=== PATIENT | female | born 1955 | race Caucasian/White ===

== ENCOUNTER 2016-08-10 14:35 | Outpatient (RCR) | payer BC, OTHER ==
[2016-07-10 14:35] LABS: BASOPHILS % (AUTO) 1 % (0-10); EOSINOPHILS # (AUTO) 0.1 10^3/uL (0.0-0.3); EOSINOPHILS % (AUTO) 2 % (0-10); LYMPHOCYTES # (AUTO) 1.4 X 10^3 (1.0-4.0); LYMPHOCYTES % (AUTO) 22 % (12-44); MEAN CORPUSCULAR HEMOGLOBIN 31 PG (25-34); MEAN CORPUSCULAR HGB CONC 33 G/DL (32-36); MEAN CORPUSCULAR VOLUME 96 FL (80-99); MEAN PLATELET VOLUME 11.1 FL (7.4-10.4); MONOCYTES # (AUTO) 0.5 X 10^3 (0.0-1.0); MONOCYTES % (AUTO) 7 % (0-12); NEUTROPHILS # (AUTO) 4.5 X 10^3 (1.8-7.8); NEUTROPHILS % (AUTO) 69 % (42-75); PLATELET COUNT 79 10^3/uL (130-400); RED BLOOD COUNT 6.03 10^6/uL (4.35-5.85); RED CELL DISTRIBUTION WIDTH 14.2 % (10.0-14.5); WHITE BLOOD COUNT 6.5 10^3/uL (4.3-11.0)
[2016-07-10 14:45] LABS: PEP REPORT SEE PATH REPORT
[2016-07-10 15:15] LABS: ERYTHROCYTE SEDIMENTATION RATE 1 MM/HR (0-30)
[2016-07-10 15:16] LABS: ALANINE AMINOTRANSFERASE 20 U/L (0-55); ALBUMIN 4.6 G/DL (3.2-4.5); ANION GAP 12 MMOL/L (5-14); ASPARTATE AMINO TRANSFERASE 19 U/L (5-34); BILIRUBIN,TOTAL 1.2 MG/DL (0.1-1.0); BLOOD UREA NITROGEN 13 MG/DL (7-18); BUN/CREATININE RATIO 19; CALCIUM 9.8 MG/DL (8.5-10.1); CARBON DIOXIDE 29 MMOL/L (21-32); CHLORIDE 101 MMOL/L (98-107); GFR ESTIMATED > 60; GLUCOSE 116 MG/DL (70-105); POTASSIUM 4.2 MMOL/L (3.6-5.0); SODIUM 142 MMOL/L (135-145); TOTAL PROTEIN 7.2 G/DL (6.4-8.2)
[2016-07-11 02:45] LABS: LIGHT CHAIN KAPPA SERUM QUANT 16.18 mg/L (3.30-19.40); LIGHT CHAIN LAMBDA SERUM QUANT 12.66 mg/L (5.71-26.30)
[2016-07-12 15:05] LABS: CLIN PATHOLOGY REPORT FOOTNOTE
[2016-07-12 15:06] LABS: SERUM PROTEIN ELEC DETAIL L-16-0014197
[2016-07-17 11:51] LABS: JAK2 MUTATION Not Detected
[2016-07-19 14:32] LABS: BASOPHILS % (AUTO) 1 % (0-10); EOSINOPHILS # (AUTO) 0.2 10^3/uL (0.0-0.3); EOSINOPHILS % (AUTO) 3 % (0-10); LYMPHOCYTES # (AUTO) 1.7 X 10^3 (1.0-4.0); LYMPHOCYTES % (AUTO) 26 % (12-44); MEAN CORPUSCULAR HEMOGLOBIN 31 PG (25-34); MEAN CORPUSCULAR HGB CONC 32 G/DL (32-36); MEAN CORPUSCULAR VOLUME 96 FL (80-99); MEAN PLATELET VOLUME 12.3 FL (7.4-10.4); MONOCYTES # (AUTO) 0.4 X 10^3 (0.0-1.0); MONOCYTES % (AUTO) 7 % (0-12); NEUTROPHILS % (AUTO) 64 % (42-75); PLATELET COUNT 91 10^3/uL (130-400); RED BLOOD COUNT 5.86 10^6/uL (4.35-5.85); RED CELL DISTRIBUTION WIDTH 14.2 % (10.0-14.5); WHITE BLOOD COUNT 6.3 10^3/uL (4.3-11.0)
[2016-07-19 15:04] LABS: ALANINE AMINOTRANSFERASE 15 U/L (0-55); ALBUMIN 4.2 G/DL (3.2-4.5); ANION GAP 8 MMOL/L (5-14); ASPARTATE AMINO TRANSFERASE 17 U/L (5-34); BILIRUBIN,TOTAL 0.9 MG/DL (0.1-1.0); BLOOD UREA NITROGEN 16 MG/DL (7-18); BUN/CREATININE RATIO 24; CALCIUM 9.8 MG/DL (8.5-10.1); CARBON DIOXIDE 31 MMOL/L (21-32); CHLORIDE 104 MMOL/L (98-107); CREATININE SERUM 0.68 MG/DL (0.60-1.30); GFR ESTIMATED > 60; GLUCOSE 114 MG/DL (70-105); POTASSIUM 4.4 MMOL/L (3.6-5.0); SODIUM 143 MMOL/L (135-145); TOTAL PROTEIN 6.6 G/DL (6.4-8.2)
[~2016-08-10 14:35] MED LIST: ACYC400T PO; ATEN-156 PO; ATOR10TA PO; DIAZ2TAB2 PO; FAMO20TA3 PO
[2016-08-10 14:57] LABS: BASOPHILS % (AUTO) 1 % (0-10); EOSINOPHILS # (AUTO) 0.2 10^3/uL (0.0-0.3); EOSINOPHILS % (AUTO) 3 % (0-10); LYMPHOCYTES # (AUTO) 1.6 X 10^3 (1.0-4.0); LYMPHOCYTES % (AUTO) 24 % (12-44); MEAN CORPUSCULAR HEMOGLOBIN 31 PG (25-34); MEAN CORPUSCULAR HGB CONC 33 G/DL (32-36); MEAN CORPUSCULAR VOLUME 95 FL (80-99); MONOCYTES # (AUTO) 0.5 X 10^3 (0.0-1.0); MONOCYTES % (AUTO) 8 % (0-12); NEUTROPHILS # (AUTO) 4.1 X 10^3 (1.8-7.8); NEUTROPHILS % (AUTO) 64 % (42-75); PLATELET COUNT 94 10^3/uL (130-400); RED BLOOD COUNT 5.92 10^6/uL (4.35-5.85); WHITE BLOOD COUNT 6.4 10^3/uL (4.3-11.0)
[2016-08-10 15:32] LABS: ALANINE AMINOTRANSFERASE 16 U/L (0-55); ALBUMIN 4.5 G/DL (3.2-4.5); ANION GAP 11 MMOL/L (5-14); ASPARTATE AMINO TRANSFERASE 18 U/L (5-34); BLOOD UREA NITROGEN 14 MG/DL (7-18); BUN/CREATININE RATIO 21; CALCIUM 9.9 MG/DL (8.5-10.1); CARBON DIOXIDE 29 MMOL/L (21-32); CHLORIDE 102 MMOL/L (98-107); CREATININE SERUM 0.67 MG/DL (0.60-1.30); GFR ESTIMATED > 60; GLUCOSE 89 MG/DL (70-105); POTASSIUM 4.9 MMOL/L (3.6-5.0); SODIUM 142 MMOL/L (135-145); TOTAL PROTEIN 7.4 G/DL (6.4-8.2)
== END 2016-10-08 | disposition home or self-care (01) ==
LOC: ONC 14:35
PROVIDERS: ATTEND Internal Medicine Hematology & Oncology
DX: D69.6 Thrombocytopenia, unspecified (principal); D75.1 Secondary polycythemia; R09.02 Hypoxemia; R51 Headache; I10 Essential (primary) hypertension; F17.210 Nicotine dependence, cigarettes, uncomplicated
CPT/HCPCS: 36415; 80053; 81270; 82668; 83883; 84155; 84165; 85025; 85652; 99213; 99214

== ENCOUNTER → 2016-09-05 | Outpatient (CLI) | payer BC ==
--- OUTSIDE RECORDS SUMMARY | 2016-09-05 10:43 | XMS REPORT | Continuity of Care Document ---
Author Author [facility] Organization [facility] Address Unknown Phone Unavailable Care Team Providers Care Chemical Radiation Technician Name Role Phone CHIRAG VALENCIA MD PCP Insurance Providers Payer Name Policy Number Subscriber Name Relationship [facility] [id number] Valdemar Higgins D 01 Advance Directives Directive Response Recorded Date/Time Advance Directives No 07/31/16 7:09am Health Care Power of Professional Housing Consultant No 07/31/16 7:09am Organ Donor No 07/31/16 7:09am Resuscitation Status Full Code 07/31/16 7:09am Problems No problem information available. Medications Current Home Medications Medication Dose Units Route Directions Days/Qty Instructions Start Date Atenolol 50 Mg 50 Mg Oral Daily 07/31/16 Acyclovir 400 Mg 400 Mg Oral Daily 07/31/16 Famotidine 20 Mg Oral Twice A Day 07/31/16 Diazepam 2 Mg 2 Mg Oral Daily 07/31/16 Atorvastatin Calcium 10 Mg 10 Mg Oral Daily 90 Days 07/31/16 Social History Social History Problem Response Recorded Date/Time Recent Foreign Travel No 07/31/2016 7:09am Recent Infectious Disease Exposure No 07/31/2016 7:09am Smoking Status Current Everyday Smoker 07/31/2016 7:32am Type Used Cigarettes 07/31/2016 5:23pm Query Response Start Date Stop Date Smoking Status Current Everyday Smoker Hospital Discharge Instructions Patient Instructions Physician Instructions Follow Up/Plan Follow up with Dr Maldonado in one week CARDIAC CATH DISCHARGE INSTRUCTIONS *Hold Metformin for 48 hours post heart cath. ACTIVITY * Go Home directly and rest. * Limit activity of the leg (or wrist if it was used) for 7 days including aerobics, swimming, jogging, bicycling, etc. * Restrict stair-climbing for 7 days if possible, if not, climb up with your non-cath leg, then bring together on the same step. * Avoid lifting, pushing, pulling or excessive movement of the affected extremity for 7 days. * Customary sexual activity may be resumed after 2 days-use caution not to use a position that strains or causes pain to the affected extremity. * No driving for 24 hours. * NO SMOKING. * Avoid straining for bowel movements for 7 days. * Gentle walking on level ground is allowed. * Returning to work will depend on the type of procedure and the results. Your doctor will discuss this with you. CALL YOUR DOCTOR FOR ANY OF THE FOLLOWING: *If bleeding from the puncture site occurs- Apply gentle pressure to site with clean cloth and call your doctor or EMS. * If a knot or lump forms under the skin, increases in size, or causes pain. * If bruising appears to be worsening or moving further down your leg instead of disappearing. * Temperature above 101 F. CARE OF YOUR GROIN INCISION; * Bruising or purple discoloration of the skin near the puncture site is common. * You may shower only, no bathtub bathing for 5 days. Be careful to avoid slipping as your leg may feel stiff. * If a closure device was used on your femoral artery, please see the attached guide regarding care of the device and your leg. * REMOVE the dressing from your groin the next day after your procedure in the shower. CARE OF YOUR WRIST INCISION; * Bruising or purple discoloration of the skin near the puncture site is common. * You may shower. * DO NOT submerge wrist. * Remove dressing in 24 hours. Plan of Care Discharge Date 07/31/16 1:15pm Instructions/Education Provided Low Cholesterol, Saturated Fat, and Trans Fat Diet Prescriptions See Medication Section Functional Status Query Response Date Recorded Patient Orientation Person Place Time Situation July 31, 2016 5:23pm Allergies, Adverse Reactions, Alerts No known allergies. Immunizations No immunization records. Vital Signs Acute Vital Signs Vital Response Date/Time Temperature (Fahrenheit) 97.9 degrees F (97.6 - 99.5) 07/31/2016 1:15pm Temperature (Calculated Celsius) 36.82692 degrees C (36.4 - 37.5) 07/31/2016 1:00pm Temperature Source Temporal 07/31/2016 1:15pm Pulse Rate (adult) 68 bpm (60 - 90) 07/31/2016 1:15pm Respiratory Rate 18 bpm (12 - 24) 07/31/2016 1:15pm O2 Sat by Pulse Oximetry 90 % (88 - 100) 07/31/2016 1:15pm Blood Pressure 129/88 mm Hg 07/31/2016 1:15pm Blood Pressure Mean 102 mm Hg 07/31/2016 1:00pm Pain Numeric Pain Scale 0-No Pain 07/31/2016 1:15pm Height (Feet) 5 feet 07/31/2016 7:08am Height (Inches) 5.00 inches 07/31/2016 7:08am Height (Calculated Centimeters) 165.150831 cm 07/31/2016 7:08am Weight (Pounds) 190 pounds 07/31/2016 7:08am Weight (Ounces) 0.0 oz 07/31/2016 7:08am Weight (Calculated Grams) 08074.55 gm 07/31/2016 7:08am Weight (Calculated Kilograms) 86.906763 kilograms 07/31/2016 7:08am Calculated BMI 31.6 07/31/2016 7:08am Capillary Refill Capillary Refill Less Than 3 Seconds 07/31/2016 1:00pm Results Laboratory Results Test Name Result Units Flags Reference Collection Date/Time Result Date/ Time Comments White Blood Count 6.3 10^3/uL 4.3-11.0 07/19/2016 2:25pm 07/19/2016 2: 34pm Red Blood Count 5.86 10^6/uL H 4.35-5.85 07/19/2016 2:25pm 07/19/2016 2: 34pm Hemoglobin 18.3 G/DL H 11.5-16.0 07/19/2016 2:25pm 07/19/2016 2:34pm Hematocrit 56 % H 35-52 07/19/2016 2:25pm 07/19/2016 2:34pm Mean Corpuscular Volume 96 FL 80-99 07/19/2016 2:2507/19/2016 2: 34pm Mean Corpuscular Hemoglobin 31 PG 25-34 07/19/2016 2:2507/19/2016 2: 34pm Mean Corpuscular Hemoglobin Concent 32 G/DL 32-36 07/19/2016 2:25 2:34pm Red Cell Distribution Width 14.2 % 10.0-14.5 07/19/2016 2:252015 2:34pm Platelet Count 91 10^3/uL L 130-400 07/19/2016 2:2507/19/2016 2:34pm Mean Platelet Volume 12.3 FL H 7.4-10.4 07/19/2016 2:2507/19/2016 2: 34pm Neutrophils (%) (Auto) 64 % 42-75 07/19/2016 2:25pm 07/19/2016 2:34pm Lymphocytes (%) (Auto) 26 % 12-44 07/19/2016 2:2507/19/2016 2:34pm Monocytes (%) (Auto) 7 % 0-12 07/19/2016 2:2507/19/2016 2:34pm Eosinophils (%) (Auto) 3 % 0-10 07/19/2016 2:25pm 07/19/2016 2:34pm Basophils (%) (Auto) 1 % 0-10 07/19/2016 2:25pm 07/19/2016 2:34pm Neutrophils # (Auto) 4.0 X 10^3 1.8-7.8 07/19/2016 2:07/19/2016 2: 34pm Lymphocytes # (Auto) 1.7 X 10^3 1.0-4.0 07/19/2016 2:25pm 07/19/2016 2: 34pm Monocytes # (Auto) 0.4 X 10^3 0.0-1.0 07/19/2016 2:25pm 07/19/2016 2: 34pm Eosinophils # (Auto) 0.2 10^3/uL 0.0-0.3 07/19/2016 2:25pm 07/19/2016 2 :34pm Basophils # (Auto) 0.0 10^3/uL 0.0-0.1 07/19/2016 2:2507/19/2016 2: 34pm Erythrocyte Sedimentation Rate 1 MM/HR 0-30 07/10/2016 2:30pm 2015 3:15pm Sodium Level 143 MMOL/L 135-145 07/19/2016 2:07/19/2016 3:07pm Potassium Level 4.4 MMOL/L 3.6-5.0 07/19/2016 2:07/19/2016 3:07pm Chloride Level 104 MMOL/L 98-107 07/19/2016 2:07/19/2016 3:07pm Carbon Dioxide Level 31 MMOL/L 21-32 07/19/2016 2:07/19/2016 3: 07pm Anion Gap 8 MMOL/L 5-14 07/19/2016 2:07/19/2016 3:07pm Blood Urea Nitrogen 16 MG/DL 7-18 07/19/2016 2:07/19/2016 3:07pm Creatinine 0.68 MG/DL 0.60-1.30 07/19/2016 2:07/19/2016 3:07pm BUN/Creatinine Ratio 24 07/19/2016 2:07/19/2016 3:07pm Estimat Glomerular Filtration Rate > 60 07/19/2016 2:2015 3:07pm GFR INTERPRETIVE DATA UNITS FOR ESTIMATED GFR (eGFR): mL/min/1.73 M2 REFERENCE RANGE FOR ESTIMATED GFR (eGFR) eGFR NORMAL eGFR >60 MODERATELY DECREASED eGFR 30-59 SEVERLY DECREASED eGFR 15-29 KIDNEY FAILURE <15 (OR DIALYSIS) Glucose Level 114 MG/DL H 70-105 07/19/2016 2:07/19/2016 3:07pm Calcium Level 9.8 MG/DL 8.5-10.1 07/19/2016 2:07/19/2016 3:07pm Total Bilirubin 0.9 MG/DL 0.1-1.0 07/19/2016 2:07/19/2016 3:07pm Alkaline Phosphatase 53 U/L 40-136 07/19/2016 2:07/19/2016 3:07pm Aspartate Amino Transf (AST/SGOT) 17 U/L 5-34 07/19/2016 2:2015 3:07pm Alanine Aminotransferase (ALT/SGPT) 15 U/L 0-55 07/19/2016 2:25pm 07/19 3:07pm Total Protein 6.6 G/DL 6.4-8.2 07/19/2016 2:25pm 07/19/2016 3:07pm Albumin 4.2 G/DL 3.2-4.5 07/19/2016 2:25pm 07/19/2016 3:07pm Erythropoietin 8.8 mIU/mL 2.5-18.4 07/10/2016 2:30pm 07/13/2016 7:17am Test performed at [facility], CLIA# [id number] [address] [place] [address] Total Protein (PEP) 7.2 g/dL 6.5-8.2 07/10/2016 2:30pm 07/11/2016 7: 28am Test performed at [facility], CLIA# [id number] [address] [place] [address] Protein Electrophoresis Pathologist SEE PATH REPORT 07/10/2016 2: 30pm 07/12/2016 3:06pm Protein Electrophoresis Note [id number] 07/10/2016 2:30pm 2015 3:06pm Free Disney Light Chains, Quant 16.18 mg/L 3.30-19.40 07/10/2016 2:30pm 07/11/2016 7:37am Free Lambda Light Chains, Quant 12.66 mg/L 5.71-26.30 07/10/2016 2:30pm 07/11/2016 7:37am Free Disney/Lambda Light Chain Ratio 1.28 ratio 0.26-1.65 07/10/2016 2: 30pm 07/11/2016 7:37am Test performed at [facility], CLIA# [id number] [address] [place] [address] Pathology Specimen Result FOOTNOTE 07/10/2016 2:30pm 07/12/2016 3: 05pm Urbano Higgins Clinical Pathology Report Accession Number Collected Date/Time Verified Date/Time [id number] 07/10/16 3:16:00 PM 07/12/16 12:09:48 PM Interpretation Serum protein electrophoresis and free light chain analysis - Normal findings, with no evidence of a monoclonal gammopathy. ICD-10: E88.09 Nichole Calix M.D. Ph.D Pathologist (Electronic Signature) CRS 07/12/2016 Performing Location: [facility] [place], [place] Electrophoresis FRACTION G/DL NORMAL RANGE TOTAL PROTEIN 7.2 6.5 - 8.2 ALBUMIN 4.4 3.5 - 4.8 ALPHA-1 0.3 0.2 - 0.5 ALPHA-2 0.8 0.5 - 1.2 BETA 0.7 0.6 - 1.2 GAMMA 1.0 0.5 - 1.5 Serum Free Light Chain Analysis FRACTION MG/L NORMAL RANGE Free Disney 16.18 3.30 - 19.40 Free Lambda 12.66 5.71 - 26.30 Free Ratio 1.28 0.26 - 1.65 Specimen Serum Pending Laboratory Results Test Name Collection Date/Time Procedures Procedure Status Date Provider(s) Color Doppler echocardiography Active 07/17/16 Lana MALDONADO MD Tracing only of electrocardiogram Completed 07/31/16 Lana MALDONADO MD Encounters Encounter Location Arrival/Admit Date Discharge/Depart Date Attending Provider Departed [facility] 07/31/16 6:58am 1:15pm Lana MALDONADO MD Registered Clinic [facility] 07/24/16 9:11am ELLA MORAN MD Registered Clinic [facility] 07/20/16 6:44am Lana MALDONADO MD Registered Recurring [facility] 07/19/16 2:11pm ELLA MORAN MD Registered Clinic [facility] 07/17/16 11:03am Lana MALDONADO MD Registered Clinic [facility] 07/17/16 6:55am ELLA MORAN MD
[2016-09-05 11:12] LABS: ABG BASE EXCESS 2.4 MMOL/L (-2.5-2.5); ABG HCO3 29 MMOL/L (23-27); ABG OXYGEN SATURATION 95 % (94-100); ABG PCO2 48 MMHG (35-45); ABG PH 7.39 (7.37-7.43); ABG PO2 63 MMHG (79-93); ABG TCO2 30.3 MMOL/L (21.0-31.0)
[2016-09-05 11:14] LABS: ALLENS TEST YES-POS; PATIENT TEMP 96.5
== END ==
LOC: RT 10:38
PROVIDERS: ATTEND Nurse Practitioner Family
DX: R06.02 Shortness of breath (principal); Z72.0 Tobacco use
CPT/HCPCS: 82805

== ENCOUNTER → 2016-09-13 | Outpatient (CLI) | payer BC ==
[~2016-09-13] MED LIST changes: +RT-ALBUTEROL SULF 2.5 MG/3 ML PRE-MIX VIAL INH ONE
--- OUTSIDE RECORDS SUMMARY | 2016-09-13 16:58 | XMS REPORT | Continuity of Care Document ---
Author Author [facility] Organization [facility] Address Unknown Phone Unavailable Care Team Providers Care Dental Financial Coordinator Name Role Phone CHIRAG VALENCIA MD PCP Insurance Providers Payer Name Policy Number Subscriber Name Relationship [facility] [id number] Valdemar Higgins D 01 Advance Directives Directive Response Recorded Date/Time Advance Directives No 07/31/16 7:09am Health Care Power of Ham Pumper No 07/31/16 7:09am Organ Donor No 07/31/16 [...] - 99.5) 07/31/2016 1:15pm Temperature (Calculated Celsius) 36.79594 degrees C (36.4 - 37.5) 07/31/2016 1:00pm [...] 5.00 inches 07/31/2016 7:08am Height (Calculated Centimeters) 165.094471 cm 07/31/2016 7:08am Weight (Pounds) 190 pounds 07/31/2016 7:08am Weight (Ounces) 0.0 oz 07/31/2016 7:08am Weight (Calculated Grams) 14023.55 gm 07/31/2016 7:08am Weight (Calculated Kilograms) 86.781775 kilograms 07/31/2016 7:08am Calculated BMI 31.6 07/31/2016 [...] 07/10/2016 2:30pm 07/13/2016 7:17am Test performed at [facility], CLIA# [id number] [address] [place] [address] Total Protein (PEP) 7.2 g/dL 6.5-8.2 07/10/2016 2:30pm 07/11/2016 7: 28am Test performed at [facility], CLIA# [id number] [address] [place] [address] Protein Electrophoresis Pathologist SEE PATH REPORT 07/10/2016 2: 30pm 07/12/2016 3:06pm Protein Electrophoresis Note [id number] 07/10/2016 2:30pm 2015 3:06pm Free [place] Light Chains, Quant 16.18 mg/L 3.30-19.40 07/10/2016 2:30pm 07/11/2016 7:37am Free Lambda Light Chains, Quant 12.66 mg/L 5.71-26.30 07/10/2016 2:30pm 07/11/2016 7:37am Free [place]/Lambda Light Chain Ratio 1.28 ratio 0.26-1.65 07/10/2016 2: 30pm 07/11/2016 7:37am Test performed at [facility], CLIA# [id number] [address] [place] [address] Pathology Specimen Result FOOTNOTE 07/10/2016 2:30pm 07/12/2016 3: 05pm Urbano Higgins Clinical Pathology Report Accession Number Collected Date/Time Verified Date/Time [id number] 07/10/16 3:16:00 PM 07/12/16 12:09:48 PM Interpretation Serum protein electrophoresis and free light chain analysis - Normal findings, with no evidence of a monoclonal gammopathy. ICD-10: E88.09 Nichole Calix M.D. Ph.D Pathologist (Electronic Signature) CRS 07/12/2016 Performing Location: [facility] [place], [place] Electrophoresis FRACTION G/DL NORMAL RANGE TOTAL PROTEIN 7.2 6.5 - 8.2 ALBUMIN 4.4 3.5 - 4.8 ALPHA-1 0.3 0.2 - 0.5 ALPHA-2 0.8 0.5 - 1.2 BETA 0.7 0.6 - 1.2 GAMMA 1.0 0.5 - 1.5 Serum Free Light Chain Analysis FRACTION MG/L NORMAL RANGE Free [place] 16.18 3.30 - 19.40 Free Lambda 12.66 5.71 - 26.30 Free Ratio 1.28 0.26 - 1.65 Specimen Serum Pending Laboratory Results Test Name Collection Date/Time Procedures Procedure Status Date Provider(s) Color Doppler echocardiography Active 07/17/16 Lana MALDONADO MD Tracing only of electrocardiogram Completed 07/31/16 Lana MALDONADO MD Encounters Encounter Location Arrival/Admit Date Discharge/Depart Date Attending Provider Departed [facility] Day [facility] 07/31/16 6:58am 1:15pm Lana MALDONADO MD Registered Clinic [facility] 07/24/16 9:11am ELLA MORAN MD Registered Clinic [facility] 07/20/16 6:44am Lana MALDONADO MD Registered Recurring [facility] 07/19/16 2:11pm ELLA MORAN MD Registered Clinic [facility] 07/17/16 11:03am Lana MALDONADO MD Registered Clinic [facility] 07/17/16 6:55am ELLA MORAN MD
== END ==
LOC: RT 16:54
PROVIDERS: ATTEND Internal Medicine Critical Care Medicine
DX: D75.1 Secondary polycythemia (principal); R06.02 Shortness of breath; Z72.0 Tobacco use
CPT/HCPCS: 94060; 94640; 94726; 94729

== ENCOUNTER 2019-01-30 05:40 | Outpatient (CLI) | payer BC ==
[~2019-01-30] VITALS: Ht 165.1 cm; Wt 86.2 kg
[~2019-01-30 05:40] MED LIST changes: -RT-ALBUTEROL SULF 2.5 MG/3 ML PRE-MIX VIAL INH ONE
[2019-01-30] MEDS ORDERED: TOPI25TA10 PO (13:29)
[2019-01-30] MEDS ORDERED: OXYC-529 PO (13:29)
[2019-01-30] MEDS ORDERED: DOCU100T7 PO (13:29)
[2019-01-30] MEDS ORDERED: METO-370 PO (13:29)
[2019-01-30] MEDS ORDERED: NICO-588 TD (13:29)
== END 2019-01-30 13:40 | disposition home or self-care (01) ==
LOC: PREOP 05:40
PROVIDERS: ATTEND Surgery
DX: Z01.818 Encounter for other preprocedural examination (principal)

== ENCOUNTER 2019-02-05 07:51 | Day surgery (SDC) | payer BC ==
[~2019-02-05] VITALS: Ht 165.1 cm; Wt 81.2 kg
[2019-02-05] VITALS (7 sets, daily range): BP systolic 100–118; BP diastolic 69–82
[~2019-02-05 07:51] MED LIST changes: +DOCU100T7 PO; +METO-370 PO; +NICO-588 TD; +OXYC-529 PO; +TOPI25TA10 PO
[2019-02-05] MEDS ORDERED: ceFAZolin 2 GM/50 ML NS 50 ML IV ONE (08:15)
[2019-02-05] MEDS ORDERED: CATHETER FLUSH 10 ML SYR IV PRN (08:30)
[2019-02-05] MEDS: LACTATED RINGERS 1,000 ML IV PRN ×2 (08:44→10:58)
--- NOTE | 2019-02-05 08:46 | Progress Note-Pre Operative ---
Pre-Operative Progress Note H&P Reviewed The H&P was reviewed, patient examined and no changes noted. Time Seen by Provider: 08:36 Date H&P Reviewed: Feb 05, 2019 Time H&P Reviewed: 08:37 Pre-Operative Diagnosis: Venous insufficiency, Lung CA RAY DRAPER DO Feb 05, 2019 08:46
[2019-02-05] MEDS ORDERED: MIDAZOLAM 2 MG/2 ML (VERSED) VIAL ONE ×2 (09:37→10:15)
[2019-02-05] MEDS ORDERED: HEParin (CENTRAL IV FLUSH) 500 UNIT/5 ML SYR ONE (09:39)
[2019-02-05] MEDS ORDERED: BUP/EPI 0.5% 1:200,000 (SENSORCAINE) 30 ML VIAL ONE (09:39)
[2019-02-05] MEDS ORDERED: 0.9% SODIUM CHLORIDE PF INJ 20 ML VIAL ONE (09:39)
[2019-02-05] MEDS ORDERED: LIDOCAINE 1% INJ 20 ML 20 ML VIAL ONE (09:39)
[2019-02-05] MEDS ORDERED: KETAMINE/NaCl 50 MG/5 ML SYRINGE ONE (09:45)
[2019-02-05] MEDS ORDERED: proPOfol 200 MG/20 ML (DIPRIVAN) VIAL IV ONE (09:51)
--- NOTE | 2019-02-05 10:51 | Progress Note-Post Operative ---
Post-Operative Progess Note Surgeon (s)/Service Cashier (s) Surgeon RAY DRAPER DO Service Cashier: none Pre-Operative Diagnosis Venous insufficiency, Lung CA Post-Operative Diagnosis same Procedure & Operative Findings Date of Procedure 02/05/19 Procedure Performed/Findings jordy-cath Anesthesia Type IV sedation by TELEPHONIC CASE MANAGER Estimated Blood Loss Estimated blood loss (mL): scant Specimens/Packing Specimens Removed none RAY DRAPER DO Feb 05, 2019 10:51
--- NOTE | 2019-02-05 10:53 | Discharge Inst-Surgical ---
Discharge Inst-Surgical Depart Medication/Instructions New, Converted or Re-Newed RX: Other (pt has pain meds at home) Patient Instructions Follow up Appt: Make appointment for 1 week. [phone] Instructions: May shower in 24 hours, no tub bath or soaking. Use incentive spirometer at home as directed. No Smoking Skin/Wound Care: May remove bandages in am. You need to leave the Dermabond on incision it will fall off on it's own. Symptoms to Report: Appetite Changes, Extremity Discoloration, Numbness/Tingling, Swelling Increased, Bleeding Excessive, Eyesight Changes, Pain Increased, Urine Color Change, Constipation(Persistent), Fever over 101 degree F, Pain/Pressure in chest, Urinating Difficulty, Cough Up/Vomit Blood, Heart Beat Irreg/Pounding, Pain/Pressure in jaw, Cramps in feet or legs, Lightheadedness, Pain/Pressure in shoulder, Diarrhea(Persistent), Memory Changes Suddenly, Questions/Concerns, Weight gain consecutive days, Dizziness/Fainting, Nausea/Vomiting, Shortness of Breath, Weight gain over 2 pounds If questions or concerns contact your physician Or seek help at emergency department. Activity Activity as Tolerated: Yes Activity Instructions: Avoid Stress to Incision Driving Instructions: No Driving/Refer to Diet Discharge Diet: No Restrictions Diet After 24 Hours: Clear Liquid if Nauseous If Any Problems/Questions/Issu: Contact Your Physician, Go to Emergency Room Skin/Wound Care Infection Signs and Symptoms: Increased Redness, Foul Odor of Wound, Increased Drainage, Skin Itchy or Has a Rash, Increased Swelling, Temperature Above 101 F Bathing Instructions: Shower Stitches/Ej/Dermabond Dis: Dermabond Ice Pack: Ice On and Off Site (as needed for pain) RAY DRAPER DO Feb 05, 2019 10:53
[2019-02-05] MEDS ORDERED: ONDANSETRON 4 MG/2 ML (SDV) Z0FRAN IVP PRN (11:15)
[2019-02-05] MEDS ORDERED: morphine INJ 10 MG/ML 1ML (SYR OR VIAL) IVP ONE (11:15)
--- NOTE | 2019-02-05 11:33 | Anesthesia-General Post-Op ---
MAC Patient Condition Mental Status/LOC: Same as Preop Cardiovascular: Satisfactory Nausea/Vomiting: Absent Respiratory: Satisfactory Pain: Controlled Complications: Absent Post Op Complications Complications None Follow Up Care/Instructions Patient Instructions None needed. Anesthesiology Discharge Order Discharge Order Patient is doing well, no complaints, stable vital signs, no apparent adverse anesthesia problems. No complications reported per nursing. ASHLEY THOMAS CRNA Feb 05, 2019 11:33
--- NOTE | 2019-02-05 12:36 | Diagnostic Imaging Report ---
Indication: Port-A-Cath placement. Comparison: None Total fluoroscopy time: 4.1 seconds Findings: Single intraoperative image intensifier view of the left chest was obtained during Port-A-Cath placement. Image provided shows a left subclavian approach. Central tip of the catheter is not included on the exam. Image provided is suboptimal to assess for pneumothorax given the fluoroscopic modality. Please note, interpreting radiologist was not present during the procedure. Impression: 1. Fluoroscopic guidance provided during Port-A-Cath placement. Dictated by: Dictated on workstation # [id number]
--- NOTE | 2019-02-05 15:45 | OPERATIVE REPORT ---
DATE OF SERVICE: PREOPERATIVE DIAGNOSES: 1. Venous insufficiency. 2. Lung cancer. POSTOPERATIVE DIAGNOSES: 1. Venous insufficiency. 2. Lung cancer. PROCEDURE: Insertion of Port-A-Cath left anterior chest wall, left subclavian vein. SURGEON: Kirk WESTBROOK ASSISTANT: None. ANESTHESIA: IV sedation by the anesthesiologist. SPECIMENS: None. BLOOD LOSS: Scant. FLUIDS: Per anesthesia. POSTOPERATIVE CONDITION: Stable. INDICATION FOR PROCEDURE: The patient is a 63-year-old female who unfortunately has recently diagnosed with lung cancer, needs Port-A-Cath for long-term IV chemotherapy. FINDINGS: The patient had a Port-A-Cath placed in left anterior chest wall, left subclavian vein. PROCEDURE NOTE: After informed consent was obtained, the patient was brought to the operating room, placed on the table in supine position. She was sterilely prepped and draped in normal fashion. Local lidocaine was used to infiltrate the skin towards the clavicle as well as then towards the left anterior chest wall where we would create a pocket for the Port-A-Cath. The patient was placed slightly Trendelenburg and then 18-gauge fine needle was advanced under negative inspiration, cannulated the vein on the second attempt. Good flash of blood, removed the syringe, placed a guidewire Using Seldinger technique, it went in easily and checked with fluoroscopy, it was in good position, removed the needle, made a stab incision along the guidewire and then made an incision in the left anterior chest wall with #11 blade, carried down to skin and subcutaneous tissue, deepened down to subcutaneous tissue with Bovie electrocautery down to the fascia of the pectoralis muscle and then placed a 3-0 Prolene suture. Hemostasis obtained using Bovie electrocautery. Over the guidewire, placed a dilator using Seldinger technique and then tunneled the catheter from the stab incision into the pocket, checked for position and the dilator was in good position, removed the inner portion of the dilator as well as a guidewire and then placed the catheter down the dilator using Seldinger technique and removed the catheter, checked position, was in good position. At this point, then connected the catheter to the port and then placed a locking mechanism, accessed it with a Chavez needle, good flash of blood and then flushed with saline, sutured this in place with 3-0 Prolene, put this in the pocket created in the left anterior chest wall and then closed the subcutaneous tissue with 3-0 Vicryl, 2 interrupted sutures, then closed the skin with 4-0 undyed Monocryl, 3 interrupted subcuticular stitches, then accessed the port with butterfly Chavez needle and then aspirated good flush of blood, flushed with saline and then aspirated and flushed with 2 mL of heparin. Area was then cleaned and dried. Dermabond used to close the incision. Tegaderm placed. The patient tolerated the procedure. Sponge, instrument and needle count correct at the end of the case. Job ID: [id number] DocumentID: [id number] Dictated Date: 02/05/2019 10:51:10 Retail Store Clerk Date: 02/05/2019 15:45:04 Dictated By: KIRK DRAPER DO
== END 2019-02-05 12:44 | disposition home or self-care (01) ==
LOC: SDC 07:51
PROVIDERS: ATTEND Surgery
DX: I87.2 Venous insufficiency (chronic) (peripheral) (principal); C34.90 Malignant neoplasm of unspecified part of unspecified bronchus or lung; I10 Essential (primary) hypertension; E78.5 Hyperlipidemia, unspecified; M19.91 Primary osteoarthritis, unspecified site; I25.10 Atherosclerotic heart disease of native coronary artery without angina pectoris; D69.6 Thrombocytopenia, unspecified; D75.1 Secondary polycythemia; G43.909 Migraine, unspecified, not intractable, without status migrainosus; F32.9 Major depressive disorder, single episode, unspecified; J44.9 Chronic obstructive pulmonary disease, unspecified; Z87.891 Personal history of nicotine dependence; Z92.3 Personal history of irradiation; Z79.899 Other long term (current) drug therapy
CPT/HCPCS: 87081

== ENCOUNTER 2019-03-27 10:27 | Inpatient (IN) | payer BC ==
[2019-03-27] VITALS (9 sets, daily range): BP systolic 103–128; BP diastolic 69–94
[~2019-03-27] VITALS: Ht 165.1 cm; Wt 82.3 kg
--- OUTSIDE RECORDS SUMMARY | 2019-03-27 10:32 | XMS REPORT | Encounter Summary ---
Author Author [facility] Organization [facility] Address Unknown Phone Unavailable Care Team Providers Care Industrial Truck Operator Name Role Phone Vicky Ritter MD PCP Encounter Details Care Team Description Date [place] [address] [place] [address] 07/13/2016 Documentation [facility] [address] [place], [place] [id number] Social History Date Tobacco Use Types Packs/Day Years Used Current Every Day Smoker Smokeless Tobacco: Never Used Comments: has script to chantix Drinks/Week oz/Week Comments Alcohol Use Drinks a lot Yes Sex Assigned at Date Recorded Not on file Industry Job Start Date Occupation Not on file Not on file Not on file Travel End Travel History Travel Start No recent travel history available. documented as of this encounter Plan of Treatment Not on filedocumented as of this encounter Visit Diagnoses Not on filedocumented in this encounter
--- OUTSIDE RECORDS SUMMARY | 2019-03-27 10:32 | XMS REPORT | Encounter Summary ---
Author Author [facility] Organization [facility] Address Unknown Phone Unavailable Care Team Providers Care Vendor Manager Name Role Phone Vicky Ritter MD PCP Reason for Referral * MRI/CAT/PET Scan (Routine) Referred By Contact Referred To Contact Status Reason Specialty Diagnoses / [place] [address] [place] [address] [place] [address] Closed Diagnoses Adrenal cortical adenoma of left adrenal gland P rocedures CT Abdomen w wo contrast Encounter Details Care Team Description Date [place] [address] [place], [place] [id number] Adrenal cortical adenoma of left adrenal gland (Primary Dx) 07/13/2016 Orders Only [facility] [address] [place], [place] [id number] Social History Date Tobacco Use Types Packs/Day [...] as of this encounter Plan of Treatment Order Schedule Name Type Priority Associated Diagnoses 1 Occurrences starting 07/13/2016 until 07/13/2017 CT Abdomen w wo contrast Imaging Routine Adrenal cortical adenoma of left adrenal gland documented as of this encounter Visit Diagnoses Diagnosis Adrenal cortical adenoma of left adrenal gland - Primary documented in this encounter
--- OUTSIDE RECORDS SUMMARY | 2019-03-27 10:32 | XMS REPORT | Encounter Summary ---
Author Author [facility] Organization [facility] Address Unknown Phone Unavailable Care Team Providers Care Material Handler 1St Shift Name Role Phone Vicky Ritter MD PCP Encounter Details Care Team Description Date Type Department Mary Hickman RN 07/26/2016 Telephone [facility] [address] [place] [address] Social History Date Tobacco Use Types Packs/Day [...] history available. documented as of this encounter Miscellaneous Notes * Telephone Encounter - Mary Hickman RN - 07/26/2016 1:35 PM TEST DRIVER Pt reports outside facilities sent CT report (and is scanned in today) we do NO T have the labs yet. Pt will call the lab and give them our fax number DRIVER documented in this encounter Plan of Treatment Not on filedocumented as of this encounter Visit Diagnoses Not on filedocumented in this encounter
--- OUTSIDE RECORDS SUMMARY | 2019-03-27 10:32 | XMS REPORT | Encounter Summary ---
Author Author [facility] Organization [facility] Address Unknown Phone Unavailable Care Team Providers Care Hourly Manager Name Role Phone Vicky Ritter MD PCP Encounter Details Care Team Description Date [place] [address] [place], [place] [id number] 07/31/2016 Telephone [facility] [address] [place], [place] [phone] Social History Date Tobacco Use Types Packs/Day [...] encounter Miscellaneous Notes * Telephone Encounter - Rossy Santana RN - 07/31/2016 4:11 PM AIRCRAFT POWERTRAIN REPAIRER . RAFT POWERTRAIN REPAIRER documented in this encounter Plan of Treatment Not on filedocumented as of this encounter Visit Diagnoses Not on filedocumented in this encounter
--- OUTSIDE RECORDS SUMMARY | 2019-03-27 10:32 | XMS REPORT | Encounter Summary ---
Author Author [facility] Organization [facility] Address Unknown Phone Unavailable Care Team Providers Care Superintendent Of Generation Name Role Phone Vicky Ritter MD PCP Encounter Details Care Team Description Date [place] [address] [place], [place] [phone] 07/25/2016 Orders Only [facility] [address] [place], [place] [id number] Social History Date Tobacco Use Types Packs/Day [...] history available. documented as of this encounter Progress Notes * Digna Saucedo MD - 08/01/2016 9:42 AM DAY WORKER Please let her know that the CT scan of the abdomen does show a left sided adren al adenoma. Hormonal testing is negative. The adenoma has not changed since 23 07 as compared to previous scan. She should have repeat CT scan of the abdomen in a couple of years for follow-up. WORKER documented in this encounter Plan of Treatment Not on filedocumented as of this encounter Procedures Comments Procedure Name Priority Date/Time Associated Diagnosis CT OUTSIDE RECORD Routine 07/25/2016 documented in this encounter Results * CT Outside Record (07/25/2016) Specimen Narrative Performed At documented in this encounter Visit Diagnoses Not on filedocumented in this encounter
--- OUTSIDE RECORDS SUMMARY | 2019-03-27 10:32 | XMS REPORT | Encounter Summary ---
Author Author [facility] Organization [facility] Address Unknown Phone Unavailable Care Team Providers Care Manager Development Name Role Phone Vicky Ritter MD PCP Reason for Visit * Reason Comments Establish Care Adrenal Problem Was told her adrenal gland has cyst on it non cancerous * Consultation (Routine) Referred By Contact Referred To Contact Status Reason Specialty Diagnoses / Procedures Vicky Ritter MD [address] [place] [address] [address] [place] [address] [place] [address] Closed Specialty Services Endocrinology Diagnoses Required Adrenal adenoma, left Encounter Details Care Team Description Date [place] [address] [place], [place] [phone] Adrenal adenoma, left; Adrenal cortical adenoma of left adrenal gland; Thrombocytopenia (HCC); Tobacco use; Chronic nonintractable headache, unspecified headache type; Polycythemia 07/13/2016 Initial consult [facility] [address] [place], [place] [id number] Social History Date Tobacco Use Types Packs/Day Years Used Current Every Day Smoker Smokeless Tobacco: Never Used Tobacco Cessation: Ready to Quit: Yes Comments: has script to chantix Drinks/Week oz/Week Comments Alcohol Use Drinks a lot Yes Sex Assigned at Date Recorded Not on file Industry Job Start Date Occupation Not on file Not on file Not on file Travel End Travel History Travel Start No recent travel history available. documented as of this encounter Last Filed Vital Signs Reading Time Taken Comments Vital Sign 126/80 07/13/2016 10:54 AM DIPPER OPERATOR Blood Pressure 80 07/13/2016 10:54 AM DIPPER OPERATOR Pulse - - Temperature - - Respiratory Rate - - Oxygen Saturation - - Inhaled Oxygen Concentration 84.8 kg (187 lb) 07/13/2016 10:54 AM DIPPER OPERATOR Weight 163 cm (5' 4.17") 07/13/2016 10:54 AM DIPPER OPERATOR Height 31.93 07/13/2016 10:54 AM DIPPER OPERATOR Body Mass Index documented in this encounter Progress Notes * Digna Saucedo MD - 08/01/2016 9:40 AM DIPPER OPERATOR All labs OK. ER OPERATOR * Digna Saucedo MD - 07/13/2016 10:40 AM DIPPER OPERATOR Chief Complaint Patient presents with Establish Care Adrenal Problem Was told her adrenal gland has cyst on it non cancerous HPI: Mary Ulloa is a 60 y.o. female who comes to clinic today for initial vi sit regarding an adrenal nodule noted on CT scan. She is accompanied by her son . She reports that 4 or 5 years ago she had a CT scan of the abdomen done for a bdominal pain and she was noted to have an adrenal adenoma. She was told that i t looked benign and nothing needed to be done. In that timeframe she lost insur ance and was not able to follow with a physician. Recently she regained insuran ce and establish care with Dr. Ritter. Due to complaints of abdominal pain na usea and vomiting she had a CT scan of the abdomen done which revealed a 2.8 cm left adrenal adenoma. It had an attenuation of 67 hounsefield. Units and on 3 minute delay the attenuation decreased to 29 hounse field units. It was recomme nded that she see endocrinology. She reports also having seen a front window cashier fo r thrombocytopenia and elevated hemoglobin and hematocrit. She reports she has a CT scan of the head which she will be doing next week to evaluate the headache s that she has been experiencing. She is a chronic smoker of 2 packs per day ho wever has a prescription for Chantix that she is planning to start in order to q uit. She reports chronic headaches of more than 5 years duration and wakes up with a headache every morning. She notes that she has to use readers for decrease in v ision. She denies any difficulty swallowing hoarseness or voice change. She re ports no chest pain or breathing problems per se. She has off and on nausea and vomiting as well as constipation or loose stool. She reports no significant ch anges in her weight. She is postmenopausal. No excessive hair growth. She rep orts mild depression as well as anxiety but not on any medication. She notes al ternating heat and cold intolerance. She has not noticed any stretch marcelino on h er abdomen and has had no fractures. She denies being diabetic. She has hypert ension and was recently started on metoprolol. She reports no symptoms of panic attack. She notes occasional muscle and joint pains but nothing out of the ord inary. She notes no problems with sleep. She denies intake of licorice. She r eports marijuana use 2-3 times per week no other drug use. She denies any other intake of herbal or ssmt-stk-huevkry supplements. She reports no use of steroi ds on a chronic basis either by oral route or intra-articular injections or merida sdermal route. Recent labs showed a normal sodium but potassium was slightly el evated however a note was made that the specimen was hemolyzed. However her pre vious potassium levels have been normal. She has had normal kidney function. O f note her hemoglobin on recent testing was 19.6 and previously also has been el evated with a hematocrit of 59. White count was normal and platelet count was 9 2,000 with previous values ranging from 87,000 up to 138,000 since 2010. Her ou tside medical records which I have reviewed and elucidated in my note are chasidy das into her chart as well. PMH Past Medical History Diagnosis Date Acid reflux PSH Past Surgical History Procedure Laterality Date Cholecystectomy Breast cyst removed Bunionectomy Bilateral 1996 Foot surgery Social: Social History Substance Use Topics Smoking status: Current Every Day Smoker Smokeless tobacco: Never Used Comment: has script to chantix Alcohol use Yes Comment: Drinks a lot Family History Problem Relation Age of Onset Thyroid disease Mother Kidney failure Mother Diabetes Mother Atrial fibrillation Mother Skin cancer Mother Skin cancer Maternal Uncle Stroke Maternal Uncle Allergy: No Known Allergies Meds: Prior to Admission medications Not on File ROS: A 10 point review of systems was negative except as in history of present illnes s. Physical Examination: Visit Vitals BP 126/80 (BP Location: Right arm, Patient Position: Sitting, Cuff size: Med ium) Pulse 80 Ht 1.63 m (5' 4.17") Wt 84.8 kg (187 lb) BMI 31.93 kg/m2 GEN: Alert, oriented, no apparent distress, no facial plethora, fullness, no luigi denise cervical fat pad HEENT: Head : Normal Eyes: Normal conjunctivae, PERRLA, EOMI, no icterus Oropharynx: Normal, Neck: Supple, no thyromegaly RESP: Clear to auscultation bilaterally CVS: Regular rate and rhythm, S1 S2 normal, no murmur ABDOMEN: Soft, mild tenderness to palpation diffusely without rebound or guardin g, bowel sounds present EXT: No edema NEURO: Cranial nerves 2- 12 intact, reflexes normal. PSYCH: Normal mood and affect SKIN: No striae, excessive hair growth Patient Active Problem List Diagnosis SNOMED CT(R) Adrenal cortical adenoma of left adrenal gland ADRENAL CORTICAL ADENOMA Thrombocytopenia PLATELET COUNT BELOW REFERENCE RANGE Tobacco use TOBACCO USER Chronic headaches CHRONIC HEADACHE DISORDER Polycythemia ERYTHROCYTOSIS Mary was seen today for establish care and adrenal problem. Diagnoses and all orders for this visit: Adrenal adenoma, left - She has a 2.8 cm left adrenal adenoma and it appears that this is likely go ing to be a benign tumor given that she has had it at least for 5 years. She rosa s no clinical signs or symptoms of hormonal overproduction. I have asked her to sign a release of information to obtain her previous CT scan to see if there has been any change in the size of the adenoma in the past 5 years as that would be reassuring for a benign process. As noted before it is unlikely that the belen graf is hormonally active however she needs to have blood /urine testing complete d in order to ensure this. I have provided her requisition to have this complet ed close to home as she lives close to 2 hours [place] from here. I have also aske d her to obtain a CT scan of the abdomen with and without contrast adrenal eva col to further elucidate the adenoma. - Amb Referral To Endocrinology - CORTISOL, A.M.; Future - Aldosterone; Future - Catecholamines Free 24 Hr Urine; Future - Metanephrines Frac 24 Hr Urine; Future - Renin Activity; Future - Cortisol Free 24 Hr Urine; Future - Comprehensive Metabolic Panel; Future Thrombocytopenia /Polycythemia - She is seeing hematology for this, prior her discussion it seems chacorta t prior alcohol use might be a cause for thrombocytopenia. Tobacco use - She is in the process of quitting tobacco and will start Chantix. Chronic nonintractable headache, unspecified headache type - This is also being evaluated with a CT scan of the head. Problem List Items Addressed This Visit Adrenal cortical adenoma of left adrenal gland Thrombocytopenia Tobacco use Chronic headaches Polycythemia Other Visit Diagnoses Adrenal adenoma, left Relevant Orders CORTISOL, A.M. Aldosterone Catecholamines Free 24 Hr Urine Metanephrines Frac 24 Hr Urine Renin Activity Cortisol Free 24 Hr Urine Aldosterone Urine Creatinine Urine Quant 24HR Comprehensive Metabolic Panel Signed Electronically by Digna Saucedo 07/13/2016 12:08 PM ER OPERATOR documented in this encounter Plan of Treatment Not on filedocumented as of this encounter Procedures Comments Procedure Name Priority Date/Time Associated Diagnosis CORTISOL, A.M. Routine 07/16/2016 Adrenal adenoma, left CORTISOL FREE 24 HR URINE Routine 07/16/2016 Adrenal adenoma, left ALDOSTERONE Routine 07/16/2016 Adrenal adenoma, left ALDOSTERONE URINE Routine 07/16/2016 Adrenal adenoma, left METANEPHRINES FRAC 24 HR Routine 07/16/2016 Adrenal adenoma, left URINE CATECHOLAMINES FREE 24 HR Routine 07/16/2016 Adrenal adenoma, left URINE RENIN ACTIVITY Routine 07/16/2016 Adrenal adenoma, left CREATININE URINE QUANT Routine 07/16/2016 Adrenal adenoma, left 24HR COMPREHENSIVE METABOLIC Routine 07/16/2016 Adrenal adenoma, left PANEL documented in this encounter Results * Comprehensive Metabolic Panel (07/16/2016) Alk Phos Total [facility] Albumin Serum [facility] Calcium 8.7 - 10.7 mg/dL [facility] Glucose mg/dL [facility] Blood Urea 4 - 21 mg/dL [facility] Nitrogen Protein Total g/dL [facility] Serum Bilirubin Total mg/dL [facility] Aspartate 13 - 35 U/L [facility] Aminotransferas e Potassium 3.4 - 5.3 mmol/L [facility] Sodium 137 - 147 mmol/L [facility] Chloride 99 - 108 mmol/L [facility] Creatinine 0.5 - 1.1 mg/dL [facility] Alanine 7 - 35 U/L [facility] Aminotransferas e Carbon Dioxide 13 - 22 mmol/L [facility] BUN/Creatinine [facility] Ratio Globulin, Total [facility] A/G Ratio [facility]RL eGFR If [facility]RL NonAfricn Am eGFR If Africn [facility] Am Anion Gap 30 mmol/L [facility] Osmolality [facility] Serum Ionized Calcium [facility] Specimen Blood Narrative Performed At Performing Organization Address [facility] Phone Number [facility] [address] [place] [address] * Creatinine Urine Quant 24HR (07/16/2016) Specimen Urine Performing [facility] Phone Number [facility] [address] [place] [address] * Aldosterone Urine (07/16/2016) Aldosterone [facility] Urine 24hr Aldosterone [facility] Urine Specimen Urine Performing [facility] Phone Number [facility] [address] [place] [address] * Cortisol Free 24 Hr Urine (07/16/2016) Cortisol Free [facility] Urine Cortisol Free [facility] Urine 24hr Specimen Performing [facility] Phone Number [facility] [address] [place] [address] * Renin Activity (07/16/2016) Renin Activity [facility] Specimen Performing [facility] Phone Number [facility] [address] [place] [address] * Metanephrines Frac 24 Hr Urine (07/16/2016) Normetanephrine [facility] Urine Metanephrine [facility] Urine Normetanephrine [facility] Urine 24hr Metanephrine [facility] Urine 24hr Specimen Performing Organization Address [facility] Phone Number [facility] [address] [place] [address] * Catecholamines Free 24 Hr Urine (07/16/2016) Epinephrine [facility] Urine Epinephrine [facility] Urine 24hr Norepinephrine [facility] Urine 24hr Dopamine Urine [facility] Dopamine Urine [facility] 24hr Norepinephrine [facility] Urine Specimen Performing Organization Address [facility] Phone Number RL [address] [place] [address] * Aldosterone (07/16/2016) Aldosterone [facility] Specimen Blood Performing Organization Address [facility] Phone Number RL [address] [place] [address] * CORTISOL, A.M. (07/16/2016) Specimen Performing Organization Address [facility] Phone Number [address] [place] [address] documented in this encounter Visit Diagnoses Diagnosis Adrenal adenoma, left Adrenal cortical adenoma of left adrenal gland Thrombocytopenia (HCC) Unspecified thrombocytopenia Tobacco use Chronic nonintractable headache, unspecified headache type Polycythemia Polycythemia, secondary documented in this encounter
--- OUTSIDE RECORDS SUMMARY | 2019-03-27 10:32 | XMS REPORT | Clinical Summary ---
Author Author [facility] Organization [facility] Address Unknown Phone Unavailable Care Team Providers Care Comprehensive Ophthalmologist Name Role Phone Vicky Ritter MD PCP Allergies No Known Allergies Medications End Date Status Medication Sig Dispensed Refills Start Date Active metoprolol tartrate Take 50 mg by 0 (LOPRESSOR) 50 MG mouth 2 (two) tabletIndications: times a day. hypertension Active acyclovir (ZOVIRAX) 400 Take 400 mg 0 MG tabletIndications: by mouth SHINGLES daily. Active famotidine (PEPCID) 20 MG Take 20 mg by 0 tabletIndications: mouth daily. gastroesophageal reflux disease Active diazePAM (VALIUM) 2 MG Take 2 mg by 0 tablet mouth every 6 (six) hours as needed for anxiety. Active Problems Problem Noted Date Adrenal cortical adenoma of left adrenal gland 07/13/2016 Thrombocytopenia 07/13/2016 Tobacco use 07/13/2016 Chronic headaches 07/13/2016 Polycythemia 07/13/2016 Family History Medical History Relation Name Comments Skin cancer Maternal Uncle Stroke Maternal Uncle Atrial fibrillation Mother Diabetes Mother Kidney failure Mother Skin cancer Mother Thyroid disease Mother Relation Name Status Comments Maternal Uncle Mother Social History Date Tobacco Use Types Packs/Day [...] Travel Start No recent travel history available. Last Filed Vital Signs Reading Time Taken Comments Vital Sign 126/80 07/13/2016 10:54 AM PHYSICAL THERAPIST AIDE Blood Pressure 80 07/13/2016 10:54 AM PHYSICAL THERAPIST AIDE Pulse - - Temperature - - Respiratory Rate - - Oxygen Saturation - - Inhaled Oxygen Concentration 84.8 kg (187 lb) 07/13/2016 10:54 AM PHYSICAL THERAPIST AIDE Weight 163 cm (5' 4.17") 07/13/2016 10:54 AM PHYSICAL THERAPIST AIDE Height 31.93 07/13/2016 10:54 AM PHYSICAL THERAPIST AIDE Body Mass Index Plan of Treatment Health Maintenance Due Date Last Done Comments Hepatitis C Screen 1955 Td # 1955 Tobacco Cessation 1955 Counseling # Pneumococcal Vaccine: 11/26/1963 Pediatrics (0 to 5 Years) and At-Risk Patients (6 to 64 Years) (1 of 1 - PPSV23) Cervical Cancer Screening 1978 via Pap Smear Colorectal Screening via 11/26/2007 Colonoscopy Mammogram Screening 11/26/2007 Zoster Vaccine# (1 of 2) 11/26/2007 Influenza Vaccine (#1) 2019 Results Not on filefrom Last 3 Months Insurance Type Payer Benefit Subscriber ID Effective Phone Address Plan / Dates Group [facility] xxxxxxxxx 2016-P resent Mary Ulloa Personal/F Self 1955 [id number] [place] (Home) [place] [id number]
--- OUTSIDE RECORDS SUMMARY | 2019-03-27 10:33 | XMS REPORT | Encounter Summary ---
Author Author [facility] Organization [facility] Address Unknown Phone Unavailable Care Team Providers Care Disability Aide Name Role Phone Vicky Ritter MD PCP Reason for Referral * Consultation (Routine) Referred By Contact Referred To Contact Status Reason Specialty Diagnoses / Procedures Vicky Ritter MD [address] [place] [address] Dr [address] [place] [address] [place] [address] [place] [address] Closed Specialty Services Endocrinology Diagnoses Required Adrenal adenoma, left Encounter Details Care Team Description Date Type Department Vicky Ritter MD [address] [place] [address] Dr [address] [place] [id number] Adrenal adenoma, left (Primary Dx) 07/07/2016 Transcribe [facility] [address] [place] [address] Social History Date Tobacco Use Types Packs/Day Years Used Never Assessed Sex Assigned at Date Recorded Not on file Industry Job Start Date Occupation Not on file Not on file Not on file Travel End Travel History Travel Start No recent travel history available. documented as of this encounter Plan of Treatment Order Schedule Name Type Priority Associated Diagnoses 1 Occurrences starting 07/07/2016 until 01/04/2017 Amb Referral To Outpatient Routine Adrenal adenoma, left Endocrinology Referral documented as of this encounter Visit Diagnoses Diagnosis Adrenal adenoma, left - Primary documented in this encounter
--- OUTSIDE RECORDS SUMMARY | 2019-03-27 10:33 | XMS REPORT | Encounter Summary ---
Author Author [facility] Organization [facility] Address Unknown Phone Unavailable Care Team Providers Care Screen Printer Helper Name Role Phone Vicky Ritter MD PCP Encounter Details Care Team Description Date [place] [address] [place] [address] 02/17/2019 Documentation [facility] [address] [place] [phone] Social History Date Tobacco Use Types Packs/Day Years Used Started: 01/09/1980 Current Every Day Smoker Cigarettes 2 40 Smokeless Tobacco: Never Used Comments: has been cutting down recently; 2-3 per day Drinks/Week oz/Week Comments Alcohol Use Yes Alcohol Habits Answer Date Recorded How often do you have a drink containing alcohol? 4 or more times a week 01/15/2019 How many drinks containing alcohol do you have on 1 or 2 01/15/2019 a typical day when you are drinking? How often do you have six or more drinks on one Never 01/15/2019 occasion? Sex Assigned at Date Recorded Not on file Industry Job Start Date Occupation Not on file Not on file Not on file Travel End Travel History Travel Start No recent travel history available. documented as of this encounter Functional Status Date of Assessment Functional Status Response 01/16/2019 Does the patient have a hearing impairment: No 01/16/2019 Does the patient have a visual impairment: Yes 01/16/2019 Does the patient have impaired ambulation: No 01/16/2019 Does the patient have an activity of daily living No (ADL) impairment: 01/16/2019 Does the patient have an instrumental activity of No daily living (IADL) impairment: Date of Assessment Cognitive Status Response 01/16/2019 Does the patient have a cognitive impairment: No documented as of this encounter Progress Notes * Rosario Lopez RN - 02/17/2019 3:02 PM CDT NGS report faxed to local oncologist, Dr. Cabrera. documented in this encounter Plan of Treatment Not on filedocumented as of this encounter Visit Diagnoses Not on filedocumented in this encounter
--- OUTSIDE RECORDS SUMMARY | 2019-03-27 10:33 | XMS REPORT | Encounter Summary ---
Author Author [facility] Organization [facility] Address Unknown Phone Unavailable Care Team Providers Care Minilab Operator Name Role Phone Vicky Ritter MD PCP Reason for Visit * Reason Comments Appointment Encounter Details Care Team Description [place] [address] [place] [id number] Appointment 01/20/[address] [facility] [address] [place] [id number] Social History Date Tobacco Use Types [...] impairment: No documented as of this encounter Miscellaneous Notes * Telephone Encounter - Rosario Lopez RN - 01/20/2019 10:58 AM CDT Anabel called this morning to cancel follow up appointment here. She has an appoint ment scheduled for today locally with Dr. Murdock (radiation oncology) at [facility] [place]. She would like to follow with an oncologist locally also. I called the RN coordinator, Willa at [facility] and updated her with Mrs. Akash petty's plans to get treatment locally and she is aware the patient will need a ppointments for both radiation and medical oncology. MRI head and PET scan repor ts were faxed to [phone]. documented in this encounter Plan of Treatment Not on filedocumented as of this encounter Visit Diagnoses Not on filedocumented in this encounter
--- OUTSIDE RECORDS SUMMARY | 2019-03-27 10:33 | XMS REPORT | Clinical Summary ---
Author Author [facility] Organization [facility] Address Unknown Phone Unavailable Care Team Providers Care Short Order Cook Name Role Phone Vicky Ritter MD PCP Source Comments Some departments are not documenting in the electronic medical record. If you d o not see the information that you expected, contact Release of Information in [facility] Information Management department at [phone] for further assistan ce in locating additional records.[facility] Allergies No Known Allergies Medications End Date Status Medication Sig Dispensed Refills Start Date Active metoprolol XL (TOPROL XL) Take 50 mg by 0 50 mg extended release mouth daily. tablet Active atorvastatin (LIPITOR) 10 Take 10 mg by 0 mg tablet mouth daily. Active topiramate (TOPAMAX) 25 Take 25 mg by 0 mg sprinkle capsule mouth as directed every 12 hours. Active varenicline (CHANTIX) 1 Take one 56 tablet 4 mg tablet tablet by 9 mouth twice daily with meals. Take with 8 oz of water and after a meal. Active nicotine (NICODERM CQ Apply one 28 patch 2 STEP 1) 21 mg/day patch to top 9 patchIndications: Smoking of skin as Cessation directed every 24 hours. Rotate patch location. Indications: Stop Smoking Active nicotine polacrilex Take one each 2 box 3 (NICORETTE) 4 mg gum by mouth as 9 Needed. Chew to soften and park in mouth between lip and gum. May use 1 piece per hour, not to exceed 24 per day, for 12 weeks. May be used for longer, if needed. Active famotidine (PEPCID) 20 mg Take 20 mg by 0 tablet mouth daily. 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 She has a long-standing history of tobacco abuse and admittedly has avoided doctors. She actually started having some symptoms in October 2018 but they were transient and when she had hemoptysis it was just very scant. Her doctor advised a chest x-ray but she kind of ignored that recommendation. She historically has worked at a [employer] but she went about 8 months without working just because she did not want to but she went back in the last couple of weeks and she started noticing worsening pain in her right anterior chest area and then she had more episodes of hemoptysis 1 of which was yang blood within the past 2 weeks. She was ultimately advised to go to a local emergency room and was subsequently transferred to after discovery of the mass. Her hemoptysis abated. She did have a CT chest abdomen pelvis in the system January 08, 2018 which showed a large right upper lobe mass measuring at least 6.5 cm that appeared to invade the mediastinum as well as the hilum and they did note mediastinal and hilar adenopathy and measured a pretracheal lymph node at 1.7 x 1.5 cm. There was also concern of some small satellite pulmonary nodules and 2 tiny left upper lobe nodules. There was a left adrenal mass that measured 3 cm concerning for metastatic disease and they noted some nonspecific sclerosis of T11. Bronchoscopy January 08, 2019 and pathology from this did show squamous cell carcinoma from right upper lobe well to moderately differentiated diffusely positive for P 40 and negative for TTF-1. PDL 1 stains are pending. FNAs from [facility] were negative including 4L, 7, 11RS but FNA from the [facility] also showed non-small cell carcinoma from the right upper lobe. Historically she admits she is not very good about seeing doctors but she is on blood pressure, cholesterol and Topamax for headaches. She is also been prescribed oxycodone which is probably help the pain a little bit but she is not big on taking medicines either but [id number] pain medicines including Tylenol upset her stomach. She had cervical cancer in the 1980s treated with surgery alone. She is also had a skin cancer removed from her forehead in 2006 that I believe was nonmelanoma based on description but that was done at [place] when she lived on the [facility] and we do not have records. She was also aware of a prior adrenal lesion which she heard about in 2010 and apparently she had follow-up scans in 2016 in [facility]. Her NGS molecular profiling showed some abnormalities but nothing that is actionable at this time. L ast Assessment & Plan: Newly diagnosed squamous cell carcinoma of the right upper lobe. This is at least stage IIIb based on mediastinal invasion and local adenopathy and it could be stage IV given some of the bony changes and adrenal lesion. She has not been fully staged but we have requested a PET scan as well as MRI of the brain which we will try to get done as soon as possible. I told her its important to determine stage III versus stage IV regarding best course of treatment. It does have prognostic implications as well but obviously a large locally advanced lung cancer is still not a good prognostic situation. Given her chest pain which is requiring narcotics and the degree of hemoptysis which seems to have abated I think at least some palliative radiation is in order and obviously if she did not have distant disease we would favor treating her with combined modality full course radiation with weekly doses of Taxol carboplatin and subsequent immunotherapy. If she has more extensive disease treatment would be dictated largely based on PD-L1 status which we are requesting and will also request full next generation sequencing molecular profiling. I did refill her oxycodone today. Again I think radiation can help palliate that rather quickly. She is quit smoking which I applaud and I told her I think it is important for her to quit long-term. She is also used occasional marijuana and I would encourage her to limit that as best as able. Apparently she has had an unknown adrenal lesion and we would like to get old films for comparison but the PET scan will also be helpful but again I think the PET is important to look at some other bony areas. She also needs MRI of the brain. She and her asked appropriate questions and will try to get her into radiation and get the PET scan done as soon as able. 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) (Primary Dx) 01/15/2019 Office Visit Oncology Rip Montalvo MD Navigation Assessment 01/13/2019 Telephone Oncology Rip Montalvo MD Hemoptysis (Primary Dx); Squamous cell carcinoma of lung, unspecified laterality (HCC) 01/10/2019 Orders Only Oncology Itz Kuhn MD Results 01/10/2019 Telephone Pulmonology [place] Ritchie CRNA 01/08/2019 Anesthesia Event Itz Kuhn MD BRONCHOSCOPY WITH BRUSHING/ PROTECTED BRUSHING - FLEXIBLE 01/08/2019 Surgery Bryn Vera MD 01/08/2019 Hospital Radiology Encounter Roseline Peacock MD Brown, Christopher B, MD Tripathi, Alok, MD Hemoptysis 01/07/2019 Hospital - Encounter 01/09/2019 01/07/2019 Hospital Radiology Encounter 01/07/2019 Hospital Radiology Encounter from Last 3 Months Family History Medical History Relation Name Comments Cancer-Skin Maternal Uncle Cancer-Skin Mother Relation Name Status Comments Maternal Uncle Mother Social History Date Tobacco Use Types Packs/Day Years Used Started: 01/09/1980 Current Every Day Smoker Cigarettes 2 40 Smokeless Tobacco: Never Used Tobacco Cessation: Ready to Quit: Yes; Counseling Given: Yes Comments: has been cutting down recently; 2-3 [...] Signs Reading Time Taken Comments Vital Sign 134/79 01/16/2019 8:39 AM CDT Blood Pressure 95 01/16/2019 8:39 AM CDT Pulse 36.9 C (98.4 F) 01/16/2019 8:39 AM CDT Temperature 18 01/16/2019 8:39 AM CDT Respiratory Rate 92% 01/15/2019 8:30 AM CDT Oxygen Saturation - - Inhaled Oxygen Concentration 89.2 kg (196 lb 9.6 oz) 01/16/2019 8:39 AM CDT Weight 165.1 cm (5' 5") 01/16/2019 8:39 AM CDT Height 32.72 01/16/2019 8:39 AM CDT Body Mass Index Plan of Treatment Health Maintenance Due Date Last Done Comments HEPATITIS C SCREENING 1957 PHYSICAL (COMPREHENSIVE) 1964 EXAM HIV SCREENING 1972 DTAP/TDAP VACCINES (1 - 11/26/1975 Tdap) CERVICAL CANCER SCREENING 11/26/1987 BREAST CANCER SCREENING 1997 COLORECTAL CANCER 11/26/2007 SCREENING SHINGLES RECOMBINANT 11/26/2007 VACCINE (1 of 2) INFLUENZA VACCINE 06/03/2019 Procedures Comments Procedure Name Priority Date/Time Associated Diagnosis MRI HEAD WO/W CONTRAST Routine 01/16/2019 Hemoptysis 3:30 PM CDT Squamous cell carcinoma of lung, unspecified laterality (HCC) NM PET SCAN TORSO Routine 01/16/2019 Hemoptysis (SKULL-THIGHS) 1:07 PM CDT Squamous cell carcinoma of lung, unspecified laterality (HCC) POC GLUCOSE 01/16/2019 10:25 AM CDT COMPREHENSIVE METABOLIC Routine 01/09/2019 PANEL 5:39 AM CDT CBC AND DIFF Routine 01/09/2019 5:39 AM CDT FINE NEEDLE ASPIRATE 01/08/2019 (FNA) 1:51 PM CDT HUMAN COMP CANCER GENE 01/08/2019 Malignant neoplasm of PANEL (275) NGS 1:49 PM CDT upper lobe, right bronchus or lung (HCC) SURGICAL PATHOLOGY 01/08/2019 1:49 PM CDT BRONCHOSCOPY WITH 01/08/2019 Diagnosis unknown TRANSBRONCHIAL NEEDLE 11:00 AM CDT ASPIRATION AND BIOPSY TRACHEA/ MAIN STEM/ LOBAR BRONCHUS - FLEXIBLE BRONCHOSCOPY WITH 01/08/2019 Diagnosis unknown TRANSBRONCHIAL LUNG 11:00 AM CDT BIOPSY - FLEXIBLE - SINGLE LOBE BRONCHOSCOPY WITH 01/08/2019 Diagnosis unknown BRUSHING/ PROTECTED 11:00 AM CDT BRUSHING - FLEXIBLE BRONCHOSCOPY DIAGNOSTIC 01/08/2019 Diagnosis unknown WITH CELL WASHING - 11:00 AM CDT FLEXIBLE BRONCHOSCOPY WITH 01/08/2019 Diagnosis unknown ENDOBRONCHIAL ULTRASOUND 11:00 AM CDT GUIDED TRANSTRACHEAL/ TRANSBRONCHIAL SAMPLING - 3 OR MORE MEDIASTINAL/ HILAR LYMPH NODE STATIONS/ STRUCTURE - FLEXIBLE BRONCHOSCOPY 01/08/2019 8:[address] ABD/PELV W CONTRAST Routine 01/08/2019 5:[address] CHEST W CONTRAST Routine 01/08/2019 5:23 AM CDT COMPREHENSIVE METABOLIC Routine 01/08/2019 PANEL 12:09 AM CDT CBC AND DIFF Routine 01/08/2019 12:09 AM CDT [facility] REF LAB 01/08/2019 SCAN 12:[address] CHEST EXTERNAL IMAGING Routine 01/07/2019 Diagnosis unknown 4:20 PM CDT GENERAL RAD CHEST Routine 01/07/2019 Diagnosis unknown EXTERNAL IMAGING 3:45 PM CDT TELEMETRY STRIPS-SCAN 01/07/2019 12:00 AM CDT TELEMETRY STRIPS-SCAN 01/07/2019 12:00 AM CDT TELEMETRY STRIPS-SCAN 01/07/2019 12:00 AM CDT PROCEDURE RECORD-SCAN 01/07/2019 12:00 AM CDT from Last 3 Months Results * MRI HEAD WO/W CONTRAST (01/16/2019 3:30 PM CDT) Specimen Impressions Performed At 1.No evidence of intracranial metastatic disease. [facility] 2.Mild nonspecific supratentorial white matter disease, likely on the basis of chronic microvascular ischemia. Approved by Quintin Delaney DO on 01/16/2019 3:53 PM By my electronic signature, I attest that I have personally reviewed the images for this examination and formulated the interpretations and opinions expressed in this report Finalized by Jeremy Diaz M.D. on 01/16/2019 3:54 PM. Dictated by Quintin Delaney DO on 01/16/2019 3:35 PM. Narrative Performed At EXAM: MRI BRAIN [facility] HISTORY: Staging of lung cancer. Squamous cell carcinoma lung, unspecified laterality. TECHNIQUE: Multiplanar and multisequence MR imaging of the head was performed. This was done both before and after the administration of MultiHancecontrast. COMPARISON: External brain MRI dated July 24, 2016. FINDINGS: Dr. Jeremy Diaz M.D. has personally reviewed these images and formulated the interpretations and opinions expressed in this report. The ventricles and subarachnoid spaces are normal in size and configuration apart from a partially empty appearance of the sella. Patchy supratentorial white matter FLAIR hyperintensities are nonspecific, though likely on the basis of chronic microvessel ischemia. There is no midline shift or mass effect. There is no area of abnormal contrast enhancement. The vascular flow-voids are unremarkable. Diffusion weighted imaging is not indicative of acute or recent infarct. Small bilateral mastoid effusions. Procedure Note Interface, Radiant Results - 01/16/2019 3:57 PM CDT EXAM: MRI BRAIN HISTORY: Staging of lung cancer. Squamous cell carcinoma lung, unspecified laterality. TECHNIQUE: Multiplanar and multisequence MR imaging of the head was performed. This was done both before and after the administration of MultiHancecontrast. COMPARISON: External brain MRI dated July 24, 2016. FINDINGS: Dr. Jeremy Diaz M.D. has personally reviewed these images and formulated the interpretations and opinions expressed in this report. The ventricles and subarachnoid spaces are normal in size and configuration apart from a partially empty appearance of the sella. Patchy supratentorial white matter FLAIR hyperintensities are nonspecific, though likely on the basis of chronic microvessel ischemia. There is no midline shift or mass effect. There is no area of abnormal contrast enhancement. The vascular flow-voids are unremarkable. Diffusion weighted imaging is not indicative of acute or recent infarct. Small bilateral mastoid effusions. IMPRESSION 1. No evidence of intracranial metastatic disease. 2. Mild nonspecific supratentorial white matter disease, likely on the basis of chronic microvascular ischemia. Approved by Quintin Delaney DO on 01/16/2019 3:53 PM By my electronic signature, I attest that I have personally reviewed the images for this examination and formulated the interpretations and opinions expressed in this report Finalized by Jeremy Diaz M.D. on 01/16/2019 3:54 PM. Dictated by Quintin Delaney DO on 01/16/2019 3:35 PM. Performing Organization Address City/State/Zipcode Phone Number [facility] * NM PET SCAN TORSO (SKULL-THIGHS) (01/16/2019 1:07 PM CDT) Specimen Impressions Performed At 1. Interval increase in size of a large hypermetabolic centrally necrotic right [facility] upper lobe mass with direct extension to the mediastinum and right hilum consistent with patient's known squamous cell carcinoma. Significant increase in size from the study performed approximately 1 week ago may be secondary to rapid tumor enlargement or superimposed infection. Clinical correlation is recommended. Worsening of surrounding infiltrates may be secondary to postobstructive pneumonitis/pneumonia or hemorrhage. Superimposed lymphangitic spread of tumor is also consideration. 2. Hypermetabolic right supraclavicular, mediastinal and right hilar lymph node metastases. 3. Hypermetabolic sclerotic lesion within the T11 vertebral body suspicious for osseous metastases. Mild ill-defined uptake within the T12 vertebral body is also suspicious for tumor involvement. 4. 3.3 cm mildly hypermetabolic left adrenal mass. This is unchanged in size from 07/24/2016 and may represent an atypical adenoma. However, superimposed metastatic disease (collision tumor) is also a consideration. Recommend attention on follow-up. 5. Calcified coronary artery disease. Finalized by Dave Prasad M.D. on 01/16/2019 2:48 PM. Dictated by Dave Prasad M.D. on 01/16/2019 2:17 PM. Narrative Performed At PET/CT NECK, CHEST, ABDOMEN AND PELVIS [facility] CLINICAL HISTORY:Female, 63 years old. Squamous cell carcinoma of lung. RADIOPHARMACEUTICAL:10.8 mCi F-18 Fluorodeoxyglucose (FDG) IV. TECHNIQUE:Beginning approximately 97 minutes after tracer administration, routine whole body PET/CT imaging was performed from the level of the base of the skull to the upper thighs.PET images were reviewed in standard orthogonal projections.Low dose non-contrast CT imaging was performed for attenuation correction and localization purposes. BLOOD GLUCOSE LEVEL AT THE TIME OF RADIOPHARMACEUTICAL ADMINISTRATION:147 mg/dl COMPARISON: CT chest abdomen and pelvis dated 01/08/2019. FINDINGS: Head/Neck: Hypermetabolic right supraclavicular adenopathy. Chest: There is a large hypermetabolic centrally necrotic mass involving the right upper lobe which is increased in size from the prior study dated 01/08/2019. This now measures 10.7 x 2.[address] image 95 with maximal SUVs ranging up to 18.5. The central area of necrosis with a small air-fluid level. There is direct extension of tumor into the mediastinum and right hilum. Surrounding ill-defined infiltrates within the right upper lobe demonstrate mild FDG uptake likely secondary to postobstructive changes or hemorrhage related to prior biopsy Additional hypermetabolic mediastinal and right hilar lymph nodes are noted. Coding Team Lead pretracheal lymph node demonstrates a maximal SUV of 9.8. Abdomen/Pelvis: 3.3 cm left adrenal mass is without significant change in size from prior outside study dated 07/24/2016 and demonstrates mild increased FDG uptake with a maximal SUV of 5.3 which is slightly greater than the liver. Osseous Structures: Hypermetabolic lesion involving the T11 vertebral body with associated mild sclerosis. This demonstrates a maximal SUV of 6.7. There is also minimal ill-defined uptake within the T12 vertebral body. Small hypermetabolic subcutaneous nodule within the medial right buttock on CT image 272 with a maximal SUV of 5.7. Additional significant low dose CT findings: Calcified coronary artery disease. Tiny punctate nonobstructing right renal calculus. Mild right basilar atelectasis or infiltrate. Uncorrected PET images:The uncorrected PET images demonstrate no additional abnormality. Procedure Note Interface, Radiant Results - 01/16/2019 2:51 PM CDT PET/CT NECK, CHEST, ABDOMEN AND PELVIS CLINICAL HISTORY: Female, 63 years old. Squamous cell carcinoma of lung. RADIOPHARMACEUTICAL: 10.8 mCi F-18 Fluorodeoxyglucose (FDG) IV. TECHNIQUE: Beginning approximately 97 minutes after tracer administration, routine whole body PET/CT imaging was performed from the level of the base of the skull to the upper thighs. PET images were reviewed in standard orthogonal projections. Low dose non-contrast CT imaging was performed for attenuation correction and localization purposes. BLOOD GLUCOSE LEVEL AT THE TIME OF RADIOPHARMACEUTICAL ADMINISTRATION: 147 mg/dl COMPARISON: CT chest abdomen and pelvis dated 01/08/2019. FINDINGS: Head/Neck: Hypermetabolic right supraclavicular adenopathy. Chest: There is a large hypermetabolic centrally necrotic mass involving the right upper lobe which is increased in size from the prior study dated 01/08/2019. This now measures 10.7 x 2.[address] image 95 with maximal SUVs ranging up to 18.5. The central area of necrosis with a small air-fluid level. There is direct extension of tumor into the mediastinum and right hilum. Surrounding ill-defined infiltrates within the right upper lobe demonstrate mild FDG uptake likely secondary to postobstructive changes or hemorrhage related to prior biopsy Additional hypermetabolic mediastinal and right hilar lymph nodes are noted. Coding Team Lead pretracheal lymph node demonstrates a maximal SUV of 9.8. Abdomen/Pelvis: 3.3 cm left adrenal mass is without significant change in size from prior outside study dated 07/24/2016 and demonstrates mild increased FDG uptake with a maximal SUV of 5.3 which is slightly greater than the liver. Osseous Structures: Hypermetabolic lesion involving the T11 vertebral body with associated mild sclerosis. This demonstrates a maximal SUV of 6.7. There is also minimal ill-defined uptake within the T12 vertebral body. Small hypermetabolic subcutaneous nodule within the medial right buttock on CT image 272 with a maximal SUV of 5.7. Additional significant low dose CT findings: Calcified coronary artery disease. Tiny punctate nonobstructing right renal calculus. Mild right basilar atelectasis or infiltrate. Uncorrected PET images: The uncorrected PET images demonstrate no additional abnormality. IMPRESSION 1. Interval increase in size of a large hypermetabolic centrally necrotic right upper lobe mass with direct extension to the mediastinum and right hilum consistent with patient's known squamous cell carcinoma. Significant increase in size from the study performed approximately 1 week ago may be secondary to rapid tumor enlargement or superimposed infection. Clinical correlation is recommended. Worsening of surrounding infiltrates may be secondary to postobstructive pneumonitis/pneumonia or hemorrhage. Superimposed lymphangitic spread of tumor is also consideration. 2. Hypermetabolic right supraclavicular, mediastinal and right hilar lymph node metastases. 3. Hypermetabolic sclerotic lesion within the T11 vertebral body suspicious for osseous metastases. Mild ill-defined uptake within the T12 vertebral body is also suspicious for tumor involvement. 4. 3.3 cm mildly hypermetabolic left adrenal mass. This is unchanged in size from 07/24/2016 and may represent an atypical adenoma. However, superimposed metastatic disease (collision tumor) is also a consideration. Recommend attention on follow-up. 5. Calcified coronary artery disease. Finalized by Dave Prasad M.D. on 01/16/2019 2:48 PM. Dictated by Dave Prasad M.D. on 01/16/2019 2:17 PM. Performing Organization Address City/State/Zipcode Phone Number [facility] RESULTS * POC GLUCOSE (01/16/2019 10:25 AM CDT) Pathologist [facility] [place] Glucose, POC 147 (H) 70 - 100 MG/DL MAIN LAB Specimen Performing Organization Address City/[facility]/Zipcode Phone Number [facility] [address] [place] [address] * CBC AND DIFF (01/09/2019 5:39 AM CDT) Only the most recent of 2 results within the time period is included. Pathologist [facility] [place] White Blood 7.7 4.5 - 11.0 K/UL [facility] Cells RBC 4.11 4.0 - 5.0 M/UL [facility] Hemoglobin 12.0 12.0 - 15.0 GM/DL [facility] Hematocrit 36.0 36 - 45 % [facility] MCV 87.7 80 - 100 FL [facility] MCH 29.3 26 - 34 PG [facility] MCHC 33.3 32.0 - 36.0 G/DL [facility] RDW 13.5 11 - 15 % [facility] Platelet Count 190 150 - 400 K/UL [facility] MPV 9.9 7 - 11 FL [facility] Neutrophils 82 (H) 41 - 77 % [facility] Lymphocytes 12 (L) 24 - 44 % [facility] Monocytes 6 4 - 12 % [facility] Eosinophils 0 0 - 5 % [facility] Basophils 0 0 - 2 % [facility] Absolute 6.30 1.8 - 7.0 K/UL [facility] Neutrophil Count Absolute Lymph 0.90 (L) 1.0 - 4.8 K/UL [facility] Count Absolute 0.50 0 - 0.80 K/UL [facility] Monocyte Count Absolute 0.00 0 - 0.45 K/UL [facility] Eosinophil Count Absolute 0.00 0 - 0.20 K/UL [facility] Basophil Count Specimen Blood Performing Organization Address City/State/Zipcode Phone Number [facility] [address] [place] [address] * COMPREHENSIVE METABOLIC PANEL (01/09/2019 5:39 AM CDT) Only the most recent of 2 results within the time period is included. Sodium 139 137 - 147 MMOL/L [facility] Potassium 4.5 3.5 - 5.1 MMOL/L [facility] Chloride 103 98 - 110 MMOL/L [facility] Glucose 168 (H) 70 - 100 MG/DL [facility] Blood Urea 8 7 - 25 MG/DL [facility] Nitrogen Creatinine 0.49 0.4 - 1.00 MG/DL [facility] Calcium 9.6 8.5 - 10.6 MG/DL [facility] Total Protein 7.4 6.0 - 8.0 G/DL [facility] Total Bilirubin 0.5 0.3 - 1.2 MG/DL [facility] Albumin 3.9 3.5 - 5.0 G/DL [facility] Alk Phosphatase 77 25 - 110 U/L [facility] AST (SGOT) 30 7 - 40 U/L [facility] CO2 29 21 - 30 MMOL/L [facility] ALT (SGPT) 32 7 - 56 U/L [facility] Anion Gap 7 3 - 12 [facility] eGFR Non >60 >60 mL/min [facility] Comment: Citizen Of [place] The eGFR is not validated for use in drug dosing adjustments.Continue to use estimated creatinine clearance per dosing reference text.Please contact the Clinical Pharmacist for questions. eGFR >60 >60 mL/min [facility] Citizen Of [place] Comment: The eGFR is not validated for use in drug dosing adjustments.Continue to use estimated creatinine clearance per dosing reference text.Please contact the Clinical Pharmacist for questions. Specimen Blood Performing Organization Address City/State/Zipcode Phone Number [facility] [address] [place] [address] * FINE NEEDLE ASPIRATE (FNA) (01/08/2019 1:51 PM CDT) Cytology [facility] [email or web address] Department of Pathology and Laboratory Medicine [address] [place] [address] Surgical Pathology Office:[phone] :[phone] CYTOLOGY REPORT NAME: MARY HIGGINS SURG PATH #: [id number] MR #: [id number] ALT ID #: BILLING #: [id number] LOCATION: DISCHARGED DATE OF PROCEDURE: 01/08/2019 AGE:63 SEX: F DATE RECEIVED: 01/08/2019 : 1955TIME RECEIVED: 13:51 PHYSICIAN:ITZ KUHN MD DATE OF REPORT: 01/10/2019 COPY TO: DATE OF PRINTIN01/10/2019 Material Received: A: FNA Lymph Node-Left station 4 B: FNA Lymph Node-Station 7 C: FNA Lymph Node-Right statin 11S D: FNA Lung-RUL History: 63 year old female with hemoptysis, a lung mass, and lymphadenopathy. Gross Description: A. (4 DQ direct smear, 4 Pap direct smear, 1 cell block) Rapid determination of adequacy was performed by the security incident handlerDO, on Diff-Quik stained slide(s). All four passes not adequate for evaluation. B. ( 2 DQ direct smear, 2 Pap direct smear, 1 cell block) Rapid determination of adequacy was performed by the security incident handlerDO, on Diff-Quik stained slide(s). Pass two adequate for evaluation. Pass three all RPMI for cell block. C. ( 2 DQ direct smear, 2 Pap direct smear, 1 cell block) Rapid determination of adequacy was performed by the security incident handlerDO, on Diff-Quik stained slide(s). Pass one adequate for evaluation. Pass two not adequate. Pass three all RPMI for cell block. D. ( 3 DQ direct smear, 3 Pap direct smear, 1 cell block) Rapid determination of adequacy was performed by the security incident handler, , on Diff-Quik stained slide(s). Pass three adequate for evaluation. ############################## ############################## ############ Final Diagnosis: A. Lymph Node, Station 4L, EBUS guided FNA: Polymorphous population of lymphocytes. No carcinoma identified in the sampled specimen. B. Lymph Node, Station 7, EBUS guided FNA: Polymorphous population of lymphocytes. No carcinoma identified in the sampled specimen. C. Lymph Node, Station 11RS, EBUS guided FNA: Polymorphous population of lymphocytes. No carcinoma identified in the sampled specimen. D. Lung, RUL, EBUS guided FNA: Non-small cell carcinoma. Please see concurrent surgical pathology report for further classification ([id number]). Comment: A cell block is prepared and examined microscopically for each part (A, B, C, D); it contains insufficient tumor tissue for further testing. Immunohistochemical stains performed on the cell block (part D) show rare tumor cells positive for p40 and negative for TTF-1. Attestation: By this signature, I attest that I have personally formulated the final interpretation expressed in this report and that the above diagnosis is based upon my examination of the slides and/or other material indicated in this report. +++Electronically Signed Out By+++ eh/01/09/2019 Interpreted by: Doreen Ware MD, PhD Krystal Newman D.O. Professional services performed by [facility], at [address] [place] [address] Specimen Performing Organization Address City/State/Zipcode Phone Number [facility] [address] [place] [address] * HUMAN COMP CANCER GENE PANEL (275) NGS (01/08/2019 1:49 PM CDT) Pathologist Mae Human Report Available in Epic [facility] Comprehensive Cancer Gene Panel (275) by NGS Specimen Performing Organization Address City/State/Zipcode Phone Number RE[facility] RE[facility] See results for address. * SURGICAL PATHOLOGY (01/08/2019 1:49 PM CDT) Pathologist Mae PATHOLOGY [facility] [email or web address] Department of Pathology and Laboratory Medicine [address] [place] [address] Surgical Pathology Office:[phone] :[phone] SURGICAL PATHOLOGY REPORT NAME: MARY HIGGINS SURG PATH #: [id number] MR #: [id number] SPECIMEN CLASS: SR BILLING #: [id number] ALT ID #:LOCATION: [id number] DATE OF PROCEDURE: 01/08/2019 AGE:63 SEX: F DATE RECEIVED: 01/08/2019 : 1955 TIME RECEIVED:13:49 PHYSICIAN:ITZ KUHN MD DATE OF REPORT: 01/10/2019 COPY TO:DATE OF PRINTIN01/17/2019 Procedures/Addenda Addendum Date Ordered: 01/17/2019 Status:Signed Out Date Complete: 01/17/2019 By: JING Baird Date Reported: 01/17/2019 Addendum Diagnosis PD-L1: Block: A2 Tumor Proportion Score (TPS): <1% TPS less than 1%: Yes Comment: PD-L1 test name: DAKO PD-L1 IHC 22C3 pharmDX Cell types evaluated: Tumor cells FDA status: Mold Builder JING Baird ############################## ############################## ############ Final Diagnosis: A. Respiratory mucosa, "right upper lobe mass", biopsy: Squamous carcinoma, well to moderately differentiated. See comment. Comment: Immunostains performed on block A2 demonstrate the tumor cells are diffusely positive for P40 and are negative for TTF-1, supporting the above interpretation. A PDL1 immunostain will be reported as an addendum. The biopsy/tissue block contains sufficient tumor cells for further testing (block A2>A1). Pursuant to the Health Technician Hearing Program at the [facility] Pathology Department, selected slides from this case have been concurrently reviewed by the following pathologist: Dr. Logan who agrees with the final diagnosis. Attestation: By this signature, I attest that I have personally formulated the final interpretation expressed in this report and that the above diagnosis is based upon my examination of the slides and/or other material indicated in this report. +++ +++ lkr/01/09/2019 ############################## ############################## ############ Material Received: A: right upper lobe mass History: 63-year-old female with a history of large RUL mass. Gross Description: A. Received in formalin labeled "right upper lobe mass" is a 1.5 x 0.2 x 0.2 cm aggregate of irregular, pale [place] soft tissue fragments. The specimen is entirely submitted in cassettes A1 and A2. (an) amn/01/08/2019 If immunohistochemical stains and/or in situ hybridization are cited in this report, the performance characteristics were determined by the Department of Pathology and Laboratory Medicine of the [facility] ([employer]) in compliance with CLIA'88 regulations.Some of these tests rely on the use of "analyte specific reagents" and are subject to specific labeling requirements by the FDA. Known positive and negative control tissues demonstrate appropriate staining.Results should be interpreted with caution given the likelihood of false negativity on decalcified specimens.This testing was developed by the Department of Pathology and Laboratory Medicine of the [facility].It has not been cleared or approved by the FDA.The FDA has determined that such clearance or approval is not necessary. Specimen Performing Organization Address City/State/Zipcode Phone Number [facility] [address] [place] [address] * BRONCHOSCOPY (01/08/2019 8:54 AM CDT) Provation Patient Name: Mary GAFFNEY OTHER Report [facility] RESULTS Procedure Date: 01/08/2019 8:54 AM CSN: [id number] Date of : 1955 Gender: Female Attending Physician: Itz Kuhn MD Procedure: Bronchoscopy Indications: Right upper lobe mass Providers: Itz Kuhn MD (Doctor), Daphnie Patel RN (Nurse), Cleve Lloyd, Technologist (Urban Planning Professor) Referring Physician:Willian Omalley Medications: Tetricaine 0.25%/Epinephrine 0.003% 10 mL nebulizer, Tetricaine 0.25%/Epinephrine 0.003% topically on airway mucosa 10 mL, General Anesthesia Complications: No immediate complications Findings: An endobronchial ultrasound endoscope was utilized in order to assist with fine needle aspiration and/or characterization of lymph node stations 1R, 1L, 2R, 2L, 4R, 4L, 10R, 10L, 11Rs, 11Ri, 11L and 7. Only the following lymphnode stations were determined to be larger than 5mm on EBUS and/or metabolically active on PET then sampled using EBUS FNA: Lymph Nodes: Lymph node sizing was performed via endobronchial ultrasound for suspected lung cancer. Sampling by transbronchial needle aspiration was also performed 25 Gauge NonProcor in the left lower paratracheal region (level 4L), subcarinal mediastinum (level 7), right superior interlobar region (level 11Rs) and RUL mass and sent for routine cytology. - The 4L (lower paratracheal) node was 8.5 mm by EBUS and 11 mm by EBUS. Three samples with the needle were obtained. - The 7 (subcarinal) node was 14.4 mm by EBUS and 16 mm by EBUS. Three samples with the needle were obtained. - The 11Rs (superior interlobar) node was 14.6 mm by EBUS and 15.4 mm by EBUS. Three samples with the needle were obtained. - The RLL mass node was 21 mm by EBUS and 24 mm by EBUS. Three samples with the needle were obtained. Rapid On-Site Evaluation (KARLOS): - 4L (lower paratracheal): preliminary cytology was suggestive of benign-appearing lymphoid tissue (final results are pending). - 7 (subcarinal): preliminary cytology was suggestive of benign-appearing lymphoid tissue (final results are pending). - 11Rs (superior interlobar): preliminary cytology was suggestive of benign-appearing lymphoid tissue (final results are pending). Endobronchial needle aspiration of a mass was performed in the apical segment of the right upper lobe using a SuperTrax 21 gauge needle and sent for routine cytology. Two samples were obtained. Endobronchial biopsies of a mass were performed in the apical segment of the right upper lobe using a forceps and sent for histopathology examination. Five samples were obtained. Impression: - Endobronchial ultrasound was performed. - Lymph node sizing and sampling was performed. - Rapid On-Site Evaluation (KARLOS): Preliminary cytology was suggestive of the following: - 4L (lower paratracheal): of benign-appearing lymphoid tissue. - 7 (subcarinal): of benign-appearing lymphoid tissue. - 11Rs (superior interlobar): of benign-appearing lymphoid tissue. (Final results are pending). - Endobronchial needle aspiration was performed. - An endobronchial biopsy was performed. Estimated Blood Loss: Estimated blood loss: none. Recommendation: - Await biopsy and cytology results. Scope In: 11:59:15 PM Scope Out: 1:17:28 PM Attending Participation: I was present and participated during the entire procedure, including non-grey portions. I personally performed the entire procedure. MD Itz Conn MD 01/08/2019 1:34:10 PM The attending physician has electronically signed and finalized this document. Number of Addenda: 0 Note Initiated On: 01/08/2019 8:54 AM Specimen Performing Organization Address City/State/Zipcode Phone Number OTHER RESULTS * CT ABD/PELV W CONTRAST (01/08/2019 5:23 AM CDT) Specimen Impressions Performed At Chest: [facility] 1.Large right upper lobe mass with central necrosis consistent with primary lung carcinoma.There is direct mediastinal and right hilar invasion by the mass. 2.Moderate mediastinal and right hilar adenopathy consistent with metastatic disease. 3.Small satellite nodules and scattered additional small pulmonary nodules which may represent lung metastases. 4.Nonspecific diffuse sclerosis of T11.No aggressive destructive osseous lesions are seen. Abdomen and Pelvis: 1.Left adrenal mass which is most likely a metastasis. 2.No hepatic metastases or other abdominal/pelvic metastatic disease. By my electronic signature, I attest that I have personally reviewed the images for this examination and formulated the interpretations and opinions expressed in this report Finalized by Jayce Lora M.D. on 01/08/2019 9:38 AM. Dictated by Kevin Pickett M.D. on 01/08/2019 8:26 AM. Narrative Performed At CT chest andCT abdomen and pelvis [facility] Indication:63-year-old lady with right upper lobe mass by outside chest x-ray and CT Technique: Dynamic IV contrast-enhanced images were obtained through the chest abdomen and pelvis.. Comparison studies:Outside CT chest of January 07, 2019 Chest findings: 1. Heart and great vessels: Heart size normal.Moderate calcified coronary artery plaque.Aorta normal caliber with mild scattered plaque. 2. Mediastinum and pulmonary efren:Moderate scattered mediastinal adenopathy and right hilar adenopathy.There is direct mediastinal invasion by large right upper lobe mass in the anterior medial right upper lobe.A large right paratracheal soft tissue mass measures 4.6 x 3.5 cm which may represent direct tumor extension or adenopathy.A reference pretracheal lymph node measures 1.7 x 1.5 cm on image 21 series 5. 3. Lungs and pleura:There is a large mass in the right upper lobe anteriorly and medially measuring 6.5 cm diameter on image 17 series 5 with low-density center suggesting central necrosis.There is direct mediastinal invasion anteriorly and posteriorly as discussed above, and there is direct invasion of the right hilum.There is bronchial and vascular narrowing best seen on coronal images.Small satellite nodules are noted lateral to the lesion measuring less than 1 cm diameter.There are also several scattered tiny subpleural nodules in the right upper lobe posteriorly.There are also 2 tiny nodules in the left upper lobe. 4. Chest wall and thoracic spine:No axillary adenopathy.No aggressive expansile lytic osseous lesions are seen.There is mild diffuse sclerosis of T11.Small hemangioma noted in the body of T9 .Marginal spurring and reactive sclerosis of the anterior inferior aspect of T12. Abdomen and Pelvis findings: 1. Liver and spleen:Normal size without focal hypodense lesions apart from a tiny segment 4 cyst. 2. Adrenal glands and kidneys:Left adrenal mass measuring 3.0 cm diameter with density of 34 Hounsfield units.Right adrenal normal.Kidneys unremarkable apart from tiny right lower pole renal cysts. 3. Pancreas and retroperitoneum:Pancreas unremarkable.No retroperitoneal adenopathy.Aorta normal caliber with mild calcified plaque. 4. Peritoneal space:Bowel loops normal caliber.Moderate diverticulosis of the sigmoid colon.No ascites or fluid collection. 5. Pelvis:Partially filled bladder and uterus unremarkable.No pelvic adenopathy. No aggressive/expansile osseous lesions.Moderate focal degenerative disc disease at L5-S1 with reactive sclerosis. Procedure Note Interface, Radiant Results - 01/08/2019 9:[address] chest and CT abdomen and pelvis Indication: 63-year-old lady with right upper lobe mass by outside chest x-ray and CT Technique: Dynamic IV contrast-enhanced images were obtained through the chest abdomen and pelvis.. Comparison studies: Outside CT chest of January 07, 2019 Chest findings: 1. Heart and great vessels: Heart size normal. Moderate calcified coronary artery plaque. Aorta normal caliber with mild scattered plaque. 2. Mediastinum and pulmonary efren: Moderate scattered mediastinal adenopathy and right hilar adenopathy. There is direct mediastinal invasion by large right upper lobe mass in the anterior medial right upper lobe. A large right paratracheal soft tissue mass measures 4.6 x 3.5 cm which may represent direct tumor extension or adenopathy. A reference pretracheal lymph node measures 1.7 x 1.5 cm on image 21 series 5. 3. Lungs and pleura: There is a large mass in the right upper lobe anteriorly and medially measuring 6.5 cm diameter on image 17 series 5 with low-density center suggesting central necrosis. There is direct mediastinal invasion anteriorly and posteriorly as discussed above, and there is direct invasion of the right hilum. There is bronchial and vascular narrowing best seen on coronal images. Small satellite nodules are noted lateral to the lesion measuring less than 1 cm diameter. There are also several scattered tiny subpleural nodules in the right upper lobe posteriorly. There are also 2 tiny nodules in the left upper lobe. 4. Chest wall and thoracic spine: No axillary adenopathy. No aggressive expansile lytic osseous lesions are seen. There is mild diffuse sclerosis of T11. Small hemangioma noted in the body of T9 . Marginal spurring and reactive sclerosis of the anterior inferior aspect of T12. Abdomen and Pelvis findings: 1. Liver and spleen: Normal size without focal hypodense lesions apart from a tiny segment 4 cyst. 2. Adrenal glands and kidneys: Left adrenal mass measuring 3.0 cm diameter with density of 34 Hounsfield units. Right adrenal normal. Kidneys unremarkable apart from tiny right lower pole renal cysts. 3. Pancreas and retroperitoneum: Pancreas unremarkable. No retroperitoneal adenopathy. Aorta normal caliber with mild calcified plaque. 4. Peritoneal space: Bowel loops normal caliber. Moderate diverticulosis of the sigmoid colon. No ascites or fluid collection. 5. Pelvis: Partially filled bladder and uterus unremarkable. No pelvic adenopathy. No aggressive/expansile osseous lesions. Moderate focal degenerative disc disease at L5-S1 with reactive sclerosis. IMPRESSION Chest: 1. Large right upper lobe mass with central necrosis consistent with primary lung carcinoma. There is direct mediastinal and right hilar invasion by the mass. 2. Moderate mediastinal and right hilar adenopathy consistent with metastatic disease. 3. Small satellite nodules and scattered additional small pulmonary nodules which may represent lung metastases. 4. Nonspecific diffuse sclerosis of T11. No aggressive destructive osseous lesions are seen. Abdomen and Pelvis: 1. Left adrenal mass which is most likely a metastasis. 2. No hepatic metastases or other abdominal/pelvic metastatic disease. By my electronic signature, I attest that I have personally reviewed the images for this examination and formulated the interpretations and opinions expressed in this report Finalized by Jayce Lora M.D. on 01/08/2019 9:38 AM. Dictated by Kevin Pickett M.D. on 01/08/2019 8:26 AM. Performing Organization Address City/State/Zipcode Phone Number [facility] * CT CHEST W CONTRAST (01/08/2019 5:23 AM CDT) Specimen Impressions Performed At Chest: [facility] RES[facility] 1.Large right upper lobe mass with central necrosis consistent with primary lung carcinoma.There is direct mediastinal and right hilar invasion by the mass. 2.Moderate mediastinal and right hilar adenopathy consistent with metastatic disease. 3.Small satellite nodules and scattered additional small pulmonary nodules which may represent lung metastases. 4.Nonspecific diffuse sclerosis of T11.No aggressive destructive osseous lesions are seen. Abdomen and Pelvis: 1.Left adrenal mass which is most likely a metastasis. 2.No hepatic metastases or other abdominal/pelvic metastatic disease. By my electronic signature, I attest that I have personally reviewed the images for this examination and formulated the interpretations and opinions expressed in this report Finalized by Jayce Lora M.D. on 01/08/2019 9:38 AM. Dictated by Kevin Pickett M.D. on 01/08/2019 8:26 AM. Narrative Performed At CT chest andCT abdomen and pelvis [facility] RES[facility] Indication:63-year-old lady with right upper lobe mass by outside chest x-ray and CT Technique: Dynamic IV contrast-enhanced images were obtained through the chest abdomen and pelvis.. Comparison studies:Outside CT chest of January 07, 2019 Chest findings: 1. Heart and great vessels: Heart size normal.Moderate calcified coronary artery plaque.Aorta normal caliber with mild scattered plaque. 2. Mediastinum and pulmonary efren:Moderate scattered mediastinal adenopathy and right hilar adenopathy.There is direct mediastinal invasion by large right upper lobe mass in the anterior medial right upper lobe.A large right paratracheal soft tissue mass measures 4.6 x 3.5 cm which may represent direct tumor extension or adenopathy.A reference pretracheal lymph node measures 1.7 x 1.5 cm on image 21 series 5. 3. Lungs and pleura:There is a large mass in the right upper lobe anteriorly and medially measuring 6.5 cm diameter on image 17 series 5 with low-density center suggesting central necrosis.There is direct mediastinal invasion anteriorly and posteriorly as discussed above, and there is direct invasion of the right hilum.There is bronchial and vascular narrowing best seen on coronal images.Small satellite nodules are noted lateral to the lesion measuring less than 1 cm diameter.There are also several scattered tiny subpleural nodules in the right upper lobe posteriorly.There are also 2 tiny nodules in the left upper lobe. 4. Chest wall and thoracic spine:No axillary adenopathy.No aggressive expansile lytic osseous lesions are seen.There is mild diffuse sclerosis of T11.Small hemangioma noted in the body of T9 .Marginal spurring and reactive sclerosis of the anterior inferior aspect of T12. Abdomen and Pelvis findings: 1. Liver and spleen:Normal size without focal hypodense lesions apart from a tiny segment 4 cyst. 2. Adrenal glands and kidneys:Left adrenal mass measuring 3.0 cm diameter with density of 34 Hounsfield units.Right adrenal normal.Kidneys unremarkable apart from tiny right lower pole renal cysts. 3. Pancreas and retroperitoneum:Pancreas unremarkable.No retroperitoneal adenopathy.Aorta normal caliber with mild calcified plaque. 4. Peritoneal space:Bowel loops normal caliber.Moderate diverticulosis of the sigmoid colon.No ascites or fluid collection. 5. Pelvis:Partially filled bladder and uterus unremarkable.No pelvic adenopathy. No aggressive/expansile osseous lesions.Moderate focal degenerative disc disease at L5-S1 with reactive sclerosis. Procedure Note Interface, Radiant Results - 01/08/2019 9:[address] chest and CT abdomen and pelvis Indication: 63-year-old lady with right upper lobe mass by outside chest x-ray and CT Technique: Dynamic IV contrast-enhanced images were obtained through the chest abdomen and pelvis.. Comparison studies: Outside CT chest of January 07, 2019 Chest findings: 1. Heart and great vessels: Heart size normal. Moderate calcified coronary artery plaque. Aorta normal caliber with mild scattered plaque. 2. Mediastinum and pulmonary efren: Moderate scattered mediastinal adenopathy and right hilar adenopathy. There is direct mediastinal invasion by large right upper lobe mass in the anterior medial right upper lobe. A large right paratracheal soft tissue mass measures 4.6 x 3.5 cm which may represent direct tumor extension or adenopathy. A reference pretracheal lymph node measures 1.7 x 1.5 cm on image 21 series 5. 3. Lungs and pleura: There is a large mass in the right upper lobe anteriorly and medially measuring 6.5 cm diameter on image 17 series 5 with low-density center suggesting central necrosis. There is direct mediastinal invasion anteriorly and posteriorly as discussed above, and there is direct invasion of the right hilum. There is bronchial and vascular narrowing best seen on coronal images. Small satellite nodules are noted lateral to the lesion measuring less than 1 cm diameter. There are also several scattered tiny subpleural nodules in the right upper lobe posteriorly. There are also 2 tiny nodules in the left upper lobe. 4. Chest wall and thoracic spine: No axillary adenopathy. No aggressive expansile lytic osseous lesions are seen. There is mild diffuse sclerosis of T11. Small hemangioma noted in the body of T9 . Marginal spurring and reactive sclerosis of the anterior inferior aspect of T12. Abdomen and Pelvis findings: 1. Liver and spleen: Normal size without focal hypodense lesions apart from a tiny segment 4 cyst. 2. Adrenal glands and kidneys: Left adrenal mass measuring 3.0 cm diameter with density of 34 Hounsfield units. Right adrenal normal. Kidneys unremarkable apart from tiny right lower pole renal cysts. 3. Pancreas and retroperitoneum: Pancreas unremarkable. No retroperitoneal adenopathy. Aorta normal caliber with mild calcified plaque. 4. Peritoneal space: Bowel loops normal caliber. Moderate diverticulosis of the sigmoid colon. No ascites or fluid collection. 5. Pelvis: Partially filled bladder and uterus unremarkable. No pelvic adenopathy. No aggressive/expansile osseous lesions. Moderate focal degenerative disc disease at L5-S1 with reactive sclerosis. IMPRESSION Chest: 1. Large right upper lobe mass with central necrosis consistent with primary lung carcinoma. There is direct mediastinal and right hilar invasion by the mass. 2. Moderate mediastinal and right hilar adenopathy consistent with metastatic disease. 3. Small satellite nodules and scattered additional small pulmonary nodules which may represent lung metastases. 4. Nonspecific diffuse sclerosis of T11. No aggressive destructive osseous lesions are seen. Abdomen and Pelvis: 1. Left adrenal mass which is most likely a metastasis. 2. No hepatic metastases or other abdominal/pelvic metastatic disease. By my electronic signature, I attest that I have personally reviewed the images for this examination and formulated the interpretations and opinions expressed in this report Finalized by Jayce Lora M.D. on 01/08/2019 9:38 AM. Dictated by Kevin Pickett M.D. on 01/08/2019 8:26 AM. Performing Organization Address City/State/Zipcode Phone Number [facility] * [facility] REF LAB SCAN (01/08/2019 12:00 AM CDT) Narrative Performed At Ordered by an unspecified provider. * CT CHEST EXTERNAL IMAGING (01/07/2019 4:20 PM CDT) Specimen Narrative Performed At This order has been auto finalized and does not contain a result. * GENERAL RAD CHEST EXTERNAL IMAGING (01/07/2019 3:45 PM CDT) Specimen Narrative Performed At This order has been auto finalized and does not contain a result. * TELEMETRY STRIPS-SCAN (01/07/2019 12:00 AM CDT) Narrative Performed At Ordered by an unspecified provider. * TELEMETRY STRIPS-SCAN (01/07/2019 12:00 AM CDT) Narrative Performed At Ordered by an unspecified provider. * TELEMETRY STRIPS-SCAN (01/07/2019 12:00 AM CDT) Narrative Performed At Ordered by an unspecified provider. * PROCEDURE RECORD-SCAN (01/07/2019 12:00 AM CDT) Narrative Performed At Ordered by an unspecified provider. from Last 3 Months Insurance Type Payer Benefit Subscriber ID Effective Phone Address Plan / Dates Group PPO BCBS KENZIE BCBS KENZIE xxxxxxxxx [id number] FED EMP resent PROGRAM Advance Directives Patient Coding Team Lead Explanation Type Date Recorded Advance 01/08/2019 8:13 AM Directive/DPOA Date Inactivated Comments Code Status Date Activated 01/09/2019 2:26 PM Full Code 01/08/2019 12:24 AM Provider has discussed Code Status Yes w/Patient or Family? 01/08/2019 12:24 AM Full Code 01/07/2019 10:31 PM Provider has discussed Code Status No, more discussion w/Patient or Family? needed
--- OUTSIDE RECORDS SUMMARY | 2019-03-27 10:33 | XMS REPORT | Encounter Summary ---
Author Author [facility] Organization [facility] Address Unknown Phone Unavailable Care Team Providers Care Hydrotreater Operator Name Role Phone Vicky Ritter MD PCP Reason for Visit * Reason Comments Care Coordination Encounter Details Care Team Description [place] [address] [place] [phone] Care Coordination 01/22/2019 Telephone [facility] [address] [place] [phone] Social History Date Tobacco Use Types [...] Telephone Encounter - Rosario Lopez RN - 01/22/2019 8:46 AM CDT Anabel has an appointment with medical oncologist, Dr. Cabrera at [facility] on . We also discussed FMLA paperwork for her Eladio had left for us to comp lete. The paperwork will be mailed to her home and a copy has been faxed to [facility] so the treating physician can complete the FMLA. documented in this encounter Plan of Treatment Not on filedocumented as of this encounter Visit Diagnoses Not on filedocumented in this encounter
--- OUTSIDE RECORDS SUMMARY | 2019-03-27 10:33 | XMS REPORT | Encounter Summary ---
Author Author [facility] Organization [facility] Address Unknown Phone Unavailable Care Team Providers Care Public Space Attendant Name Role Phone Vicky Ritter MD PCP Encounter Details Care Team Description [place] [address] [place] [address] 01/17/2019 Orders Only [facility] [address] [place] [phone] Social History Date Tobacco Use Types [...] impairment: No documented as of this encounter Plan of Treatment Not on filedocumented as of this encounter Visit Diagnoses Not on filedocumented in this encounter
--- OUTSIDE RECORDS SUMMARY | 2019-03-27 10:34 | XMS REPORT | Encounter Summary ---
Author Author [facility] Organization [facility] Address Unknown Phone Unavailable Care Team Providers Care Roll Over Press Operator Name Role Phone Vicky Ritter MD PCP Reason for Referral * Radiology Services (Routine) Referred By Contact Referred To Contact Status Reason Specialty Diagnoses / [place] [address] [place] [address] [facility] [address] [place] [address] No Auth Needed Radiology Diagnoses Hemoptysis Squamous cell carcinoma of lung, unspecified laterality (HCC) P rocedures NM PET SCAN TORSO (SKULL-THIGHS) * Radiology Services (Routine) Referred By Contact Referred To Contact Status Reason Specialty Diagnoses / [place] [address] [place] [phone] [facility] [address] [place] [phone] No Auth Needed Radiology Diagnoses Hemoptysis Squamous cell carcinoma of lung, unspecified laterality (HCC) P rocedures NM PET SCAN TORSO (SKULL-THIGHS) Reason for Visit * Radiology Services (Routine) Referred By Contact Referred To Contact Status Reason Specialty Diagnoses / [place] [address] [place] [address] [facility] [address] [place] [address] No Auth Needed Radiology Diagnoses Hemoptysis Squamous cell carcinoma of lung, unspecified laterality (HCC) P rocedures NM PET SCAN TORSO (SKULL-THIGHS) Encounter Details Care Team Description Date [place] [address] [place] [address] [phone] 01/16/2019 [facility] [address] [place] [address] Social History Date Tobacco Use Types Packs/Day [...] impairment: No documented as of this encounter Medications at Time of Discharge Start Date End Date Medication Sig Dispensed Refills atorvastatin (LIPITOR) 10 Take 10 mg by 0 mg tablet mouth daily. 07/31/2016 famotidine (PEPCID) 20 mg Take 20 mg by 0 tablet mouth daily. metoprolol XL (TOPROL XL) Take 50 mg by 0 50 mg extended release mouth daily. tablet 01/09/2019 nicotine (NICODERM CQ Apply one 28 patch 2 STEP 1) 21 mg/day patch to top patchIndications: Smoking of skin as Cessation directed every 24 hours. Rotate patch location. Indications: Stop Smoking 01/09/2019 nicotine polacrilex Take one each 2 box 3 (NICORETTE) 4 mg gum by mouth as Needed. Chew to soften and park in mouth between lip and gum. May use 1 piece per hour, not to exceed 24 per day, for 12 weeks. May be used for longer, if needed. 01/15/2019 oxyCODONE (ROXICODONE, Take one 60 tablet 0 OXY-IR) 5 mg tablet tablet to two tablets by mouth every 4 hours as needed topiramate (TOPAMAX) 25 Take 25 mg by 0 mg sprinkle capsule mouth as directed every 12 hours. 01/09/2019 varenicline (CHANTIX) 1 Take one 56 tablet 4 mg tablet tablet by mouth twice daily with meals. Take with 8 oz of water and after a meal. documented as of this encounter Plan of Treatment Not on filedocumented as of this encounter Procedures Comments Procedure Name Priority Date/Time Associated Diagnosis NM PET SCAN TORSO Routine 01/16/2019 Hemoptysis (SKULL-THIGHS) 1:07 PM CDT Squamous cell carcinoma of lung, unspecified laterality (HCC) documented in this encounter Results * NM PET SCAN TORSO (SKULL-THIGHS) (01/16/2019 [...] and right hilar lymph nodes are noted. Cushion Maker pretracheal lymph node demonstrates a maximal SUV [...] and right hilar lymph nodes are noted. Cushion Maker pretracheal lymph node demonstrates a maximal SUV [...] Address City/State/Zipcode Phone Number [facility] documented in this encounter Visit Diagnoses Diagnosis Hemoptysis Hemoptysis, unspecified Squamous cell carcinoma of lung, unspecified laterality (HCC) documented in this encounter Administered Medications Action Date Dose Rate Site Medication Order MAR Action 01/16/2019 1:15 PM CDT 10.8 millicuries RP DX F-18 FDG injection 10 millicurie Given 10 millicurie, Intravenous, ONCE, 1 dose, [place] 01/16/19 at 1315 documented in this encounter
--- OUTSIDE RECORDS SUMMARY | 2019-03-27 10:34 | XMS REPORT | Encounter Summary ---
Author Author [facility] Organization [facility] Address Unknown Phone Unavailable Care Team Providers Care Carpenter Mold Name Role Phone Vicky Ritter MD PCP Reason for Visit * Reason Comments Navigation Assessment Encounter Details Care Team Description [place] [address] [place] [address] [phone] Navigation Assessment 01/13/2019 Telephone [facility] [address] [phone] Social History Date Tobacco Use Types Packs/Day Years Used Started: 01/09/1980 Current Every Day Smoker Cigarettes 2 40 Comments: has been cutting down recently; 2-3 per day Drinks/Week oz/Week Comments Alcohol Use Yes Alcohol Habits Answer Date Recorded How often do you have a drink containing alcohol? Monthly or less 01/08/2019 How many drinks containing alcohol do you have on Not asked a typical day when you are drinking? How often do you have six or more drinks on one Not asked occasion? Sex Assigned at Date Recorded Not on file Industry Job Start Date Occupation Not on file Not on file Not on file Travel End Travel History Travel Start No recent travel history available. documented as of this encounter Functional Status Date of Assessment Functional Status Response 01/09/2019 Does the patient have a hearing impairment: No 01/09/2019 Does the patient have a visual impairment: No 01/09/2019 Does the patient have impaired ambulation: No 01/09/2019 Does the patient have an activity of daily living No (ADL) impairment: 01/09/2019 Does the patient have an instrumental activity of No daily living (IADL) impairment: Date of Assessment Cognitive Status Response 01/09/2019 Does the patient have a cognitive impairment: No documented as of this encounter Miscellaneous Notes * Telephone Encounter - Bibi Coffman RN - 01/13/2019 11:42 AM CDT Navigation Intake Assessment Document Patient Name: Mary Ulloa "Anabel" : 1955 Insurance: BC Appointment Info: to see Dr Montalvo on 01/15/19 Diagnosis & Reason for Visit: [facility] Lung cancer Physician Info: Referring Physician: Dr Jai Kuhn, Pulmonary Contact Name & Number: [phone] PCP: Other: Location of Films: IN HOUSE and PACS Location of Pathology: IN HOUSE History of Present Illness: Pt had workup while Inpt at . Records and images in O2 01/07/19 - CT chest, done outside, RUL mass 01/08/19 - CT chest, abd, pelvis at 01/08/19 - Bronch, EBUS biopsy, Path: NSC CA, squamous CA, PD-L1 pending Referred to [facility] Onc PET scan and MRI brain pending, scheduled for 01/29/19 Prior Treatment (XRT, Surgery, Chemotherapy): None Comments: Spoke to pt about appt. They live about 100 miles away, in [place], [place] . Her will come with her to appt. Appt guide sent. NEEDS Assessment: Genetic Counseling: Genetic Assessment: Not assessed at this time Nutrition: Additional Nutrition Assessment: No concerns identified Social & Financial: Social and Financial Assessment: Reports adequate support system;No needs identi fied Spiritual & Emotional: Spiritual and Emotional Assessment: Other (Comment)(Concerns about new diagnosis ) Spiritual and Emotional Intervention: Emotional Support provided Physical: Fall Risk: None identified Communication: Communication Barrier: No Onc Fertility: Onc Fertility Assessment: Not applicable documented in this encounter Plan of Treatment Not on filedocumented as of this encounter Visit Diagnoses Not on filedocumented in this encounter
--- OUTSIDE RECORDS SUMMARY | 2019-03-27 10:34 | XMS REPORT | Encounter Summary ---
Author Author [facility] Organization [facility] Address Unknown Phone Unavailable Care Team Providers Care Facilities Operations Technician Name Role Phone Vicky Ritter MD PCP Reason for Referral * Radiology Services (Routine) Referred By Contact Referred To Contact Status Reason Specialty Diagnoses / [place] [address] [place] [address] [address] [place] [address] No Auth Needed Radiology Diagnoses Hemoptysis Squamous cell carcinoma of lung, unspecified laterality (HCC) P rocedures MRI HEAD WO/W CONTRAST * Radiology Services (Routine) Referred By Contact Referred To Contact Status Reason Specialty Diagnoses / [place] [address] [place] [address] [address] [address] No Auth Needed Radiology Diagnoses Hemoptysis Squamous cell carcinoma of lung, unspecified laterality (HCC) P rocedures MRI HEAD WO/W CONTRAST Reason for Visit * Radiology Services (Routine) Referred By Contact Referred To Contact Status Reason Specialty Diagnoses / [place] [address] [place] [address] [address] [place] [address] No Auth Needed Radiology Diagnoses Hemoptysis Squamous cell carcinoma of lung, unspecified laterality (HCC) P rocedures MRI HEAD WO/W CONTRAST Encounter Details Care Team Description [place] [address] [place] [address] [phone] 01/16/2019 [facility] [address] [facility] [address] [address] [place] [address] Social History Date Tobacco Use Types Packs/Day [...] (HCC) documented in this encounter Results * MRI HEAD WO/W CONTRAST (01/16/2019 [...] Rate Site Medication Order MAR Action 01/16/2019 3:20 PM CDT 18 mL gadobenate dimeglumine (MULTIHANCE) Given injection 18 mL 18 mL, Intravenous, ONCE, 1 dose, [facility] 01/16/19 at 1430, Hand injection, flushed with 10 mL saline s/p injection NOTE: This is a HIGH ALERT Medication., documented in this encounter
--- OUTSIDE RECORDS SUMMARY | 2019-03-27 10:34 | XMS REPORT | Encounter Summary ---
Author Author [facility] Organization [facility] Address Unknown Phone Unavailable Care Team Providers Care Compounding Assistant Name Role Phone Vicky Ritter MD PCP Reason for Referral * Consult, Test & Treat (Urgent) Referred By Contact Referred To Contact Status Reason Specialty Diagnoses / Procedures Itz Kuhn MD [facility] [address] [place] [address] [place] [address] [place] [address] No Auth Needed Specialty Services Oncology Diagnoses Required Cancer of upper lobe of right lung (HCC) Reason for Visit * Reason Comments Results Encounter Details Care Team Description Date Type Department Itz Kuhn MD [address] [facility] [address] [place] [address] Results 01/10/2019 Telephone [facility] [address] [place] [address] Social History Date Tobacco Use Types Packs/Day [...] encounter Miscellaneous Notes * Telephone Encounter - Itz Kuhn MD - 01/10/2019 10:52 AM CDT Call patient to discuss the results of her bronchoscopy. 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 She lives in [facility] and would like to follow-up here at . Referral placed for Dr. Ordonez at [facility] cancer center location which should be closer for her. She is in ag reement with the plan and is expecting a phone call from their office regarding urgent scheduling. documented in this encounter Plan of Treatment Order Schedule Name Type Priority Associated Diagnoses Ordered: 01/10/2019 AMB REFERRAL TO ONCOLOGY Outpatient Routine Cancer of upper lobe of Referral right lung (HCC) documented as of this encounter Visit Diagnoses Diagnosis Cancer of upper lobe of right lung (HCC) - Primary documented in this encounter
--- OUTSIDE RECORDS SUMMARY | 2019-03-27 10:34 | XMS REPORT | Encounter Summary ---
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) Reason for Visit * Reason Comments Follow Up * Consult, Test & Treat (Urgent) Referred By Contact Referred To Contact Status Reason Specialty Diagnoses / Procedures Itz Kuhn MD [address] [place] [facility] [address] [address] [place] [address] [place] [phone] No Auth Needed Specialty Services Oncology Diagnoses Required Cancer of upper lobe of right lung (HCC) Encounter Details Care Team Description Date [place] [address] [place] [id number] [phone] 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) (Primary Dx) 01/15/2019 Office Visit [facility] [address] [place] [address] Social History Date Tobacco Use Types [...] Signs Reading Time Taken Comments Vital Sign 111/74 01/15/2019 8:30 AM CDT Blood Pressure 103 01/15/2019 8:30 AM CDT Pulse 37.3 C (99.2 F) 01/15/2019 8:30 AM CDT Temperature 16 01/15/2019 8:30 AM CDT Respiratory Rate 92% 01/15/2019 8:30 AM CDT Oxygen Saturation - - Inhaled Oxygen Concentration 89 kg (196 lb 3.2 oz) 01/15/2019 8:30 AM CDT Weight 165.1 cm (5' 5") 01/15/2019 8:30 AM CDT Height 32.65 01/15/2019 8:30 AM CDT Body Mass Index documented in this encounter Functional Status Date of Assessment Functional Status Response 01/15/2019 Does the patient have a hearing impairment: No 01/15/2019 Does the patient have a visual impairment: Yes 01/15/2019 Does the patient have impaired ambulation: No 01/15/2019 Does the patient have an activity of daily living No (ADL) impairment: 01/15/2019 Does the patient have an instrumental activity of No daily living (IADL) impairment: Date of Assessment Cognitive Status Response 01/15/2019 Does the patient have a cognitive impairment: No documented as of this encounter Progress Notes * Rip Montalvo MD - 01/15/2019 8:15 AM CDT Date of Service: 01/15/2019 Subjective: Reason for Visit: Follow Up Mary Higgins is a 63 y.o. female. 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 She has a long-standing history of tobacco a buse and admittedly has avoided doctors. She actually started having some sympt oms in October 2018 but they were transient and when she had hemoptysis it was just very scant. Her doctor advised a chest x-ray but she kind of ignored that recommendation. She historically has worked at a [employer] but she went about 8 mo nths without working just because she did not want to but she went back in the ast couple of weeks and she started noticing worsening pain in her right anterio r chest area and then she had more episodes of hemoptysis 1 of which was yang b lood within the past 2 weeks. She was ultimately advised to go to a local [facility] ency room and was subsequently transferred to after [...] that measured 3 cm concerning for metastatic disea se and they noted some nonspecific sclerosis of T11. Bronchoscopy January 08, 2019 and pathology from this did show squamous cell carcinom a from right upper lobe well to moderately differentiated diffusely positive for P 40 and negative for TTF-1. PDL 1 stains are pending. FNAs from [facility] were negative including 4L, 7, 11RS but FNA from the [facility] also showed non-sma ll cell carcinoma from the right upper lobe. Historically she admits she is not very good about seeing doctors but she is on blood pressure, cholesterol and Topamax for headaches. She is also been prescri bed oxycodone which is probably help the pain a little bit but she is not big on taking medicines either but snkk-vuj-csovwch pain medicines including Tylenol u pset her stomach. She had cervical cancer in the 1980s treated with surgery ernie ne. She is also had a skin cancer removed from her forehead in 2006 that I risa lopez was nonmelanoma based on description but that was done at [place] when she live d on the [facility] and we do not have records. She was also aware of a prior adrenal lesion which she heard about in 2010 and a pparently she had follow-up scans in 2016 in [facility] which we will try to get. Review of Systems Constitutional: Positive for appetite change and unexpected weight change (January e 5 or 10 pounds just from not wanting to eat as much.). Respiratory: Positive for cough and shortness of breath. All other systems reviewed and are negative. Medical History: Diagnosis Date HTN (hypertension) Hyperlipidemia Tobacco use Surgical History: Procedure Laterality Date BRONCHOSCOPY Bilateral 01/08/2019 BRONCHOSCOPY WITH ENDOBRONCHIAL ULTRASOUND GUIDED TRANSTRACHEAL/ TRANSBRONCHIAL SAMPLING - 3 OR MORE MEDIASTINAL/ HILAR LYMPH NODE STATIONS/ STRUCTURE - FLEXIB LE performed by Itz Kuhn [facility] BRONCHOSCOPY Bilateral 01/08/2019 BRONCHOSCOPY DIAGNOSTIC WITH CELL WASHING - FLEXIBLE performed by Bob Kuhn MD [facility] BRONCHOSCOPY Bilateral 01/08/2019 BRONCHOSCOPY WITH BRUSHING/ PROTECTED BRUSHING - FLEXIBLE performed by Itz Kuhn MD [facility] BRONCHOSCOPY Right 01/08/2019 BRONCHOSCOPY WITH TRANSBRONCHIAL LUNG BIOPSY - FLEXIBLE - SINGLE LOBE performed by Itz Kuhn MD at [facility] BRONCHOSCOPY N/A 01/08/2019 BRONCHOSCOPY WITH TRANSBRONCHIAL NEEDLE ASPIRATION AND BIOPSY TRACHEA/ MAIN SIERRA M/ LOBAR BRONCHUS - FLEXIBLE performed by Itz Kuhn MD [facility] HYSTERECTOMY No family history on file. Social History Socioeconomic History Marital status: Spouse name: Not on file Number of children: Not on file Years of education: Not on file Highest education level: Not on file Occupational History Not on file Tobacco Use Smoking status: Current Every Day Smoker Packs/day: 2.00 Years: 40.00 Pack years: 80.00 Types: Cigarettes Start date: 01/09/1980 Smokeless tobacco: Never Used Tobacco comment: has been cutting down recently; 2-3 per day Substance and Sexual Activity Alcohol use: Yes Frequency: Monthly or less Drug use: Not Currently Sexual activity: Not on file Other Topics Concern Not on file Social History Narrative Not on file No Known Allergies Objective: atorvastatin (LIPITOR) 10 mg tablet Take 10 mg by mouth daily. famotidine (PEPCID) 20 mg tablet Take 20 mg by mouth daily. metoprolol XL (TOPROL XL) 50 mg extended release tablet Take 50 mg by mouth daily. nicotine (NICODERM CQ STEP 1) 21 mg/day patch Apply one patch to top of skin as directed every 24 hours. Rotate patch location. Indications: Stop Smoking nicotine polacrilex (NICORETTE) 4 mg gum Take one each by mouth as Needed. C hew to soften and park in mouth between lip and gum. May use 1 piece per hour, n ot to exceed 24 per day, for 12 weeks. May be used for longer, if needed. oxyCODONE (ROXICODONE, OXY-IR) 5 mg tablet Take one tablet to two tablets by mouth every 4 hours as needed topiramate (TOPAMAX) 25 mg sprinkle capsule Take 25 mg by mouth as directed every 12 hours. varenicline (CHANTIX) 1 mg tablet Take one tablet by mouth twice daily with meals. Take with 8 oz of water and after a meal. Vitals: 01/15/19 0830 BP: 111/74 Pulse: 103 Resp: 16 Temp: 37.3 C (99.2 F) TempSrc: Oral SpO2: 92% Weight: 89 kg (196 lb 3.2 oz) Height: 165.1 cm (65") Body mass index is 32.65 kg/m. Pain Score: Ten Pain Loc: Abdomen Pain Addressed: Prescription provided for pain management Patient Evaluated for a Clinical Trial: No treatment clinical trial available fo r this patient. Eastern Cooperative Oncology Group performance status is 1, Restricted in physic ally strenuous activity but ambulatory and able to carry out work of a light or sedentary nature, e.g., light house work, office work. Physical Exam Constitutional: She is oriented to person, place, and time. She appears well-dev eloped and well-nourished. No distress. HENT: Head: Normocephalic and atraumatic. Mouth/Throat: Oropharynx is clear and moist. Eyes: Conjunctivae are normal. No scleral icterus. Neck: Neck supple. No thyromegaly present. Cardiovascular: Normal rate, regular rhythm and normal heart sounds. Pulmonary/Chest: Effort normal and breath sounds normal. She has no wheezes. Abdominal: Soft. Bowel sounds are normal. She exhibits no distension and no mass . Musculoskeletal: Normal range of motion. She exhibits no edema. Lymphadenopathy: She has no cervical adenopathy. She has no axillary adenopathy. Right: No supraclavicular adenopathy present. Left: No supraclavicular adenopathy present. Neurological: She is alert and oriented to person, place, and time. No cranial n erve deficit. She exhibits normal muscle tone. Coordination normal. Skin: Skin is warm and dry. Psychiatric: She has a normal mood and affect. Her behavior is normal. Judgment and thought content normal. Results for orders placed or performed during the hospital encounter of 01/07/19 (from the past 336 hour(s)) CBC AND DIFF Result Value Ref Range White Blood Cells 6.5 4.5 - 11.0 K/UL RBC 4.30 4.0 - 5.0 M/UL Hemoglobin 12.5 12.0 - 15.0 GM/DL Hematocrit 38.1 36 - 45 % MCV 88.4 80 - 100 FL MCH 29.0 26 - 34 PG MCHC 32.7 32.0 - 36.0 G/DL RDW 13.7 11 - 15 % Platelet Count 181 150 - 400 K/UL MPV 9.5 7 - 11 FL Neutrophils 66 41 - 77 % Lymphocytes 25 24 - 44 % Monocytes 7 4 - 12 % Eosinophils 2 0 - 5 % Basophils 0 0 - 2 % Absolute Neutrophil Count 4.20 1.8 - 7.0 K/UL Absolute Lymph Count 1.70 1.0 - 4.8 K/UL Absolute Monocyte Count 0.50 0 - 0.80 K/UL Absolute Eosinophil Count 0.20 0 - 0.45 K/UL Absolute Basophil Count 0.00 0 - 0.20 K/UL COMPREHENSIVE METABOLIC PANEL Result Value Ref Range Sodium 137 137 - 147 MMOL/L Potassium 3.5 3.5 - 5.1 MMOL/L Chloride 106 98 - 110 MMOL/L Glucose 121 (H) 70 - 100 MG/DL Blood Urea Nitrogen 8 7 - 25 MG/DL Creatinine 0.50 0.4 - 1.00 MG/DL Calcium 9.4 8.5 - 10.6 MG/DL Total Protein 7.1 6.0 - 8.0 G/DL Total Bilirubin 1.0 0.3 - 1.2 MG/DL Albumin 3.7 3.5 - 5.0 G/DL Alk Phosphatase 68 25 - 110 U/L AST (SGOT) 17 7 - 40 U/L CO2 25 21 - 30 MMOL/L ALT (SGPT) 7 7 - 56 U/L Anion Gap 6 3 - 12 eGFR Non >60 >60 mL/min eGFR >60 >60 mL/min BRONCHOSCOPY Result Value Ref Range Provation Report Patient Name: Mary Higgins Procedure Date: 01/08/2019 8:54 AM CSN: [id number] Date of : 1955 Gender: Female Attending Physician: Itz Kuhn MD Procedure: Bronchoscopy Indications: Right upper lobe mass Providers: Itz Kuhn MD (Doctor), Daphnie Patel RN (Nurse), Cleve Lloyd Technologist (Paving Contractor) Referring Physician: Willian Omalley Medications: Tetricaine 0.25%/Epinephrine 0.003% 10 mL nebulizer, Tetricaine 0.25%/Epinephrine 0.003% topically on airway mucosa 10 mL, General Anesthesia Complications: No immediate complications Findings: An endobronchial ultrasound endoscope was utilized in order to assist with fine needle aspiration and/or characterization of lymph node stations 1R, 1L, 2R, 2L, 4R, 4L, 10R, 10L, 11Rs, 11Ri, 11L and 7. Only the following lymphno de stations were determined to be larger than [...] Endobronchial ultrasound was performed. - Lymph node si zing and sampling was performed. - Rapid On-Site [...] 0 Note Initiated On: 01/08/2019 8:54 AM SURGICAL PATHOLOGY Result Value Ref Range PATHOLOGY REPORT THE [facility] [email or web address] Department of Pathology and Laboratory Medicine [address] [place] [address] Surgical Pathology Office: [phone] SURGICAL PATHOLOGY REPORT NAME: MARY HIGGINS SURG PATH #: [id number] MR #: [id number] SPECIMEN CLASS: SR BILLING #: [id number] ALT ID #: LOCATION: DISCHARGED DATE OF PROCEDURE: 01/08/2019 AGE: 63 SEX: F DATE RECEIVED: 01/08/2019 : 1955 TIME RECEIVED: 13:49 PHYSICIAN: ITZ KUHN MD DATE OF REPORT: 01/10/2019 COPY TO: DATE OF PRINTIN01/10/2019 ######################################################################## Final Diagnosis: A. Respiratory mucosa, "right upper lobe mass", biopsy: Squamous carcinoma, well to moderately differentiated. See comment. Comment: Immunostains performed on block A2 demonstrate the tumor cells are diffusely positive for P40 and are negative for TTF-1, supporting the above interpretation. A PDL1 imm unostain will be reported as an addendum. The biopsy/tissue block contains sufficient tumor cells for further testing (block A2>A1). Pursuant to the [employer] at the [facility] Pathology Department, selected slides from this [...] indicated in this report. +++ +++ lkr/01/09/2019 ######################################################################## Material Received: A: right upper lobe mass History: 63-year-old female with a history of large RUL mass. Gross Description: A. Received in formalin labeled "right up per lobe mass" is a 1.5 x 0.2 x 0.2 cm aggregate of irregular, pale [place] soft tissue fragments. The specimen is entirely submitted in cassettes A1 and A2. (an) an/01/08/2019 If immunohistochemical stains and/or in situ hybridization are cited in this report, the performance characteristics were determined by the Department of Pathology and Laboratory Medicine of the [facility] ([employer]) in compliance with CLIA'88 regulations. Some of these tests rely on the use of "analyte specific reagents" and are subject to specific labeling requirements by the FDA. Known positive and negative control tissues demonstrate appropriate staining. Results should be interpreted with caution given the likelihood of false negativity on decalcified specimens. This testing was developed by the Department of Pathology and Laboratory Medicine of the [facility]. It has not been cleared or approved by the FDA. The FDA has determined that javier ch clearance or approval is not necessary. FINE NEEDLE ASPIRATE (FNA) Result Value Ref Range Cytology [facility] [email or web address] Department of Pathology and Laboratory Medicine [address] [place] [address] Surgical Pathology Office: [phone] CYTOLOGY REPORT NAME: MARY HIGGINS SURG PATH #: [id number] MR #: [id number] ALT ID #: BILLING #: [id number] LOCATION: DISCHARGED DATE OF PROCEDURE: 01/08/2019 AGE: 63 SEX: F DATE RECEIVED: 01/08/2019 : 1955 TIME RECEIVED: 13:51 PHYSICIAN: ITZ KUHN MD DATE OF REPORT: 01/10/2019 COPY [...] determination of adequacy was performed by the ampoule sealerDO, on Diff-Quik stained slide(s). All four passes not romel quate for evaluation. B. ( 2 DQ direct smear, 2 Pap direct smear, 1 cell block) Rapid determination of adequacy was performed by the ampoule sealerDO, on Diff-Quik stained slide(s). Pass two adequate for evaluation. Pass three all RPMI for cell block. C. ( 2 DQ direct smear, 2 Pap direct smear, 1 cell block) Rapid determination of adequacy was performed by the ampoule sealerDO, on Diff-Quik stained slide(s). Pass one adequate for evaluation. Pass two not adequate. Pass three all RPMI for cell block. D. ( 3 DQ direct smear, 3 Pap direct smear, 1 cell block) Rapid determination of adequacy was performed by the ampoule sealerDO, on Diff-Quik stained slide(s). Pass three adequate for evaluation. ######################################################################## Final Diagnosis: A. Lymph Node, Station 4L, [...] concurrent surgical pathology report for further classification ([id number]). Comment: A cell block is prepared and [...] indicated in this report. +++Electronically Signed Out B y+++ eh/01/09/2019 Interpreted by: Doreen Ware MD, PhD Krystal Newman D.O. Professional services performed by [facility], at [address] [place] [address] CBC AND DIFF Result Value Ref Range White Blood Cells 7.7 4.5 - 11.0 K/UL RBC 4.11 4.0 - 5.0 M/UL Hemoglobin 12.0 12.0 - 15.0 GM/DL Hematocrit 36.0 36 - 45 % MCV 87.7 80 - 100 FL MCH 29.3 26 - 34 PG MCHC 33.3 32.0 - 36.0 G/DL RDW 13.5 11 - 15 % Platelet Count 190 150 - 400 K/UL MPV 9.9 7 - 11 FL Neutrophils 82 (H) 41 - 77 % Lymphocytes 12 (L) 24 - 44 % Monocytes 6 4 - 12 % Eosinophils 0 0 - 5 % Basophils 0 0 - 2 % Absolute Neutrophil Count 6.30 1.8 - 7.0 K/UL Absolute Lymph Count 0.90 (L) 1.0 - 4.8 K/UL Absolute Monocyte Count 0.50 0 - 0.80 K/UL Absolute Eosinophil Count 0.00 0 - 0.45 K/UL Absolute Basophil Count 0.00 0 - 0.20 K/UL COMPREHENSIVE METABOLIC PANEL Result Value Ref Range Sodium 139 137 - 147 MMOL/L Potassium 4.5 3.5 - 5.1 MMOL/L Chloride 103 98 - 110 MMOL/L Glucose 168 (H) 70 - 100 MG/DL Blood Urea Nitrogen 8 7 - 25 MG/DL Creatinine 0.49 0.4 - 1.00 MG/DL Calcium 9.6 8.5 - 10.6 MG/DL Total Protein 7.4 6.0 - 8.0 G/DL Total Bilirubin 0.5 0.3 - 1.2 MG/DL Albumin 3.9 3.5 - 5.0 G/DL Alk Phosphatase 77 25 - 110 U/L AST (SGOT) 30 7 - 40 U/L CO2 29 21 - 30 MMOL/L ALT (SGPT) 32 7 - 56 U/L Anion Gap 7 3 - 12 eGFR Non >60 >60 mL/min eGFR >60 >60 mL/min Assessment and Plan: Problem List Items Addressed This Visit Oncology 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 This is at [place] stage IIIb based on mediastinal invasion and local adenopathy and it could be stage IV given some of the bony changes and adrenal lesion. She has not been fully staged but we have requested a PET scan as well as MRI of the brain which we will try to get done as soon as possible. I told her its important to deter mine stage III versus stage IV regarding best course of treatment. It does have prognostic implications as well but obviously a large locally advanced lung can cer is still not a good prognostic situation. Given her chest pain which is req uiring narcotics and the degree of hemoptysis which [...] Again I think radiation can help palliate chacorta t rather quickly. She is quit smoking which I applaud and I told her I think it is important for h er to quit long-term. She is also used occasional marijuana and I would encoura ge her to limit that as best as able. Apparently she has had an unknown adrenal lesion and we would like to get old fi lms for comparison but the PET scan will also be helpful but again I think the P ET is important to look at some other bony areas. She also needs MRI of the bra in. She and her asked appropriate questions and will try to get her into rad iation and get the PET scan done as soon as able. 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 This is at [facility] stage IIIb based on mediastinal invasion and local adenopathy and it could be stage IV given some of the bony changes and adrenal lesion. She has not been f ully staged but we have requested a PET scan as well as MRI of the brain which w e will try to get done as soon as possible. I told her its important to determi ne stage III versus stage IV regarding best course of treatment. It does have p rognostic implications as well but obviously a large locally advanced lung cance r is still not a good prognostic situation. Given her chest pain which is requi ring narcotics and the degree of hemoptysis which seems to have abated I think a t least some palliative radiation is in order and obviously if she did not have distant disease we would favor treating her with combined modality full course r adiation with weekly doses of Taxol carboplatin and subsequent immunotherapy. I f she has more extensive disease treatment would be dictated largely based on PD -L1 status which we are requesting and will also request full next generation se quencing molecular profiling. I did refill her oxycodone today. Again I think radiation can help palliate chacorta t rather quickly. She is quit smoking which I applaud and I told her I think it is important for h er to quit long-term. She is also used occasional marijuana and I would encoura ge her to limit that as best as able. Apparently she has had an unknown adrenal lesion and we would like to get old fi lms for comparison but the PET scan will also be helpful but again I think the P ET is important to look at some other bony areas. She also needs MRI of the bra in. She and her asked appropriate questions and will try to get her into rad iation and get the PET scan done as soon as able. documented in this encounter
--- OUTSIDE RECORDS SUMMARY | 2019-03-27 10:34 | XMS REPORT | Encounter Summary ---
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) (Primary Dx); Hemoptysis 01/16/2019 Office Visit [facility] [address] [place] [address] Social History Date Tobacco Use Types Packs/Day [...] 18 01/16/2019 8:39 AM CDT Respiratory Rate - - Oxygen Saturation - - Inhaled Oxygen Concentration 89.2 kg (196 lb 9.6 oz) 01/16/2019 8:39 AM CDT Weight 165.1 cm (5' 5") 01/16/2019 8:39 AM CDT Height 32.72 01/16/2019 8:39 AM CDT Body Mass Index documented in [...] as of this encounter Progress Notes * Mary Travis MD - 01/16/2019 8:30 AM CDT Radiation Oncology Consultation Date: 01/16/2019 Mary Higgins is a 63 y.o. female. Requesting Provider: Rip Montalvo MD The encounter diagnosis was Squamous cell carcinoma of bronchus in right upper l obe (HCC). 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 female relates that in early January she bega n having increased coughing and had 2-3 episodes of hemoptysis. She was seen in a local emergency department on 01/06/2019 and admitted to the [facility] on 01/17/[address] scan was performed demonstrating a 5 cm necrotic mass with necrotic lymph nodes in the right hilar region. There was a no adrenal ma ss noted, but it is not clear whether this represents metastatic disease or not. CT scans of the chest abdomen and pelvis have been performed, confirming the l arge mass with central necrosis and hilar and mediastinal lymph nodes. The fabina ent did have additional small scattered pulmonary nodules noted, it is unclear w hether this represents metastatic disease or not. The patient had a bus and bro nchoscopy performed demonstrating non-small cell carcinoma of the lung. The pat kathryn was discharged from the [facility] on 01/09/2019 we have been asked to see her for hemoptysis. The PET scan is scheduled today to complete her sta ging evaluation. She also scheduled for MRI of the brain. She is accompanied t o clinic today by her . 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 Chronic migraine on Topamax Cough with hemoptysis 01/03/2019 GERD (gastroesophageal reflux disease) HTN (hypertension) Hyperlipidemia Lesion of adrenal gland (HCC) 2010 follow up scan 2015. Non-small cell lung cancer (NSCLC) (HCC) 01/08/2019 RUL. Skin cancer of forehead 2006 Tobacco use 1979 80 pack year Wears dentures Surgical History: Procedure Laterality Date MOHS SURGERY 2007 forehead BRONCHOSCOPY Bilateral 01/08/2019 BRONCHOSCOPY WITH ENDOBRONCHIAL ULTRASOUND [...] Kuhn MD at Main OR/Per[facility] p HYSTERECTOMY Prior Radiation History: no Medications atorvastatin (LIPITOR) 10 mg tablet Take 10 [...] oz of water and after a meal. Allergies: No Known Allergies Social History: Social History Socioeconomic History Marital status: Spouse name: Eladio Number of children: Not on file Years of education: Not on file Highest education level: Not on file Occupational History Not on file Social Needs Financial resource strain: Not on file Food insecurity: Worry: Not on file Inability: Not on file Transportation needs: Medical: Not on file Non-medical: Not on file Tobacco Use Smoking status: Current Every Day Smoker Packs/day: 2.00 Years: 40.00 Pack years: 80.00 Types: Cigarettes Start date: 01/09/1980 Smokeless tobacco: Never Used Tobacco comment: has been cutting down recently; 2-3 per day Substance and Sexual Activity Alcohol use: Yes Frequency: 4 or more times a week Drinks per session: 1 or 2 Binge frequency: Never Drug use: Not Currently Sexual activity: Not on file Lifestyle Physical activity: Days per week: Not on file Minutes per session: Not on file Stress: Not on file Relationships Social connections: Talks on phone: Not on file Gets together: Not on file Attends hinduism service: Not on file Active member of club or organization: Not on file Attends meetings of clubs or organizations: Not on file Relationship status: Not on file Intimate partner violence: Fear of current or ex partner: Not on file Emotionally abused: Not on file Physically abused: Not on file Forced sexual activity: Not on file Other Topics Concern Not on file Social History Narrative Accompanied by - Eladio Patient and her live in [facility]. They met when he was working in [place], and they lived there for a number of years. 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 She had retired from working at [employer], but got bored being at home and is planning to go back to [facility]. They have a 25-year-old son who had previously been staying with them, but he is now working for the [employer] and is in [place]. The sarai gomes's works as a ross carrier driver. They note that they have a sign ificant trouble coming to this area for treatment because of transportation issu es and they would like to have treatment delivered in [facility]. The patient has been decreasing the amount she smokes now smoking 2 to 3 cigaret dino/day deviously she had smoked 2 packs of cigarettes per day for 40 years she does use alcohol on a daily basis but cannot quantitate it for me. Family History: The patient's mother with renal failure her father of unknown causes s he was not in contact with her him. There is no family history of malignancy Review of Systems Constitutional: Positive for activity change and fatigue. HENT: Negative. Eyes: Negative. Respiratory: Positive for cough and shortness of breath. Scant amount of hemoptysis Cardiovascular: Negative. Gastrointestinal: Negative. Endocrine: Negative. Genitourinary: Negative. Musculoskeletal: Positive for arthralgias. Anterior and posterior right chest pain. Skin: Negative. Allergic/Immunologic: Negative. Neurological: Positive for weakness and headaches. Hematological: Negative. Psychiatric/Behavioral: The patient is nervous/anxious. The patient completed a paper copy of a 14 system review. I reviewed this with t ena patient and it is as listed. It is the institution policy to destroy these pa per copies. Patient Evaluated for a Clinical Trial: No treatment clinical trial available fo r this patient. KARNOFSKY PERFORMANCE SCORE: 80% Normal activity with effort; some symptoms of disease Physical Exam demonstrates a middle-aged female in no acute distress cranial ne rves are intact by confrontation no oral lesions are noted. She does not have a ny palpable cervical or supraclavicular adenopathy present lungs are clear to au scultation. There is no peripheral cyanosis clubbing or edema. The patient is a good historian and has a normal mood and affect IMAGING: CT chest and CT abdomen and pelvis [...] hepatic metastases or other abdominal/pelvic metastatic disease. PATHOLOGY: CYTOLOGY REPORT NAME: MARY HIGGINS SURG PATH #: [id number] MR #: [id number] ALT ID #: [id number] #: [id number] LOCATION: DISCHARGED DATE OF PROCEDURE: 01/08/2019 AGE: [...] determination of adequacy was performed by the bread dumperDO, on Diff-Quik stained slide(s). All four passes not adequate for evaluation. B. ( 2 DQ direct smear, 2 Pap direct smear, 1 cell block) Rapid determination of adequacy was performed by the bread dumperDO, on Diff-Quik stained slide(s). Pass two adequate for evaluation. Pass three all RPMI for cell block. C. ( 2 DQ direct smear, 2 Pap direct smear, 1 cell block) Rapid determination of adequacy was performed by the bread dumperDO, on Diff-Quik stained slide(s). Pass one adequate for evaluation. Pass two not adequate. Pass three all RPMI for cell block. D. ( 3 DQ direct smear, 3 Pap direct smear, 1 cell block) Rapid determination of adequacy was performed by the bread dumper, , on Diff-Quik stained slide(s). Pass three adequate for evaluation. ######################################################################## Final Diagnosis: A. Lymph Node, Station 4L, EBUS guided FNA: Polymorphous population of lymphocytes. No carcinoma identified in the sampled specimen. B. Lymph Node,Station 7, EBUS guided FNA: Polymorphous population of lymphocytes. No carcinoma identified in the sampled specimen. C. Lymph Node, Station 11RS, EBUS guided FNA: Polymorphous population of lymphocytes. No carcinoma identified in the sampled specimen. D. Lung, RUL, EBUS guided FNA: Non-small cell carcinoma. Please see concurrent surgical pathology report for further classification ([id number]). Comment: A cell block is prepared and examined microscopically for each part (A, B, C, D); it contains insufficient tumor tissue for further testing. Immunohistochemical stains performed on the cell block (part D) show rare tumor cells positive for p40 and negative for TTF-1. ASSESSMENT: RECOMMENDATIONS: Mary Higgins is a 63-year-old female recentl y diagnosed as having non-small cell carcinoma of the lung. Her staging evaluat ion is ongoing, the PET scan is scheduled for today. It may be that she has add itional pulmonary nodules present, but at the present time it is not clear wheth er the mass in the adrenal is metastatic or not. I reviewed the current informa tion with the patient has and we discussed the need for radiation therapy with h er hemoptysis, and she is in agreement with that. Because of transportation iss ues she will not be able to attend treatment in our department and wishes to go to [facility]. I did telephone the department in [facility] and th ey will see the patient on Sunday. The patient understands that if she has yusra tional hemorrhage it is potentially a medical emergency and she should not go to the emergency department. I met with the patient and her for approxima tely 45 minutes, more than 50% of my time was spent in counseling. 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
--- OUTSIDE RECORDS SUMMARY | 2019-03-27 10:34 | XMS REPORT | Encounter Summary ---
Author Author [facility] Organization [facility] Address Unknown Phone Unavailable Care Team Providers Care Chief Psychology Name Role Phone Vicky Ritter MD PCP Reason for Referral * Radiology Services (Routine) Referred By Contact Referred To Contact Status Reason Specialty Diagnoses / [place] [address] [place] [address] [facility] [address] [facility] [address] [place] [address] [address] [place] [address] No Auth Needed Radiology Diagnoses Hemoptysis Squamous cell carcinoma of lung, unspecified laterality (HCC) P rocedures MRI HEAD WO/W CONTRAST * Radiology Services (Routine) Referred By Contact Referred To Contact Status Reason Specialty Diagnoses / [place] [address] [place] [address] [facility] [address] [place] [address] No Auth Needed Radiology Diagnoses Hemoptysis Squamous cell carcinoma of lung, unspecified laterality (HCC) P rocedures NM PET SCAN TORSO (SKULL-THIGHS) Encounter Details Care Team Description [place] [address] [place] [address] [phone] Hemoptysis (Primary Dx); Squamous cell carcinoma of lung, unspecified laterality (HCC) 01/10/2019 Orders Only [facility] [address] [place] [address] Social History Date Tobacco Use [...] as of this encounter Progress Notes * Gisele Cortez - 01/10/2019 3:17 PM CDT SPOKE WITH PATIENT ADVISED OF TIME AND DATE documented in this encounter Plan of Treatment Not on filedocumented as of this encounter Results * MRI HEAD WO/W [...] and right hilar lymph nodes are noted. Dry Cell Sealer pretracheal lymph node demonstrates a maximal SUV [...] and right hilar lymph nodes are noted. Dry Cell Sealer pretracheal lymph node demonstrates a maximal SUV [...] in this encounter Visit Diagnoses Diagnosis Hemoptysis - Primary Hemoptysis, unspecified Squamous cell carcinoma of lung, unspecified laterality (HCC) documented in this encounter
--- OUTSIDE RECORDS SUMMARY | 2019-03-27 10:35 | XMS REPORT | Encounter Summary ---
Author Author [facility] Organization [facility] Address Unknown Phone Unavailable Care Team Providers Care Hris Analyst Name Role Phone Vicky Ritter MD PCP Reason for Visit * Auth/Cert Referred By Contact Referred To Contact Status Reason Specialty Diagnoses / Procedures Diagnoses Hemoptysis Hemoptysis Encounter Details Care Team Description Date Type Department Venice Ritchie, KATHERINE [id number] [place], [place] [id number] 01/08/2019 Anesthesia [facility] [place] [address] [id number] Anesthesia Record Responsible Anesthesiologist Anesthesia Start Time Anesthesia Stop Time Procedure Name Adolph Bennett MD 01/08/19 1136 01/08/19 1335 BRONCHOSCOPY WITH ENDOBRONCHIAL ULTRASOUND GUIDED TRANSTRACHEAL/ TRANSBRONCHIAL SAMPLING - 3 OR MORE MEDIASTINAL/ HILAR LYMPH NODE STATIONS/ STRUCTURE - FLEXIBLE (Bilateral Bronchus) Date Time Event Comment 958 AN Equip Check 20188 1136 Anes Start 1137 Out of Pre Procedure 1138 In Room 1139 An Start Data 1145 An Induction The patient was reevaluated immediately before moderate or deep sedation use and before anesthesia induction. 1148 Quick Note Decision to change to ETT. Masking pt. 1153 An Intubation Unable to seat LMA 4 - x1 Erma, x1 Dr. Bennett, x1 Bam 1154 Anesthesia Ready 1159 Proc Start 1326 An Extubation vss. sv. opa. sx. TV>400ml. RR< 24 & >8. + commands. Extubated. SV. Tx with FMO2. 1330 an stop data 1335 Handoff to RN I completed my SBAR handoff to the receiving nurse. 1335 An Stop Meds Name Total midazolam (VERSED) 1 mg/mL injection 2 mg fentaNYL PF (SUBLIMAZE) injection 100 mcg lidocaine (2%) 200 mg/10mL Injection 80 mg syringe propofol (DIPRIVAN) 200 mg/ 20 mL 130 mg injection (VIAL) ondansetron (ZOFRAN) injection 4 mg dexamethasone (DECADRON) 4 mg/mL 4 mg injection phenylephrine (CHUYITA-SYNEPHRINE) 0.1 mg/mL 900 mcg injection (SYRINGE) dextran 70/hypromellose (GENTEAL TEARS; 2 drop BION TEARS) ophthalmic solution rocuronium (ZEMURON) injection 40 mg sugammadex (BRIDION) 100 mg/mL iv soln 187 mg ePHEDrine 50 mg/mL 50 mg in sodium 20 mg chloride PF 0.9% 5 mL IV syringe lactated ringers infusion 700 mL * Name O2 N2O Inspired N2O Sevoflurane Inspired Sevoflurane * No blood administrations on file. Removal Type Details Placement 01/09/19 1030 by Elizabet Yadav RN Peripheral 01/08/19; 0552; RN; R; Forearm; 22 G; 01/08/19 0552 by SAMUEL Constantino 01/09/19; 1030 PAUL Dubon 01/08/19 1326 by Venice Ritchie CRNA ETT 01/08/19; 1153; Ventilated by mask (1); 01/08/19 1153 by Direct laryngoscopy, Stylet; Venice Ritchie CRNA Single-Lumen, Cuffed; 8.5mm; Mac; 3; Oral; 1-Full view of the glottis; 1 insertion attempt; Auscultation, ETCO2 Detector; 20 centimeters (R lip); atraumatic. secured with tape. bite block; 01/08/19; 1326 documented in this encounter Social History Date Tobacco Use Types Packs/Day [...] Status Date of Assessment Functional Status Response 01/08/2019 Does the patient have a hearing impairment: No documented as of this encounter OR Notes * Anesthesia Postprocedure Evaluation - Piotr Reddy DO - 01/08/2019 2:55 PM CDT Post-Anesthesia Evaluation Name: Mary Ulloa : 1955 Age: 63 y.o. Sex: female Procedure Date: 01/08/2019 Procedure: Procedure(s): BRONCHOSCOPY WITH ENDOBRONCHIAL ULTRASOUND GUIDED TRANSTRACHEAL/ TRANSBRONCHIAL SAMPLING - 3 OR MORE MEDIASTINAL/ HILAR LYMPH NODE STATIONS/ STRUCTURE - FLEXIBL E BRONCHOSCOPY DIAGNOSTIC WITH CELL WASHING - FLEXIBLE BRONCHOSCOPY WITH BRUSHING/ PROTECTED BRUSHING - FLEXIBLE BRONCHOSCOPY WITH TRANSBRONCHIAL LUNG BIOPSY - FLEXIBLE - SINGLE LOBE BRONCHOSCOPY WITH TRANSBRONCHIAL NEEDLE ASPIRATION AND BIOPSY TRACHEA/ MAIN STEM / LOBAR BRONCHUS - FLEXIBLE Surgeon: Surgeon(s): Itz Kuhn MD Post-Anesthesia Vitals BP: 107/68 (01/08 1445) Temp: 36.8 C (98.2 F) (01/08 144) Pulse: 85 (01/08 1445) Respirations: 17 PER MINUTE (01/08 1445) SpO2: 93 % (01/08 144) SpO2 Pulse: 85 (01/08 1445) Post Anesthesia Evaluation Note Evaluation location: Pre/Post Patient participation: recovered; patient participated in evaluation Level of consciousness: alert Pain score: 1 Pain management: adequate Hydration: normovolemia Temperature: 36.0C - 38.4C Airway patency: adequate Perioperative Events Perioperative events: no Post-op nausea and vomiting: no PONV Postoperative Status Cardiovascular status: hemodynamically stable Respiratory status: spontaneous ventilation Follow-up needed: none Perioperative Events Perioperative Event: No Emergency Case Activation: No Associated attestation - Nany Wright MD - 01/09/2019 8:12 AM CDT ATTESTATION Post-Anesthesia Evaluation Attestation: I reviewed and agree the indicated post- anesthesia care was provided. Staff name: Nany Wright MD Date: 01/09/2019 * Anesthesia Preprocedure Evaluation - Adolph Bennett MD - 01/08/2019 10:46 AM CDT Anesthesia Pre-Procedure Evaluation Name: Mary Ulloa : 1955 Age: 63 y.o. Sex: female Procedure Date: 01/08/2019 Procedure: Procedure(s): BRONCHOSCOPY WITH ENDOBRONCHIAL ULTRASOUND GUIDED TRANSTRACHEAL/ TRANSBRONCHIAL SAMPLING - 3 OR MORE MEDIASTINAL/ HILAR LYMPH NODE STATIONS/ STRUCTURE - FLEXIBL E Physical Assessment Vital Signs (last filed in past 24 hours): BP: 107/80 (01/08 1054) Temp: 36.5 C (97.7 F) (01/08 1054) Pulse: 76 (01/08 1054) Respirations: 20 PER MINUTE (01/08 1054) SpO2: 95 % (01/08 1054) O2 Delivery: None (Room Air) (01/08 1054) Height: 165.1 cm (65") (01/08 2144) Weight: 93.3 kg (205 lb 11 oz) (01/08 2144) Patient History No Known Allergies Current Medications Not on File Surgical History: Procedure Laterality Date HYSTERECTOMY Review of Systems/Medical History PONV Screening: Female gender No history of anesthetic complications No family history of anesthetic complications Pulmonary Current smoker (80 pk-yr) Shortness of breath CT Chest Chest: 1. Large right upper lobe mass [...] hepatic metastases or other abdominal/pelvic metastatic disease. Cardiovascular Exercise tolerance: >4 METS Beta Juanito therapy: Yes Beta blockers within 24 hours: Yes (01/07/19 1200) Hypertension, well controlled Hyperlipidemia GI/Hepatic/Renal GERD, well controlled Weight loss hemoptysis Neuro/Psych ETOH daily Musculoskeletal - negative Endocrine/Other Malignancy (cervical CA s/p resection. skin CA- excision) Obesity Physical Exam Airway Findings Mallampati: II TM distance: >3 FB Neck ROM: limited Mouth opening: good Airway patency: adequate Dental Findings: Upper dentures, lower dentures and increased risk for dental injury; pt advi sed Cardiovascular Findings: Rhythm: regular Rate: normal Pulmonary Findings: Breath sounds clear to auscultation. Comments: SpO2 91-94% on RA Abdominal Findings: Obese Comments: deferred Neurological Findings: Normal mental status Diagnostic Tests Hematology: Lab Results Component Value Date HGB 12.5 01/08/2019 HCT 38.1 01/08/2019 PLTCT 181 01/08/2019 WBC 6.5 01/08/2019 NEUT 66 01/08/2019 ANC 4.20 01/08/2019 ALC 1.70 01/08/2019 IAN 7 01/08/2019 AMC 0.50 01/08/2019 EOSA 2 01/08/2019 ABC 0.00 01/08/2019 MCV 88.4 01/08/2019 MCH 29.0 01/08/2019 MCHC 32.7 01/08/2019 MPV 9.5 01/08/2019 RDW 13.7 01/08/2019 General Chemistry: Lab Results Component Value Date NA 137 01/08/2019 K 3.5 01/08/2019 CL 106 01/08/2019 CO2 25 01/08/2019 GAP 6 01/08/2019 BUN 8 01/08/2019 CR 0.50 01/08/2019 GLU 121 01/08/2019 CA 9.4 01/08/2019 ALBUMIN 3.7 01/08/2019 TOTBILI 1.0 01/08/2019 Coagulation: No results found for: PT, PTT, INR Anesthesia Plan ASA score: 3 Plan: general Induction method: intravenous Informed Consent Anesthetic plan and risks discussed with patient. Use of blood products discussed with patient Blood Consent: consented Plan discussed with: anesthesiologist. documented in this encounter Plan of Treatment Not on filedocumented as of this encounter Visit Diagnoses Not on filedocumented in this encounter Administered Medications Action Date Dose Rate Site Medication Order MAR Action 01/08/2019 12:04 PM CDT 4 mg dexamethasone (DECADRON) injection Given Intravenous, INTRA-PROCEDURE MED, Starting Sun01/08/19 at 1204, Until Sun01/08/19 at 1341, Anesthesia Intra-op 01/08/2019 11:54 AM CDT 2 drops dextran 70/hypromellose (GENTEAL TEARS; Given BION TEARS) ophthalmic solution INTRA-PROCEDURE MED, Starting Sun01/08/19 at 1154, Until Sun01/08/19 at 1341, Anesthesia Intra-op 01/08/2019 1:03 PM CDT 10 mg ePHEDrine 50 mg/mL 50 mg in sodium Bolus chloride PF 0.9% 5 mL IV syringe 5 mL, INTRA-PROCEDURE MED(CONT), Starting Sun01/08/19 at 1244, Until Sun01/08/19 at 1341, Anesthesia Intra-op 10 mg Given - New Bag 01/08/2019 12:44 PM CDT 01/08/2019 12:25 PM CDT 50 mcg fentaNYL citrate PF (SUBLIMAZE) Given injection INTRA-PROCEDURE MED, Starting Sun01/08/19 at 1202, Until Sun01/08/19 at 1341, Anesthesia Intra-op 50 mcg Given 01/08/2019 12:02 PM CDT 01/08/2019 11:45 AM CDT 80 mg lidocaine (PF) injection Given INTRA-PROCEDURE MED, Starting Sun01/08/19 at 1145, Until Sun01/08/19 at 1341, Anesthesia Intra-op 01/08/2019 11:36 AM CDT 2 mg midazolam (VERSED) injection Given Intravenous, INTRA-PROCEDURE MED, Starting Sun01/08/19 at 1136, Until Sun01/08/19 at 1341, Anesthesia Intra-op 01/08/2019 1:17 PM CDT 4 mg ondansetron (ZOFRAN) injection Given Intravenous, INTRA-PROCEDURE MED, Starting Sun01/08/19 at 1317, Until Sun01/08/19 at 1341, Anesthesia Intra-op 01/08/2019 12:43 PM CDT 100 mcg phenylephrine in NS injection syringe Given Intravenous, INTRA-PROCEDURE MED, Starting Sun01/08/19 at 1149, Until Sun01/08/19 at 1341, Anesthesia Intra-op 100 mcg Given 01/08/2019 12:42 PM CDT 100 mcg Given 01/08/2019 12:36 PM CDT 01/08/2019 11:45 AM CDT 130 mg propofol (DIPRIVAN) injection Given INTRA-PROCEDURE MED, Starting Sun01/08/19 at 1145, Until Sun01/08/19 at 1341, Anesthesia Intra-op 01/08/2019 12:25 PM CDT 10 mg rocuronium (ZEMURON) injection Given INTRA-PROCEDURE MED, Starting Sun01/08/19 at 1149, Until Sun01/08/19 at 1341, Anesthesia Intra-op 30 mg Given 01/08/2019 11:49 AM CDT 01/08/2019 1:17 PM CDT 187 mg sugammadex (BRIDION) injection Given INTRA-PROCEDURE MED, Starting Sun01/08/19 at 1317, Until Sun01/08/19 at 1341, Anesthesia Intra-op documented in this encounter
--- OUTSIDE RECORDS SUMMARY | 2019-03-27 10:35 | XMS REPORT | Encounter Summary ---
Author Author [facility] Organization [facility] Address Unknown Phone Unavailable Care Team Providers Care Retail Marketing Specialist Name Role Phone Vicky Ritter MD PCP Reason for Visit * Auth/Cert Referred By Contact Referred To Contact Status Reason Specialty Diagnoses / Procedures Diagnoses Hemoptysis Hemoptysis Encounter Details Care Team Description Date Type Department Roseline Peacock MD [address] [place] [address] [phone] Bryn Vera MD [address] [place] [address] [phone] Willian Gonzalez MD [address] [place] [address] [phone] Hemoptysis 01/07/2019 [facility] 01/09/[address] [place] [address] Social History Date Tobacco Use Types Packs/Day Years Used Started: 01/09/1980 Current Every Day Smoker Cigarettes 2 40 Tobacco Cessation: Ready to Quit: Yes; Counseling [...] Signs Reading Time Taken Comments Vital Sign 110/66 01/09/2019 7:21 AM CDT Blood Pressure 67 01/09/2019 7:21 AM CDT Pulse 36.4 C (97.5 F) 01/09/2019 7:21 AM CDT Temperature - - Respiratory Rate 94% 01/09/2019 7:21 AM CDT Oxygen Saturation - - Inhaled Oxygen Concentration 93.3 kg (205 lb 11 oz) 01/07/2019 9:44 PM CDT Weight 165.1 cm (5' 5") 01/07/2019 9:44 PM CDT Height 34.23 01/07/2019 9:44 PM CDT Body Mass Index documented in this [...] impairment: No documented as of this encounter Discharge Summaries * Willian Gonzalez MD - 01/09/2019 12:20 PM CDT Physician Discharge Summary Name: Mary Higgins Date Of : 1955 Age: 63 years Admit date: 01/07/2019 Discharge date: 01/09/2019 Attending Physician: Willian Gonzalez MD Service: [facility] F- 34 05 Physician Summary completed by: WILLIAN GONZALEZ MD Reason for hospitalization: Lung mass Significant PMH: Medical History: Diagnosis Date HTN (hypertension) Hyperlipidemia Tobacco use Allergies: Patient has no known allergies. Admission Physical Exam notable for: Vital Signs: Last Filed In 24 Hours Vital Signs: 24 Hour Range BP: 112/63 (01/08 2144) Temp: 36.6 C (97.8 F) (01/08 2144) Pulse: 73 (01/08 2144) Respirations: 18 PER MINUTE (01/08 2144) SpO2: 93 % (01/08 2144) O2 Delivery: None (Room Air) (01/08 2144) Height: 165.1 cm (65") (01/08 2144) BP: (112)/(63) Temp: [36.6 C (97.8 F)] Pulse: [73] Respirations: [18 PER MINUTE] SpO2: [93 %] O2 Delivery: None (Room Air) Intensity Pain Scale (Self Report): 7 (01/07/192143) General: Alert and oriented x 4, cooperative, in no distress, appears stated ag e. Cooperative, pleasant. Head: Normocephalic, without obvious abnormality, atraumatic Eyes: Conjunctivae and corneas clear bilaterally. Extraocular muscles intact bi laterally. Sclera anicteric. Throat: Lips, mucosa and tongue normal. Teeth and gums normal. No pharyngeal ex udates or erythema. Uvula midline. Neck: Supple, symmetrical. Trachea midline. Lungs: Clear to auscultation bilaterally. No wheezing, rhonchi, or rales. No us e of accessory muscles with inspiration. No fingernail clubbing. No perioral cya nosis. Chest wall: No tenderness or deformity. Heart: Regular rate and rhythm, S1, S2 normal, no murmur, click rub or gallop. Abdomen: Soft, non-tender. Bowel sounds normal. No masses. No organomegaly. Extremities: Extremities normal, atraumatic, no cyanosis or edema Peripheral pulses: 2+ and symmetric, all extremities Lymph nodes: No cervical, submandibular, or supraclavicular lymphadenopathy not ed. Neurologic: CN II- XII intact bilaterally. No focal deficits. Musculoskeletal: Range of motion not restricted. Moves all extremities equally and with purposeful movement. Psych: Mood, judgement, and affect appropriate. Admission Lab/Radiology studies notable for: 24-hour labs: Results for orders placed or performed during the hospital encounter of 01/07/19 (from the past 24 hour(s)) CBC AND DIFF Collection Time: 01/08/19 12:09 AM Result Value Ref Range White Blood Cells [...] 0 - 0.20 K/UL COMPREHENSIVE METABOLIC PANEL Collection Time: 01/08/19 12:09 AM Result Value Ref Range Sodium 137 137 [...] >60 >60 mL/min eGFR >60 >60 mL/min CT Chest/ Abdomen/ Pelvis with IV contrast: 01/08/2019 Chest findings: 1. Heart and great vessels: [...] hepatic metastases or other abdominal/pelvic metastatic disease. Brief Hospital Course: 63-year-old female patient with past medical history of hypertension dyslipidemi a who was transferred from outside hospital for further work-up of newly diagnos ed lung mass as well as symptoms of hemoptysis. Patient reported no further hem optysis since in the hospital. Hemoptysis small-volume and is presently resolve d. CT scan done in the hospital is as below: Shows large right upper lobe lung mass with central necrosis consulted with primary lung carcinoma. There is dire ct right mediastinal and right hilar invasion by the mass. Moderate mediastinal and right hilar lymphadenopathy consistent with metastatic disease. Sponsored lead nodules and scattered additional small pulmonary nodules which may represen t lung metastasis. CT abdomen and pelvis showed left adrenal mass which is likely metastasis. This would make this a stage IV cancer. No hepatic metastases or pelvic metastatic disease was noted. Will likely need CT of the head as well because of reported symptoms of headache , can be considered as OP. Patient underwent EBUS/bronch :biopsies were obtaine d, awaiting pathology.Post procedure patient did well, she wanted to follow with Oncology as OP and wanted to go home. Pulmonary physicians will follow up on biopsy results and schedule OP appointmen t with Oncology. Her hemoptysis improved prior to d/c and had minimal hemoptysis . Condition at Discharge: Stable Discharge Diagnoses: Hospital Problems Active Problems Hemoptysis Lung mass Surgical Procedures: None Significant Diagnostic Studies and Procedures: noted in brief hospital course Consults: Pulmonary Patient Disposition: Home Patient instructions/medications: Orders/Medications for Discharges to Home and External Facilities: Activity as Tolerated It is important to keep increasing your activity level after you leave the hosp ital. Moving around can help prevent blood clots, lung infection (pneumonia) an d other problems. Gradually increasing the number of times you are up moving ar ound will help you return to your normal activity level more quickly. Continue to increase the number of times you are up to the chair and walking daily to ret urn to your normal activity level. Begin to work toward your normal activity lev el at discharge Work/School Restrictions You may return to work on date 01/13/2019. She was admitted at [facility] on 01/07 and d ischarged on 01/09/2019. Please feel free to call us with questions on [phone]. Restrictions: Avoid excessive physical exertion. Report These Signs and Symptoms Please contact your doctor if you have any of the following symptoms: temperatu re higher than 100 degrees F, uncontrolled pain, persistent nausea and/or vomiti ng, difficulty breathing, chest pain, severe abdominal pain, headache, unable to urinate, unable to have bowel movement or drainage with a foul odor Questions About Your Stay For questions or concerns regarding your hospital stay, call [phone]. Discharging attending physician: WILLIAN GONZALEZ [[id number]] Cardiac Diet Limiting unhealthy fats and cholesterol is the most important step you can take in reducing your risk for cardiovascular disease. Unhealthy fats include satur ated and trans fats. Monitor your sodium and cholesterol intake. Restrict your sodium to 2g (grams) or 2000mg (milligrams) daily, and your cholesterol to 200m g daily. If you have questions regarding your diet at home, you may contact a dietitian a t . Opioid (Narcotic) Safety Information OPIOID (NARCOTIC) PAIN MEDICATION SAFETY We care about your comfort, and believe you need opioid medications at this time to treat your pain. An opioid is a strong pain medication. It is only availab le by prescription for moderate to severe pain. Usually these medications are u sed for only a short time to treat pain, but sometimes will be prescribed for lo nger. Talk with your doctor or nurse about how long they expect you to need thi s medication. When used the right way, opioids are safe and effective medications to treat you r pain, even when used for a long time. Yet, when used in the wrong way, opioid s can be dangerous for you or others. Opioids do not work for everyone. Most p atients do not get full relief of their pain from opioid medication; full relief of your pain may not be possible. For your safety, we ask you to follow these instructions: *Only take your opioid medication as prescribed. If your pain is not controlled with the prescribed dose, or the medication is not lasting long enough, call yo ur doctor. *Do not break or crush your opioid medication unless your doctor or pharmacist s ays you can. With certain medications, this can be dangerous, and may cause becky th. *Never share your medications with others, even if they appear to have a good re ason. Never take someone else's pain medication-this is dangerous, and illegal (a crime). Overdoses and deaths have occurred. *Keep your opioid medications safe, as you would with archer, in a lock box or sim ilar container. *Make sure your opioids are going to be secure, especially if you are around chi ldren or teens. *Talk with your doctor or pharmacist before you take other medications. *Avoid driving, operating machinery, or drinking alcohol while taking opioid niels n medication. This may be unsafe. Pain medications can cause constipation. Constipation is bowel movements that ar e less often than normal. Stools often become very hard and difficult to pass. T his may lead to stomach pain and bloating. It may also cause pain when trying to use the bathroom. Constipation may be treated with suppositories, laxatives or stool softeners. A diet high in fiber with plenty of fluids helps to maintain re gular, soft bowel movements. Medication List START taking these medications CHANTIX 1 mg tablet Generic drug: varenicline Take one tablet by mouth twice daily with meals. Take with 8 oz of water and aft er a meal. nicotine 21 mg/day patch Commonly known as: NICODERM CQ STEP 1 Apply one patch to top of skin as directed every 24 hours. Rotate patch location . Indications: Stop Smoking nicotine polacrilex 4 mg gum Commonly known as: NICORETTE Take one each by mouth as Needed. Chew to soften and park in mouth between lip a nd gum. May use 1 piece per hour, not to exceed 24 per day, for 12 weeks. May be used for longer, if needed. oxyCODONE 5 mg tablet Commonly known as: ROXICODONE, OXY-IR Take one tablet to two tablets by mouth every 4 hours as needed CONTINUE taking these medications atorvastatin 10 mg tablet Commonly known as: LIPITOR metoprolol XL 50 mg extended release tablet Commonly known as: TOPROL XL topiramate 25 mg sprinkle capsule Commonly known as: TOPAMAX Where to Get Your Medications These medications were sent to [facility] [address] [place] [address]. [address], [facility] [id number] Hours: M-F 7am-9pm Sat & Sun 9am-5pm CHANTIX 1 mg tablet nicotine 21 mg/day patch oxyCODONE 5 mg tablet You can get these medications from any pharmacy Bring a paper prescription for each of these medications nicotine polacrilex 4 mg gum Scheduled appointments: Follow up with your PCP in 2-3 weeks. Pulmonary physicians will follow up with your biopsy results and update you and if needed set up with Oncology services. Pending items needing follow up: 1) Pathology results from EBUS/ Bronch. 2) Consider CT of head as OP if malignancy confirmed for eval of metastatic dise ase to head though she has chronic headache. Signed: WILLIAN GONZALEZ MD 01/09/2019 cc: Primary Care Physician: No primary care provider on file. Verified Referring physicians: Rocky Moss APRN Additional provider(s): documented in this encounter Discharge Instructions * Appointments* Willian Gonzalez MD - 01/09/2019 9:31 AM CDT Follow up with your PCP in 2-3 weeks. Pulmonary physicians will follow up with your biopsy results and update you and if needed set up with Oncology services. documented in this encounter Medications at Time of Discharge [...] May be used for longer, if needed. topiramate (TOPAMAX) 25 Take 25 mg by 0 mg sprinkle capsule mouth as directed every 12 hours. 01/09/2019 varenicline (CHANTIX) 1 Take one 56 tablet 4 mg tablet tablet by mouth twice daily with meals. Take with 8 oz of water and after a meal. 01/09/2019 01/15/2019 oxyCODONE (ROXICODONE, Take one 60 tablet 0 OXY-IR) 5 mg tablet tablet to two tablets by mouth every 4 hours as needed documented as of this encounter Progress Notes * Elizabet Yadav RN - 01/09/2019 12:20 PM CDT Mary Higgins discharged on 01/09/2019. Equipment Removed: Telepack. Discharge instructions reviewed with patient. Valuables returned: Personal Items / Valuables: Dentures Denture Type: Full upper, Partial lower Where Are Valuables Stored?: bedside. Home medications: n/a Functional assessment at discharge complete: Yes . Discharge instructions reviewed with patient. AVS and work note provided. All qu estions and concerns addressed. Peripheral IV removed. PCS medications delivered . Wheelchair to lobby for DC. * Willian Gonzalez MD - 01/09/2019 9:42 AM CDT Discharge day progress note Patients seen and examined. Minimum hemoptysis. No other complains. Wants to go home. Discussed with brokerage clerk: they will follow up on Biopsy and set up Oncolo gy at based on Biopsy results. VSS, Exam: Lungs CTAB. Labs: reviewed. Dispo: - Discharge patient home today. 35 minutes were spent in discharge planning and coordinating discharge. Willian Gonzalez MD [phone] * Marcos Isaac - 01/09/2019 8:48 AM CDT General Progress Note Name: Mary Higgins Today's Date: 01/09/2019 Admission Date: 01/07/2019 LOS: 2 days Impression: # right paratracheal lung mass, concerning for primary lung cancer # endobronchial lesion noted on bronchoscopy # hilar and mediastinal adenopathy # left adrenal nodule, reportedly present for 5+ years # submassive hemoptysis, likely from lung mass # tobacco use disorder, 80+ py smoking history Mary Higgins is a 63 y/o female with significant smoking history and rece nt unintentional weight loss who was transferred to [facility] for further evaluation o f newly diagnosed pulmonary mass and hemoptysis. Imaging with large right beba-h ilar mass with hilar/mediastinal adenopathy, most concerning for primary lung ca ncer. EBUS with TBNA of hilar/mediastinal nodes pursued. Noted endobronchial les ion, which was biopsies. Pathology pending. Discussed high likelihood of this be ing cancer. Patient reported she would like to follow at [facility] oncology once resul ts available. Recommendations: - follow-up on pending pathology -- I will call patient once path available - patient would like to be evaluated at [facility] oncology - encourage tobacco cessation The patient was evaluated and discussed with Dr. Dickinson. Patient can discharge home. Subjective - NAEO - blood streaked sputum - no fevers - anxious for discharge ROS - no dyspnea or chest pain - no f/s/c - good appetite Medications Scheduled Meds: famotidine (PEPCID) tablet 20 mg 20 mg Oral BID metoprolol XL (TOPROL XL) tablet 50 mg 50 mg Oral QDAY topiramate (TOPAMAX) tablet 25 mg 25 mg Oral BID varenicline (CHANTIX) tablet 1 mg 1 mg Oral BID w/meals Continuous Infusions: lactated ringers infusion 20 mL/hr at 01/08/19 1051 PRN and Respiratory Meds:acetaminophen Q4H PRN, lidocaine QDAY PRN, oxyCODONE Q4 H PRN Objective Vital Signs: Last Filed Vital Signs: 24 [place] r Range BP: 110/66 (01/09 721) Temp: 36.4 C (97.5 F) (01/09 721) Pulse: 67 (01/09 721) Respirations: 18 PER MINUTE (01/09 721) SpO2: 94 % (01/09 721) O2 Delivery: None (Room Air) (01/09 721) SpO2 Pulse: 85 (01/08 1445) BP: (100-133)/(61-83) Temp: [36.3 C (97.4 F)-36.8 C (98.2 F)] Pulse: [67-94] Respirations: [15 PER MINUTE-21 PER MINUTE] SpO2: [93 %-98 %] O2 Delivery: None (Room Air) Intensity Pain Scale (Self Report): 9 (01/09/19 0540) Vitals: 01/07/19 2144 Weight: 93.3 kg (205 lb 11 oz) Intake/Output Summary: (Last 24 hours) Intake/Output Summary (Last 24 hours) at 01/09/2019 0848 Last data filed at 01/09/2019 0415 Gross per 24 hour Intake 1670 ml Output 300 ml Net 1370 ml Stool Occurrence: 0 Physical Exam Gen: well appearing, NAD HENT: no scleral icterus, MMM Neck: no cervical or supraclavicular adenopathy CV: NRRR, no mrg Lungs: CTAB, normal WOB Abd: soft, nt, nd, nabs Ext: no edema Neuro: grossly intact Psych: normal affect/mood Lab Review 24-hour labs: Results for orders placed or performed during the hospital encounter of 01/07/19 (from the past 24 hour(s)) CBC AND DIFF Collection Time: 01/09/19 5:39 AM Result Value Ref Range White Blood Cells [...] 0 - 0.20 K/UL COMPREHENSIVE METABOLIC PANEL Collection Time: 01/09/19 5:39 AM Result Value Ref Range Sodium 139 137 [...] >60 >60 mL/min eGFR >60 >60 mL/min Point of Care Testing (Last 24 hours) Radiology and other Diagnostics Review: Pertinent radiology reviewed. Marcos Isaac Pager [phone] Associated attestation - Maliha Dickinson MD - 01/09/2019 4:09 PM CDT ATTESTATION I personally performed the grey portions of the E/M visit, discussed case with re sident and concur with resident documentation of history, physical exam, assessm ent, and treatment plan unless otherwise noted. Staff name: Maliha Dickinson MD Date: 01/09/2019 * Marcos Isaac - 01/08/2019 9:10 AM CDT Discussed concerning findings on imaging and need for tissue diagnosis. Patient on schedule for EBUS/TBNA for 11A today. Please keep NPO and hold AC. Formal not e to follow. * Ling Constantino RN - 01/07/2019 10:01 PM CDT Patient arrived to room # (4617/02*) via cart accompanied by transport. Patient transferred to the bed with assistance. Bedside safety checks completed. Initial patient assessment completed, refer to flowsheet for details. Admission skin as sessment completed by: Hemalatha Constantino RN and Liat Rosales RN Pressure Injury Present on Hospital Admission (within 24 hours): No 1. Occiput: No 2. Ear: No 3. Scapula: No 4. Spinous Process: No 5. Shoulder: No 6. Elbow: No 7. Iliac Crest: No 8. Sacrum/Coccyx: No 9. Ischial Tuberosity: No 10. Trochanter: No 11. Knee: No 12. Malleolus: No 13. Heel: No 14. Toes: No 15. Assessed for device associated injury Yes 16. Nursing Nutrition Assessment Completed Yes See Doc Flowsheet for additional wound details. INTERVENTIONS: None at this time, will continue to monitor documented in this encounter H&P Notes * Itz Kuhn MD - 01/08/2019 11:09 AM CDT Pre Procedure History and Physical/Sedation Plan Name:Mary Higgins :1955 Age: 63 y.o. Admission Date: 01/07/2019 Days Admitted: LOS: 1 day Procedure Date: 01/08/2019 Planned Procedure(s): Pulmonary: endobronchial ultrasound Sedation/Medication Plan: General Anesthesia Discussion/Reviews: Physician has discussed risks and alternatives of this type of sedation and above planned procedures with patient ATTESTATION I personally performed the grey portions of the E/M visit, discussed case with Dr Orville Irene, [facility] fellow and concur with our fellow's documentation of history, phy sical exam, assessment, and treatment plan unless otherwise noted. Staff name: Itz Kuhn MD Date: 01/08/2019 Chief Complaint: Inpatient endo consult note reviewed. RUL mass, hemoptysis Previous Anesthetic/Sedation History: reviewed Allergies: Patient has no known allergies. Medications: Scheduled Meds: [MAR Hold] famotidine (PEPCID) tablet 20 mg 20 mg Oral BID [MAR Hold] metoprolol XL (TOPROL XL) tablet 50 mg 50 mg Oral QDAY topiramate (TOPAMAX) tablet 25 mg 25 mg Oral BID [NOV Hold] varenicline (CHANTIX) tablet 1 mg 1 mg Oral BID w/meals Continuous Infusions: lactated ringers infusion 20 mL/hr at 01/08/19 1051 PRN and Respiratory Meds:[NOV Hold] acetaminophen Q4H PRN, [NOV Hold] lidocaine QDAY PRN, [NOV Hold] oxyCODONE Q4H PRN Vital Signs: Last Filed Vital Signs: 24 Hour Range BP: 107/80 (01/08 1054) Temp: 36.5 C (97.7 F) (01/08 1054) Pulse: 76 (01/08 1054) Respirations: 20 PER MINUTE (01/08 1054) SpO2: 95 % (01/08 1054) O2 Delivery: None (Room Air) (01/08 1054) SpO2 Pulse: 76 (01/08 1054) Height: 165.1 cm (65") (01/08 2144) BP: (91-112)/(52-80) Temp: [36.2 C (97.1 F)-36.6 C (97.9 F)] Pulse: [69-79] Respirations: [16 PER MINUTE-20 PER MINUTE] SpO2: [92 %-95 %] O2 Delivery: None (Room Air) NPO Status: Airway: airway assessment performed Mallampati II (soft palate, uvula, fauces visible) Anesthesia Classification: ASA II (A normal patient with mild systemic disease) NPO Status: Acceptable Preganancy Status: Not Lab/Radiology/Other Diagnostic Tests Labs: 24-hour labs: Results for orders placed or performed during the hospital encounter of 01/07/19 (from the past 24 hour(s)) CBC AND DIFF Collection Time: 01/08/19 12:09 AM Result Value Ref Range White Blood Cells [...] 0 - 0.20 K/UL COMPREHENSIVE METABOLIC PANEL Collection Time: 01/08/19 12:09 AM Result Value Ref Range Sodium 137 137 [...] >60 >60 mL/min eGFR >60 >60 mL/min Shaun Irene MD Pager [phone] * Deejay Negrete MD - 01/07/2019 11:35 PM CDT Admission History and Physical Examination Name: Mary Higgins MRN: [id number] Admission Date: 01/07/2019 ASSESSMENT & PLAN Active Problems: Hemoptysis Mrs. Higgins is a 63 year old female with a pmhx of HLD, HTN, headaches, toba tobacco curer use disorder who presented to as a direct transfer from [facility] for workup of newly identified lung mass seen on CT imaging and hemoptysis. #Hemoptysis #New lung mass - suspicious for newly identified lung carcinoma - pt initially presented to her doctor in 10/2018 with right sided chest pain and cough, no workup completed at that time - since Sunday prior to admission has had 2-3 episodes of hemoptysis ~1 tablespo on of blood, recent 10 lb unintentional weight loss - CT chest at [facility] shows newly identified necrotic R lung mass, necrotic lymph no joann, uploaded to PACS not yet available in [facility] obtained d-dimer 400; not elevated for age appropriate Plan > CT chest/abdomen/pelvis w/ contrast > Consult Pulmonology for tissue biopsy > NPO at [facility] > pain control w/ tylenol, Oxy 5 Q4H PRN for breakthrough pain #HTN - continue BENEFITS ASSISTANT Toprol XL 50 mg qday #HLD - continue BENEFITS ASSISTANT Lipitor 10 mg qday #Tobacco use - hx of 80 pack years - Chantix #Headaches, chronic - continue topiramate FEN: no IVF/ replace prn/ NPO at [facility] Prophylaxis: SCD's Disposition: admit to medicine Code Status: full Patient seen and discussed with MOD who directed plan as per above. Sonal Bella, Internal Medicine PGY-1 [phone] Senior Resident Attestation I was present and participated in the pt's history and physical exam. I have di scussed the case with Dr. Bella and concur with the above of history, physi dylan exam, assessment, and treatment plan with exceptions noted below or in itali cs. Plan to be discussed with on-call physician, Dr. Peacock. Pt states she is up to date with breast cancer screening, not up to date with co lonoscopy. Pt reports last C-scope was planned for 2015, canceled d/t costs as s he had already an extensive workup performed in 2016 for various other issues to which she does not provide a good history of; she thinks she was checked for a spot on her brain, had cardiac work up, and was told she had an adrenal nodule, may have had workup for that but she is not sure. No known exposures to TB. CT imaging at outside facility also reported L adrenal mass. Would consider yusra tional work up for adrenal nodule; serum/urine metanephrines, cortisol, dexameth asone suppression testing. Deejay Negrete MD Internal Medicine PGY-2 Pager [phone] HISTORY OF PRESENT ILLNESS Chief Complaint: Hemoptysis Mrs. Higgins is a 63 year old female with a pmhx of HLD, HTN, headaches, toba tobacco curer use disorder who presented to as a direct transfer from [facility] for workup of newly identified lung mass seen on CT imaging and hemoptysis. She states that since October she has had some right-sided sharp chest pain that is on and off. She presented to her doctor's office and was supposed to get a chest x-ray and some blood work, but patient says she never made it to either of those appointm ents. At that point, she had had one episode of sputum production with streaks of blood in it. Patient says she thought she was having bronchitis. Up until t his last Sunday, she has not had any recurrence of blood in her sputum. Sunday she states was her first day back to work in 8 months. 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 She figured that it was because she had not been to work in [employer] some time. States her chest pain did not go away and she fell asleep that ev ening holding onto a pillow attempting to get some relief. Sunday morning she had an episode of hemoptysis. She states that it was about 1 tablespoon of blo od. She went about the rest of her day and had no recurrences until this mornin g, when she again had about 1 tablespoon of blood coughed up. She says she has had a 10 pound weight loss in the past few weeks without much intention of tryin g to lose weight. She is also had some constipation for the last week. She has headaches and she has had them for years, there is been no change in her headac he characteristics. She has quite a significant smoking history, and says that she has been smoking since she was 14 about 2 packs/day. She cut down over the past 2 years and for most of the last 2 years she was smoking only 2 to 3 cigarettes/day while on [employer]. She presented to the ED at [facility] this afternoon the CT scan was done which showed necrotic lymph nodes and a right sided mass. There is also a adrenal mass noted, the patient says she has had this since at least 2010. She was transferred to for further work-up of this newly identified chest mass. She denies any recent travel or any infectious symptoms at this time. Medical History: Diagnosis Date HTN (hypertension) Hyperlipidemia Tobacco use Surgical History: Procedure Laterality Date HYSTERECTOMY No family history on file. Social History Socioeconomic History Marital status: Not on file Spouse name: Not on file Number of [...] years: 80.00 Types: Cigarettes Start date: 01/09/1980 Tobacco comment: has been cutting down recently; [...] file Gets together: Not on file Attends anabaptism service: Not on file Active member of [...] file Social History Narrative Not on file Immunizations (includes history and patient reported): There is no immunization history on file for this patient. Allergies: Patient has no allergy information on record. Medications: Toprol XL 50 mg qday Topiramate 25 mg qday Chantix Lipitor 10 mg qday Famotidine 20 mg qday Review of Systems: Constitutional: positive for sweats, fatigue, and 10 lb weight loss, Eyes: negative for visual disturbance, irritation, redness and icterus Ears, nose, mouth, throat, and face: negative for hearing loss, ear drainage, ea raches, nasal congestion, epistaxis, snoring, sore throat Respiratory: positive for cough, hemoptysis, sputum production Cardiovascular: negative for chest pain, chest pressure/discomfort, dyspnea, pal pitations, syncope, orthopnea, paroxysmal nocturnal dyspnea, exertional chest pr essure/discomfort, lower extremity edema Gastrointestinal: positive for constipation and reflux symptoms, negative for dy sphagia, decreased appetite, nausea, vomiting Genitourinary: negative for frequency, dysuria and hematuria Hematologic/lymphatic: negative for bleeding, lymphadenopathy and petechiae Musculoskeletal: positive for chest wall pain, negative for myalgias, arthralgia s, stiff joints and muscle weakness Neurological: positive for headaches, negative dizziness, speech problems, gait problems and weakness OBJECTIVE Physical Exam: Vital Signs: Last Filed In 24 Hours Vital Signs: 24 Hour Range BP: 112/63 (01/08 2144) Temp: 36.6 C (97.8 F) (01/08 2144) Pulse: 73 (01/08 2144) Respirations: 18 PER MINUTE (01/08 2144) SpO2: 93 % (01/08 2144) O2 Delivery: None (Room Air) (01/08 2144) Height: 165.1 cm (65") (01/08 2144) BP: (112)/(63) Temp: [36.6 C (97.8 F)] Pulse: [73] Respirations: [18 PER MINUTE] SpO2: [93 %] O2 Delivery: None (Room Air) Intensity Pain Scale (Self Report): 7 (01/07/192143) General: Alert and oriented x 4, cooperative, in no distress, appears stated ag e. Cooperative, pleasant. Head: Normocephalic, without obvious abnormality, atraumatic Eyes: Conjunctivae and corneas clear bilaterally. Extraocular muscles intact bi laterally. Sclera anicteric. Throat: Lips, mucosa and tongue normal. Teeth and gums normal. No pharyngeal ex udates or erythema. Uvula midline. Neck: Supple, symmetrical. Trachea midline. Lungs: Clear to auscultation bilaterally. No wheezing, rhonchi, or rales. No us e of accessory muscles with inspiration. No fingernail clubbing. No perioral cya nosis. Chest wall: No tenderness or deformity. Heart: Regular rate and rhythm, S1, S2 normal, no murmur, click rub or gallop. Abdomen: Soft, non-tender. Bowel sounds normal. No masses. No organomegaly. Extremities: Extremities normal, atraumatic, no cyanosis or edema Peripheral pulses: 2+ and symmetric, all extremities Lymph nodes: No cervical, submandibular, or supraclavicular lymphadenopathy not ed. Neurologic: CN II- XII intact bilaterally. No focal deficits. Musculoskeletal: Range of motion not restricted. Moves all extremities equally and with purposeful movement. Psych: Mood, judgement, and affect appropriate. Lab/Radiology/Other Diagnostic Tests: Hematology: No results found for: HGB, HCT, PLTCT, WBC, NEUT, ANC, LYMPH, ALC, ABSLYMPHCT, IAN, AMC, ABC, BASOPHILS, MCV, MCHC, MPV, RDW, General Chemistry: No results found for: NA, K, CL, GAP, BUN, CR, GLU, CA, KETONES, ALBUMIN, LACTIC , OBSCA, MG, TOTBILI and Pertinent labs reviewed Pertinent radiology reviewed. Sonal Bella DO Pager [phone] Associated attestation - Willian Gonzalez MD - 01/08/2019 2:24 PM CDT ATTESTATION I personally performed the grey portions of the E/M visit, discussed case with re sident and concur with resident documentation of history, physical exam, assessm ent, and treatment plan unless otherwise noted. 63-year-old female patient with past medical history of hypertension dyslipidemi a who was transferred from outside hospital for further work-up of newly diagnos ed lung mass as well as symptoms of hemoptysis. Patient reported no further hem optysis since in the hospital. Hemoptysis small-volume and is presently resolve d. CT scan done in the hospital is as below: Shows large right upper lobe lung mass with central necrosis consulted with primary lung carcinoma. There is dire ct right mediastinal and right hilar invasion by the mass. Moderate mediastinal and right hilar lymphadenopathy consistent with metastatic disease. Sponsored lead nodules and scattered additional small pulmonary nodules which may represen t lung metastasis. CT abdomen and pelvis showed left adrenal mass which is likely metastasis. This would make this a stage IV cancer. No hepatic metastases or pelvic metastatic disease was noted. Will likely need CT of the head as well because of reported symptoms of headache , plan to do tomorrow. Patient underwent EBUS/bronch today, biopsies were obtai edis, awaiting pathology. We will continue to monitor the patient post biopsy and if doing okay may be abl e to be discharged tomorrow with a plan to follow-up as outpatient with oncology . Complexity decision making very high because of newly diagnosed lung mass, hemop tysis as well as work-up for malignancy. Staff name: WILLIAN GONZALEZ MD Date: 01/08/2019 documented in this encounter Consult Notes * Marcos Isaac - 01/08/2019 10:39 AM CDT Associated Order(s): CONSULT PULMONARY/CRITICAL CARE PHYSICIAN General Consult Note Admission Date: 01/07/2019 LOS: 1 day CONSULT PULMONARY/CRITICAL CARE PHYSICIAN Consult performed by: Marcos Isaac Consult ordered by: Bryn Vera MD Reason for Consult: New lung mass Consult type: Opinion with orders Impression: # right paratracheal lung mass, concerning for primary lung cancer # hilar and mediastinal adenopathy # left adrenal nodule # submassive hemoptysis, likely from lung mass # tobacco use disorder, 80+ py smoking history Mary Higgins is a 63 y/o female with significant smoking history and rece nt unintentional weight loss who was transferred to [facility] for further evaluation o f newly diagnosed pulmonary mass and hemoptysis. Imaging with large right beba-h ilar mass with hilar/mediastinal adenopathy, most concerning for primary lung ca ncer. Will pursue EBUS/TBNA for diagnosis. Patient's submassive hemoptysis is likely from suspected malignancy. No signs of infection. No evidence of active bleed on CT CHEST, though not ideal modality. No indication for antibiotics at this time. Recommendations: - will plan for EBUS/TBNA for diagnosis of lung mass -- please keep npo and hold anticoagulation - once tissue diagnosis obtained, will need oncology consult (can likely be done as outpatient) - encourage tobacco cessation The patient was evaluated and discussed with Dr. Dickinson. The pulmonary service will continue to follow. History of Present Illness: Mary Higgins is a 63 y/o female with PMHx significant for HTN, HLD, and t obacco use disroder who was transferred to [facility] for further evaluation of newly d iagnosed pulmonary mass and hemoptysis. Patient initially presented to her PCP in October for evaluation of right sided chest pain and cough. Supportive care provided at that time. Was scheduled for lab working and imaging, but never completed. Symptoms were intermittent over th at time. However, past week was working at the [employer] when she developed progres sive sharp right sided chest pain. Following day, had an episode of hemoptysis w ith total of 1 tbsp blood. Had no recurrence of hemoptysis until the morning of presentation. Subsequently presented to [facility] for further evalu ation. CT noting 5 cm right paratracheal lung mass with hilar and mediastinal ad enopathy. Also noted left adrenal mass, though patient reports this has been pre sent since 2010 Patient has also noted a 10 lb weight loss over the past several weeks. Patient has been smoking for nearly 50 years, up to 2 ppd. Medical History: Diagnosis Date HTN (hypertension) Hyperlipidemia Tobacco use Surgical History: Procedure Laterality Date HYSTERECTOMY Social History Socioeconomic History Marital status: Not on file Spouse name: Not on file Number of [...] years: 80.00 Types: Cigarettes Start date: 01/09/1980 Tobacco comment: has been cutting down recently; [...] file Gets together: Not on file Attends anabaptism service: Not on file Active member of [...] file Social History Narrative Not on file Family history reviewed; non-contributory Allergies: Patient has no known allergies. Scheduled Meds: famotidine (PEPCID) tablet 20 mg 20 mg Oral BID metoprolol XL (TOPROL XL) tablet 50 mg 50 mg Oral QDAY topiramate (TOPAMAX) tablet 25 mg 25 mg Oral QHS varenicline (CHANTIX) tablet 1 mg 1 mg Oral BID w/meals Continuous Infusions: PRN and Respiratory Meds:acetaminophen Q4H PRN, lidocaine QDAY PRN, oxyCODONE Q4 H PRN Review of Systems: Review of Systems Constitution: Positive for weight loss. Negative for chills and night sweats. HENT: Negative for ear pain and nosebleeds. Eyes: Negative for redness. Cardiovascular: Negative for chest pain. Respiratory: Positive for cough, hemoptysis and sputum production. Negative for shortness of breath and wheezing. Endocrine: Negative for polyuria. Hematologic/Lymphatic: Negative for bleeding problem. Skin: Negative for rash. Musculoskeletal: Negative for joint swelling. Gastrointestinal: Negative for abdominal pain, constipation and diarrhea. Genitourinary: Negative for dysuria and hematuria. Neurological: Negative for dizziness. Psychiatric/Behavioral: Negative for hallucinations. Vital Signs: Last Filed in 24 hours Vital Signs: 24 hour Range BP: 95/59 (01/08 330) Temp: 36.6 C (97.8 F) (01/08 330) Pulse: 69 (01/08 330) Respirations: 18 PER MINUTE (01/08 330) SpO2: 92 % (01/08 330) O2 Delivery: None (Room Air) (01/08 330) Height: 165.1 cm (65") (01/08 2144) BP: (94-112)/(59-72) Temp: [36.2 C (97.1 F)-36.6 C (97.8 F)] Pulse: [69-79] Respirations: [18 PER MINUTE-20 PER MINUTE] SpO2: [92 %-95 %] O2 Delivery: None (Room Air) Physical Exam: Physical Exam Gen: well appearing, NAD HENT: no scleral icterus, MMM Neck: no cervical or supraclavicular adenopathy CV: NRRR, no mrg Lungs: CTAB, normal WOB Abd: soft, nt, nd, nabs Ext: no edema Neuro: grossly intact Psych: normal affect/mood Lab/Radiology/Other Diagnostic Tests: 24-hour labs: Results for orders placed or performed during the hospital encounter of 01/07/19 (from the past 24 hour(s)) CBC AND DIFF Collection Time: 01/08/19 12:09 AM Result Value Ref Range White Blood Cells [...] 0 - 0.20 K/UL COMPREHENSIVE METABOLIC PANEL Collection Time: 01/08/19 12:09 AM Result Value Ref Range Sodium 137 137 [...] >60 >60 mL/min eGFR >60 >60 mL/min Pertinent radiology reviewed. Marcos Isaac Pager [phone] Associated attestation - Maliha Dickinson MD - 01/08/2019 7:15 PM CDT ATTESTATION I personally performed the grey portions of the E/M visit, discussed case with re sident and concur with resident documentation of history, physical exam, assessm ent, and treatment plan unless otherwise noted. Staff name: Maliha Dickinson MD Date: 01/08/2019 documented in this encounter Miscellaneous Notes * Care Plan - Nadja Mcdowell RN - 01/09/2019 10:17 AM CDT Problem: Discharge Planning Goal: Participation in plan of care Outcome: Goal Achieved Date Met: 01/09/19 Pt stable and will f/u outpt. Goal: Knowledge regarding plan of care Outcome: Goal Achieved Date Met: 01/09/19 Pt stable and ready for discharge. Goal: Prepared for discharge Outcome: Goal Achieved Date Met: 01/09/19 Pt ready for discharge. * Anesthesia Post Op Day 1 - Bret Zamora SRNA - 01/09/2019 9:59 AM CDT Anesthesia Follow-Up Evaluation: Post-Procedure Day One Name: Mary Higgins : 1955 Age: 63 y.o. Sex: female [...] MAIN STEM / LOBAR BRONCHUS - FLEXIBLE Physical Assessment Height: 165.1 cm (65") Weight: 93.3 kg (205 lb 11 oz) Vital Signs (Last Filed in 24 hours) BP: 110/66 (01/09 721) Temp: 36.4 C (97.5 F) (01/09 721) Pulse: 67 (01/09 721) Respirations: 18 PER MINUTE (01/09 721) SpO2: 94 % (01/09 721) O2 Delivery: None (Room Air) (01/09 721) SpO2 Pulse: 85 (01/08 1445) Patient History Allergies No Known Allergies Medications Scheduled Meds: famotidine (PEPCID) tablet 20 mg 20 mg Oral BID metoprolol XL (TOPROL XL) tablet 50 mg 50 mg Oral QDAY topiramate (TOPAMAX) tablet 25 mg 25 mg Oral BID varenicline (CHANTIX) tablet 1 mg 1 mg Oral BID w/meals Continuous Infusions: lactated ringers infusion 20 mL/hr at 01/08/19 1051 PRN and Respiratory Meds:acetaminophen Q4H PRN, lidocaine QDAY PRN, nicotine kalpesh acrilex Q1H PRN, oxyCODONE Q4H PRN Diagnostic Tests Hematology: Lab Results Component Value Date HGB 12.0 01/09/2019 HCT 36.0 01/09/2019 PLTCT 190 01/09/2019 WBC 7.7 01/09/2019 NEUT 82 01/09/2019 ANC 6.30 01/09/2019 ALC 0.90 01/09/2019 IAN 6 01/09/2019 AMC 0.50 01/09/2019 EOSA 0 01/09/2019 ABC 0.00 01/09/2019 MCV 87.7 01/09/2019 MCH 29.3 01/09/2019 MCHC 33.3 01/09/2019 MPV 9.9 01/09/2019 RDW 13.5 01/09/2019 General Chemistry: Lab Results Component Value Date NA 139 01/09/2019 K 4.5 01/09/2019 CL 103 01/09/2019 CO2 29 01/09/2019 GAP 7 01/09/2019 BUN 8 01/09/2019 CR 0.49 01/09/2019 GLU 168 01/09/2019 CA 9.6 01/09/2019 ALBUMIN 3.9 01/09/2019 TOTBILI 0.5 01/09/2019 Coagulation: No results found for: PT, PTT, INR Follow-Up Assessment Patient location during evaluation: floor Anesthetic Complications: Anesthetic complications: The patient did not experience any anesthestic complic ations. Pain: Score: 7 Management:adequate Level of Consciousness: awake and alert Hydration:acceptable Airway Patency: patent Respiratory Status: acceptable, spontaneous ventilation and room air Cardiovascular Status:acceptable and hemodynamically stable Regional/Neuroaxial: * Care Coordination-Inpatient - Javier Quan MD - 01/08/2019 2:45 AM CDT This [id number] MOD [phone] before 8 am if you want to receive the handoff for this pa tient. Thank you! * Advanced Care Planning/Resuscitation Status - Sonal Bella DO - 01/08/2019 12:23 AM CDT Advance Care Planning/Resuscitation Status Conversation Individuals present for advance care planning conversation: resident/fellow phys ician and patient Pertinent details of conversation (including direct quotes from patient or surro gate): Patient would like to be fully resuscitated Outcome of conversation: Full Code Documents completed as a result of this conversation: None Other documents present, which outline patient/surrogate wishes: None Attestation? N/A documented in this encounter Plan of Treatment Order Schedule Name Type Priority Associated Diagnoses ONE TIME for 1 Occurrences starting 01/08/2019 until 01/08/2019, 1 completed GENERAL RAD CHEST Imaging Routine Diagnosis unknown EXTERNAL IMAGING ONE TIME for 1 Occurrences starting 01/08/2019 until 01/08/2019, 1 completed GENERAL RAD CHEST Imaging Routine Diagnosis unknown EXTERNAL IMAGING documented as of this encounter Procedures Comments Procedure Name Priority Date/Time Associated Diagnosis CBC AND DIFF Routine 01/09/2019 5:39 AM CDT COMPREHENSIVE METABOLIC Routine 01/09/2019 PANEL 5:39 AM CDT FINE NEEDLE ASPIRATE 01/08/2019 (FNA) 1:51 PM CDT SURGICAL PATHOLOGY 01/08/2019 1:49 PM CDT BRONCHOSCOPY [...] W CONTRAST Routine 01/08/2019 5:23 AM CDT CBC AND DIFF Routine 01/08/2019 12:09 AM CDT COMPREHENSIVE METABOLIC Routine 01/08/2019 PANEL 12:[address] CHEST EXTERNAL IMAGING Routine 01/07/2019 Diagnosis unknown 4:20 PM CDT GENERAL RAD CHEST Routine 01/07/2019 Diagnosis unknown EXTERNAL IMAGING 3:45 PM CDT TELEMETRY STRIPS-SCAN 01/07/2019 12:00 AM CDT TELEMETRY STRIPS-SCAN 01/07/2019 12:00 AM CDT TELEMETRY STRIPS-SCAN 01/07/2019 12:00 AM CDT PROCEDURE RECORD-SCAN 01/07/2019 12:00 AM CDT GENERAL RAD CHEST Routine 06/29/2016 Diagnosis unknown EXTERNAL IMAGING 2:40 PM CDT documented in this encounter Results * COMPREHENSIVE METABOLIC PANEL (01/09/2019 5:39 AM CDT) Sodium 139 137 - 147 MMOL/L [facility] [...] >60 >60 mL/min [facility] Comment: [place] The eGFR is not validated for use in drug dosing adjustments.Continue to use estimated creatinine clearance per dosing reference text.Please contact the Clinical Pharmacist for questions. eGFR >60 >60 mL/min [facility] [place] Comment: The eGFR is not validated for use in drug dosing adjustments.Continue to use estimated creatinine clearance per dosing reference text.Please contact the Clinical Pharmacist for questions. Specimen Blood Performing Organization Address City/State/Zipcode Phone Number [facility] [address] [place] [address] * CBC AND DIFF (01/09/2019 5:39 AM CDT) White Blood 7.7 4.5 - 11.0 K/UL [...] Absolute 0.00 0 - 0.45 K/UL [facility] Eosinophil Count Absolute 0.00 0 - 0.20 K/UL [facility] Basophil Count Specimen Blood Performing Organization Address City/State/Zipcode Phone Number [facility] [address] [place] [address] * FINE NEEDLE ASPIRATE (FNA) (01/08/2019 1:51 PM CDT) Cytology [facility] www[employer] Department of Pathology and Laboratory Medicine [address] [place] [address] Surgical Pathology Office:[phone] :[phone] CYTOLOGY REPORT NAME: MARY HIGGINS SURG PATH #: [id number] MR #: [id number] ALT ID #: BILLING #: [id number] LOCATION: DISCHARGED DATE OF PROCEDURE: 01/08/2019 AGE:63 [...] determination of adequacy was performed by the law librarianDO, on Diff-Quik stained slide(s). All four passes not adequate for evaluation. B. ( 2 DQ direct smear, 2 Pap direct smear, 1 cell block) Rapid determination of adequacy was performed by the law librarianDO, on Diff-Quik stained slide(s). Pass two adequate for evaluation. Pass three all RPMI for cell block. C. ( 2 DQ direct smear, 2 Pap direct smear, 1 cell block) Rapid determination of adequacy was performed by the law librarianDO, on Diff-Quik stained slide(s). Pass one adequate for evaluation. Pass two not adequate. Pass three all RPMI for cell block. D. ( 3 DQ direct smear, 3 Pap direct smear, 1 cell block) Rapid determination of adequacy was performed by the law librarianDO, on Diff-Quik stained slide(s). Pass three adequate [...] concurrent surgical pathology report for further classification ([id number]). Comment: A cell block is prepared and [...] Newman D.O. Professional services performed by [facility], at [address] [place] [address] Specimen Performing Organization Address City/State/Zipcode Phone Number [facility] [address] [place] [address] * SURGICAL PATHOLOGY (01/08/2019 1:49 PM CDT) PATHOLOGY [facility] www[employer] Department of Pathology and Laboratory Medicine [address] [place] [address] Surgical Pathology Office:[phone] :[phone] SURGICAL PATHOLOGY REPORT NAME: MARY HIGGINS SURG PATH #: [id number] MR #: [id number] SPECIMEN CLASS: SR BILLING #: [id number] ALT ID #:LOCATION: [id number] DATE OF PROCEDURE: [...] Cell types evaluated: Tumor cells FDA status: Hotel Front Desk Clerk JING Baird ############################## ############################## ############ Final Diagnosis: [...] further testing (block A2>A1). Pursuant to the Disease Case Manager Program at the [facility] Pathology Department, selected slides from this [...] material indicated in this report. +++ +++ minh/01/09/2019 ############################## ############################## ############ Material Received: A: right [...] of Pathology and Laboratory Medicine of the [facility] ([employer]) in compliance with [...] of Pathology and Laboratory Medicine of the [facility].It has not been cleared or approved by the FDA.The FDA has determined that such clearance or approval is not necessary. Specimen Performing Organization Address City/State/Zipcode Phone Number [facility] [address] [place] [address] * BRONCHOSCOPY (01/08/2019 8:54 AM CDT) Provation Patient Name: Mary GAFFNEY OTHER Report [facility] RESULTS Procedure Date: 01/08/2019 8:54 AM CSN: [id number] Date of : 1955 Gender: Female Attending Physician: Itz Kuhn MD Procedure: Bronchoscopy Indications: Right upper lobe mass Providers: Itz Kuhn MD (Doctor), Daphnie Patel RN (Nurse), Cleve Lloyd, Technologist (Forestry Fire Aide) Referring Physician:Willian Gonzalez Medications: Tetricaine 0.25%/Epinephrine 0.003% 10 mL nebulizer, [...] Specimen Performing Organization Address City/State/Zipcode Phone Number [facility] OTHER RESULTS * CT ABD/PELV W CONTRAST [...] City/State/Zipcode Phone Number [facility] RAD RESULTS * COMPREHENSIVE METABOLIC PANEL (01/08/2019 12:09 AM CDT) Sodium 137 137 - 147 MMOL/L [facility] Potassium 3.5 3.5 - 5.1 MMOL/L [facility] Chloride 106 98 - 110 MMOL/L [facility] Glucose 121 (H) 70 - 100 MG/DL [facility] Blood Urea 8 7 - 25 MG/DL [facility] Nitrogen Creatinine 0.50 0.4 - 1.00 MG/DL [facility] Calcium 9.4 8.5 - 10.6 MG/DL [facility] Total Protein 7.1 6.0 - 8.0 G/DL [facility] Total Bilirubin 1.0 0.3 - 1.2 MG/DL [facility] Albumin 3.7 3.5 - 5.0 G/DL [facility] Alk Phosphatase 68 25 - 110 U/L [facility] AST (SGOT) 17 7 - 40 U/L [facility] CO2 25 21 - 30 MMOL/L [facility] ALT (SGPT) 7 7 - 56 U/L [facility] Anion Gap 6 3 - 12 [facility] eGFR Non >60 >60 mL/min [facility] Comment: [place] The eGFR is not validated for use in drug dosing adjustments.Continue to use estimated creatinine clearance per dosing reference text.Please contact the Clinical Pharmacist for questions. eGFR >60 >60 mL/min [facility] [place] Comment: The eGFR is not validated for use in drug dosing adjustments.Continue to use estimated creatinine clearance per dosing reference text.Please contact the Clinical Pharmacist for questions. Specimen Blood Performing Organization Address City/State/Zipcode Phone Number [facility] [address] [place] [address] * CBC AND DIFF (01/08/2019 12:09 AM CDT) White Blood 6.5 4.5 - 11.0 K/UL [facility] Cells RBC 4.30 4.0 - 5.0 M/UL [facility] Hemoglobin 12.5 12.0 - 15.0 GM/DL [facility] Hematocrit 38.1 36 - 45 % [facility] MCV 88.4 80 - 100 FL [facility] MCH 29.0 26 - 34 PG [facility] MCHC 32.7 32.0 - 36.0 G/DL [facility] RDW 13.7 11 - 15 % [facility] Platelet Count 181 150 - 400 K/UL [facility] MPV 9.5 7 - 11 FL [facility] Neutrophils 66 41 - 77 % [facility] Lymphocytes 25 24 - 44 % [facility] Monocytes 7 4 - 12 % [facility] Eosinophils 2 0 - 5 % [facility] Basophils 0 0 - 2 % [facility] Absolute 4.20 1.8 - 7.0 K/UL [facility] Neutrophil Count Absolute Lymph 1.70 1.0 - 4.8 K/UL [facility] Count Absolute 0.50 0 - 0.80 K/UL [facility] Monocyte Count Absolute 0.20 0 - 0.45 K/UL [facility] Eosinophil Count Absolute 0.00 0 - 0.20 K/UL [facility] Basophil Count Specimen Blood Performing Organization Address City/State/Zipcode Phone Number [facility] [address] [place] [address] * CT CHEST EXTERNAL IMAGING (01/07/2019 4:20 [...] At Ordered by an unspecified provider. * GENERAL RAD CHEST EXTERNAL IMAGING (06/29/2016 2:40 PM CDT) Specimen Narrative Performed At This order has been auto finalized and does not contain a result. documented in this encounter Visit Diagnoses Diagnosis Mass of upper lobe of right lung - Primary Diagnosis unknown Other unknown and unspecified cause of morbidity or mortality Hemoptysis Hemoptysis, unspecified documented in this encounter Admitting Diagnoses Diagnosis Hemoptysis Hemoptysis, unspecified documented in this encounter Administered Medications Action Date Dose Rate Site Medication Order MAR Action 01/08/2019 12:38 AM CDT 650 mg acetaminophen (TYLENOL) tablet 650 mg Given 650 mg, Oral, EVERY 4 HOURS PRN, Starting 01/08/19 at 0008, Until Ivett 01/09/19 at 1421, Pain non-opioid: may be used alone or in combination with opioid analgesia, TOTAL ACETAMINOPHEN DOSE NOT TO EXCEED 4GM DAILY, 01/09/2019 8:14 AM CDT 20 mg famotidine (PEPCID) tablet 20 mg Given 20 mg, Oral, TWICE DAILY, First dose on Sun01/08/19 at 0045, Until Discontinued 20 mg Given 01/08/2019 8:28 PM CDT 01/08/2019 10:51 AM CDT 20 mL/hr lactated ringers infusion Given - New 1,000 mL, Intravenous, at 20 mL/hr, Bag CONTINUOUS, Starting Sun01/08/19 at 1115, Until Ivett 01/09/19 at 1421, Pre-Op LACTATED RINGERS IV SOLP (Cabinet Override) NOW, 1 dose, Sun01/08/19 at 1030, Created by cabinet override, Created by cabinet override, 01/09/2019 12:36 AM CDT 1 patch Chest, Right lidocaine (LIDODERM) 5 % topical patch 1 Patch/Topica patch l Applied 1 patch, Topical, Administer over 12 Hours, DAILY PRN, Starting Sun01/08/19 at 0008, Until Ivett 01/09/19 at 1421, Pain non-opioid: may be used alone or in combination with opioid analgesia, NURSING PLEASE NOTE: Apply patch ONCE DAILY to right chest and REMOVE after designated duration. Apply only to intact skin. Patch may be cut to fit affected area., 1 patch Chest, Right Patch/Topical Applied 01/08/2019 12:38 AM CDT 01/09/2019 8:14 AM CDT 50 mg metoprolol XL (TOPROL XL) tablet 50 mg Given 50 mg, Oral, DAILY, First dose on Sun01/08/19 at 0900, Until Discontinued, Hold for systolic BP < 90 or diastolic BP < 60 tablets may be cut in half, DO NOT CRUSH or CHEW, 01/08/2019 4:30 PM CDT 5 mg oxyCODONE (ROXICODONE, OXY-IR) tablet 5 Given mg 5 mg, Oral, EVERY 4 HOURS PRN, Starting Sun01/08/19 at 0035, Until Sun01/08/19 at 1832, Pain PO, For break through pain after tylenol, 5 mg Given 01/08/2019 10:28 AM CDT 5 mg Given 01/08/2019 6:27 AM CDT 01/09/2019 9:55 AM CDT 10 mg oxyCODONE (ROXICODONE, OXY-IR) tablet Given 5-10 mg 5-10 mg, Oral, EVERY 4 HOURS PRN, Starting Sun01/08/19 at 1831, Until Ivett 01/09/19 at 1421, Pain PO, For break through pain after tylenol, 10 mg Given 01/09/2019 5:41 AM CDT 10 mg Given 01/09/2019 12:36 AM CDT 01/08/2019 1:13 AM CDT 25 mg topiramate (TOPAMAX) tablet 25 mg Given 25 mg, Oral, AT BEDTIME DAILY, First dose on Sun01/08/19 at 0045, Until Discontinued, Note: Tablets should not be crushed or broken for administration by mouth, due to bitter taste., 01/09/2019 8:14 AM CDT 25 mg topiramate (TOPAMAX) tablet 25 mg Given 25 mg, Oral, TWICE DAILY, First dose on Sun01/08/19 at 0900, Until Discontinued, Note: Tablets should not be crushed or broken for administration by mouth, due to bitter taste., 25 mg Given 01/08/2019 8:26 PM CDT 25 mg Given 01/08/2019 9:13 AM CDT 01/09/2019 8:14 AM CDT 1 mg varenicline (CHANTIX) tablet 1 mg Given 1 mg, Oral, TWICE DAILY WITH MEALS, First dose on Sun01/08/19 at 0100, Until Discontinued, This medication should be taken after eating., 1 mg Given 01/08/2019 8:28 PM CDT 1 mg Given 01/08/2019 1:13 AM CDT documented in this encounter
--- OUTSIDE RECORDS SUMMARY | 2019-03-27 10:36 | XMS REPORT | Encounter Summary ---
Author Author [facility] Organization [facility] Address Unknown Phone Unavailable Care Team Providers Care Local Government Legislator Name Role Phone Vicky Ritter MD PCP Encounter Details Care Team Description Date Type Department 01/07/2019 Hospital [facility] Encounter Health System [address] [address] Social History Date Tobacco Use Types Packs/Day Years Used Never Assessed Sex Assigned at Date Recorded Not on file Industry Job Start Date Occupation Not on file Not on file Not on file Travel End Travel History Travel Start No recent travel history available. documented as of this encounter Medications at [...] as needed documented as of this encounter Plan of Treatment Not on filedocumented as of this encounter Procedures Comments Procedure Name Priority Date/Time Associated Diagnosis CT CHEST EXTERNAL IMAGING Routine 01/07/2019 Diagnosis unknown 4:20 PM CDT documented in this encounter Results * CT CHEST EXTERNAL IMAGING (01/07/2019 4:20 PM CDT) Specimen Narrative Performed At This order has been auto finalized and does not contain a result. documented in this encounter Visit Diagnoses Not on filedocumented in this encounter
--- OUTSIDE RECORDS SUMMARY | 2019-03-27 10:36 | XMS REPORT | Encounter Summary ---
Author Author [facility] Organization [facility] [place] Address Unknown Phone Unavailable Care Team Providers Care Material Man Name Role Phone Vicky Ritter MD PCP Reason for Visit * Auth/Cert Referred By Contact Referred To Contact Status Reason Specialty Diagnoses / Procedures Diagnoses Hemoptysis Hemoptysis Encounter Details Care Team Description Date Type Department Bryn Vera MD [address] [place] [address] 01/08/2019 Hospital [facility] [address] [address] Social History Date Tobacco Use [...] Comments Procedure Name Priority Date/Time Associated Diagnosis HUMAN COMP CANCER GENE 01/08/2019 Malignant neoplasm of PANEL (275) NGS 1:49 PM CDT upper lobe, right bronchus or lung (HCC) CT ABD/PELV W CONTRAST Routine 01/08/2019 5:[address] CHEST W CONTRAST Routine 01/08/2019 5:23 AM CDT documented in this encounter Results * HUMAN COMP CANCER GENE PANEL (275) NGS (01/08/2019 1:49 PM CDT) Human Report Available in Epic [facility] Comprehensive Cancer Gene Panel (275) by NGS Specimen Performing Organization Address City/State/Zipcode Phone Number [facility] See results for address. documented in this encounter Visit Diagnoses Diagnosis Malignant neoplasm of upper lobe, right bronchus or lung (HCC) documented in this encounter Administered Medications Action Date Dose Rate Site Medication Order MAR Action 01/08/2019 5:30 AM CDT 100 mL iohexol (OMNIPAQUE-350) 350 mg/mL Given injection 100 mL 100 mL, Intravenous, ONCE, 1 dose, Sun01/08/19 at 0530, NOTE: This is a HIGH ALERT Medication., 01/08/2019 5:30 AM CDT 50 mL sodium chloride PF 0.9% injection 50 mL Given 50 mL, Intravenous, ONCE, 1 dose, Sun01/08/19 at 0530, DO NOT SEND this medication unless it is requested. This med is usually available in floor stock., Intra-procedure (IR) documented in this encounter
--- OUTSIDE RECORDS SUMMARY | 2019-03-27 10:36 | XMS REPORT | Encounter Summary ---
Author Author [facility] Organization [facility] Address Unknown Phone Unavailable Care Team Providers Care Documentation Improvement Specialist Name Role Phone Vicky Ritter MD PCP Reason for Visit * Auth/Cert Referred By Contact Referred To Contact Status Reason Specialty Diagnoses / Procedures Diagnoses Hemoptysis Hemoptysis Encounter Details Care Team Description Date Type Department Itz Kuhn MD [address] Ortho[facility] [address] [place] [address] BRONCHOSCOPY WITH BRUSHING/ PROTECTED BRUSHING - FLEXIBLE 01/08/2019 Surgery [facility] OR [address] [address] Social History Date Tobacco Use [...] 01/09/2019 Attending Physician: Willian Gonzalez MD Service: [facility] 34 05 Physician Summary completed by: WILLIAN [...] Air) Intensity Pain Scale (Self Report): 7 (01/07/19 2144) General: Alert and oriented x 4, cooperative, [...] on date 01/13/2019. She was admitted at [facility] on 01/07 and d ischarged on 01/09/2019. Please feel free to call us with questions on . Restrictions: Avoid excessive physical exertion. Report These [...] or concerns regarding your hospital stay, call [phone]. Discharging attending physician: WILLIAN GONZALEZ [[id number]] Cardiac Diet Limiting unhealthy fats and cholesterol [...] at home, you may contact a dietitian tatiana singh . Opioid (Narcotic) Safety Information OPIOID (NARCOTIC) [...] is not lasting long enough, call yo doctor. *Do not break or crush your [...] Your Medications These medications were sent to [facility] [address] [place] [address]. [place] [address], [facility] [address] Hours: M-F 7am-9pm Sat & Sun 9am-5pm [...] complains. Wants to go home. Discussed with director council on aging: they will follow up on Biopsy and [...] unintentional weight loss who was transferred to [facility] for further evaluation o f newly diagnosed pulmonary mass and hemoptysis. Imaging with large right beba-h ilar mass with hilar/mediastinal adenopathy, most concerning for primary lung ca ncer. EBUS with TBNA of hilar/mediastinal nodes pursued. Noted endobronchial les ion, which was biopsies. Pathology pending. Discussed high likelihood of this be ing cancer. Patient reported she would like to follow at [facility] oncology once resul ts available. Recommendations: - follow-up on pending pathology -- I will call patient once path available - patient would like to be evaluated at [facility] oncology - encourage tobacco cessation The patient [...] Review: Pertinent radiology reviewed. Marcos Isaac Pager [phone] Associated attestation - Maliha Dickinson MD - [...] visit, discussed case with Dr Orville Irene, [facility] fellow and concur with our fellow's documentation of history, phy sical exam, assessment, and treatment plan unless otherwise noted. Staff name: Itz Kuhn MD Date: 01/08/2019 Chief Complaint: Inpatient endo consult note reviewed. RUL mass, hemoptysis Previous Anesthetic/Sedation History: reviewed Allergies: Patient has no known allergies. Medications: Scheduled Meds: [NOV Hold] famotidine (PEPCID) tablet 20 mg 20 mg Oral BID [NOV Hold] metoprolol XL (TOPROL XL) tablet 50 [...] >60 >60 mL/min Shaun Irene MD Pager [phone] * Deejay Negrete MD - 01/07/2019 11:35 PM CDT Admission History and Physical Examination Name: Mary Higgins MRN: [id number] Admission Date: 01/07/2019 ASSESSMENT & PLAN Active Problems: Hemoptysis Mrs. 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 who presented to as a direct transfer from [facility] for workup of newly identified lung [...] unintentional weight loss - CT chest at [facility] shows newly identified necrotic R lung mass, necrotic lymph no joann, uploaded to PACS not yet available in [facility] obtained d-dimer 400; not elevated for age appropriate Plan > CT chest/abdomen/pelvis w/ contrast > Consult Pulmonology for tissue biopsy > NPO at [place] > pain control w/ tylenol, Oxy 5 Q4H PRN for breakthrough pain #HTN - continue [employer] Toprol XL 50 mg qday #HLD - continue [employer] Lipitor 10 mg qday #Tobacco use - hx of 80 pack years - Chantix #Headaches, chronic - continue topiramate FEN: no IVF/ replace prn/ NPO at [place] Prophylaxis: SCD's Disposition: admit to medicine Code Status: full Patient seen and discussed with MOD who directed plan as per above. Sonal Bella, Internal Medicine PGY-1 [phone] Senior Resident Attestation I was present and [...] Pt reports last C-scope was planned for 2016, canceled d/t costs as s he had [...] Deejay Negrete MD Internal Medicine PGY-2 Pager [phone] HISTORY OF PRESENT ILLNESS Chief Complaint: Hemoptysis Mrs. 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 She figured that it was because she had not been to work in [employer] some time. States her chest pain did [...] ntix. She presented to the ED at [facility] this afternoon the CT scan was done [...] file Gets together: Not on file Attends scientology service: Not on file Active member of [...] Pertinent radiology reviewed. Sonal Bella DO Pager [phone] Associated attestation - Willian Gonzalez MD - [...] unintentional weight loss who was transferred to [facility] for further evaluation o f newly diagnosed [...] obacco use disroder who was transferred to [facility] for further evaluation of newly d iagnosed pulmonary mass and hemoptysis. Patient initially presented to her PCP in October for evaluation of right sided chest pain and cough. Supportive care provided at that time. Was scheduled for lab working and imaging, but never completed. Symptoms were intermittent over th at time. However, past week was working at the [employer] when she developed progres sive sharp right sided chest pain. Following day, had an episode of hemoptysis w ith total of 1 tbsp blood. Had no recurrence of hemoptysis until the morning of presentation. Subsequently presented to [facility] for further evalu ation. CT noting 5 [...] file Gets together: Not on file Attends scientology service: Not on file Active member of [...] Air) (01/08 330) Height: 165.1 cm (65") (01/07 2144) BP: (94-112)/(59-72) Temp: [36.2 C (97.1 [...] mL/min Pertinent radiology reviewed. Marcos Isaac Pager [phone] Associated attestation - Maliha Dickinson MD - 01/08/2019 7:15 PM CDT ATTESTATION I personally performed the grey portions of the E/M visit, discussed case with re sident and concur with resident documentation of history, physical exam, assessm ent, and treatment plan unless otherwise noted. Staff name: Maliha Dickinson MD Date: 01/08/2019 documented in this encounter Miscellaneous Notes * Care Plan - Nadja cMdowell RN - 01/09/2019 10:17 AM CDT Problem: [...] CDT This patient has been assigned to [employer] F- [phone]. Ubitricity team ple ase page MOD [phone] before 8 am if you want to receive the handoff for this pa tient. Thank you! * Advanced Care Planning/Resuscitation Status - Sonal Bella DO - 01/08/2019 12:23 AM CDT Advance Care Planning/Resuscitation Status Conversation Individuals present for advance care planning conversation: resident/fellow phys angelikaan and patient Pertinent details of conversation (including [...] >60 >60 mL/min [facility] Comment: Mongolian The eGFR is not validated for use in drug dosing adjustments.Continue to use estimated creatinine clearance per dosing reference text.Please contact the Clinical Pharmacist for questions. eGFR >60 >60 mL/min [facility] Mong[place]ian Comment: The eGFR is not validated for use in drug dosing adjustments.Continue to use estimated creatinine clearance per dosing reference text.Please contact the Clinical Pharmacist for questions. Specimen Blood Performing Organization Address City/State/Zipcode Phone Number [facility] [address] [place] [address] * CBC AND DIFF (01/09/2019 5:39 AM [...] Platelet Count 190 150 - 400 K/UL [facility] MPV 9.9 7 - 11 FL [facility] Neutrophils 82 (H) 41 - 77 % [facility] Lymphocytes 12 (L) 24 - 44 % [facility] Monocytes 6 4 - 12 % [facility] Eosinophils 0 0 - 5 % [facility] Basophils 0 0 - 2 % [facility] Absolute 6.30 1.8 - 7.0 K/UL [facility] Neutrophil Count Absolute Lymph 0.90 (L) 1.0 - 4.8 K/UL [facility] Count Absolute 0.50 0 - 0.80 K/UL [facility] Monocyte Count Absolute 0.00 0 - 0.45 K/UL [facility] Eosinophil Count Absolute 0.00 0 - 0.20 K/UL [facility] Basophil Count Specimen Blood Performing Organization Address City/State/Zipcode Phone Number [facility] [address] [place] [address] * FINE NEEDLE ASPIRATE (FNA) (01/08/2019 1:51 PM CDT) Cytology [facility] [email or web address] Department of Pathology and Laboratory Medicine [address] [place] [address] Surgical Pathology Office:[phone] :[phone] CYTOLOGY REPORT NAME: AMRY HIGGINS SURG PATH #: [id number] MR #: [id number] ALT ID #: BILLING #: [id number] LOCATION: DISCHARGED DATE OF PROCEDURE: 01/08/2019 AGE:63 [...] determination of adequacy was performed by the film mounterDO, on Diff-Quik stained slide(s). All four passes not adequate for evaluation. B. ( 2 DQ direct smear, 2 Pap direct smear, 1 cell block) Rapid determination of adequacy was performed by the film mounterDO, on Diff-Quik stained slide(s). Pass two adequate for evaluation. Pass three all RPMI for cell block. C. ( 2 DQ direct smear, 2 Pap direct smear, 1 cell block) Rapid determination of adequacy was performed by the film mounterDO, on Diff-Quik stained slide(s). Pass one adequate for evaluation. Pass two not adequate. Pass three all RPMI for cell block. D. ( 3 DQ direct smear, 3 Pap direct smear, 1 cell block) Rapid determination of adequacy was performed by the film mounterDO, on Diff-Quik stained slide(s). Pass three adequate [...] concurrent surgical pathology report for further classification ([id number]). Comment: A cell block is prepared and [...] Newman D.O. Professional services performed by [facility], at [address] [place] [address] Specimen Performing Organization Address City/State/Zipcode Phone Number [facility] [address] [place] [address] * SURGICAL PATHOLOGY (01/08/2019 1:49 PM CDT) PATHOLOGY [facility] [email or web address] Department of Pathology and Laboratory Medicine [address] [place] [address] Surgical Pathology Office:[phone] :[phone] SURGICAL PATHOLOGY REPORT NAME: MARY HIGGINS SURG PATH #: [id number] MR #: [id number] SPECIMEN CLASS: SR BILLING #: [id number] ALT ID #:LOCATION: [id number] DATE OF PROCEDURE: [...] Cell types evaluated: Tumor cells FDA status: Car Shakeout Operator JING Baird ############################## ############################## ############ Final Diagnosis: [...] testing (block A2>A1). Pursuant to the Health Promoter Program at the [facility] Pathology Department, selected slides from this [...] of Pathology and Laboratory Medicine of the [facility] ([employer]) in compliance with [...] of Pathology and Laboratory Medicine of the [facility].It has not been cleared or approved by the FDA.The FDA has determined that such clearance or approval is not necessary. Specimen Performing Organization Address City/State/Zipcode Phone Number [facility] [address] [place] [address] * BRONCHOSCOPY (01/08/2019 8:54 AM CDT) Provation Patient Name: Mary GAFFNEY OTHER Report [facility] RESULTS Procedure Date: 01/08/2019 8:54 AM [facility]: [id number] Date of : 1955 Gender: Female Attending Physician: Itz Kuhn MD Procedure: Bronchoscopy Indications: Right upper lobe mass Providers: Itz Kuhn MD (Doctor), Daphnie Patel RN (Nurse), Cleve Lloyd Technologist (Child Monitor) Referring Physician:Willian Gonzalez Medications: Tetricaine 0.25%/Epinephrine 0.003% [...] >60 >60 mL/min [facility] Comment: Mong[place]ian The eGFR is not validated for use in drug dosing adjustments.Continue to use estimated creatinine clearance per dosing reference text.Please contact the Clinical Pharmacist for questions. eGFR >60 >60 mL/min [facility] [place]ian Comment: The eGFR is not validated for use in drug dosing adjustments.Continue to use estimated creatinine clearance per dosing reference text.Please contact the Clinical Pharmacist for questions. Specimen Blood Performing Organization Address City/[facility]/Zipcode Phone Number [facility] [address] [place] [address] * CBC AND DIFF (01/08/2019 12:09 AM [...] Blood Performing Organization Address City/State/Zipcode Phone Number [facility] [address] [place] [address] * CT CHEST EXTERNAL IMAGING (01/07/2019 4:20 [...] documented in this encounter Visit Diagnoses Diagnosis Diagnosis unknown Other unknown and unspecified cause of morbidity or mortality documented in this encounter Admitting Diagnoses Diagnosis Hemoptysis Hemoptysis, unspecified documented in this encounter Administered Medications Action Date Dose Rate Site Medication Order MAR Action 01/08/2019 12:38 AM CDT 650 mg acetaminophen (TYLENOL) tablet 650 mg Given 650 mg, Oral, EVERY 4 HOURS PRN, Starting Sun01/08/19 at 0008, Until Ivett [...] Bag CONTINUOUS, Starting Sun01/08/19 at 1115, Until Viett 01/09/19 at 1421, Pre-Op 01/09/2019 12:36 AM CDT 1 patch Chest, [...] in half, DO NOT CRUSH or CHEW, 01/09/2019 9:55 AM CDT 10 mg oxyCODONE (ROXICODONE, OXY-IR) tablet Given 5-10 mg 5-10 mg, Oral, EVERY 4 HOURS PRN, Starting Sun01/08/19 at 1831, Until Ivett 01/09/19 at 1421, Pain PO, For break through pain after tylenol, 10 mg Given 01/09/2019 5:41 AM CDT 10 mg Given 01/09/2019 12:36 AM CDT 01/08/2019 1:14 PM CDT 6 mL tetracaine 0.25% /EPINEPHrine 0.003%(#) Given INTRA-PROCEDURE MED, Starting Sun01/08/19 at 1314, Until Sun01/08/19 at 1331, Intra-op 01/09/2019 8:14 AM CDT 25 mg topiramate [...]
--- OUTSIDE RECORDS SUMMARY | 2019-03-27 10:36 | XMS REPORT | Encounter Summary ---
Author Author [facility] Organization [facility] Address Unknown Phone Unavailable Care Team Providers Care Survey Manager Name Role Phone Vicky Ritter MD PCP Encounter Details Care Team Description Date Type Department 01/07/2019 Hospital [facility] Encounter Health System [address] [address] Social History Date Tobacco Use [...] Comments Procedure Name Priority Date/Time Associated Diagnosis [facility] PATH [facility] REF LAB 01/08/2019 SCAN 12:00 AM CDT GENERAL RAD CHEST Routine 01/07/2019 Diagnosis unknown EXTERNAL IMAGING 3:45 PM CDT documented in this encounter Results * [facility] PATH [facility] REF LAB SCAN (01/08/2019 12:00 AM CDT) Narrative Performed At Ordered by an unspecified provider. documented in this encounter Visit Diagnoses Not on filedocumented in this encounter
--- OUTSIDE RECORDS SUMMARY | 2019-03-27 10:37 | XMS REPORT | Continuity of Care Document ---
Author Organization Unknown Address Unknown Allergies Active Description Code Type Severity Reaction Onset Reported/Identified Relationship to Patient Clinical Status Yes NO KNOWN DRUG ALLERGIES NO KNOWN DRUG ALLERG UNKNOWN Yes NO KNOWN DRUG ALLERGIES UNKNOWN NO KNOWN DRUG ALLERG Yes NO KNOWN DRUG ALLERGIES UNKNOWN UNKNOWN Yes No Known Drug Allergies [id number] Drug Allergy Unknown N/A 01/30/2019 Medications Medication Packaging Start Date Stop Date Route Dosage Sig ONDANSETRON VIAL INJ 4 MG/2CC (ZOFRAN 2CC VIAL) MG 01/07/2019 01/07/2019 ONCE&1640 FENTANYL INJ 100 MCG/2CC VIAL MCG 01/07/2019 01/07/2019 ONCE&1640 FENTANYL INJ 100 MCG/2CC VIAL MCG 01/07/2019 01/07/2019 ONCE&1708 OXYCODONE 5MG/APAP 325MG TAB(PERCOCET-5) TAB 01/07/2019 01/07/2019 PRN ONCE [place] INJ 100 MCG/2CC VIAL MCG 01/07/2019 01/07/2019 ONCE&1849 FENTANYL INJ 100 MCG/2CC VIAL MCG 01/07/2019 01/07/2019 ONCE&1930 Problems Date Dx Coded Attending Type Code Diagnosis Diagnosed By 07/17/2016 ELLA MORAN MD Ot D69.6 THROMBOCYTOPENIA, UNSPECIFIED 07/17/2016 ELLA MORAN MD Ot D75.1 SECONDARY POLYCYTHEMIA 07/17/2016 ELLA MORAN MD Ot F17.210 NICOTINE DEPENDENCE, CIGARETTES, UNCOMPL 07/17/2016 ELLA MORAN MD Ot I10 ESSENTIAL (PRIMARY) HYPERTENSION 07/17/2016 ELLA MORAN MD Ot R09.02 HYPOXEMIA 07/17/2016 ELLA MORAN MD Ot R51 HEADACHE 07/18/2016 Lana MARTINEZ MD Ot R06.02 SHORTNESS OF BREATH 07/18/2016 Lana MARTINEZ MD Ot R94.31 ABNORMAL ELECTROCARDIOGRAM [ECG] [EKG] 07/18/2016 Lana MARTINEZ MD Ot Z72.0 TOBACCO USE 07/18/2016 Lana MARTINEZ MD Ot R06.02 SHORTNESS OF BREATH 07/18/2016 Lana MARTINEZ MD Ot R94.31 ABNORMAL ELECTROCARDIOGRAM [ECG] [EKG] 07/18/2016 Lana MARTINEZ MD Ot Z72.0 TOBACCO USE 07/18/2016 ELLA MORAN MD Ot R51 HEADACHE 07/20/2016 ELLA MORAN MD Ot D69.6 THROMBOCYTOPENIA, UNSPECIFIED 07/20/2016 ELLA MORAN MD Ot D75.1 SECONDARY POLYCYTHEMIA 07/20/2016 ELLA MORAN MD Ot F17.210 NICOTINE DEPENDENCE, CIGARETTES, UNCOMPL 07/20/2016 ELLA MORAN MD Ot I10 ESSENTIAL (PRIMARY) HYPERTENSION 07/20/2016 ELLA MORAN MD Ot R09.02 HYPOXEMIA 07/20/2016 ELLA MORAN MD Ot R51 HEADACHE 07/20/2016 ELLA MORAN MD Ot R51 HEADACHE 07/20/2016 Laan MARTINEZ MD Ot R06.02 SHORTNESS OF BREATH 07/20/2016 Lana MARTINEZ MD Ot R94.31 ABNORMAL ELECTROCARDIOGRAM [ECG] [EKG] 07/20/2016 Laan MARTINEZ MD Ot Z72.0 TOBACCO USE 07/21/2016 Lana MARTINEZ MD Ot R06.02 SHORTNESS OF BREATH 07/21/2016 Lana MARTINEZ MD Ot R94.31 ABNORMAL ELECTROCARDIOGRAM [ECG] [EKG] 07/21/2016 Lana MARTINEZ MD Ot Z72.0 TOBACCO USE 07/25/2016 ELLA MORAN MD Ot R06.02 SHORTNESS OF BREATH 07/25/2016 ELLA MORAN MD Ot R09.02 HYPOXEMIA 07/25/2016 ELLA MORAN MD Ot R51 HEADACHE 07/25/2016 ELLA MORAN MD Ot Z72.0 TOBACCO USE 07/26/2016 ELLA MORAN MD Ot R51 HEADACHE 07/26/2016 Lana MARTINEZ MD Ot R06.02 SHORTNESS OF BREATH 07/26/2016 Lana MARTINEZ MD Ot R94.31 ABNORMAL ELECTROCARDIOGRAM [ECG] [EKG] 07/26/2016 Lana MARTINEZ MD Ot Z72.0 TOBACCO USE 07/31/2016 Lana MARTINEZ MD Ot D69.6 THROMBOCYTOPENIA, UNSPECIFIED 07/31/2016 Lana MARTINEZ MD Ot E78.5 HYPERLIPIDEMIA, UNSPECIFIED 07/31/2016 Lana MARTINEZ MD Ot F17.210 NICOTINE DEPENDENCE, CIGARETTES, UNCOMPL 07/31/2016 Lana MARTINEZ MD Ot I10 ESSENTIAL (PRIMARY) HYPERTENSION 07/31/2016 Lana MARTINEZ MD Ot I25.10 ATHSCL HEART DISEASE OF [place] CORONARY 07/31/2016 Lana MARTINEZ MD Ot R06.02 SHORTNESS OF BREATH 07/31/2016 Lana MARTINEZ MD Ot R94.39 ABNORMAL RESULT OF OTHER CARDIOVASCULAR 07/31/2016 Lana MARTINEZ MD Ot Z79.899 OTHER FIELD STAFF (CURRENT) DRUG THERAPY 08/02/2016 Lana MARTINEZ MD Ot R06.02 SHORTNESS OF BREATH 08/02/2016 Lana MARTINEZ MD Ot R94.31 ABNORMAL ELECTROCARDIOGRAM [ECG] [EKG] 08/02/2016 Lana MARTINEZ MD Ot Z72.0 TOBACCO USE 08/04/2016 ELLA MORAN MD Ot R06.02 SHORTNESS OF BREATH 08/04/2016 ELLA MORAN MD Ot R09.02 HYPOXEMIA 08/04/2016 ELLA MORAN MD Ot R51 HEADACHE 08/04/2016 ELLA MORAN MD Ot Z72.0 TOBACCO USE 08/17/2016 Lana MARTINEZ MD Ot D69.6 THROMBOCYTOPENIA, UNSPECIFIED 08/17/2016 Lana MARTINEZ MD Ot E78.5 HYPERLIPIDEMIA, UNSPECIFIED 08/17/2016 Lana MARTINEZ MD Ot F17.210 NICOTINE DEPENDENCE, CIGARETTES, UNCOMPL 08/17/2016 Lana MARTINEZ MD Ot I10 ESSENTIAL (PRIMARY) HYPERTENSION 08/17/2016 Lana MARTINEZ MD Ot I25.10 ATHSCL HEART DISEASE OF [place] CORONARY 08/17/2016 Lana MARTINEZ MD Ot R06.02 SHORTNESS OF BREATH 08/17/2016 Lana MARTINEZ MD Ot R94.39 ABNORMAL RESULT OF OTHER CARDIOVASCULAR 08/17/2016 Lana MARTINEZ MD Ot Z79.899 OTHER CORRECTION (CURRENT) DRUG THERAPY 08/23/2016 ELLA MORAN MD Ot D69.6 THROMBOCYTOPENIA, UNSPECIFIED 08/23/2016 ELLA MORAN MD Ot D75.1 SECONDARY POLYCYTHEMIA 08/23/2016 ELLA MORAN MD Ot F17.210 NICOTINE DEPENDENCE, CIGARETTES, UNCOMPL 08/23/2016 ELLA MORAN MD Ot I10 ESSENTIAL (PRIMARY) HYPERTENSION 08/23/2016 ELLA MORAN MD Ot R09.02 HYPOXEMIA 08/23/2016 ELLA MORAN MD Ot R51 HEADACHE 09/06/2016 MARIA M FRY FIRE SUPPORT MAN Ot R06.02 SHORTNESS OF BREATH 09/06/2016 MARIA M FRY FIRE SUPPORT MAN Ot Z72.0 TOBACCO USE 09/11/2016 MARIA M FRY FIRE SUPPORT MAN Ot R06.02 SHORTNESS OF BREATH 09/11/2016 ANGMARIA M REYES E FIRE SUPPORT MAN Ot Z72.0 TOBACCO USE 09/13/2016 MARIA M FRY FIRE SUPPORT MAN Ot R06.02 SHORTNESS OF BREATH 09/13/2016 MARIA M FRY FIRE SUPPORT MAN Ot Z72.0 TOBACCO USE 09/13/2016 ELLA MORAN MD Ot D69.6 THROMBOCYTOPENIA, UNSPECIFIED 09/13/2016 ELLA MORAN MD Ot D75.1 SECONDARY POLYCYTHEMIA 09/13/2016 ELLA MORAN MD Ot F17.210 NICOTINE DEPENDENCE, CIGARETTES, UNCOMPL 09/13/2016 ELLA MORAN MD Ot I10 ESSENTIAL (PRIMARY) HYPERTENSION 09/13/2016 ELLA MORAN MD Ot R09.02 HYPOXEMIA 09/13/2016 ELLA MORAN MD Ot R51 HEADACHE 09/13/2016 ELLA MORAN MD Ot R51 HEADACHE 09/13/2016 Lana MARTINEZ MD Ot R06.02 SHORTNESS OF BREATH 09/13/2016 Lana MARTINEZ MD Ot R94.31 ABNORMAL ELECTROCARDIOGRAM [ECG] [EKG] 09/13/2016 Lana MARTINEZ MD Ot Z72.0 TOBACCO USE 09/13/2016 ELLA MORAN MD Ot R06.02 SHORTNESS OF BREATH 09/13/2016 ELLA MORAN MD Ot R09.02 HYPOXEMIA 09/13/2016 ELLA MORAN MD Ot R51 HEADACHE 09/13/2016 ELLA MORAN MD Ot Z72.0 TOBACCO USE 09/13/2016 Lana MARTINEZ MD Ot R06.02 SHORTNESS OF BREATH 09/13/2016 Lana MARTINEZ MD Ot R94.31 ABNORMAL ELECTROCARDIOGRAM [ECG] [EKG] 09/13/2016 Lana MARTINEZ MD Ot Z72.0 TOBACCO USE 09/13/2016 MARIA M FRY APRN Ot R06.02 SHORTNESS OF BREATH 09/13/2016 MARIA M FRY APRN Ot Z72.0 TOBACCO USE 09/14/2016 NATASHA HANLEY DO Ot D75.1 SECONDARY POLYCYTHEMIA 09/14/2016 NATASHA HANLEY DO Ot R06.02 SHORTNESS OF BREATH 09/14/2016 NATASHA HANLEY DO Ot Z72.0 TOBACCO USE 09/20/2016 ELLA MORAN MD Ot D69.6 THROMBOCYTOPENIA, UNSPECIFIED 09/20/2016 ELLA MORAN MD Ot D75.1 SECONDARY POLYCYTHEMIA 09/20/2016 ELLA MORAN MD Ot F17.210 NICOTINE DEPENDENCE, CIGARETTES, UNCOMPL 09/20/2016 ELLA MORAN MD Ot I10 ESSENTIAL (PRIMARY) HYPERTENSION 09/20/2016 ELLA MORAN MD Ot R09.02 HYPOXEMIA 09/20/2016 ELLA MORAN MD Ot R51 HEADACHE 09/27/2016 NATASHA HANLEY DO Ot D75.1 SECONDARY POLYCYTHEMIA 09/27/2016 NATASHA HANLEY DO Ot R06.02 SHORTNESS OF BREATH 09/27/2016 NATASHA HANLEY DO Ot Z72.0 TOBACCO USE 10/08/2016 ELLA MORAN MD Ot D69.6 THROMBOCYTOPENIA, UNSPECIFIED 10/08/2016 ELLA MORAN MD Ot D75.1 SECONDARY POLYCYTHEMIA 10/08/2016 ELLA MORAN MD Ot F17.210 NICOTINE DEPENDENCE, CIGARETTES, UNCOMPL 10/08/2016 ELLA MORAN MD Ot I10 ESSENTIAL (PRIMARY) HYPERTENSION 10/08/2016 DEAN MCCALL, ELLA Flaco Ot R09.02 HYPOXEMIA 10/08/2016 DEAN MCCALL ELLA Flaco Ot R51 HEADACHE 10/09/2016 DEAN MCCALL ELLA Flaco Ot D69.6 THROMBOCYTOPENIA, UNSPECIFIED 10/09/2016 DEAN MCCALL ELLA Flaco Ot D75.1 SECONDARY POLYCYTHEMIA 10/09/2016 DEAN MCCALL, ELLA Flaco Ot F17.210 NICOTINE DEPENDENCE, CIGARETTES, UNCOMPL 10/09/2016 DEAN MCCALL, ELLA Flaco Ot I10 ESSENTIAL (PRIMARY) HYPERTENSION 10/09/2016 DEAN MCCALL, ELLA Flaco Ot R09.02 HYPOXEMIA 10/09/2016 DEAN MCCALL ELLA Sam Ot R51 HEADACHE 12/20/2016 DEAN MCCALL, ELLA Sam Ot R51 HEADACHE 12/20/2016 Lana MARTINEZ MD Ot R06.02 SHORTNESS OF BREATH 12/20/2016 Lana MARTINEZ MD Ot R94.31 ABNORMAL ELECTROCARDIOGRAM [ECG] [EKG] 12/20/2016 Lana MARTINEZ MD Ot Z72.0 TOBACCO USE 12/20/2016 DEAN MCCALL ELLA Flaco Ot R06.02 SHORTNESS OF BREATH 12/20/2016 DEAN MCCALL ELLA Flaco Ot R09.02 HYPOXEMIA 12/20/2016 DEAN MCCALL ELLA Flaco Ot R51 HEADACHE 12/20/2016 DEAN MCCALL ELLA Flaco Ot Z72.0 TOBACCO USE 12/20/2016 Lana MARTINEZ MD Ot R06.02 SHORTNESS OF BREATH 12/20/2016 Lana MARTINEZ MD Ot R94.31 ABNORMAL ELECTROCARDIOGRAM [ECG] [EKG] 12/20/2016 Lana MARTINEZ MD Ot Z72.0 TOBACCO USE 12/20/2016 NATASHA HANLEY DO Ot D75.1 SECONDARY POLYCYTHEMIA 12/20/2016 NATASHA HANLEY DO Ot R06.02 SHORTNESS OF BREATH 12/20/2016 NATASHA HANLEY DO Ot Z72.0 TOBACCO USE 12/20/2016 MARIA M FRY APRN Ot R06.02 SHORTNESS OF BREATH 12/20/2016 MARIA M FRY APRN Ot Z72.0 TOBACCO USE 12/20/2016 REJI KING MD Ot D69.6 THROMBOCYTOPENIA, UNSPECIFIED 12/20/2016 REJI KING MD, Ot D75.1 SECONDARY POLYCYTHEMIA 12/20/2016 REJI KING MD Ot F17.210 NICOTINE DEPENDENCE, CIGARETTES, UNCOMPL 12/20/2016 REJI KING MD Ot I10 ESSENTIAL (PRIMARY) HYPERTENSION 12/20/2016 REJI KING MD Ot R09.02 HYPOXEMIA 12/20/2016 REJI KING MD Ot R51 HEADACHE 12/26/2016 ELLA MORAN MD Ot R51 HEADACHE 12/26/2016 Lana MARTINEZ MD Ot R06.02 SHORTNESS OF BREATH 12/26/2016 Lana MARTINEZ MD Ot R94.31 ABNORMAL ELECTROCARDIOGRAM [ECG] [EKG] 12/26/2016 Lana MARTINEZ MD Ot Z72.0 TOBACCO USE 12/26/2016 ELLA MORAN MD Ot R06.02 SHORTNESS OF BREATH 12/26/2016 ELLA MORAN MD Ot R09.02 HYPOXEMIA 12/26/2016 ELLA MORAN MD Ot R51 HEADACHE 12/26/2016 ELLA MORAN MD Ot Z72.0 TOBACCO USE 12/26/2016 Lana MARTINEZ MD Ot R06.02 SHORTNESS OF BREATH 12/26/2016 Lana MARTINEZ MD Ot R94.31 ABNORMAL ELECTROCARDIOGRAM [ECG] [EKG] 12/26/2016 Lana MARTINEZ MD Ot Z72.0 TOBACCO USE 12/26/2016 NATASHA HANLEY DO Ot D75.1 SECONDARY POLYCYTHEMIA 12/26/2016 NATASHA HANLEY DO Ot R06.02 SHORTNESS OF BREATH 12/26/2016 NATASHA HANLEY DO Ot Z72.0 TOBACCO USE 12/26/2016 MARIA M FRY APRN Ot R06.02 SHORTNESS OF BREATH 12/26/2016 MARIA M FRY APRN Ot Z72.0 TOBACCO USE 12/26/2016 REJI KING MD Ot D69.6 THROMBOCYTOPENIA, UNSPECIFIED 12/26/2016 REJI KING MD Ot D75.1 SECONDARY POLYCYTHEMIA 12/26/2016 REJI KING MD Ot F17.210 NICOTINE DEPENDENCE, CIGARETTES, UNCOMPL 12/26/2016 REJI KING MD Ot I10 ESSENTIAL (PRIMARY) HYPERTENSION 12/26/2016 REJI KING MD Ot R09.02 HYPOXEMIA 12/26/2016 FERNANDO MCCALL, REJI Ot R51 HEADACHE 09/20/2017 Stone, Vicky A 787.91 DIARRHEA 09/20/2017 Stone, Vicky A K52.2 ALLERGIC AND DIETETIC GASTROENTERITIS AND COLITIS 09/20/2017 Stone, Vicky A 787.91 DIARRHEA 09/20/2017 Stone, Vicky A K52.2 ALLERGIC AND DIETETIC GASTROENTERITIS AND COLITIS 09/20/2017 Stone, Vicky A R19.7 DIARRHEA, UNSPECIFIED 10/28/2018 DEAN MCCALL, ELLA Sam Ot R51 HEADACHE 10/28/2018 MICHELLE MCCALL, Lana CHERY Ot R06.02 SHORTNESS OF BREATH 10/28/2018 MICHELLE MCCALL, Lana CHERY Ot R94.31 ABNORMAL ELECTROCARDIOGRAM [ECG] [EKG] 10/28/2018 MICHELLE MCCALL, Lana CHERY Ot Z72.0 TOBACCO USE 10/28/2018 ELLA MORAN MD Ot R06.02 SHORTNESS OF BREATH 10/28/2018 ELLA MORAN MD Ot R09.02 HYPOXEMIA 10/28/2018 ELLA MORAN MD Ot R51 HEADACHE 10/28/2018 ELLA MORAN MD Ot Z72.0 TOBACCO USE 10/28/2018 MICHELLE MCCALL, Lana CHERY Ot R06.02 SHORTNESS OF BREATH 10/28/2018 MICHELLE MCCALL, Lana CHERY Ot R94.31 ABNORMAL ELECTROCARDIOGRAM [ECG] [EKG] 10/28/2018 MICHELLE MCCALL, Lana CHERY Ot Z72.0 TOBACCO USE 10/28/2018 NATASHA HANLEY DO Ot D75.1 SECONDARY POLYCYTHEMIA 10/28/2018 NATASHA HANLEY DO Ot R06.02 SHORTNESS OF BREATH 10/28/2018 NATASHA HANLEY DO Ot Z72.0 TOBACCO USE 10/28/2018 MARIA M FRY APRN Ot R06.02 SHORTNESS OF BREATH 10/28/2018 MARIA M FRY APRN Ot Z72.0 TOBACCO USE 10/28/2018 REJI KING MD Ot D69.6 THROMBOCYTOPENIA, UNSPECIFIED 10/28/2018 REJI KING MD Ot D75.1 SECONDARY POLYCYTHEMIA 10/28/2018 REJI KING MD Ot F17.210 NICOTINE DEPENDENCE, CIGARETTES, UNCOMPL 10/28/2018 REJI KING MD Ot I10 ESSENTIAL (PRIMARY) HYPERTENSION 10/28/2018 REJI KING MD Ot R09.02 HYPOXEMIA 10/28/2018 REJI KING MD Ot R51 HEADACHE 11/06/2018 DEAN MCCALL, ELLA Sam Ot R51 HEADACHE 11/06/2018 MICHELLE MCCALL, Lana CHERY Ot R06.02 SHORTNESS OF BREATH 11/06/2018 MICHELLE MCCALL, Lana CHERY Ot R94.31 ABNORMAL ELECTROCARDIOGRAM [ECG] [EKG] 11/06/2018 Lana MARTINEZ MD Ot Z72.0 TOBACCO USE 11/06/2018 ELLA MORAN MD Ot R06.02 SHORTNESS OF BREATH 11/06/2018 ELLA MORAN MD Ot R09.02 HYPOXEMIA 11/06/2018 ELLA MORAN MD Ot R51 HEADACHE 11/06/2018 ELLA MORAN MD Ot Z72.0 TOBACCO USE 11/06/2018 Lana MARTINEZ MD Ot R06.02 SHORTNESS OF BREATH 11/06/2018 MICHELLE MCCALL, Lana CHERY Ot R94.31 ABNORMAL ELECTROCARDIOGRAM [ECG] [EKG] 11/06/2018 Lana MARTINEZ MD Ot Z72.0 TOBACCO USE 11/06/2018 NATASHA HANLEY DO Ot D75.1 SECONDARY POLYCYTHEMIA 11/06/2018 NATASHA HANLEY DO Ot R06.02 SHORTNESS OF BREATH 11/06/2018 NATASHA HANLEY DO Ot Z72.0 TOBACCO USE 11/06/2018 ANGMARIA M REYES APRN Ot R06.02 SHORTNESS OF BREATH 11/06/2018 MARIA M FRY APRN Ot Z72.0 TOBACCO USE 11/06/2018 REJI KING MD Ot D69.6 THROMBOCYTOPENIA, UNSPECIFIED 11/06/2018 REJI KING MD Ot D75.1 SECONDARY POLYCYTHEMIA 11/06/2018 REJI KING MD Ot F17.210 NICOTINE DEPENDENCE, CIGARETTES, UNCOMPL 11/06/2018 REJI KING MD Ot I10 ESSENTIAL (PRIMARY) HYPERTENSION 11/06/2018 REJI KING MD Ot R09.02 HYPOXEMIA 11/06/2018 FERNANDO MD, MENDOZA Ot R51 HEADACHE 11/08/2018 ELLA MORAN MD Ot R51 HEADACHE 11/08/2018 MICHELLE MCCALL, Lana CHERY Ot R06.02 SHORTNESS OF BREATH 11/08/2018 Lana MARTINEZ MD Ot R94.31 ABNORMAL ELECTROCARDIOGRAM [ECG] [EKG] 11/08/2018 MICHELLE MCCALL, Lana CHERY Ot Z72.0 TOBACCO USE 11/08/2018 ELLA MORAN MD Ot R06.02 SHORTNESS OF BREATH 11/08/2018 ELLA MORAN MD Ot R09.02 HYPOXEMIA 11/08/2018 ELLA MORAN MD Ot R51 HEADACHE 11/08/2018 ELLA MORAN MD Ot Z72.0 TOBACCO USE 11/08/2018 MICHELLE MCCALL, Lana CHERY Ot R06.02 SHORTNESS OF BREATH 11/08/2018 Lana MARTINEZ MD Ot R94.31 ABNORMAL ELECTROCARDIOGRAM [ECG] [EKG] 11/08/2018 Laan MARTINEZ MD Ot Z72.0 TOBACCO USE 11/08/2018 NATASHA HANLEY DO Ot D75.1 SECONDARY POLYCYTHEMIA 11/08/2018 NATASHA HANLEY DO Ot R06.02 SHORTNESS OF BREATH 11/08/2018 NATASHA HANLEY DO Ot Z72.0 TOBACCO USE 11/08/2018 MARIA M FRY APRN Ot R06.02 SHORTNESS OF BREATH 11/08/2018 MARIA M FRY APRN Ot Z72.0 TOBACCO USE 11/08/2018 REJI KING MD Ot D69.6 THROMBOCYTOPENIA, UNSPECIFIED 11/08/2018 REJI KING MD Ot D75.1 SECONDARY POLYCYTHEMIA 11/08/2018 REJI KING MD Ot F17.210 NICOTINE DEPENDENCE, CIGARETTES, UNCOMPL 11/08/2018 REJI KING MD Ot I10 ESSENTIAL (PRIMARY) HYPERTENSION 11/08/2018 REJI KING MD Ot R09.02 HYPOXEMIA 11/08/2018 REJI KING MD Ot R51 HEADACHE 01/07/2019 Rocky Moss W 162.3 MALIGNANT NEOPLASM OF UPPER LOBE, BRONCHUS OR LUNG 01/07/2019 Rocky Moss C34.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 UPPER LOBE, RIGHT BRONCHUS OR LUNG 01/29/2019 ELLA MORAN MD Ot R51 HEADACHE 01/29/2019 Lana MARTINEZ MD Ot R06.02 SHORTNESS OF BREATH 01/29/2019 Lana MARTINEZ MD Ot R94.31 ABNORMAL ELECTROCARDIOGRAM [ECG] [EKG] 01/29/2019 Lana MARTINEZ MD Ot Z72.0 TOBACCO USE 01/29/2019 ELLA MORAN MD Ot R06.02 SHORTNESS OF BREATH 01/29/2019 ELLA MORAN MD Ot R09.02 HYPOXEMIA 01/29/2019 ELLA MORAN MD Ot R51 HEADACHE 01/29/2019 ELLA MORAN MD Ot Z72.0 TOBACCO USE 01/29/2019 Lana MARTINEZ MD Ot R06.02 SHORTNESS OF BREATH 01/29/2019 Lana MARTINEZ MD Ot R94.31 ABNORMAL ELECTROCARDIOGRAM [ECG] [EKG] 01/29/2019 Lana MARTINEZ MD Ot Z72.0 TOBACCO USE 01/29/2019 NATASHA HANLEY DO Ot D75.1 SECONDARY POLYCYTHEMIA 01/29/2019 NATASHA HANLEY DO Ot R06.02 SHORTNESS OF BREATH 01/29/2019 NATASHA HANLEY DO Ot Z72.0 TOBACCO USE 01/29/2019 MARIA M FRY APRN Ot R06.02 SHORTNESS OF BREATH 01/29/2019 MARIA M FRY APRN Ot Z72.0 TOBACCO USE 01/29/2019 REJI KING MD Ot C34.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 UPPER LOBE, RIGHT 01/29/2019 REJI KING MD Ot D69.6 THROMBOCYTOPENIA, UNSPECIFIED 01/29/2019 REJI KING MD Ot D75.1 SECONDARY POLYCYTHEMIA 01/29/2019 REJI KING MD Ot E78.5 HYPERLIPIDEMIA, UNSPECIFIED 01/29/2019 REJI KING MD Ot F17.210 NICOTINE DEPENDENCE, CIGARETTES, UNCOMPL 01/29/2019 REJI KNIG MD Ot I10 ESSENTIAL (PRIMARY) HYPERTENSION 01/29/2019 REJI KING MD Ot J18.1 LOBAR PNEUMONIA, UNSPECIFIED ORGANISM 01/29/2019 REJI KING MD Ot Z51.0 ENCOUNTER FOR ANTINEOPLASTIC RADIATION T 01/29/2019 ELLA MORAN MD Ot R51 HEADACHE 01/29/2019 MICHELLE MCCALL, Lana CHERY Ot R06.02 SHORTNESS OF BREATH 01/29/2019 MICHELLE MCCALL, Lana CHERY Ot R94.31 ABNORMAL ELECTROCARDIOGRAM [ECG] [EKG] 01/29/2019 MICHELLE MCCALL, Lana CHERY Ot Z72.0 TOBACCO USE 01/29/2019 DEAN MCCALL ELLA Flaco Ot R06.02 SHORTNESS OF BREATH 01/29/2019 ELLA MORAN MD Ot R09.02 HYPOXEMIA 01/29/2019 ELLA MORAN MD Ot R51 HEADACHE 01/29/2019 ELLA MORAN MD Ot Z72.0 TOBACCO USE 01/29/2019 MICHELLE MCCALL, Lana CHERY Ot R06.02 SHORTNESS OF BREATH 01/29/2019 MICHELLE MCCALL, Lana CHERY Ot R94.31 ABNORMAL ELECTROCARDIOGRAM [ECG] [EKG] 01/29/2019 MICHELLE MCCALL, Lana CHERY Ot Z72.0 TOBACCO USE 01/29/2019 NATASHA HANLEY DO Ot D75.1 SECONDARY POLYCYTHEMIA 01/29/2019 NATASHA HANLEY DO Ot R06.02 SHORTNESS OF BREATH 01/29/2019 NATASHA HANLEY DO Ot Z72.0 TOBACCO USE 01/29/2019 MARIA M FRY APRN Ot R06.02 SHORTNESS OF BREATH 01/29/2019 MARIA M FRY APRN Ot Z72.0 TOBACCO USE 01/29/2019 REJI KING MD Ot C34.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 UPPER LOBE, RIGHT 01/29/2019 REJI KING MD Ot D69.6 THROMBOCYTOPENIA, UNSPECIFIED 01/29/2019 REJI KING MD Ot D75.1 SECONDARY POLYCYTHEMIA 01/29/2019 REJI KING MD Ot E78.5 HYPERLIPIDEMIA, UNSPECIFIED 01/29/2019 REJI KING MD Ot F17.210 NICOTINE DEPENDENCE, CIGARETTES, UNCOMPL 01/29/2019 REJI KING MD Ot I10 ESSENTIAL (PRIMARY) HYPERTENSION 01/29/2019 REJI KING MD Ot J18.1 LOBAR PNEUMONIA, UNSPECIFIED ORGANISM 01/29/2019 REJI KING MD Ot Z51.0 ENCOUNTER FOR ANTINEOPLASTIC RADIATION T 01/30/2019 DEAN MCCALL, ELLA Sam Ot R51 HEADACHE 01/30/2019 Lana MARTINEZ MD Ot R06.02 SHORTNESS OF BREATH 01/30/2019 Lana MARTINEZ MD Ot R94.31 ABNORMAL ELECTROCARDIOGRAM [ECG] [EKG] 01/30/2019 MICHELLE MCCALL, Lana CHERY Ot Z72.0 TOBACCO USE 01/30/2019 DEAN MCCALL ELLA Flaco Ot R06.02 SHORTNESS OF BREATH 01/30/2019 DEAN MCCALL, ELLA Flaco Ot R09.02 HYPOXEMIA 01/30/2019 ELLA MORAN MD Ot R51 HEADACHE 01/30/2019 DEAN MCCALL ELLA Flaco Ot Z72.0 TOBACCO USE 01/30/2019 Lana MARTINEZ MD Ot R06.02 SHORTNESS OF BREATH 01/30/2019 Lana MARTINEZ MD Ot R94.31 ABNORMAL ELECTROCARDIOGRAM [ECG] [EKG] 01/30/2019 Lana MARTINEZ MD Ot Z72.0 TOBACCO USE 01/30/2019 NATASHA HANLEY DO Ot D75.1 SECONDARY POLYCYTHEMIA 01/30/2019 NATASHA HANLEY DO Ot R06.02 SHORTNESS OF BREATH 01/30/2019 NAATSHA HANLEY DO Ot Z72.0 TOBACCO USE 01/30/2019 MARIA M FRY APRN Ot R06.02 SHORTNESS OF BREATH 01/30/2019 MARIA M FRY APRN Ot Z72.0 TOBACCO USE 01/30/2019 REJI KING MD Ot C34.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 UPPER LOBE, RIGHT 01/30/2019 REJI KING MD Ot D69.6 THROMBOCYTOPENIA, UNSPECIFIED 01/30/2019 REJI KING MD Ot D75.1 SECONDARY POLYCYTHEMIA 01/30/2019 REJI KING MD Ot E78.5 HYPERLIPIDEMIA, UNSPECIFIED 01/30/2019 REJI KING MD Ot F17.210 NICOTINE DEPENDENCE, CIGARETTES, UNCOMPL 01/30/2019 REJI KING MD Ot I10 ESSENTIAL (PRIMARY) HYPERTENSION 01/30/2019 REJI KING MD Ot J18.1 LOBAR PNEUMONIA, UNSPECIFIED ORGANISM 01/30/2019 REJI KING MD Ot Z51.0 ENCOUNTER FOR ANTINEOPLASTIC RADIATION T 01/30/2019 REJI KING MD Ot C34.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 UPPER LOBE, RIGHT 01/30/2019 REJI KING MD Ot D69.6 THROMBOCYTOPENIA, UNSPECIFIED 01/30/2019 REJI KING MD Ot D75.1 SECONDARY POLYCYTHEMIA 01/30/2019 REJI KING MD Ot E78.5 HYPERLIPIDEMIA, UNSPECIFIED 01/30/2019 FERNANDO MCCALL, MENDOZA Ot F17.210 NICOTINE DEPENDENCE, CIGARETTES, UNCOMPL 01/30/2019 REJI KING MD Ot I10 ESSENTIAL (PRIMARY) HYPERTENSION 01/30/2019 REJI KING MD Ot J18.1 LOBAR PNEUMONIA, UNSPECIFIED ORGANISM 01/30/2019 REJI KING MD Ot Z51.0 ENCOUNTER FOR ANTINEOPLASTIC RADIATION T 01/30/2019 REJI KING MD Ot C34.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 UPPER LOBE, RIGHT 01/30/2019 REJI KING MD Ot D69.6 THROMBOCYTOPENIA, UNSPECIFIED 01/30/2019 FREDDIE KING MDNER Ot D75.1 SECONDARY POLYCYTHEMIA 01/30/2019 REJI KING MD Ot E78.5 HYPERLIPIDEMIA, UNSPECIFIED 01/30/2019 REJI KING MD Ot F17.210 NICOTINE DEPENDENCE, CIGARETTES, UNCOMPL 01/30/2019 REJI KING MD Ot I10 ESSENTIAL (PRIMARY) HYPERTENSION 01/30/2019 REJI KIGN MD Ot J18.1 LOBAR PNEUMONIA, UNSPECIFIED ORGANISM 01/30/2019 REJI KING MD Ot Z51.0 ENCOUNTER FOR ANTINEOPLASTIC RADIATION T 01/30/2019 RAY DRAPER DO Ot Z01.818 ENCOUNTER FOR OTHER PREPROCEDURAL EXAMIN 02/05/2019 RAY DRAPER DO Ot Z01.818 ENCOUNTER FOR OTHER PREPROCEDURAL EXAMIN 02/05/2019 ELLA MORAN MD Ot R51 HEADACHE 02/05/2019 Lana MARTINEZ MD Ot R06.02 SHORTNESS OF BREATH 02/05/2019 Lana MARTINEZ MD Ot R94.31 ABNORMAL ELECTROCARDIOGRAM [ECG] [EKG] 02/05/2019 Lana MARTINEZ MD Ot Z72.0 TOBACCO USE 02/05/2019 ELLA MORAN MD Ot R06.02 SHORTNESS OF BREATH 02/05/2019 ELLA MORAN MD Ot R09.02 HYPOXEMIA 02/05/2019 ELLA MORAN MD Ot R51 HEADACHE 02/05/2019 ELLA MORAN MD Ot Z72.0 TOBACCO USE 02/05/2019 Lana MARTINEZ MD Ot R06.02 SHORTNESS OF BREATH 02/05/2019 Lana MARTINEZ MD Ot R94.31 ABNORMAL ELECTROCARDIOGRAM [ECG] [EKG] 02/05/2019 Lana MARTINEZ MD Ot Z72.0 TOBACCO USE 02/05/2019 DAYANNATASHA ROBERSON DO Ot D75.1 SECONDARY POLYCYTHEMIA 02/05/2019 DAYAN NATASHA FUNEZ Ot R06.02 SHORTNESS OF BREATH 02/05/2019 NATASHA HANLEY DO Ot Z72.0 TOBACCO USE 02/05/2019 MARIA M FRY APRN Ot R06.02 SHORTNESS OF BREATH 02/05/2019 MARIA M FRY APRN Ot Z72.0 TOBACCO USE 02/05/2019 REJI KING MD Ot C34.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 UPPER LOBE, RIGHT 02/05/2019 REJI KING MD Ot D69.6 THROMBOCYTOPENIA, UNSPECIFIED 02/05/2019 REJI KING MD Ot D75.1 SECONDARY POLYCYTHEMIA 02/05/2019 REJI KING MD Ot E78.5 HYPERLIPIDEMIA, UNSPECIFIED 02/05/2019 REJI KING MD Ot F17.210 NICOTINE DEPENDENCE, CIGARETTES, UNCOMPL 02/05/2019 REJI KING MD Ot I10 ESSENTIAL (PRIMARY) HYPERTENSION 02/05/2019 REJI KING MD Ot J18.1 LOBAR PNEUMONIA, UNSPECIFIED ORGANISM 02/05/2019 REJI KING MD Ot Z51.0 ENCOUNTER FOR ANTINEOPLASTIC RADIATION T 02/10/2019 RAY DRAPER DO Ot C34.90 MALIGNANT NEOPLASM OF UNSP PART OF UNSP 02/10/2019 RAY DRAPER DO Ot D69.6 THROMBOCYTOPENIA, UNSPECIFIED 02/10/2019 RAY DRAPER DO Ot D75.1 SECONDARY POLYCYTHEMIA 02/10/2019 RAY DRAPER DO Ot E78.5 HYPERLIPIDEMIA, UNSPECIFIED 02/10/2019 RAY DRAPER DO Ot F32.9 MAJOR DEPRESSIVE DISORDER, SINGLE EPISOD 02/10/2019 ARY DRAPER DO Ot G43.909 MIGRAINE, UNSP, NOT INTRACTABLE, WITHOUT 02/10/2019 RAY DRAPER DO Ot I10 ESSENTIAL (PRIMARY) HYPERTENSION 02/10/2019 AMY DRAPER DOIC Alphonso Ot I25.10 ATHSCL HEART DISEASE OF [place] CORONARY 02/10/2019 BARON FUNEZ RAY B Ot I87.2 VENOUS INSUFFICIENCY (CHRONIC) (PERIPHER 02/10/2019 AMY DRAPER DORUPERT Werner Ot J44.9 CHRONIC OBSTRUCTIVE PULMONARY DISEASE, U 02/10/2019 AMY DRAPER DORUPERT Werner Ot M19.91 PRIMARY OSTEOARTHRITIS, UNSPECIFIED SITE 02/10/2019 BARON FUNEZ RAY B Ot Z79.899 OTHER FIELD STAFF (CURRENT) DRUG THERAPY 02/10/2019 AMY DRAPER DOIC Alphonso Ot Z87.891 PERSONAL HISTORY OF NICOTINE DEPENDENCE 02/10/2019 BARON FUNEZ RAY B Ot Z92.3 PERSONAL HISTORY OF IRRADIATION 02/26/2019 REJI KING MD Ot C34.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 UPPER LOBE, RIGHT 02/26/2019 REJI KING MD Ot D69.6 THROMBOCYTOPENIA, UNSPECIFIED 02/26/2019 REJI KING MD Ot D75.1 SECONDARY POLYCYTHEMIA 02/26/2019 REJI KING MD Ot E78.5 HYPERLIPIDEMIA, UNSPECIFIED 02/26/2019 REJI KING MD Ot F17.210 NICOTINE DEPENDENCE, CIGARETTES, UNCOMPL 02/26/2019 REJI KING MD Ot I10 ESSENTIAL (PRIMARY) HYPERTENSION 02/26/2019 REJI KING MD Ot J18.1 LOBAR PNEUMONIA, UNSPECIFIED ORGANISM 02/26/2019 REJI KING MD Ot Z51.0 ENCOUNTER FOR ANTINEOPLASTIC RADIATION T 02/28/2019 REJI KING MD Ot C34.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 UPPER LOBE, RIGHT 02/28/2019 REJI KING MD Ot D69.6 THROMBOCYTOPENIA, UNSPECIFIED 02/28/2019 REJI KING MD Ot D75.1 SECONDARY POLYCYTHEMIA 02/28/2019 REJI KING MD Ot E78.5 HYPERLIPIDEMIA, UNSPECIFIED 02/28/2019 REJI KING MD Ot F17.210 NICOTINE DEPENDENCE, CIGARETTES, UNCOMPL 02/28/2019 REJI KING MD Ot I10 ESSENTIAL (PRIMARY) HYPERTENSION 02/28/2019 REJI KING MD Ot J18.1 LOBAR PNEUMONIA, UNSPECIFIED ORGANISM 02/28/2019 FREDDIE KING MDNER Ot Z51.0 ENCOUNTER FOR ANTINEOPLASTIC RADIATION T 03/05/2019 REJI KING MD Ot C34.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 UPPER LOBE, RIGHT 03/05/2019 REJI KING MD Ot D69.6 THROMBOCYTOPENIA, UNSPECIFIED 03/05/2019 REJI KING MD Ot D75.1 SECONDARY POLYCYTHEMIA 03/05/2019 REJI KING MD Ot E78.5 HYPERLIPIDEMIA, UNSPECIFIED 03/05/2019 REJI KING MD Ot F17.210 NICOTINE DEPENDENCE, CIGARETTES, UNCOMPL 03/05/2019 REJI KING MD Ot I10 ESSENTIAL (PRIMARY) HYPERTENSION 03/05/2019 REJI KING MD Ot J18.1 LOBAR PNEUMONIA, UNSPECIFIED ORGANISM 03/05/2019 REJI KING MD Ot Z51.0 ENCOUNTER FOR ANTINEOPLASTIC RADIATION T 03/05/2019 REJI KING MD Ot C34.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 UPPER LOBE, RIGHT 03/05/2019 REJI KING MD Ot D69.6 THROMBOCYTOPENIA, UNSPECIFIED 03/05/2019 REJI KING MD Ot D75.1 SECONDARY POLYCYTHEMIA 03/05/2019 REJI KING MD Ot E78.5 HYPERLIPIDEMIA, UNSPECIFIED 03/05/2019 REJI KING MD Ot F17.210 NICOTINE DEPENDENCE, CIGARETTES, UNCOMPL 03/05/2019 REJI KING MD Ot I10 ESSENTIAL (PRIMARY) HYPERTENSION 03/05/2019 REJI KING MD Ot J18.1 LOBAR PNEUMONIA, UNSPECIFIED ORGANISM 03/05/2019 REJI KING MD Ot Z51.0 ENCOUNTER FOR ANTINEOPLASTIC RADIATION T 03/19/2019 RAY DRAPER DO Ot C34.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 UPPER LOBE, RIGHT 03/19/2019 RAY DRAPER DO Ot D69.6 THROMBOCYTOPENIA, UNSPECIFIED 03/19/2019 RAY DRAPER DO Ot D75.1 SECONDARY POLYCYTHEMIA 03/19/2019 RAY DRAPER DO Ot E78.5 HYPERLIPIDEMIA, UNSPECIFIED 03/19/2019 RAY DRAPER DO B Ot F32.9 MAJOR DEPRESSIVE DISORDER, SINGLE EPISOD 03/19/2019 RAY DRAPER DO Ot G43.909 MIGRAINE, UNSP, NOT INTRACTABLE, WITHOUT 03/19/2019 RAY DRAPER DO B Ot I10 ESSENTIAL (PRIMARY) HYPERTENSION 03/19/2019 RAY DRAPER DO Ot I25.10 ATHSCL HEART DISEASE OF [place] CORONARY 03/19/2019 AMY DRAPER DOIC B Ot I87.2 VENOUS INSUFFICIENCY (CHRONIC) (PERIPHER 03/19/2019 AMY DRAPER DOIC B Ot J44.9 CHRONIC OBSTRUCTIVE PULMONARY DISEASE, U 03/19/2019 AMY DRAPER DOIC B Ot M19.91 PRIMARY OSTEOARTHRITIS, UNSPECIFIED SITE 03/19/2019 AMY DRAPER DOIC B Ot Z79.899 OTHER FIELD STAFF (CURRENT) DRUG THERAPY 03/19/2019 BARON FUNEZ RAY B Ot Z87.891 PERSONAL HISTORY OF NICOTINE DEPENDENCE 03/19/2019 BARON FUNEZ RAY B Ot Z92.3 PERSONAL HISTORY OF IRRADIATION 03/19/2019 BARON FUNEZ RAY B Ot C34.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 UPPER LOBE, RIGHT 03/19/2019 BARON FUNEZ RAY B Ot D69.6 THROMBOCYTOPENIA, UNSPECIFIED 03/19/2019 BARON FUNEZ RAY B Ot D75.1 SECONDARY POLYCYTHEMIA 03/19/2019 BARON FUNEZ RAY B Ot E78.5 HYPERLIPIDEMIA, UNSPECIFIED 03/19/2019 BARON FUNEZ RAY B Ot F32.9 MAJOR DEPRESSIVE DISORDER, SINGLE EPISOD 03/19/2019 AMY DRAPER DOIC B Ot G43.909 MIGRAINE, UNSP, NOT INTRACTABLE, WITHOUT 03/19/2019 LIZZYFLOWER FUNEZ, RAY B Ot I10 ESSENTIAL (PRIMARY) HYPERTENSION 03/19/2019 BARON FUNEZ RAY B Ot I25.10 ATHSCL HEART DISEASE OF [place] CORONARY 03/19/2019 BARON FUNEZ RAY B Ot I87.2 VENOUS INSUFFICIENCY (CHRONIC) (PERIPHER 03/19/2019 AMY DRAPER DOIC B Ot J44.9 CHRONIC OBSTRUCTIVE PULMONARY DISEASE, U 03/19/2019 AMY DRAPER DOIC B Ot M19.91 PRIMARY OSTEOARTHRITIS, UNSPECIFIED SITE 03/19/2019 BARON FUNEZ RAY B Ot Z79.899 OTHER CORRECTION (CURRENT) DRUG THERAPY 03/19/2019 BARON FUNEZ RAY B Ot Z87.891 PERSONAL HISTORY OF NICOTINE DEPENDENCE 03/19/2019 BARON FUNEZ RAY B Ot Z92.3 PERSONAL HISTORY OF IRRADIATION Procedures There is no data. Results Test Result Range Renin Activity and Aldosterone - 07/16/16 08:16 RENIN ACTIVITY, PLASMA 0.75 NG/ML/HR ALDOSTERONE 16.0 NG/DL 0.0-30.0 Automated blood complete blood count (hemogram) panel - 07/31/16 07:23 Blood leukocytes automated count (number/volume) 6.0 10*3/uL 4.3-11.0 Blood erythrocytes automated count (number/volume) 5.94 10*6/uL 4.35-5.85 Venous blood hemoglobin measurement (mass/volume) 19.1 g/dL 11.5-16.0 Blood hematocrit (volume fraction) 57 % 35-52 Automated erythrocyte mean corpuscular volume 97 [foz_us] 80-99 Automated erythrocyte mean corpuscular hemoglobin (mass per erythrocyte) 32 pg 25-34 Automated erythrocyte mean corpuscular hemoglobin concentration measurement (mass/volume) 33 g/dL 32-36 Automated erythrocyte distribution width ratio 14.4 % 10.0- 14.5 Automated blood platelet count (count/volume) 80 10*3/uL 130- 400 Automated blood platelet mean volume measurement 12.5 [foz_us] 7.4-10.4 PT panel in platelet poor plasma by coagulation assay - 07/31/16 07:23 Prothrombin time (PT) in platelet poor plasma by coagulation assay 11.6 s 12.2-14.7 INR in platelet poor plasma or blood by coagulation assay 0.9 0.8-1.4 Activated partial thromboplastin time (aPTT) in platelet poor plasma bycoagulation assay - 07/31/16 07:23 Activated partial thromboplastin time (aPTT) in platelet poor plasma bycoagulation assay 31 s 24-35 Comprehensive metabolic panel - 07/31/16 07:23 Serum or plasma sodium measurement (moles/volume) 142 mmol/L 135-145 Serum or plasma potassium measurement (moles/volume) 4.1 mmol/L 3.6-5.0 Serum or plasma chloride measurement (moles/volume) 102 mmol/L 98-107 Carbon dioxide 32 mmol/L 21-32 Serum or plasma anion gap determination (moles/volume) 8 mmol/L 5-14 Serum or plasma urea nitrogen measurement (mass/volume) 17 mg/dL 7-18 Serum or plasma creatinine measurement (mass/volume) 0.67 mg/dL 0.60-1.30 Serum or plasma urea nitrogen/creatinine mass ratio 25 NRG Serum or plasma creatinine measurement with calculation of estimated glomerular filtration rate > NRG Serum or plasma glucose measurement (mass/volume) 108 mg/dL 70-105 Serum or plasma calcium measurement (mass/volume) 9.6 mg/dL 8.5-10.1 Serum or plasma total bilirubin measurement (mass/volume) 0.9 mg/dL 0.1-1.0 Serum or plasma alkaline phosphatase measurement (enzymatic activity/volume) 62 U/L 40-136 Serum or plasma aspartate aminotransferase measurement (enzymatic activity/volume) 18 U/L 5-34 Serum or plasma alanine aminotransferase measurement (enzymatic activity/volume) 14 U/L 0-55 Serum or plasma protein measurement (mass/volume) 7.1 g/dL 6.4-8.2 Serum or plasma albumin measurement (mass/volume) 4.5 g/dL 3.2-4.5 Lipid 1996 panel - 07/31/16 07:23 Serum or plasma triglyceride measurement (mass/volume) 131 mg/dL <150 Serum or plasma cholesterol measurement (mass/volume) 221 mg/dL < 200 Serum or plasma cholesterol in HDL measurement (mass/volume) 51 mg/dL 40-60 Cholesterol in LDL [mass/volume] in serum or plasma by direct assay 149 mg/dL 1-129 Serum or plasma cholesterol in VLDL measurement (mass/volume) 26 mg/dL 5-40 Methicillin resistant Staphylococcus aureus (MRSA) screening culture - 07/31/16 07:23 Methicillin resistant Staphylococcus aureus (MRSA) screening culture NEG NRG Arterial blood gas measurement - 09/05/16 11:00 Blood pCO2 48 mm[Hg] 35-45 Blood pO2 63 mm[Hg] 79-93 Arterial blood bicarbonate measurement (moles/volume) 29 mmol/L 23-27 Arterial blood base excess by calculation 2.4 mmol/L -2.5-2.5 Arterial blood oxygen saturation measurement 95 % 94-100 * Inhaled oxygen flow rate N NRG Arterial blood pH measurement with patient temperature correction 7.39 7.37-7.43 Arterial blood carbon dioxide, total measurement (moles/volume) 30.3 mmol/L 21.0-31.0 Body site RT RADIAL NRG Assessment of wrist artery patency prior to arterial puncture YES-POS NRG Setting of ventilation mode NO NRG Measurement of body temperature 96.5 NRG C.difficile, DNA Amplification - 09/20/17 15:32 C.difficile, DNA Amplification NEGATIVE: No DNA evidence of toxogenic C. difficile detected. Negative Ova + Parasite Exam - 09/20/17 15:32 OVA + PARASITE EXAM FINAL REPORT RESULT 1 NO OVA, CYSTS, OR PARASITES SEEN. Cardiac Panel - 01/07/19 15:27 CK 23 U/L 26-174 CK-MB 0.6 ng/ml 0.0-9.2 Myoglobin 23.8 ng/ml 1.6-106.0 Troponin <0.020 ng/mL 0.0-0.4 Magnesium - 01/07/19 15:34 Mg++ 2.0 mg/dL 1.6-2.6 Methicillin resistant Staphylococcus aureus (MRSA) screening culture - 02/05/19 08:14 Methicillin resistant Staphylococcus aureus (MRSA) screening culture NEG NRG Complete blood count (CBC) with automated white blood cell (WBC) differential - 03/17/19 10:34 Blood leukocytes automated count (number/volume) 5.8 10*3/uL 4.3-11.0 Blood erythrocytes automated count (number/volume) 4.04 10*6/uL 4.35-5.85 Venous blood hemoglobin measurement (mass/volume) 11.2 g/dL 11.5-16.0 Blood hematocrit (volume fraction) 38 % 35-52 Automated erythrocyte mean corpuscular volume 93 [foz_us] 80-99 Automated erythrocyte mean corpuscular hemoglobin (mass per erythrocyte) 28 pg 25-34 Automated erythrocyte mean corpuscular hemoglobin concentration measurement (mass/volume) 30 g/dL 32-36 Automated erythrocyte distribution width ratio 20.8 % 10.0- 14.5 Automated blood platelet count (count/volume) 188 10*3/uL 130-400 Automated blood platelet mean volume measurement 10.3 [foz_us] 7.4-10.4 Automated blood neutrophils/100 leukocytes 59 % 42-75 Automated blood lymphocytes/100 leukocytes 29 % 12-44 Blood monocytes/100 leukocytes 9 % 0-12 Automated blood eosinophils/100 leukocytes 2 % 0-10 Automated blood basophils/100 leukocytes 1 % 0-10 Blood neutrophils automated count (number/volume) 3.4 10*3 1.8-7.8 Blood lymphocytes automated count (number/volume) 1.7 10*3 1.0-4.0 Blood monocytes automated count (number/volume) 0.5 10*3 0.0- 1.0 Automated eosinophil count 0.1 10*3/uL 0.0-0.3 Automated blood basophil count (count/volume) 0.0 10*3/uL 0.0-0.1 Comprehensive metabolic panel - 03/17/19 10:34 Serum or plasma sodium measurement (moles/volume) 139 mmol/L 135-145 Serum or plasma potassium measurement (moles/volume) 4.3 mmol/L 3.6-5.0 Serum or plasma chloride measurement (moles/volume) 103 mmol/L 98-107 Carbon dioxide 28 mmol/L 21-32 Serum or plasma anion gap determination (moles/volume) 8 mmol/L 5-14 Serum or plasma urea nitrogen measurement (mass/volume) 8 mg/dL 7-18 Serum or plasma creatinine measurement (mass/volume) 0.57 mg/dL 0.60-1.30 Serum or plasma urea nitrogen/creatinine mass ratio 14 NRG Serum or plasma creatinine measurement with calculation of estimated glomerular filtration rate > NRG Serum or plasma glucose measurement (mass/volume) 99 mg/dL 70-105 Serum or plasma calcium measurement (mass/volume) 9.3 mg/dL 8.5-10.1 Serum or plasma total bilirubin measurement (mass/volume) 0.5 mg/dL 0.1-1.0 Serum or plasma alkaline phosphatase measurement (enzymatic activity/volume) 302 U/L 40-136 Serum or plasma aspartate aminotransferase measurement (enzymatic activity/volume) 40 U/L 5-34 Serum or plasma alanine aminotransferase measurement (enzymatic activity/volume) 28 U/L 0-55 Serum or plasma protein measurement (mass/volume) 6.4 g/dL 6.4-8.2 Serum or plasma albumin measurement (mass/volume) 2.9 g/dL 3.2-4.5 CALCIUM CORRECTED 10.2 mg/dL 8.5-10.1 Magnesium - 03/17/19 10:34 Magnesium 1.7 mg/dL 1.8-2.4 Complete blood count (CBC) with automated white blood cell (WBC) differential - 03/26/19 11:00 Blood leukocytes automated count (number/volume) 3.9 10*3/uL 4.3-11.0 Blood erythrocytes automated count (number/volume) 3.87 10*6/uL 4.35-5.85 Venous blood hemoglobin measurement (mass/volume) 10.8 g/dL 11.5-16.0 Blood hematocrit (volume fraction) 36 % 35-52 Automated erythrocyte mean corpuscular volume 93 [foz_us] 80-99 Automated erythrocyte mean corpuscular hemoglobin (mass per erythrocyte) 28 pg 25-34 Automated erythrocyte mean corpuscular hemoglobin concentration measurement (mass/volume) 30 g/dL 32-36 Automated erythrocyte distribution width ratio 20.3 % 10.0- 14.5 Automated blood platelet count (count/volume) 148 10*3/uL 130-400 Automated blood platelet mean volume measurement 10.6 [foz_us] 7.4-10.4 Automated blood neutrophils/100 leukocytes 63 % 42-75 Automated blood lymphocytes/100 leukocytes 28 % 12-44 Blood monocytes/100 leukocytes 5 % 0-12 Automated blood eosinophils/100 leukocytes 3 % 0-10 Automated blood basophils/100 leukocytes 1 % 0-10 Blood neutrophils automated count (number/volume) 2.5 10*3 1.8-7.8 Blood lymphocytes automated count (number/volume) 1.1 10*3 1.0-4.0 Blood monocytes automated count (number/volume) 0.2 10*3 0.0- 1.0 Automated eosinophil count 0.1 10*3/uL 0.0-0.3 Automated blood basophil count (count/volume) 0.0 10*3/uL 0.0-0.1 Whole blood basic metabolic panel - 03/26/19 11:00 Serum or plasma sodium measurement (moles/volume) 137 mmol/L 135-145 Serum or plasma potassium measurement (moles/volume) 3.8 mmol/L 3.6-5.0 Serum or plasma chloride measurement (moles/volume) 101 mmol/L 98-107 Carbon dioxide 26 mmol/L 21-32 Serum or plasma anion gap determination (moles/volume) 10 mmol/L 5-14 Serum or plasma urea nitrogen measurement (mass/volume) 9 mg/dL 7-18 Serum or plasma creatinine measurement (mass/volume) 0.53 mg/dL 0.60-1.30 Serum or plasma urea nitrogen/creatinine mass ratio 17 NRG Serum or plasma creatinine measurement with calculation of estimated glomerular filtration rate > NRG Serum or plasma glucose measurement (mass/volume) 107 mg/dL 70-105 Serum or plasma calcium measurement (mass/volume) 9.6 mg/dL 8.5-10.1 Encounters ACCT No. Visit Date/Time Discharge Status Pt. Type Provider Facility Loc./Unit Complaint [id number] 02/17/2019 12:37:00 02/17/2019 23:59:00 DIS Outpatient Vicky Ritter [id number] 02/12/2019 16:42:00 02/12/2019 23:59:00 DIS Outpatient Vicky Ritter [id number] 01/07/2019 15:11:00 01/07/2019 19:35:[id number] 15:32:00 09/20/2017 23:59:00 DIS Outpatient Vicky Ritter [id number] 07/25/2016 08:02:00 07/25/2016 23:59:00 DIS Outpatient BELGICA FITZGERALDAVIKA [id number] 07/04/2016 00:00:00 07/04/2016 23:59:00 DIS Outpatient Bryan Hope [id number] 01/07/2019 16:41:22 Document Registration [id number] 07/16/2016 08:15:00 Document Registration [id number] 02/05/2019 07:51:00 02/05/2019 12:44:00 [facility] [id number] 01/30/2019 05:40:00 01/30/2019 13:40:00 DIS Outpatient RAY DRAPER DO [facility] PREOP LUNG CANCER [id number] 08/10/2016 14:35:00 10/08/2016 00:01:00 DIS Outpatient ELLA MORAN MD [facility] ONC [id number] 09/13/2016 16:54:00 09/13/2016 23:59:59 CLS Outpatient NATASHA HANLEY DO [facility] RT POLYCYTHEMIA,SOB,TOBACCO USER [id number] 09/05/2016 10:38:00 09/05/2016 23:59:59 CLS Outpatient MARIA M FRY APRN [facility] RT SOB, TOB USER [id number] 07/31/2016 06:58:00 07/31/2016 13:15:00 DIS Outpatient Lana MARTIENZ MD [facility] CATH ABNORMAL STRESS TEST,SOB,HTN [id number] 07/24/2016 09:11:00 07/24/2016 23:59:59 CLS Outpatient ELLA MORAN MD [facility] RAD HEADACHE;HYPOXEMIA,SOB,TOB USE [id number] 07/20/2016 06:44:00 07/20/2016 23:59:59 CLS Outpatient Lana MARTINEZ MD [facility] CARD SOB [id number] 07/17/2016 11:03:00 07/17/2016 23:59:59 CLS Outpatient Lana MARTINEZ MD [facility] CARD R06.02,Z72.0, [id number] 07/17/2016 06:55:00 07/17/2016 23:59:59 CLS Outpatient ELLA MORAN MD [facility] RAD HEADACHE [id number] 03/26/2019 10:46:00 ACT Outpatient REJI KING MD [facility] ONC
[2019-03-27] MEDS ORDERED: NS IV 1000 ML 1,000 ML IV SCH ×2 (10:41→13:00)
--- NOTE | 2019-03-27 10:43 | NUR ---
Pt O2 90% at this time. 2L applied.
[2019-03-27] MEDS ORDERED: CEFEPIME INJECTION 1,000 MG in WATER (STERILE) FOR INJECTION 10 ML IV ONE (10:45)
[2019-03-27] MEDS ORDERED: IBUPROFEN 800 MG (MOTRIN) TAB PO ONE (10:45)
[2019-03-27] MEDS ORDERED: ACETAMINOPHEN 500 MG TAB (TYLENOL) PO ONE (10:45)
--- NOTE | 2019-03-27 10:47 | ED General ---
General Stated Complaint: CHILLS;NAUSEA;FEVER;WEAKNESS Source of Information: Patient Exam Limitations: No Limitations History of Present Illness Date Seen by Provider: Mar 27, 2019 Time Seen by Provider: 10:45 Initial Comments To ER with reports of chills, fever. Symptoms began yesterday, she had chemotherapy yesterday for right lung cancer. Follows Dr. Cabrera. On arrival to ER today temperature 104.4. Timing/Duration: 12-24 Hours Severity: Moderate Associated Systoms: Cough Allergies and Home Medications Allergies Coded Allergies: No Known Drug Allergies (Unverified , 01/30/19) Home Medications Atorvastatin Calcium 10 Mg Tablet, 10 MG PO DAILY Prescribed by: Lana MARTINEZ on 07/31/16 0914 Docusate Sodium 100 Mg Tablet, 100-300 MG PO DAILY, (Reported) Famotidine 20 Mg Tablet, 20 MG PO DAILY, (Reported) Metoprolol Succinate 50 Mg Tab.er.24h, PO DAILY, (Reported) Nicotine 1 Each Patch.td24, 21 MG TD DAILY, (Reported) Oxycodone HCl 5 Mg Tablet, 10 MG PO Q4H PRN for PAIN-MODERATE, (Reported) Topiramate 25 Mg Tablet, 25 MG PO BID, (Reported) Patient Home Medication List Home Medication List Reviewed: Yes Review of Systems Review of Systems Constitutional: see HPI, chills, fever EENTM: see HPI Respiratory: no symptoms reported Cardiovascular: no symptoms reported Genitourinary: no symptoms reported Musculoskeletal: no symptoms reported Skin: no symptoms reported Psychiatric/Neurological: No Symptoms Reported Hematologic/Lymphatic: No Symptoms Reported Past Oktifkd-Uzbbdu-Gvtthp Hx Patient Social History Type Used: Cigarettes Former Smoker, Quit: January 09, 2019 2nd Hand Smoke Exposure: Yes Recent Foreign Travel: No Contact w/Someone Who Travel: No Recent Hopitalizations: Yes (January- LUNG BX) Seasonal Allergies Seasonal Allergies: No Past Medical History Surgeries: Yes (LUNG BX, CERVIX REMOVED IN , SKIN CANCER REMOVED, BUNIONECTOMY, ) Respiratory: Yes (LUNG CANCER) COPD Cardiac: Yes High Cholesterol, Hypertension Neurological: Yes Headaches /Migraines Sexually Transmitted Disease: No HIV/AIDS: No Genitourinary: No Gastrointestinal: No Musculoskeletal: Yes Arthritis Endocrine: No HEENT: Yes (READING GLASSES, DENTURES) Loss of Vision: Bilateral Hearing Impairment: Denies Cancer: Yes Lung, Skin Did You Recieve Any Treatments: Yes What Type of Treatment Did You: Surgical Intervention Psychosocial: Yes Depression Integumentary: No Blood Disorders: No Adverse Reaction/Blood Tranf: No (N/A) Physical Exam Vital Signs Vital Signs - First Documented 03/27/19 03/27/19 11:02 11:08 Temp 104.4 Pulse 123 Resp 20 B/P (MAP) 114/69 (84) Pulse Ox 97 O2 Delivery Nasal Cannula O2 Flow Rate 2.00 Capillary Refill : Height, Weight, BMI Height: 5'5.00" Weight: 179lbs. 2.0oz. 81.659200oh; 29.8 BMI Method: General Appearance: No Apparent Distress, WD/WN Eyes: Bilateral Eye Normal Inspection, Bilateral Eye PERRL, Bilateral Eye EOMI HEENT: PERRL/EOMI, TMs Normal Neck: Full Range of Motion, Normal Inspection Respiratory: No Accessory Muscle Use, No Respiratory Distress Cardiovascular: Regular Rate, Rhythm, Normal Peripheral Pulses Gastrointestinal: Normal Bowel Sounds, Non Tender, Soft Extremity: Normal Capillary Refill, Normal Inspection Neurologic/Psychiatric: Alert, Oriented x3 Skin: Normal Color, Warm/Dry Focused Exam Lactate Level 03/27/19 10:35: Lactic Acid Level 2.21*H Lactic Acid Level Laboratory Tests Test 03/27/19 10:35 Lactic Acid Level 2.21 MMOL/L (0.50-2.00) *H Progress/Results/Core Measures Suspected Sepsis SIRS Temperature: Pulse: Respiratory Rate: Laboratory Tests 03/27/19 10:35: White Blood Count 1.8L Blood Pressure / Mean: 03/27/19 10:35: Lactic Acid Level 2.21*H Laboratory Tests 03/27/19 10:35: Creatinine 0.62, INR Comment 1.4, Platelet Count 88L, Total Bilirubin 1.4H Results/Orders Lab Results Laboratory Tests Test 03/27/19 10:35 03/27/19 11:39 Range/Units White Blood Count 1.8 L 4.3-11.0 10^3/uL Red Blood Count 4.03 L 4.35-5.85 10^6/uL Hemoglobin 11.3 L 11.5-16.0 G/DL Hematocrit 37 35-52 % Mean Corpuscular Volume 91 80-99 FL Mean Corpuscular Hemoglobin 28 25-34 PG Mean Corpuscular Hemoglobin Concent 31 L 32-36 G/DL Red Cell Distribution Width 20.1 H 10.0-14.5 % Platelet Count 88 L 130-400 10^3/uL Mean Platelet Volume 11.2 H 7.4-10.4 FL Neutrophils (%) (Auto) 94 H 42-75 % Lymphocytes (%) (Auto) 5 L 12-44 % Monocytes (%) (Auto) 2 0-12 % Eosinophils (%) (Auto) 0 0-10 % Basophils (%) (Auto) 0 0-10 % Neutrophils # (Auto) 1.7 L 1.8-7.8 X 10^3 Lymphocytes # (Auto) 0.1 L 1.0-4.0 X 10^3 Monocytes # (Auto) 0.0 0.0-1.0 X 10^3 Eosinophils # (Auto) 0.0 0.0-0.3 10^3/uL Basophils # (Auto) 0.0 0.0-0.1 10^3/uL Neutrophils % (Manual) 2 % Lymphocytes % (Manual) 3 % Band Neutrophils 5 % Hypersegmented Neutrophils SLIGHT Toxic Granulation 1+ Dohle Bodies SLIGHT Polychromasia SLIGHT Poikilocytosis SLIGHT Anisocytosis MODERATE Microcytosis SLIGHT Macrocytosis SLIGHT Spherocytes SLIGHT Prothrombin Time 17.9 H 12.2-14.7 SEC INR Comment 1.4 0.8-1.4 Activated Partial Thromboplast Time 40 H 24-35 SEC Sodium Level 133 L 135-145 MMOL/L Potassium Level 3.2 L 3.6-5.0 MMOL/L Chloride Level 98 98-107 MMOL/L Carbon Dioxide Level 24 21-32 MMOL/L Anion Gap 11 5-14 MMOL/L Blood Urea Nitrogen 12 7-18 MG/DL Creatinine 0.62 0.60-1.30 MG/DL Estimat Glomerular Filtration Rate > 60 BUN/Creatinine Ratio 19 Glucose Level 148 H 70-105 MG/DL Lactic Acid Level 2.21 *H 0.50-2.00 MMOL/L Calcium Level 8.9 8.5-10.1 MG/DL Corrected Calcium 9.5 8.5-10.1 MG/DL Total Bilirubin 1.4 H 0.1-1.0 MG/DL Aspartate Amino Transf (AST/SGOT) 164 H 5-34 U/L Alanine Aminotransferase (ALT/SGPT) 86 H 0-55 U/L Alkaline Phosphatase 227 H 40-136 U/L Total Protein 6.4 6.4-8.2 GM/DL Albumin 3.2 3.2-4.5 GM/DL Smear Scan 90 Urine Color CISCO H Urine Clarity SLIGHTLY CLOUDY Urine pH 5 5-9 Urine Specific [place] 1.025 H 1.016-1.022 Urine Protein 3+ H NEGATIVE Urine Glucose (UA) NEGATIVE NEGATIVE Urine Ketones 1+ H NEGATIVE Urine Nitrite NEGATIVE NEGATIVE Urine Bilirubin 2+ H NEGATIVE Urine Urobilinogen 4 H NORMAL MG/DL Urine Leukocyte Esterase 1+ H NEGATIVE Urine RBC (Auto) 4+ H NEGATIVE Urine RBC 0-2 /HPF Urine WBC 2-5 /HPF Urine Squamous Epithelial Cells 10-25 H /HPF Urine Crystals PRESENT H /LPF Urine Amorphous Sediment LARGE NAYANA URATES H /LPF Urine Bacteria MODERATE H /HPF Urine Casts NONE /LPF Urine Mucus NEGATIVE /LPF Urine Culture Indicated CULTURE PENDING My Orders Orders - MAR YOON APRN Cbc With Automated Diff (03/27/19 10:41) Comprehensive Metabolic Panel (03/27/19 10:41) Blood Culture (03/27/19 10:41) Sputum Culture (03/27/19 10:41) Urinalysis (03/27/19 10:41) Urine Culture (03/27/19 10:41) Protime With Inr (03/27/19 10:41) Partial Thromboplastin Time (03/27/19 10:41) Chest 1 View, Ap/Pa Only (03/27/19 10:41) Ed Iv/Invasive Line Start (03/27/19 10:41) Vital Signs Adult Sepsis Patie Q15M (03/27/19 10:41) O2 (03/27/19 10:41) Remove Rings In Anticipation O (03/27/19 10:41) Lactic Acid Analyzer (03/27/19 10:41) Ns Iv 1000 Ml (Sodium Chloride 0.9%) (03/27/19 10:41) Cefepime Injection (Maxipime Injection) (03/27/19 10:45) Acetaminophen Tablet (Tylenol Tablet) (03/27/19 10:45) Ibuprofen Tablet (Motrin Tablet) (03/27/19 10:45) Manual Differential (03/27/19 10:35) Us Gallbladder [id number] (03/27/19 11:28) Medications Given in ED Current Medications Medications Dose Ordered Sig/Isaura Route Start Time Stop Time Status Last Admin Dose Admin Acetaminophen 1,000 mg ONCE ONCE PO 03/27/19 10:45 03/27/19 10:46 DC 03/27/19 11:02 1,000 MG Cefepime HCl 1000 mg/Sterile Water 10 ml @ 200 mls/hr ONCE ONCE IV 03/27/19 10:45 03/27/19 10:47 DC 03/27/19 11:01 200 MLS/HR Ibuprofen 800 mg ONCE ONCE PO 03/27/19 10:45 03/27/19 10:46 DC 03/27/19 11:01 800 MG Vital Signs/I&O 03/27/19 03/27/19 03/27/19 03/27/19 11:02 11:08 11:14 11:15 Temp 104.4 104.4 104.4 Pulse 123 123 Resp 20 20 B/P (MAP) 114/69 (84) 114/69 (84) Pulse Ox 97 97 97 O2 Delivery Nasal Cannula Nasal Cannula Nasal Cannula O2 Flow Rate 2.00 2.00 2.00 2.00 03/27/19 12:44 Temp 101.0 Pulse 105 Resp 20 B/P (MAP) 105/68 Pulse Ox 96 O2 Delivery Nasal Cannula Capillary Refill : Diagnostic Imaging Diagonstic Imaging: Xray Comments NAME: [facility] REC#: [id number] PT STATUS: REG ER : 1955 PHYSICIAN: MAR YOON APRN ADMIT DATE: 03/27/19/ER Signed Date of Exam:03/27/19 CHEST 1 VIEW, AP/PA ONLY PATIENT HISTORY: Nausea. Chemo treatment yesterday. History of lung cancer. TECHNIQUE: Single frontal view of the chest. COMPARISON: PET/CT at an outside facility on 01/16/2019. Chest radiograph on 07/31/2016. FINDINGS: Cavitary mass is again seen in the right upper lobe with surrounding opacities throughout the right upper lobe, consistent with findings seen on the outside PET/CT. A left port is visualized with the tip overlying the SVC. No large pleural effusion or pneumothorax. Normal cardiac silhouette. No acute osseous abnormalities. IMPRESSION: Cavitary mass in the right upper lobe with surrounding opacities, consistent with the patient's history of lung cancer. Left port is in appropriate position overlying the SVC. Dictated by: Dictated on workstation # [id number] Dict: 03/27/19 1154 Trans: 03/27/19 1202 [id number] Interpreted by: THAO TRIMBLE DO Electronically signed by: THAO TRIMBLE DO 03/27/19 1202 Departure Impression Primary Impression: Febrile neutropenia Additional Impressions: Lung cancer Qualified Codes: C34.91 - Malignant neoplasm of unspecified part of right bronchus or lung Pneumonia Disposition: ADMITTED INPATIENT Condition: Stable Admissions Decision to Admit Reason: Admit from ER (General) Decision to Admit/Date: Mar 27, 2019 Time/Decision to Admit Time: 11:15 Departure-Patient Inst. Referrals: [facility] VALENCIA MD (PCP) Primary Care Physician MAR YOON APRN Mar 27, 2019 10:46
[2019-03-27 10:54] LABS: BASOPHILS % (AUTO) 0 % (0-10); EOSINOPHILS % (AUTO) 0 % (0-10); HEMATOCRIT 37 % (35-52); HEMOGLOBIN 11.3 G/DL (11.5-16.0); LYMPHOCYTES # (AUTO) 0.1 X 10^3 (1.0-4.0); LYMPHOCYTES % (AUTO) 5 % (12-44); MEAN CORPUSCULAR HEMOGLOBIN 28 PG (25-34); MEAN CORPUSCULAR HGB CONC 31 G/DL (32-36); MEAN CORPUSCULAR VOLUME 91 FL (80-99); MEAN PLATELET VOLUME 11.2 FL (7.4-10.4); MONOCYTES % (AUTO) 2 % (0-12); NEUTROPHILS # (AUTO) 1.7 X 10^3 (1.8-7.8); NEUTROPHILS % (AUTO) 94 % (42-75); PLATELET COUNT 88 10^3/uL (130-400); RED CELL DISTRIBUTION WIDTH 20.1 % (10.0-14.5); WHITE BLOOD COUNT 1.8 10^3/uL (4.3-11.0)
[2019-03-27 11:09] LABS: INR 1.4 (0.8-1.4); PROTHROMBIN TIME PATIENT 17.9 SEC (12.2-14.7)
[2019-03-27 11:16] LABS: ALANINE AMINOTRANSFERASE 86 U/L (0-55); ALBUMIN 3.2 GM/DL (3.2-4.5); ALKALINE PHOSPHATASE 227 U/L (40-136); BILIRUBIN,TOTAL 1.4 MG/DL (0.1-1.0); BUN/CREATININE RATIO 19; CALCIUM 8.9 MG/DL (8.5-10.1); CARBON DIOXIDE 24 MMOL/L (21-32); CHLORIDE 98 MMOL/L (98-107); CREATININE SERUM 0.62 MG/DL (0.60-1.30); GFR ESTIMATED > 60; GLUCOSE 148 MG/DL (70-105); POTASSIUM 3.2 MMOL/L (3.6-5.0); SODIUM 133 MMOL/L (135-145); TOTAL PROTEIN 6.4 GM/DL (6.4-8.2)
[2019-03-27 11:58] LABS: ANISOCYTOSIS MODERATE; BAND NEUTROPHILS 5 %; HYPERSEGMENTED NEUT SLIGHT; LYMPHOCYTES % (MANUAL) 3 %; MICROCYTOSIS SLIGHT; NEUTROPHILS % (MANUAL) 2 %; POIKILOCYTOSIS SLIGHT; POLYCHROMASIA SLIGHT; SMEAR SCAN COMMENT 90; SPHEROCYTES SLIGHT; TOXIC GRANULATION/VACUOLAZATIO 1+
[2019-03-27 11:59] LABS: CLARITY,URINE SLIGHTLY CLOUDY; GLUCOSE, URINE (UA) NEGATIVE (NEGATIVE); KETONES,URINE 1+ (NEGATIVE); LEUKOCYTE ESTERASE ,URINE 1+ (NEGATIVE); NITRITE,URINE NEGATIVE (NEGATIVE); PH,URINE 5 (5-9); PROTEIN,URINE 3+ (NEGATIVE); UROBILINOGEN,URINE 4 MG/DL (NORMAL)
--- NOTE | 2019-03-27 12:00 | Diagnostic Imaging Report ---
PATIENT HISTORY: Nausea. Chemo treatment yesterday. History of lung cancer. TECHNIQUE: Single frontal view of the chest. COMPARISON: PET/CT at an outside facility on 01/16/2019. Chest radiograph on 07/31/2016. FINDINGS: Cavitary mass is again seen in the right upper lobe with surrounding opacities throughout the right upper lobe, consistent with findings seen on the outside PET/CT. A left port is visualized with the tip overlying the SVC. No large pleural effusion or pneumothorax. Normal cardiac silhouette. No acute osseous abnormalities. IMPRESSION: Cavitary mass in the right upper lobe with surrounding opacities, consistent with the patient's history of lung cancer. Left port is in appropriate position overlying the SVC. Dictated by: Dictated on workstation # [id number]
--- NOTE | 2019-03-27 12:29 | Diagnostic Imaging Report ---
PROCEDURE: US Gallbladder. TECHNIQUE: Multiple real-time grayscale images were obtained over the right upper quadrant in various projections. INDICATION: Fever. Chills. Nausea. History of lung cancer. COMPARISON: None. FINDINGS: The liver is normal in size and shape. The liver echogenicity is within normal limits. There are no focal lesions. No intrahepatic biliary dilatation is present. The common bile duct is not dilated and measures 5 mm. The main portal vein is hepatopedal. The gallbladder is surgically absent. No sonographic Banegas sign was elicited. The visualized portion of the head and body of the pancreas are within normal limits. The tail of the pancreas are not well visualized due to overlying bowel gas. The visualized portions of the IVC and aorta appear normal. The right kidney measures approximately 12.9 cm in length and has a normal appearance. IMPRESSION: 1. Unremarkable sonographic appearance of the right upper quadrant. No ascites. Dictated by: Dictated on workstation # [id number]
[2019-03-27 12:31] LABS: BACTERIA,URINE MODERATE /HPF; BILIRUBIN,URINE 2+ (NEGATIVE); COLOR,URINE AMBER; RBC,URINE 0-2 /HPF
[2019-03-27 12:32] LABS: AMORPHOUS SEDIMENT,UR LARGE AMOR URATES /LPF
--- NOTE | 2019-03-27 12:44 | NUR ---
Temp re-checked at this time- 101.0
[2019-03-27] MEDS ORDERED: NOREPINEPHRINE 4 MG/4 ML (LEVOPHED) AMP IV ONE (12:54)
[2019-03-27] MEDS: NOREPINEPHRINE 4 MG in NS (IVPB) 250 ML IV SCH ×5 (13:22→23:35)
--- OUTSIDE RECORDS SUMMARY | 2019-03-27 13:22 | XMS REPORT | Clinical Summary ---
Author Author [facility] Organization [facility] Address Unknown Phone Unavailable Care Team Providers Care Slip Feeder Name Role Phone Vicky Ritter MD PCP [...] Comments Vital Sign 126/80 07/13/2016 10:54 AM C DEVELOPER Blood Pressure 80 07/13/2016 10:54 AM C DEVELOPER Pulse - - Temperature - - Respiratory Rate - - Oxygen Saturation - - Inhaled Oxygen Concentration 84.8 kg (187 lb) 07/13/2016 10:54 AM C DEVELOPER Weight 163 cm (5' 4.17") 07/13/2016 10:54 AM C DEVELOPER Height 31.93 07/13/2016 10:54 AM C DEVELOPER Body Mass Index Plan of Treatment Health [...] Effective Phone Address Plan / Dates Group [facility] xxxxxxxxx 2016-P resent Mary Ulloa Personal/F Self [address] amily (Home) [place] [id number]
--- OUTSIDE RECORDS SUMMARY | 2019-03-27 13:22 | XMS REPORT | Encounter Summary ---
Author Author [facility] Organization [facility] Address Unknown Phone Unavailable Care Team Providers Care Greenkeeper Name Role Phone Vicky Ritter MD PCP Encounter Details Care Team Description Date [place] [address] [place], [place] [id number] 07/31/2016 Telephone [facility] [address] [place], [place] [id number] Social History Date Tobacco Use Types Packs/Day [...] Rossy Santana RN - 07/31/2016 4:11 PM EXCELLENCE COACH . LLENCE COACH documented in this encounter Plan of Treatment Not on filedocumented as of this encounter Visit Diagnoses Not on filedocumented in this encounter
--- OUTSIDE RECORDS SUMMARY | 2019-03-27 13:22 | XMS REPORT | Encounter Summary ---
Author Author [facility] Organization [facility] Address Unknown Phone Unavailable Care Team Providers Care Tapping Machine Operator Automatic Name Role Phone Vicky Ritter MD PCP Reason for Referral * Consultation (Routine) Referred By Contact Referred To Contact Status Reason Specialty Diagnoses / Procedures Vicky Ritter MD [address] [place] [address] Dr [place] [address] [place] [address] [place] [address] [place] [address] Closed Specialty Services Endocrinology Diagnoses Required Adrenal adenoma, left Encounter Details Care Team Description Date Type Department Vicky Ritter MD [address] [place] [address] Dr [place] [address] [place] [id number] Adrenal adenoma, left (Primary Dx) 07/07/2016 Transcribe [facility] [address] [place] [address] Social History Date Tobacco Use [...]
--- OUTSIDE RECORDS SUMMARY | 2019-03-27 13:22 | XMS REPORT | Encounter Summary ---
Author Author [facility] Organization [facility] Address Unknown Phone Unavailable Care Team Providers Care Waste Handling Technician Name Role Phone Vicky Ritter MD PCP Reason for Referral * MRI/CAT/PET Scan (Routine) Referred By Contact Referred To Contact Status Reason Specialty Diagnoses / [place] [address] [place] [address] [place] [address] Closed Diagnoses Adrenal cortical adenoma of left adrenal gland P rocedures CT Abdomen w wo contrast Encounter Details Care Team Description Date [place] [address] [place], [place] [phone] Adrenal cortical adenoma of left adrenal gland (Primary Dx) 07/13/2016 Orders Only [facility] [address] [place], [place] [phone] Social History Date Tobacco Use Types Packs/Day [...]
--- OUTSIDE RECORDS SUMMARY | 2019-03-27 13:22 | XMS REPORT | Encounter Summary ---
Author Author [facility] Organization [facility] Address Unknown Phone Unavailable Care Team Providers Care Hose Seamer Name Role Phone Vicky Ritter MD PCP Encounter Details Care Team Description Date [place] [address] [place] [address] 07/13/2016 Documentation [facility] [address] [place], [place] [phone] Social History Date Tobacco Use Types Packs/Day [...]
--- OUTSIDE RECORDS SUMMARY | 2019-03-27 13:22 | XMS REPORT | Encounter Summary ---
Author Author [facility] Organization [facility] Address Unknown Phone Unavailable Care Team Providers Care Furnace Setter Name Role Phone Vicky Ritter MD PCP Encounter Details Care Team Description Date [place] [address] [place], [place] [phone] 07/25/2016 Orders Only [facility] [address] [place], [place] [phone] Social History Date Tobacco Use Types Packs/Day [...] Digna Saucedo MD - 08/01/2016 9:42 AM E COMMERCE SPECIALIST Please let her know that the CT scan of the abdomen does show a left sided adren al adenoma. Hormonal testing is negative. The adenoma has not changed since 23 07 as compared to previous scan. She should have repeat CT scan of the abdomen in a couple of years for follow-up. E COMMERCE SPECIALIST documented in this encounter Plan of Treatment Not on filedocumented as of this encounter Procedures Comments Procedure Name Priority Date/Time Associated Diagnosis CT OUTSIDE RECORD Routine 07/25/2016 documented in this encounter Results * CT Outside Record (07/25/2016) Specimen Narrative Performed At documented in this encounter Visit Diagnoses Not on filedocumented in this encounter
--- OUTSIDE RECORDS SUMMARY | 2019-03-27 13:22 | XMS REPORT | Encounter Summary ---
Author Author [facility] Organization [facility] Address Unknown Phone Unavailable Care Team Providers Care Heel Dipper Name Role Phone Vicky Ritter MD PCP Reason for Visit * Reason Comments Establish Care Adrenal Problem Was told her adrenal gland has cyst on it non cancerous * Consultation (Routine) Referred By Contact Referred To Contact Status Reason Specialty Diagnoses / Procedures Vicky Ritter MD [address] [place] [address] [address] [place] [address] [place] [address] Closed Specialty Services Endocrinology Diagnoses Required Adrenal adenoma, left Encounter Details Care Team Description Date [place] [address] [place], [place] [phone] Adrenal adenoma, left; Adrenal cortical adenoma of left adrenal gland; Thrombocytopenia (HCC); Tobacco use; Chronic nonintractable headache, unspecified headache type; Polycythemia 07/13/2016 Initial consult [facility] [address] [place], [place] [phone] Social History Date Tobacco Use Types Packs/Day [...] Comments Vital Sign 126/80 07/13/2016 10:54 AM OPS MANAGER Blood Pressure 80 07/13/2016 10:54 AM OPS MANAGER Pulse - - Temperature - - Respiratory Rate - - Oxygen Saturation - - Inhaled Oxygen Concentration 84.8 kg (187 lb) 07/13/2016 10:54 AM OPS MANAGER Weight 163 cm (5' 4.17") 07/13/2016 10:54 AM OPS MANAGER Height 31.93 07/13/2016 10:54 AM OPS MANAGER Body Mass Index documented in this encounter Progress Notes * Digna Saucedo MD - 08/01/2016 9:40 AM OPS MANAGER All labs OK. MANAGER * Digna Saucedo MD - 07/13/2016 10:40 AM OPS MANAGER Chief Complaint Patient presents with Establish Care [...] endocrinology. She reports also having seen a package handler fo r thrombocytopenia and elevated hemoglobin and [...] denies any other intake of herbal or xrto-ibu-whrzmiv supplements. She reports no use of steroi [...] Electronically by Digna Saucedo 07/13/2016 12:08 PM MANAGER documented in this encounter Plan of Treatment [...] Blood Narrative Performed At Performing Organization Address [facility] Phone Number [facility] [address] [place] [address] * Creatinine Urine Quant 24HR (07/16/2016) Specimen Urine Performing [facility] Phone Number [facility] [address] [place] [address] * Aldosterone Urine (07/16/2016) Aldosterone [facility] Urine 24hr Aldosterone [facility] Urine Specimen Urine Performing [facility] Phone Number [facility] [address] [place] [address] * Cortisol Free 24 Hr Urine (07/16/2016) Cortisol Free [facility] Urine Cortisol Free [facility] Urine 24hr Specimen Performing [facility] Phone Number [facility] [address] [place] [address] * Renin Activity (07/16/2016) Renin Activity [facility] Specimen Performing [facility] Phone Number [facility] [address] [place] [address] * Metanephrines Frac 24 Hr Urine (07/16/2016) Normetanephrine [facility] Urine Metanephrine [facility] Urine Normetanephrine [facility] Urine 24hr Metanephrine [facility] Urine 24hr Specimen Performing Organization Address [facility] Phone Number [facility] [address] [place] [address] * Catecholamines Free 24 Hr Urine (07/16/2016) Epinephrine [facility] Urine Epinephrine [facility] Urine 24hr Norepinephrine [facility] Urine 24hr Dopamine Urine [facility] Dopamine Urine [facility] 24hr Norepinephrine [facility] Urine Specimen Performing Organization Address [facility] Phone Number [address] [place] [address] * Aldosterone (07/16/2016) Aldosterone [facility] Specimen Blood Performing Organization Address [facility] Phone Number [address] [place] [address] * CORTISOL, A.M. (07/16/2016) Specimen Performing Organization Address [facility] Phone Number [address] [place] [address] documented in this encounter Visit Diagnoses Diagnosis Adrenal adenoma, left Adrenal cortical adenoma of left adrenal gland Thrombocytopenia (HCC) Unspecified thrombocytopenia Tobacco use Chronic nonintractable headache, unspecified headache type Polycythemia Polycythemia, secondary documented in this encounter
--- OUTSIDE RECORDS SUMMARY | 2019-03-27 13:22 | XMS REPORT | Encounter Summary ---
Author Author [facility] Organization [facility] Address Unknown Phone Unavailable Care Team Providers Care Sericulture Teacher Name Role Phone Vicky Ritter MD PCP Encounter Details Care Team Description Date Type Department Mary Hickman RN 07/26/2016 Telephone [facility] [address] [facility] [address] [place] [address] Social History Date Tobacco Use [...] Mary Hickman RN - 07/26/2016 1:35 PM PAYROLL AND BENEFITS SPECIALIST Pt reports outside facilities sent CT report (and is scanned in today) we do NO T have the labs yet. Pt will call the lab and give them our fax number OLL AND BENEFITS SPECIALIST documented in this encounter Plan of Treatment Not on filedocumented as of this encounter Visit Diagnoses Not on filedocumented in this encounter
--- OUTSIDE RECORDS SUMMARY | 2019-03-27 13:23 | XMS REPORT | Encounter Summary ---
Author Author [facility] Organization [facility] Address Unknown Phone Unavailable Care Team Providers Care Data Security Administrator Name Role Phone Vicky Ritter MD PCP Encounter Details Care Team Description Date [place] [address] [place] [address] 01/17/2019 Orders Only [facility] [address] [place] [phone] Social History Date Tobacco Use Types [...]
--- OUTSIDE RECORDS SUMMARY | 2019-03-27 13:23 | XMS REPORT | Encounter Summary ---
Author Author [facility] Organization [facility] Address Unknown Phone Unavailable Care Team Providers Care Off Track Betting Manager Name Role Phone Vicky Ritter MD PCP Reason for Visit * Reason Comments Care Coordination Encounter Details Care Team Description Date [place] [address] [place] [address] Care Coordination 01/22/2019 Telephone [facility] [address] [place] [phone] Social History Date Tobacco Use Types [...] appointment with medical oncologist, Dr. Cabrera at [facility] on . We also discussed FMLA paperwork for her Eladio had left for us to comp lete. The paperwork will be mailed to her home and a copy has been faxed to [facility] so the treating physician can complete the FMLA. documented in this encounter Plan of Treatment Not on filedocumented as of this encounter Visit Diagnoses Not on filedocumented in this encounter
--- OUTSIDE RECORDS SUMMARY | 2019-03-27 13:23 | XMS REPORT | Encounter Summary ---
Author Author [facility] Organization [facility] Address Unknown Phone Unavailable Care Team Providers Care Safe And Vault Mechanic Name Role Phone Vicky Ritter MD PCP Encounter Details Care Team Description Date [place] [address] [place] [address] 02/17/2019 Documentation [facility] [address] [place] [phone] Social History Date Tobacco Use Types [...] as of this encounter Progress Notes * oRsario Lopez RN - 02/17/2019 3:02 PM CDT NGS report faxed to local oncologist, Dr. Cabrera. documented in this encounter Plan of Treatment Not on filedocumented as of this encounter Visit Diagnoses Not on filedocumented in this encounter
--- OUTSIDE RECORDS SUMMARY | 2019-03-27 13:23 | XMS REPORT | Clinical Summary ---
Author Author [facility] Organization [facility] Address Unknown Phone Unavailable Care Team Providers Care Satellite Tv Technician Name Role Phone Vicky Ritter MD PCP Source Comments Some departments are not documenting in the electronic medical record. If you d o not see the information that you expected, contact Release of Information in [facility] Information Management department at [phone] for further assistan ce in locating additional records.[facility] Allergies No Known Allergies Medications End Date [...] recommendation. She historically has worked at a [employer] but she went about 8 months without [...] not big on taking medicines either but jzkq-okp-qwmhlkw pain medicines including Tylenol upset her stomach. She had cervical cancer in the 1980s treated with surgery alone. She is also had a skin cancer removed from her forehead in 2006 that I believe was nonmelanoma based on description but that was done at [facility] when she lived on the [facility] and we do not have records. She was also aware of a prior adrenal lesion which she heard about in 2010 and apparently she had follow-up scans in 2016 in [facility]. Her NGS molecular profiling showed some abnormalities [...] MRI dated July 24, 2016. FINDINGS: Dr. Jermey Diaz M.D. has personally reviewed these images [...] Calcified coronary artery disease. Finalized by Dave Prasda M.D. on 01/16/2019 2:48 PM. Dictated by [...] and right hilar lymph nodes are noted. Instrument/Control Technician pretracheal lymph node demonstrates a maximal SUV [...] and right hilar lymph nodes are noted. Instrument/Control Technician pretracheal lymph node demonstrates a maximal SUV [...] PM. Performing Organization Address City/State/Zipcode Phone Number [facility] RESULTS * POC GLUCOSE (01/16/2019 10:25 AM CDT) Pathologist [facility] Glucose, POC 147 (H) 70 - 100 MG/DL MAIN LAB Specimen Performing Organization Address City/[facility]/Zipcode Phone Number [facility] [address] [place] [address] * CBC AND DIFF (01/09/2019 5:39 AM CDT) Only the most recent of 2 results within the time period is included. Pathologist [facility] White Blood 7.7 4.5 - 11.0 K/UL [...] City/State/Zipcode Phone Number [facility] [address] [place] [address] * COMPREHENSIVE METABOLIC PANEL (01/09/2019 5:39 AM [...] >60 >60 mL/min [facility] Comment: [place] The eGFR is not validated for use in drug dosing adjustments.Continue to use estimated creatinine clearance per dosing reference text.Please contact the Clinical Pharmacist for questions. eGFR >60 >60 mL/min [facility] [place] Comment: The eGFR is not validated for use in drug dosing adjustments.Continue to use estimated creatinine clearance per dosing reference text.Please contact the Clinical Pharmacist for questions. Specimen Blood Performing Organization Address City/State/Zipcode Phone Number [facility] [address] [place] [address] * FINE NEEDLE ASPIRATE (FNA) (01/08/2019 1:51 PM CDT) Cytology [facility] [email or web address] Department of Pathology and Laboratory Medicine [address] [place] [address] Surgical Pathology Office:[phone] :[phone] CYTOLOGY REPORT NAME: MARY HIGGINS SURG PATH #: [id number] MR #: [id number] ALT ID #: BILLING #: [id number] LOCATION: DISCHARGED DATE OF PROCEDURE: 01/08/2019 AGE:63 [...] determination of adequacy was performed by the fitness center attendantDO, on Diff-Quik stained slide(s). All four passes not adequate for evaluation. B. ( 2 DQ direct smear, 2 Pap direct smear, 1 cell block) Rapid determination of adequacy was performed by the fitness center attendantDO, on Diff-Quik stained slide(s). Pass two adequate for evaluation. Pass three all RPMI for cell block. C. ( 2 DQ direct smear, 2 Pap direct smear, 1 cell block) Rapid determination of adequacy was performed by the fitness center attendantDO, on Diff-Quik stained slide(s). Pass one adequate for evaluation. Pass two not adequate. Pass three all RPMI for cell block. D. ( 3 DQ direct smear, 3 Pap direct smear, 1 cell block) Rapid determination of adequacy was performed by the fitness center attendant, , on Diff-Quik stained slide(s). Pass three [...] concurrent surgical pathology report for further classification ([id number]). Comment: A cell block is prepared and [...] Newman D.O. Professional services performed by [facility], at [address] [place] [address] Specimen Performing Organization Address City/State/Zipcode Phone Number [facility] [address] [place] [address] * HUMAN COMP CANCER GENE PANEL (275) NGS (01/08/2019 1:49 PM CDT) Pathologist [facility] Human Report Available in Epic REFERENCE LAB Comprehensive Cancer Gene Panel (275) by NGS Specimen Performing Organization Address City/State/Zipcode Phone Number REFERENCE LAB REFERENCE [facility] See results for address. * SURGICAL PATHOLOGY (01/08/2019 1:49 PM CDT) Pathologist Mae PATHOLOGY [facility] [email or web address] Department of Pathology and Laboratory Medicine [address] [place] [address] Surgical Pathology Office:[phone] :[phone] SURGICAL PATHOLOGY REPORT NAME: MARY HIGGINS SURG PATH #: [id number] MR #: [id number] SPECIMEN CLASS: SR BILLING #: [id number] ALT ID #:LOCATION: [id number] DATE OF PROCEDURE: [...] Cell types evaluated: Tumor cells FDA status: Club Steward JING Baird ############################## ############################## ############ Final Diagnosis: [...] further testing (block A2>A1). Pursuant to the Train Gate Attendant Program at the [facility] Pathology Department, selected slides from this case [...] of Pathology and Laboratory Medicine of the [facility] ([employer]) in compliance [...] of Pathology and Laboratory Medicine of the [facility].It has not been cleared or approved by the FDA.The FDA has determined that such clearance or approval is not necessary. Specimen Performing Organization Address City/State/Zipcode Phone Number [facility] [address] [place] [address] * BRONCHOSCOPY (01/08/2019 8:54 AM CDT) Provation Patient Name: Mary GAFFNEY OTHER Report [facility] RESULTS Procedure Date: 01/08/2019 8:54 AM CSN: [id number] Date of : 1955 Gender: Female Attending Physician: Itz Kuhn MD Procedure: Bronchoscopy Indications: Right upper lobe mass Providers: Itz Kuhn MD (Doctor), Daphnie Patel RN (Nurse), Cleve Lloyd, Technologist (Press Tender Incendiary Grenade) Referring Physician:Willian Omalley Medications: Tetricaine 0.25%/Epinephrine 0.003% [...] FED EMP resent PROGRAM Advance Directives Patient Instrument/Control Technician Explanation Type Date Recorded Advance 01/08/2019 8:13 AM Directive/DPOA Date Inactivated Comments Code Status Date Activated 01/09/2019 2:26 PM Full Code 01/08/2019 12:24 AM Provider has discussed Code Status Yes w/Patient or Family? 01/08/2019 12:24 AM Full Code 01/07/2019 10:31 PM Provider has discussed Code Status No, more discussion w/Patient or Family? needed
--- OUTSIDE RECORDS SUMMARY | 2019-03-27 13:23 | XMS REPORT | Encounter Summary ---
Author Author [facility] Organization [facility] Address Unknown Phone Unavailable Care Team Providers Care Second Ride Fare Collector Name Role Phone Vicky Ritter MD PCP Reason for Visit * Reason Comments Appointment Encounter Details Care Team Description Date [place] [address] [place] [address] Appointment 01/20/2019 Telephone [facility] [address] [place] [phone] Social History Date Tobacco Use Types [...] with Dr. Murdock (radiation oncology) at [facility]. She would like to follow with an oncologist locally also. I called the RN coordinator, Willa at [facility] and updated her with Mrs. Akash petty's plans to get treatment locally and she is aware the patient will need a ppointments for both radiation and medical oncology. MRI head and PET scan repor ts were faxed to [phone]. documented in this encounter Plan of Treatment Not on filedocumented as of this encounter Visit Diagnoses Not on filedocumented in this encounter
--- OUTSIDE RECORDS SUMMARY | 2019-03-27 13:23 | XMS REPORT | Encounter Summary ---
Author Author [facility] Organization [facility] Address Unknown Phone Unavailable Care Team Providers Care Lamp Shade Joiner Name Role Phone Vicky Ritter MD PCP Reason for Referral * Radiology Services (Routine) Referred By Contact Referred To Contact Status Reason Specialty Diagnoses / [place] [address] [place] [address] Mri [address] [place] [address] No Auth Needed Radiology Diagnoses Hemoptysis Squamous cell carcinoma of lung, unspecified laterality (HCC) P rocedures MRI HEAD WO/W CONTRAST * Radiology Services (Routine) Referred By Contact Referred To Contact Status Reason Specialty Diagnoses / [place] [address] [place] [address] M[address] [address] No Auth Needed Radiology Diagnoses Hemoptysis Squamous cell carcinoma of lung, unspecified laterality (HCC) P rocedures MRI HEAD WO/W CONTRAST Reason for Visit * Radiology Services (Routine) Referred By Contact Referred To Contact Status Reason Specialty Diagnoses / [place] [address] [place] [address] [address] [place] [address] No Auth Needed Radiology Diagnoses Hemoptysis Squamous cell carcinoma of lung, unspecified laterality (HCC) P rocedures MRI HEAD WO/W CONTRAST Encounter Details Care Team Description Date [place] [address] [place] [address] [phone] 01/16/2019 [facility] [address] [facility] [address] [place] [address] [place] [address] Social History Date Tobacco Use [...] mL 18 mL, Intravenous, ONCE, 1 dose, [facility] 01/16/19 at 1430, Hand injection, flushed with 10 mL saline s/p injection NOTE: This is a HIGH ALERT Medication., documented in this encounter
--- OUTSIDE RECORDS SUMMARY | 2019-03-27 13:23 | XMS REPORT | Encounter Summary ---
Author Author [facility] Organization [facility] Address Unknown Phone Unavailable Care Team Providers Care Wind Up Worker Name Role Phone Vicky Ritter MD PCP Reason for Referral * Radiology Services (Routine) Referred By Contact Referred To Contact Status Reason Specialty Diagnoses / [place] [address] [place] [address] [facility] [address] [place] [address] No Auth Needed Radiology Diagnoses Hemoptysis Squamous cell carcinoma of lung, unspecified laterality (HCC) P rocedures NM PET SCAN TORSO (SKULL-THIGHS) * Radiology Services (Routine) Referred By Contact Referred To Contact Status Reason Specialty Diagnoses / [place] [address] [place] [address] [facility] [address] [place] [address] No Auth Needed Radiology Diagnoses Hemoptysis Squamous cell carcinoma of lung, unspecified laterality (HCC) P rocedures NM PET SCAN TORSO (SKULL-THIGHS) Reason for Visit * Radiology Services (Routine) Referred By Contact Referred To Contact Status Reason Specialty Diagnoses / [place] R[place] [address] [place] [address] [facility] [address] [place] [address] No Auth Needed Radiology Diagnoses Hemoptysis Squamous cell carcinoma of lung, unspecified laterality (HCC) P rocedures NM PET SCAN TORSO (SKULL-THIGHS) Encounter Details Care Team Description Date [place] [address] [place] [address] [phone] 01/16/2019 [facility] [address] [place] [address] Social History Date Tobacco Use Types Packs/Day [...] and right hilar lymph nodes are noted. Map Clerk pretracheal lymph node demonstrates a maximal SUV [...] and right hilar lymph nodes are noted. Map Clerk pretracheal lymph node demonstrates a maximal SUV [...]
--- OUTSIDE RECORDS SUMMARY | 2019-03-27 13:24 | XMS REPORT | Encounter Summary ---
Author Author [facility] Organization [facility] Address Unknown Phone Unavailable Care Team Providers Care Trolley Collector Name Role Phone Vicky Ritter MD PCP Reason for Visit * Reason Comments Navigation Assessment Encounter Details Care Team Description Date [place] [address] [place] [address] [phone] Navigation Assessment 01/13/2019 Telephone [facility] [address] [phone] Social History Date Tobacco Use Types Packs/Day [...] on 01/15/19 Diagnosis & Reason for Visit: [facility] Lung cancer Physician Info: Referring Physician: Dr [...] CA, squamous CA, PD-L1 pending Referred to [facility] Onc PET scan and MRI brain pending, scheduled for 01/29/19 Prior Treatment (XRT, Surgery, Chemotherapy): None Comments: Spoke to pt about appt. They live about 100 miles away, in [place], [place] . Her will come with her [...]
--- OUTSIDE RECORDS SUMMARY | 2019-03-27 13:24 | XMS REPORT | Encounter Summary ---
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 The fabian ent did have additional small scattered pulmonary nodules noted, it is unclear w hether this represents metastatic disease or not. The patient had a bus and bro nchoscopy performed demonstrating non-small cell carcinoma of the lung. The pat kathryn was discharged from the [facility] on 01/09/2019 we have been asked [...] file Gets together: Not on file Attends lutheran service: Not on file Active member of [...] - Eladio Patient and her live in [facility]. They met when he was working in [place], and they lived there for a number of years. 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 She had retired from working at [employer], but got bored being at home and is planning to go back to [facility]. They have a 25-year-old son who had previously been staying with them, but he is now working for the [employer] and is in [place]. The sarai gomes's works as a key carrier. They note that they have a sign ificant trouble coming to this area for treatment because of transportation issu es and they would like to have treatment delivered in [facility]. The patient has been decreasing the amount [...] HIGGINS SURG PATH #: [id number] MR #: [id number] ALT ID #: BILLING #: [id number] LOCATION: DISCHARGED DATE OF PROCEDURE: 01/08/2019 AGE: [...] determination of adequacy was performed by the gerentological physiotherapistDO, on Diff-Quik stained slide(s). All four passes not adequate for evaluation. B. ( 2 DQ direct smear, 2 Pap direct smear, 1 cell block) Rapid determination of adequacy was performed by the gerentological physiotherapistDO, on Diff-Quik stained slide(s). Pass two adequate for evaluation. Pass three all RPMI for cell block. C. ( 2 DQ direct smear, 2 Pap direct smear, 1 cell block) Rapid determination of adequacy was performed by the gerentological physiotherapistDO, on Diff-Quik stained slide(s). Pass one adequate for evaluation. Pass two not adequate. Pass three all RPMI for cell block. D. ( 3 DQ direct smear, 3 Pap direct smear, 1 cell block) Rapid determination of adequacy was performed by the gerentological physiotherapist, , on Diff-Quik stained slide(s). Pass three [...] concurrent surgical pathology report for further classification ([id number]). Comment: A cell block is prepared and [...] our department and wishes to [facility]. 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
--- OUTSIDE RECORDS SUMMARY | 2019-03-27 13:24 | XMS REPORT | Encounter Summary ---
Author Author [facility] Organization [facility] Address Unknown Phone Unavailable Care Team Providers Care Legal Advisor Name Role Phone Vicky Ritter MD PCP Reason for Referral * Radiology Services (Routine) Referred By Contact Referred To Contact Status Reason Specialty Diagnoses / [place] [address] [place] [address] [facility] [address] [facility] [address] [place] [address] [address] [place] [address] No Auth Needed Radiology Diagnoses Hemoptysis Squamous cell carcinoma of lung, unspecified laterality (HCC) P rocedures MRI HEAD WO/W CONTRAST * Radiology Services (Routine) Referred By Contact Referred To Contact Status Reason Specialty Diagnoses / [place] [address] [place] [address] [facility] [address] [place] [address] No Auth Needed Radiology Diagnoses Hemoptysis Squamous cell carcinoma of lung, unspecified laterality (HCC) P rocedures NM PET SCAN TORSO (SKULL-THIGHS) Encounter Details Care Team Description Date [place] [address] [place] [address] [phone] Hemoptysis (Primary Dx); Squamous cell carcinoma of lung, unspecified laterality (HCC) 01/10/2019 Orders Only [facility] [address] [place] [address] Social History Date Tobacco Use [...] MRI dated July 24, 2016. FINDINGS: Dr. eJremy Diaz M.D. has personally reviewed these images [...] and right hilar lymph nodes are noted. [employer] Special Education Teacher pretracheal lymph node demonstrates a maximal SUV [...] and right hilar lymph nodes are noted. [employer] Special Education Teacher pretracheal lymph node demonstrates a maximal SUV [...]
--- OUTSIDE RECORDS SUMMARY | 2019-03-27 13:24 | XMS REPORT | Encounter Summary ---
Author Author [facility] Organization [facility] Address Unknown Phone Unavailable Care Team Providers Care Timber Feller Name Role Phone Vicky Ritter MD PCP Reason for Referral * Consult, Test & Treat Referred By Contact Referred To Contact Status Reason Specialty Diagnoses / [place] [address] [place] [address] [place] [address] [place] [address] Closed Specialty Services Radiation Diagnoses Required Oncology / Squamous cell Radiation carcinoma of Therapy bronchus in right upper lobe (HCC) Reason for Visit * Reason Comments Follow Up * Consult, Test & Treat (Urgent) Referred By Contact Referred To Contact Status Reason Specialty Diagnoses / Procedures Itz Kuhn MD [address] [facility] [address] [address] [place] [address] [place] [address] No Auth Needed Specialty Services Oncology Diagnoses Required Cancer of upper lobe of right lung (HCC) Encounter Details Care Team Description Date [place] [address] [place] [address] [phone] 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 She historically has worked at a [employer] but she went about 8 mo nths [...] ultimately advised to go to a local [facility] en[facility] room and was subsequently transferred to [...] not big on taking medicines either but cghh-zib-hbxfaup pain medicines including Tylenol u pset her stomach. She had cervical cancer in the 1980s treated with surgery ernie ne. She is also had a skin cancer removed from her forehead in 2006 that I risa lopez was nonmelanoma based on description but that was done at [place] when she live d on the [facility] and we do not have records. She was also aware of a prior adrenal lesion which she heard about in 2010 and a pparently she had follow-up scans in 2016 in [facility] which we will try to [...] Higgins Procedure Date: 01/08/2019 8:54 AM CSN: [id number] Date of : 1955 Gender: Female Attending Physician: Itz Kuhn MD Procedure: Bronchoscopy Indications: Right upper lobe mass Providers: Itz Kuhn MD (Doctor), Daphnie Patel RN (Nurse), Cleve Lloyd Technologist (Programming Instructor) Referring Physician: Willian Omalley Medications: Tetricaine 0.25%/Epinephrine [...] Result Value Ref Range PATHOLOGY REPORT [facility] [email or web address] Department of Pathology and Laboratory Medicine [address] [place] [address] Surgical Pathology Office: [phone] SURGICAL PATHOLOGY REPORT NAME: MARY HIGGINS SURG PATH #: [id number] MR #: [id number] SPECIMEN CLASS: SR BILLING #: [id number] ALT ID #: LOCATION: DISCHARGED DATE OF [...] further testing (block A2>A1). Pursuant to the Stock Puller Program at the [facility] Pathology Department, selected slides from this case [...] of Pathology and Laboratory Medicine of the [facility] ([employer] [employer]) in compliance with CLIA'88 regulations. [...] of Pathology and Laboratory Medicine of the [facility]. It has not been cleared or approved by the FDA. The FDA has determined that javier ch clearance or approval is not necessary. FINE NEEDLE ASPIRATE (FNA) Result Value Ref Range Cytology [facility] [email or web address] Department of Pathology and Laboratory Medicine [address] [place] [address] Surgical Pathology Office: [phone] CYTOLOGY REPORT NAME: MARY HIGGINS SURG PATH #: [id number] MR #: [id number] ALT ID #: BILLING #: [id number] LOCATION: DISCHARGED DATE OF PROCEDURE: 01/08/2019 AGE: [...] determination of adequacy was performed by the manager endoscopyDO, on Diff-Quik stained slide(s). All four passes not romel quate for evaluation. B. ( 2 DQ direct smear, 2 Pap direct smear, 1 cell block) Rapid determination of adequacy was performed by the manager endoscopyDO, on Diff-Quik stained slide(s). Pass two adequate for evaluation. Pass three all RPMI for cell block. C. ( 2 DQ direct smear, 2 Pap direct smear, 1 cell block) Rapid determination of adequacy was performed by the manager endoscopyDO, on Diff-Quik stained slide(s). Pass one adequate for evaluation. Pass two not adequate. Pass three all RPMI for cell block. D. ( 3 DQ direct smear, 3 Pap direct smear, 1 cell block) Rapid determination of adequacy was performed by the manager endoscopyDO, on Diff-Quik stained slide(s). Pass three adequate [...] concurrent surgical pathology report for further classification ([id number]). Comment: A cell block is prepared and [...] Newman D.O. Professional services performed by The [facility], at [address] [place] [address] CBC AND DIFF Result Value Ref Range [...] the right upper lobe. [facility] stage IIIb based on mediastinal invasion and [...]
--- OUTSIDE RECORDS SUMMARY | 2019-03-27 13:24 | XMS REPORT | Encounter Summary ---
Author Author [facility] Organization [facility] Address Unknown Phone Unavailable Care Team Providers Care Programmable Logic Controller Assembler Name Role Phone Vicky Ritter MD PCP Reason for Referral * Consult, Test & Treat (Urgent) Referred By Contact Referred To Contact Status Reason Specialty Diagnoses / Procedures Itz Kuhn MD [address] [facility] [address] [place] [address] [place] [address] [place] [address] No Auth Needed Specialty Services Oncology Diagnoses Required Cancer of upper lobe of right lung (HCC) Reason for Visit * Reason Comments Results Encounter Details Care Team Description Date Type Department Itz Kuhn MD [address] [facility] [address] [place] [address] Results 01/10/2019 Telephone [facility] [address] [place] [address] Social History Date Tobacco Use [...] the right upper lobe. She lives in [facility] and would like to follow-up here at . Referral placed for Dr. Ordonez at [facility] cancer center location which should be closer [...]
--- OUTSIDE RECORDS SUMMARY | 2019-03-27 13:25 | XMS REPORT | Encounter Summary ---
Author Author [facility] Organization [facility] Address Unknown Phone Unavailable Care Team Providers Care Bridge Operator Slip Name Role Phone Vicky Ritter MD PCP Reason for Visit * Auth/Cert Referred By Contact Referred To Contact Status Reason Specialty Diagnoses / Procedures Diagnoses Hemoptysis Hemoptysis Encounter Details Care Team Description Date Type Department Venice Ritchie, KATHERINE [address] [address] [place], [place] [id number] 01/08/2019 Anesthesia [facility] OR [address] [id number] Anesthesia Record Responsible Anesthesiologist Anesthesia Start Time [...]
--- OUTSIDE RECORDS SUMMARY | 2019-03-27 13:25 | XMS REPORT | Encounter Summary ---
Author Author [facility] Organization [facility] Address Unknown Phone Unavailable Care Team Providers Care Facing Slitter Name Role Phone Vicky Ritter MD PCP Reason for Visit * Auth/Cert Referred By Contact Referred To Contact Status Reason Specialty Diagnoses / Procedures Diagnoses Hemoptysis Hemoptysis Encounter Details Care Team Description Date Type Department Roseline Peacock MD [address] [place] [address] [phone] Bryn Vera MD [address] [place] [address] [phone] Willian Gonzalez MD [address] [place] [address] [phone] Hemoptysis 01/07/2019 [facility] 01/09/[address] [place] [address] Social History Date Tobacco Use Types Packs/Day [...] 01/09/2019 Attending Physician: Willian Gonzalez MD Service: [facility] F- 34 05 Physician Summary completed by: [...] on date 01/13/2019. She was admitted at [facility] on 01/07 and d ischarged on [...] or concerns regarding your hospital stay, call [phone]. Discharging attending physician: WILLIAN GONZALEZ [[id number]] Cardiac Diet Limiting unhealthy fats and cholesterol [...] Your Medications These medications were sent to [facility] [address] [place] [address]. [place] [address], [facility] [address] Hours: M-F 7am-9pm Sat & Sun 9am-5pm [...] complains. Wants to go home. Discussed with ortho rn: they will follow up on Biopsy and [...] loss who was transferred to [facility] for further evaluation o f newly diagnosed pulmonary mass and hemoptysis. Imaging with large right beba-h ilar mass with hilar/mediastinal adenopathy, most concerning for primary lung ca ncer. EBUS with TBNA of hilar/mediastinal nodes pursued. Noted endobronchial les ion, which was biopsies. Pathology pending. Discussed high likelihood of this be ing cancer. Patient reported she would like to follow at [facility] oncology once resul ts available. Recommendations: - follow-up on pending pathology -- I will call patient once path available - patient would like to be evaluated at [facility] oncology - encourage tobacco cessation The patient [...] Review: Pertinent radiology reviewed. Marcos Isaac Pager [phone] Associated attestation - Maliha Dickinson MD - [...] visit, discussed case with Dr Orville Irene, [facility] fellow and concur with our [...] >60 >60 mL/min Shaun Irene MD Pager [phone] * Deejay Negrete MD - 01/07/2019 11:35 PM CDT Admission History and Physical Examination Name: Mary Higgins MRN: [id number] Admission Date: 01/07/2019 ASSESSMENT & PLAN Active Problems: Hemoptysis Mrs. 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 who presented to as a direct transfer from [facility] for workup of newly identified lung mass [...] unintentional weight loss - CT chest at [facility] shows newly identified necrotic R lung mass, necrotic lymph no joann, uploaded to PACS not yet available in [facility] obtained d-dimer 400; not elevated for age appropriate Plan > CT chest/abdomen/pelvis w/ contrast > Consult Pulmonology for tissue biopsy > NPO at [facility] > pain control w/ tylenol, Oxy 5 Q4H PRN for breakthrough pain #HTN - continue TOP HAT BODY MAKER Toprol XL 50 mg qday #HLD - continue TOP HAT BODY MAKER Lipitor 10 mg qday #Tobacco use - hx of 80 pack years - Chantix #Headaches, chronic - continue topiramate FEN: no IVF/ replace prn/ NPO at [facility] Prophylaxis: SCD's Disposition: admit to medicine Code Status: full Patient seen and discussed with MOD who directed plan as per above. Sonal Bella, Internal Medicine PGY-1 [phone] Senior Resident Attestation I was present and [...] Deejay Negrete MD Internal Medicine PGY-2 Pager [phone] HISTORY OF PRESENT ILLNESS Chief Complaint: Hemoptysis Mrs. 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 She figured that it was because she had not been to work in [email or web address] some time. States her chest pain did [...] ntix. She presented to the ED at [facility] this afternoon the CT scan was done [...] file Gets together: Not on file Attends samaritan service: Not on file Active member of [...] Pertinent radiology reviewed. Sonal Bella DO Pager [phone] Associated attestation - Willian Gonzalez MD - [...] loss who was transferred to [facility] for further evaluation o f newly diagnosed [...] disroder who was transferred to [facility] for further evaluation of newly d iagnosed pulmonary mass and hemoptysis. Patient initially presented to her PCP in October for evaluation of right sided chest pain and cough. Supportive care provided at that time. Was scheduled for lab working and imaging, but never completed. Symptoms were intermittent over th at time. However, past week was working at the [employer] when she developed progres sive sharp right sided chest pain. Following day, had an episode of hemoptysis w ith total of 1 tbsp blood. Had no recurrence of hemoptysis until the morning of presentation. Subsequently presented to [facility] for further evalu ation. CT noting 5 [...] file Gets together: Not on file Attends samaritan service: Not on file Active member of [...] CDT This patient has been assigned to Track the Bet F- [id number]. [facility] ple ase page MOD [phone] before 8 am if you want to [...] >60 >60 mL/min [facility] Comment: [place] The eGFR is not validated for use in drug dosing adjustments.Continue to use estimated creatinine clearance per dosing reference text.Please contact the Clinical Pharmacist for questions. eGFR >60 >60 mL/min [facility] [place] Comment: The eGFR is not validated for use in drug dosing adjustments.Continue to use estimated creatinine clearance per dosing reference text.Please contact the Clinical Pharmacist for questions. Specimen Blood Performing Organization Address City/State/Zipcode Phone Number [facility] [address] [place] [address] * CBC AND DIFF (01/09/2019 5:39 AM [...] Absolute 0.00 0 - 0.45 K/UL [facility] Eosinophil Count Absolute 0.00 0 - 0.20 K/UL [facility] Basophil Count Specimen Blood Performing Organization Address City/State/Zipcode Phone Number [facility] [address] [place] [address] * FINE NEEDLE ASPIRATE (FNA) (01/08/2019 1:51 PM CDT) Cytology [facility] [email or web address] Department of Pathology and Laboratory Medicine [address] [place] [address] Surgical Pathology Office:[phone] :[phone] CYTOLOGY REPORT NAME: MARY HIGGINS SURG PATH #: [id number] MR #: [id number] ALT ID #: BILLING #: [id number] LOCATION: DISCHARGED DATE OF PROCEDURE: 01/08/2019 AGE:63 [...] determination of adequacy was performed by the maintenance mechanic supervisorDO, on Diff-Quik stained slide(s). All four passes not adequate for evaluation. B. ( 2 DQ direct smear, 2 Pap direct smear, 1 cell block) Rapid determination of adequacy was performed by the maintenance mechanic supervisorDO, on Diff-Quik stained slide(s). Pass two adequate for evaluation. Pass three all RPMI for cell block. C. ( 2 DQ direct smear, 2 Pap direct smear, 1 cell block) Rapid determination of adequacy was performed by the maintenance mechanic supervisorDO, on Diff-Quik stained slide(s). Pass one adequate for evaluation. Pass two not adequate. Pass three all RPMI for cell block. D. ( 3 DQ direct smear, 3 Pap direct smear, 1 cell block) Rapid determination of adequacy was performed by the maintenance mechanic supervisorDO, on Diff-Quik stained slide(s). Pass three adequate [...] concurrent surgical pathology report for further classification ([id number]). Comment: A cell block is prepared and [...] Newman D.O. Professional services performed by [facility], at [address] [place] [address] Specimen Performing Organization Address City/State/Zipcode Phone Number [facility] [address] [place] [address] * SURGICAL PATHOLOGY (01/08/2019 1:49 PM CDT) PATHOLOGY [facility] [email or web address] Department of Pathology and Laboratory Medicine [address] [place] [address] Surgical Pathology Office:[phone] :[phone] SURGICAL PATHOLOGY REPORT NAME: MARY HIGGINS SURG PATH #: [id number] MR #: [id number] SPECIMEN CLASS: SR BILLING #: [id number] ALT ID #:LOCATION: [id number] DATE OF PROCEDURE: [...] Cell types evaluated: Tumor cells FDA status: Kitchen Assistant JING Baird ############################## ############################## ############ Final Diagnosis: [...] further testing (block A2>A1). Pursuant to the Food Counter Attendant Program at the [facility] Pathology Department, selected slides from this [...] of Pathology and Laboratory Medicine of the [facility] ([employer]) in compliance with CLIA'88 [...] of Pathology and Laboratory Medicine of the [facility].It has not been cleared or approved by the FDA.The FDA has determined that such clearance or approval is not necessary. Specimen Performing Organization Address City/State/Zipcode Phone Number [facility] [address] [place] [address] * BRONCHOSCOPY (01/08/2019 8:54 AM CDT) Provation Patient Name: Mary GAFFNEY OTHER Report [facility] RESULTS Procedure Date: 01/08/2019 8:54 AM CSN: [id number] Date of : 1955 Gender: Female Attending Physician: Itz Kuhn MD Procedure: Bronchoscopy Indications: Right upper lobe mass Providers: Itz Kuhn MD (Doctor), Daphnie Patel RN (Nurse), Cleve Lloyd, Technologist (Remote Sensing Specialist) Referring Physician:Willian Gonzalez Medications: Tetricaine 0.25%/Epinephrine 0.003% [...] >60 >60 mL/min [facility] Comment: [place] The eGFR is not validated for use in drug dosing adjustments.Continue to use estimated creatinine clearance per dosing reference text.Please contact the Clinical Pharmacist for questions. eGFR >60 >60 mL/min [facility] [place] Comment: The eGFR is not validated for use in drug dosing adjustments.Continue to use estimated creatinine clearance per dosing reference text.Please contact the Clinical Pharmacist for questions. Specimen Blood Performing Organization Address City/State/Zipcode Phone Number [facility] [address] [place] [address] * CBC AND DIFF (01/08/2019 12:09 AM [...] Address City/State/Zipcode Phone Number [facility] [address] [place] [address] * CT CHEST EXTERNAL IMAGING (01/07/2019 4:20 [...]
--- OUTSIDE RECORDS SUMMARY | 2019-03-27 13:26 | XMS REPORT | Encounter Summary ---
Author Author [facility] Organization [facility] Address Unknown Phone Unavailable Care Team Providers Care Dietary Manager Name Role Phone Vicky Ritter MD PCP Reason for Visit * Auth/Cert Referred By Contact Referred To Contact Status Reason Specialty Diagnoses / Procedures Diagnoses Hemoptysis Hemoptysis Encounter Details Care Team Description Date Type Department Itz Kuhn MD [address] Ortho[facility] [address] [place] [address] BRONCHOSCOPY WITH BRUSHING/ PROTECTED BRUSHING - FLEXIBLE 01/08/2019 Surgery [facility] OR [address] [address] Social History Date Tobacco Use [...] 01/09/2019 Attending Physician: Willian Gonzalez MD Service: [facility] 34 05 Physician Summary completed by: WILLIAN [...] 01/13/2019. She was admitted at [facility] on 01/07 and d ischarged on [...] or concerns regarding your hospital stay, call [phone]. Discharging attending physician: WILLIAN GONZALEZ [[id number]] Cardiac Diet Limiting unhealthy fats and cholesterol [...] Your Medications These medications were sent to [facility] [address] [place] [address]. [place] [address], [facility] [address] Hours: M-F 7am-9pm Sat & Sun 9am-5pm [...] head though she has chronic headache. Signed: IWLLIAN GONZALEZ MD 01/09/2019 cc: Primary Care Physician: [...] complains. Wants to go home. Discussed with technical fellow: they will follow up on Biopsy and [...] unintentional weight loss who was transferred to [facility] for further evaluation o f newly diagnosed pulmonary mass and hemoptysis. Imaging with large right beba-h ilar mass with hilar/mediastinal adenopathy, most concerning for primary lung ca ncer. EBUS with TBNA of hilar/mediastinal nodes pursued. Noted endobronchial les ion, which was biopsies. Pathology pending. Discussed high likelihood of this be ing cancer. Patient reported she would like to follow at [facility] oncology once resul ts available. Recommendations: - follow-up on pending pathology -- I will call patient once path available - patient would like to be evaluated at [facility] oncology - encourage tobacco cessation The patient [...] Review: Pertinent radiology reviewed. Marcos Isaac Pager [phone] Associated attestation - Maliha Dickinson MD - [...] visit, discussed case with Dr Orville Irene, [facility] fellow and concur with our fellow's documentation [...] >60 >60 mL/min Shaun Irene MD Pager [phone] * Deejay Negrete MD - 01/07/2019 11:35 PM CDT Admission History and Physical Examination Name: Mary Higgins MRN: [id number] Admission Date: 01/07/2019 ASSESSMENT & PLAN Active Problems: Hemoptysis Mrs. 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 who presented to as a direct transfer from [facility] for workup of newly identified [...] unintentional weight loss - CT chest at [facility] shows newly identified necrotic R lung mass, necrotic lymph no joann, uploaded to PACS not yet available in [facility] obtained d-dimer 400; not elevated for age appropriate Plan > CT chest/abdomen/pelvis w/ contrast > Consult Pulmonology for tissue biopsy > NPO at [place] > pain control w/ tylenol, Oxy 5 Q4H PRN for breakthrough pain #HTN - continue METAL PATTERNMAKER Toprol XL 50 mg qday #HLD - continue METAL PATTERNMAKER Lipitor 10 mg qday #Tobacco use - hx of 80 pack years - Chantix #Headaches, chronic - continue topiramate FEN: no IVF/ replace prn/ NPO at [place] Prophylaxis: SCD's Disposition: admit to medicine Code Status: full Patient seen and discussed with MOD who directed plan as per above. Sonal Bella, Internal Medicine PGY-1 [phone] Senior Resident Attestation I was present and [...] Deejay Negrete MD Internal Medicine PGY-2 Pager [phone] HISTORY OF PRESENT ILLNESS Chief Complaint: Hemoptysis Mrs. 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 She figured that it was because she had not been to work in [place] some time. States her chest pain did [...] ntix. She presented to the ED at [facility] this afternoon the CT scan was done [...] file Gets together: Not on file Attends amish service: Not on file Active member of [...] Pertinent radiology reviewed. Sonal Bella DO Pager [phone] Associated attestation - Willian Gonzalez MD - [...] unintentional weight loss who was transferred to [facility] for further evaluation o f newly diagnosed [...] obacco use disroder who was transferred to [facility] for further evaluation of newly d iagnosed pulmonary mass and hemoptysis. Patient initially presented to her PCP in October for evaluation of right sided chest pain and cough. Supportive care provided at that time. Was scheduled for lab working and imaging, but never completed. Symptoms were intermittent over th at time. However, past week was working at the [employer] when she developed progres sive sharp right sided chest pain. Following day, had an episode of hemoptysis w ith total of 1 tbsp blood. Had no recurrence of hemoptysis until the morning of presentation. Subsequently presented to [facility] for further evalu ation. CT noting 5 [...] file Gets together: Not on file Attends amish service: Not on file Active member of [...] CDT This patient has been assigned to [employer] F- [id number]. Antenna team ple ase page MOD [phone] before 8 am if you want to [...] >60 >60 mL/min [facility] Comment: [facility] The eGFR is not validated for use in drug dosing adjustments.Continue to use estimated creatinine clearance per dosing reference text.Please contact the Clinical Pharmacist for questions. eGFR >60 >60 mL/min [facility] Comment: The eGFR is not validated for use in drug dosing adjustments.Continue to use estimated creatinine clearance per dosing reference text.Please contact the Clinical Pharmacist for questions. Specimen Blood Performing Organization Address City/State/Zipcode Phone Number MAIN [facility] [address] [place] [address] * CBC AND DIFF (01/09/2019 5:39 AM [...] Platelet Count 190 150 - 400 K/UL [facility] MPV 9.9 7 - 11 FL [facility] Neutrophils 82 (H) 41 - 77 % [facility] Lymphocytes 12 (L) 24 - 44 % [facility] Monocytes 6 4 - 12 % [facility] Eosinophils 0 0 - 5 % [facility] Basophils 0 0 - 2 % [facility] Absolute 6.30 1.8 - 7.0 K/UL [facility] Neutrophil Count Absolute Lymph 0.90 (L) 1.0 - 4.8 K/UL [facility] Count Absolute 0.50 0 - 0.80 K/UL [facility] Monocyte Count Absolute 0.00 0 - 0.45 K/UL [facility] Eosinophil Count Absolute 0.00 0 - 0.20 K/UL [facility] Basophil Count Specimen Blood Performing Organization Address City/State/Zipcode Phone Number [facility] [address] [place] [address] * FINE NEEDLE ASPIRATE (FNA) (01/08/2019 1:51 PM CDT) Cytology [facility] [email or web address] Department of Pathology and Laboratory Medicine [address] [place] [address] Surgical Pathology Office:[phone] :[phone] CYTOLOGY REPORT NAME: MARY HIGGINS SURG PATH #: [id number] MR #: [id number] ALT ID #: BILLING #: [id number] LOCATION: DISCHARGED DATE OF PROCEDURE: 01/08/2019 AGE:63 [...] determination of adequacy was performed by the fabric and textile factory workerDO, on Diff-Quik stained slide(s). All four passes not adequate for evaluation. B. ( 2 DQ direct smear, 2 Pap direct smear, 1 cell block) Rapid determination of adequacy was performed by the fabric and textile factory workerDO, on Diff-Quik stained slide(s). Pass two adequate for evaluation. Pass three all RPMI for cell block. C. ( 2 DQ direct smear, 2 Pap direct smear, 1 cell block) Rapid determination of adequacy was performed by the fabric and textile factory workerDO, on Diff-Quik stained slide(s). Pass one adequate for evaluation. Pass two not adequate. Pass three all RPMI for cell block. D. ( 3 DQ direct smear, 3 Pap direct smear, 1 cell block) Rapid determination of adequacy was performed by the fabric and textile factory workerDO, on Diff-Quik stained slide(s). Pass three adequate [...] concurrent surgical pathology report for further classification ([id number]). Comment: A cell block is prepared and [...] Newman D.O. Professional services performed by [facility], [facility], at [address] [place] [address] Specimen Performing Organization Address City/State/Zipcode Phone Number [facility] [address] [place] [address] * SURGICAL PATHOLOGY (01/08/2019 1:49 PM CDT) PATHOLOGY [facility] [email or web address] Department of Pathology and Laboratory Medicine [address] [place] [address] Surgical Pathology Office:[phone] :[phone] SURGICAL PATHOLOGY REPORT NAME: MARY HIGGINS SURG PATH #: [id number] MR #: [id number] SPECIMEN CLASS: SR BILLING #: [id number] ALT ID #:LOCATION: [id number] DATE OF PROCEDURE: [...] Cell types evaluated: Tumor cells FDA status: Hand Assembler JING Baird ############################## ############################## ############ Final Diagnosis: [...] further testing (block A2>A1). Pursuant to the Power Digger Operator Program at the [facility] Pathology Department, [...] of Pathology and Laboratory Medicine of the [facility] ([employer]) in compliance with [...] of Pathology and Laboratory Medicine of the [facility].It has not been cleared or approved by the FDA.The FDA has determined that such clearance or approval is not necessary. Specimen Performing Organization Address City/State/Zipcode Phone Number [facility] [address] [place] [address] * BRONCHOSCOPY (01/08/2019 8:54 AM CDT) Provation Patient Name: Mary GAFFNEY OTHER Report [facility] RESULTS Procedure Date: 01/08/2019 8:54 AM [facility]: [id number] Date of : 1955 Gender: Female Attending Physician: Itz Kuhn MD Procedure: Bronchoscopy Indications: Right upper lobe mass Providers: Itz Kuhn MD (Doctor), Daphnie Patel RN (Nurse), Cleve Lloyd Technologist (Metal Crafts Teacher) Referring Physician:Willian Gonzalez Medications: Tetricaine 0.25%/Epinephrine 0.003% [...] >60 >60 mL/min [facility] Comment: [facility] The eGFR is not validated for use in drug dosing adjustments.Continue to use estimated creatinine clearance per dosing reference text.Please contact the Clinical Pharmacist for questions. eGFR >60 >60 mL/min [facility] Comment: The eGFR is not validated for use in drug dosing adjustments.Continue to use estimated creatinine clearance per dosing reference text.Please contact the Clinical Pharmacist for questions. Specimen Blood Performing Organization Address City/[facility]/Zipcode Phone Number [facility] [address] [place] [address] * CBC AND DIFF (01/08/2019 12:09 AM [...] Blood Performing Organization Address City/State/Zipcode Phone Number [facility] [address] [place] [address] * CT CHEST EXTERNAL IMAGING (01/07/2019 4:20 [...] 1115, Until Ivett 01/09/19 at 1421, Pre-Op 01/09/2019 12:36 AM [...]
--- OUTSIDE RECORDS SUMMARY | 2019-03-27 13:26 | XMS REPORT | Encounter Summary ---
Author Author [facility] Organization [facility] Address Unknown Phone Unavailable Care Team Providers Care Imaging Manager Name Role Phone Vicky Ritter MD PCP Reason for Visit * Auth/Cert Referred By Contact Referred To Contact Status Reason Specialty Diagnoses / Procedures Diagnoses Hemoptysis Hemoptysis Encounter Details Care Team Description Date Type Department Bryn Vera MD [address] [place] [address] 01/08/2019 Hospital [facility] [address] [address] Social History Date Tobacco Use [...]
--- OUTSIDE RECORDS SUMMARY | 2019-03-27 13:26 | XMS REPORT | Encounter Summary ---
Author Author [facility] Organization [facility] Address Unknown Phone Unavailable Care Team Providers Care Transit Man Name Role Phone Vicky Ritter MD PCP Encounter Details Care Team Description Date Type Department 01/07/2019 Hospital [facility] Encounter [facility] System [address] [address] Social History Date Tobacco Use [...]
--- OUTSIDE RECORDS SUMMARY | 2019-03-27 13:26 | XMS REPORT | Encounter Summary ---
Author Author [facility] Organization [facility] Address Unknown Phone Unavailable Care Team Providers Care Annealing Furnace Tender Name Role Phone Vicky Ritter MD PCP Encounter Details Care Team Description Date Type Department 01/07/2019 Hospital [facility] Encounter Health System [address] [address] Social History Date Tobacco Use [...]
--- OUTSIDE RECORDS SUMMARY | 2019-03-27 13:27 | XMS REPORT | Continuity of Care Document ---
Author Organization Unknown Address Unknown Allergies Active Description Code Type Severity Reaction Onset Reported/Identified Relationship to Patient Clinical Status Yes NO KNOWN DRUG ALLERGIES NO KNOWN DRUG ALLERG UNKNOWN Yes NO KNOWN DRUG ALLERGIES UNKNOWN NO KNOWN DRUG ALLERG Yes NO KNOWN DRUG ALLERGIES UNKNOWN UNKNOWN Yes No Known Drug Allergies [id number] Drug Allergy Unknown N/A 01/30/2019 Medications Medication [...] ELLA MORAN MD Ot R51 HEADACHE 07/20/2016 Lana MARTINEZ MD Ot R06.02 SHORTNESS OF BREATH 07/20/2016 Lana MARTINEZ MD Ot R94.31 ABNORMAL ELECTROCARDIOGRAM [ECG] [EKG] 07/20/2016 Lana MARTINEZ MD Ot Z72.0 TOBACCO USE 07/21/2016 [...] MD Ot I25.10 ATHSCL HEART DISEASE OF [place] CORONARY 07/31/2016 Lana MARTINEZ MD Ot R06.02 SHORTNESS OF BREATH 07/31/2016 Lana MARTINEZ MD Ot R94.39 ABNORMAL RESULT OF OTHER CARDIOVASCULAR 07/31/2016 Lana MARTINEZ MD Ot Z79.899 OTHER BILINGUAL SALES REPRESENTATIVE (CURRENT) DRUG THERAPY 08/02/2016 Lana MARTINEZ MD Ot R06.02 SHORTNESS OF BREATH 08/02/2016 Lana MARTINEZ MD Ot R94.31 ABNORMAL ELECTROCARDIOGRAM [ECG] [EKG] 08/02/2016 Lana MARTINEZ MD Ot Z72.0 TOBACCO USE 08/04/2016 ELLA MORAN MD Ot R06.02 SHORTNESS OF BREATH 08/04/2016 ELLA MORAN MD Ot R09.02 HYPOXEMIA 08/04/2016 ELAL MORAN MD Ot R51 HEADACHE 08/04/2016 ELLA MORAN MD Ot Z72.0 TOBACCO USE 08/17/2016 Laan MARTINEZ MD Ot D69.6 THROMBOCYTOPENIA, UNSPECIFIED 08/17/2016 Lana MARTINEZ MD Ot E78.5 HYPERLIPIDEMIA, UNSPECIFIED 08/17/2016 Lana MARTINEZ MD Ot F17.210 NICOTINE DEPENDENCE, CIGARETTES, UNCOMPL 08/17/2016 Lana MARTINEZ MD Ot I10 ESSENTIAL (PRIMARY) HYPERTENSION 08/17/2016 Lana MARTINEZ MD Ot I25.10 ATHSCL HEART DISEASE OF [place] CORONARY 08/17/2016 Lana MARTINEZ MD Ot R06.02 SHORTNESS OF BREATH 08/17/2016 Lana MARTINEZ MD Ot R94.39 ABNORMAL RESULT OF OTHER CARDIOVASCULAR 08/17/2016 Lana MARTINEZ MD Ot Z79.899 OTHER CARE HOME (CURRENT) DRUG THERAPY 08/23/2016 ELLA MORAN MD Ot D69.6 THROMBOCYTOPENIA, UNSPECIFIED 08/23/2016 ELLA MORAN MD Ot D75.1 SECONDARY POLYCYTHEMIA 08/23/2016 ELLA MORAN MD Ot F17.210 NICOTINE DEPENDENCE, CIGARETTES, UNCOMPL 08/23/2016 ELLA MORAN MD Ot I10 ESSENTIAL (PRIMARY) HYPERTENSION 08/23/2016 ELLA MORAN MD Ot R09.02 HYPOXEMIA 08/23/2016 ELLA MROAN MD Ot R51 HEADACHE 09/06/2016 MARIA M FRY RN CLINICAL DOCUMENTATION SPECIALIST Ot R06.02 SHORTNESS OF BREATH 09/06/2016 MARIA M FRY RN CLINICAL DOCUMENTATION SPECIALIST Ot Z72.0 TOBACCO USE 09/11/2016 MARIA M FRY RN CLINICAL DOCUMENTATION SPECIALIST Ot R06.02 SHORTNESS OF BREATH 09/11/2016 ANGMARIA M REYES E RN CLINICAL DOCUMENTATION SPECIALIST Ot Z72.0 TOBACCO USE 09/13/2016 MARIA M FRY RN CLINICAL DOCUMENTATION SPECIALIST Ot R06.02 SHORTNESS OF BREATH 09/13/2016 MARIA M FRY RN CLINICAL DOCUMENTATION SPECIALIST Ot Z72.0 TOBACCO USE 09/13/2016 ELLA MORAN [...] HANLEY DO Ot D75.1 SECONDARY POLYCYTHEMIA 10/28/2018 NATAHSA HANLEY DO Ot R06.02 SHORTNESS OF BREATH [...] Ot R94.31 ABNORMAL ELECTROCARDIOGRAM [ECG] [EKG] 11/08/2018 Lana MARTINEZ MD Ot Z72.0 TOBACCO USE 11/08/2018 [...] Ot Z72.0 TOBACCO USE 01/29/2019 DEAN MCCALL LELA Flaco Ot R06.02 SHORTNESS OF BREATH 01/29/2019 [...] DO Ot R06.02 SHORTNESS OF BREATH 01/30/2019 NATASHA HANLEY DO Ot Z72.0 TOBACCO USE 01/30/2019 [...] F32.9 MAJOR DEPRESSIVE DISORDER, SINGLE EPISOD 02/10/2019 RAY DRAPER DO Ot G43.909 MIGRAINE, UNSP, NOT INTRACTABLE, WITHOUT 02/10/2019 RAY DRAPER DO Ot I10 ESSENTIAL (PRIMARY) HYPERTENSION 02/10/2019 AMY DRAPER DOIC Alphonso Ot I25.10 ATHSCL HEART DISEASE OF [place] CORONARY 02/10/2019 BARON FUNEZ RAY B Ot I87.2 VENOUS INSUFFICIENCY (CHRONIC) (PERIPHER 02/10/2019 AMY DRAPER DORUPERT Werner Ot J44.9 CHRONIC OBSTRUCTIVE PULMONARY DISEASE, U 02/10/2019 AMY DRAPER DORUPERT Werner Ot M19.91 PRIMARY OSTEOARTHRITIS, UNSPECIFIED SITE 02/10/2019 BARON FUNEZ RAY B Ot Z79.899 OTHER BILINGUAL SALES REPRESENTATIVE (CURRENT) DRUG THERAPY 02/10/2019 AMY DRAPER DOIC [...] DO Ot I25.10 ATHSCL HEART DISEASE OF [place] CORONARY 03/19/2019 AMY DRAPER DOIC B Ot I87.2 VENOUS INSUFFICIENCY (CHRONIC) (PERIPHER 03/19/2019 AMY DRAPER DOIC B Ot J44.9 CHRONIC OBSTRUCTIVE PULMONARY DISEASE, U 03/19/2019 AMY DRAPER DOIC B Ot M19.91 PRIMARY OSTEOARTHRITIS, UNSPECIFIED SITE 03/19/2019 AMY DRAPER DOIC B Ot Z79.899 OTHER BILINGUAL SALES REPRESENTATIVE (CURRENT) DRUG THERAPY 03/19/2019 BARON FUNEZ RAY [...] B Ot I25.10 ATHSCL HEART DISEASE OF [place] CORONARY 03/19/2019 BARON FUNEZ RAY B Ot I87.2 VENOUS INSUFFICIENCY (CHRONIC) (PERIPHER 03/19/2019 AMY DRAPER DOIC B Ot J44.9 CHRONIC OBSTRUCTIVE PULMONARY DISEASE, U 03/19/2019 AMY DRAPER DOIC B Ot M19.91 PRIMARY OSTEOARTHRITIS, UNSPECIFIED SITE 03/19/2019 BARON FUNEZ RAY B Ot Z79.899 OTHER CARE HOME (CURRENT) DRUG THERAPY 03/19/2019 BARON FUNEZ RAY [...] plasma calcium measurement (mass/volume) 9.6 mg/dL 8.5-10.1 Complete blood count (CBC) with automated white blood cell (WBC) differential - 03/27/19 10:35 Blood leukocytes automated count (number/volume) 1.8 10*3/uL 4.3-11.0 Blood erythrocytes automated count (number/volume) 4.03 10*6/uL 4.35-5.85 Venous blood hemoglobin measurement (mass/volume) 11.3 g/dL 11.5-16.0 Blood hematocrit (volume fraction) 37 % 35-52 Automated erythrocyte mean corpuscular volume 91 [foz_us] 80-99 Automated erythrocyte mean corpuscular hemoglobin (mass per erythrocyte) 28 pg 25-34 Automated erythrocyte mean corpuscular hemoglobin concentration measurement (mass/volume) 31 g/dL 32-36 Automated erythrocyte distribution width ratio 20.1 % 10.0- 14.5 Automated blood platelet count (count/volume) 88 10*3/uL 130- 400 Automated blood platelet mean volume measurement 11.2 [foz_us] 7.4-10.4 Automated blood neutrophils/100 leukocytes 94 % 42-75 Automated blood lymphocytes/100 leukocytes 5 % 12-44 Blood monocytes/100 leukocytes 2 % 0-12 Automated blood eosinophils/100 leukocytes 0 % 0-10 Automated blood basophils/100 leukocytes 0 % 0-10 Blood neutrophils automated count (number/volume) 1.7 10*3 1.8-7.8 Blood lymphocytes automated count (number/volume) 0.1 10*3 1.0-4.0 Blood monocytes automated count (number/volume) 0.0 10*3 0.0- 1.0 Automated eosinophil count 0.0 10*3/uL 0.0-0.3 Automated blood basophil count (count/volume) 0.0 10*3/uL 0.0-0.1 Blood blood smear finding identification by light microscopy 90 NRG Blood lactic acid measurement (moles/volume) - 03/27/19 10:35 Blood lactic acid measurement (moles/volume) 2.21 mmol/L 0.50- 2.00 Comprehensive metabolic panel - 03/27/19 10:35 Serum or plasma sodium measurement (moles/volume) 133 mmol/L 135-145 Serum or plasma potassium measurement (moles/volume) 3.2 mmol/L 3.6-5.0 Serum or plasma chloride measurement (moles/volume) 98 mmol/L 98-107 Carbon dioxide 24 mmol/L 21-32 Serum or plasma anion gap determination (moles/volume) 11 mmol/L 5-14 Serum or plasma urea nitrogen measurement (mass/volume) 12 mg/dL 7-18 Serum or plasma creatinine measurement (mass/volume) 0.62 mg/dL 0.60-1.30 Serum or plasma urea nitrogen/creatinine mass ratio 19 NRG Serum or plasma creatinine measurement with calculation of estimated glomerular filtration rate > NRG Serum or plasma glucose measurement (mass/volume) 148 mg/dL 70-105 Serum or plasma calcium measurement (mass/volume) 8.9 mg/dL 8.5-10.1 Serum or plasma total bilirubin measurement (mass/volume) 1.4 mg/dL 0.1-1.0 Serum or plasma alkaline phosphatase measurement (enzymatic activity/volume) 227 U/L 40-136 Serum or plasma aspartate aminotransferase measurement (enzymatic activity/volume) 164 U/L 5-34 Serum or plasma alanine aminotransferase measurement (enzymatic activity/volume) 86 U/L 0-55 Serum or plasma protein measurement (mass/volume) 6.4 g/dL 6.4-8.2 Serum or plasma albumin measurement (mass/volume) 3.2 g/dL 3.2-4.5 CALCIUM CORRECTED 9.5 mg/dL 8.5-10.1 PT panel in platelet poor plasma by coagulation assay - 03/27/19 10:35 Prothrombin time (PT) in platelet poor plasma by coagulation assay 17.9 s 12.2-14.7 INR in platelet poor plasma or blood by coagulation assay 1.4 0.8-1.4 Activated partial thromboplastin time (aPTT) in platelet poor plasma bycoagulation assay - 03/27/19 10:35 Activated partial thromboplastin time (aPTT) in platelet poor plasma bycoagulation assay 40 s 24-35 Manual absolute plasma cell count - 03/27/19 10:35 Manual blood segmented neutrophils/100 leukocytes 2 % NRG Blood band neutrophils/100 leukocytes 5 % NRG Manual blood lymphocytes/100 leukocytes 3 % NRG Blood polychromasia detection by light microscopy SLIGHT NRG Blood anisocytosis detection by light microscopy MODERATE NRG Blood macrocytes detection by light microscopy SLIGHT NRG Blood toxic granules detection by light microscopy 1+ NRG Blood dohle body detection by light microscopy SLIGHT NRG Blood poikilocytosis detection by light microscopy SLIGHT NRG Blood microcytes detection by light microscopy SLIGHT NRG Blood hypersegmented neutrophils detection by light microscopy SLIGHT NRG Blood spherocytes detection by light microscopy SLIGHT NRG Complete urinalysis with reflex to culture - 03/27/19 11:39 Urine color determination CISCO NRG Urine clarity determination SLIGHTLY CLOUDY NRG Urine pH measurement by test strip 5 5-9 Specific gravity of urine by test strip 1.025 1.016-1.022 Urine protein assay by test strip, semi-quantitative 3+ NEGATIVE Urine glucose detection by automated test strip NEGATIVE NEGATIVE Erythrocytes detection in urine sediment by light microscopy 4+ NEGATIVE Urine ketones detection by automated test strip 1+ NEGATIVE Urine nitrite detection by test strip NEGATIVE NEGATIVE Urine total bilirubin detection by test strip 2+ NEGATIVE Urine urobilinogen measurement by automated test strip (mass/volume) 4 mg/dL NORMAL Urine leukocyte esterase detection by dipstick 1+ NEGATIVE Automated urine sediment erythrocyte count by microscopy (number/high power field) [HPF] NRG Automated urine sediment leukocyte count by microscopy (number/high power field) [HPF] NRG Bacteria detection in urine sediment by light microscopy MODERATE NRG Squamous epithelial cells detection in urine sediment by light microscopy 10-25 NRG Crystals detection in urine sediment by light microscopy PRESENT NRG Casts detection in urine sediment by light microscopy NONE NRG Mucus detection in urine sediment by light microscopy NEGATIVE NRG Complete urinalysis with reflex to culture CULTURE PENDING NRG Amorphous sediment detection in urine sediment by light microscopy LARGE NAYANA URATES NRG Encounters ACCT No. Visit Date/Time Discharge Status Pt. Type Provider Facility Loc./Unit Complaint [id number] 02/17/2019 12:37:00 02/17/2019 23:59:00 DIS Outpatient Stone Vicky [id number] 02/12/2019 16:42:00 02/12/2019 23:59:00 DIS Outpatient Vicky Ritter [id number] 01/07/2019 15:11:00 01/07/2019 19:35:00 [id number]/2017 15:32:00 09/20/2017 23:59:00 DIS Outpatient Vicky Ritter [id number] 07/25/2016 08:02:00 07/25/2016 23:59:00 DIS Outpatient DAVY FITZGERALD [id number] 07/04/2016 00:00:00 07/04/2016 23:59:00 DIS Outpatient Bryan Hope [id number] 01/07/2019 16:41:22 Document Registration [id number] 07/16/2016 08:15:00 Document Registration [id number] 02/05/2019 07:51:00 02/05/2019 12:44:00 DIS Outpatient RAY DRAPER DO [facility] SDC LUNG CANCER [id number] 01/30/2019 05:40:00 01/30/2019 13:40:00 DIS Outpatient RAY DRAPER DO [facility] PREOP LUNG CANCER [id number] 08/10/2016 14:35:00 10/08/2016 00:01:00 DIS Outpatient ELLA MORAN MD [facility] ONC [id number] 09/13/2016 16:54:00 09/13/2016 23:59:59 CLS Outpatient NATASHA HANLEY DO [facility] RT POLYCYTHEMIA,SOB,TOBACCO USER [id number] 09/05/2016 10:38:00 09/05/2016 23:59:59 CLS Outpatient MARIA M FRY APRN [facility] RT SOB, TOB USER [id number] 07/31/2016 06:58:00 07/31/2016 13:15:00 DIS Outpatient Lana MARTINEZ MD [facility] CATH ABNORMAL STRESS TEST,SOB,HTN [id number] 07/24/2016 09:11:00 07/24/2016 23:59:59 CLS Outpatient ELLA MORAN MD [facility] RAD HEADACHE;HYPOXEMIA,SOB,TOB USE [id number] 07/20/2016 06:44:00 07/20/2016 23:59:59 CLS Outpatient Lana MARTINEZ MD [facility] CARD SOB [id number] 07/17/2016 11:03:00 07/17/2016 23:59:59 CLS Outpatient Lana MARTINEZ MD [facility] CARD R06.02,Z72.0, [id number] 07/17/2016 06:55:00 07/17/2016 23:59:59 CLS Outpatient DEAN MCCALL, ELLA Sam [facility] RAD HEADACHE [id number] 03/27/2019 10:56:00 Document Registration [id number] 03/26/2019 10:46:00 ACT Outpatient REJI KING MD [facility] ONC
--- NOTE | 2019-03-27 13:59 | NUR ---
Re-checked temp at this time - 99.2
--- NOTE | 2019-03-27 14:19 | Pulmonary Consultation ---
History of Present Illness History of Present Illness Date of Consultation 03/27/19 14:14 Time Seen by Provider: 14:15 Date of Admission History of Present Illness 63yo with hx metastatic squamous cell lung cancer of RUL last chemotherapy was 03/18/19. She presented to ED secondary to fever 104.4, chills. While in the ED she was found to be hypotensive with SBP of 87. Pt was admitted to ICU for close observation. Pt also complains of persistent nausea and CP. I am consulted for pulmonary CC management. Allergies and Home Medications Allergies Coded Allergies: No Known Drug Allergies (Unverified , 01/30/19) Home Medications Atorvastatin Calcium 10 Mg Tablet, 10 MG PO DAILY, (Reported) Docusate Sodium 100 Mg Tablet, 300 MG PO DAILY, (Reported) Famotidine 20 Mg Tablet, 40 MG PO DAILY, (Reported) TAKES 2 (20MG) TABLETS Metoprolol Succinate 50 Mg Tab.er.24h, 50 MG PO DAILY, (Reported) Morphine Sulfate 100 Mg/5 Ml Solution, 15 MG PO Q4H PRN for PAIN-SEVERE, (Reported) Nicotine 1 Each Patch.td24, 21 MG TD DAILY, (Reported) Polyethylene Glycol 3350 17 Gm Powd.pack, 17 GM PO DAILY PRN for CONSTIPATION- 2ND LINE, (Reported) Topiramate 25 Mg Tablet, 25 MG PO BID, (Reported) Varenicline Tartrate 1 Mg Tablet, 1 MG PO BID PRN for NICOTINE CRAVINGS, (Reported) [Magic Mouthwash] , 5 ML PO QID PRN for MOUTH SORES, (Reported) SWISH AND SWALLOW Past Xsdlqrm-Psangu-Gxibjh Hx Patient Social History Alcohol Use: Denies Use Recreational Drug Use: No Smoking Status: Former Smoker Type Used: Cigarettes Former Smoker, Quit: January 09, 2019 2nd Hand Smoke Exposure: Yes Recent Foreign Travel: No Contact w/Someone Who Travel: No Recent Infectious Disease Expo: No Recent Hopitalizations: Yes (January-[facility] LUNG BX) Physical Abuse: No Sexual Abuse: No Mistreated: No Fear: No Seasonal Allergies Seasonal Allergies: No Past Medical History Surgeries: Yes (LUNG BX, CERVIX REMOVED IN 'S, SKIN CANCER REMOVED, BUNIONECTOMY, ) Respiratory: Yes (LUNG CANCER) COPD Cardiac: Yes High Cholesterol, Hypertension Neurological: Yes Headaches /Migraines Sexually Transmitted Disease: No HIV/AIDS: No Genitourinary: No Gastrointestinal: No Musculoskeletal: Yes Arthritis Endocrine: No HEENT: Yes (READING GLASSES, DENTURES) Loss of Vision: Bilateral Hearing Impairment: Denies Cancer: Yes Lung, Skin Did You Recieve Any Treatments: Yes What Type of Treatment Did You: Surgical Intervention Psychosocial: Yes Depression Integumentary: No Blood Disorders: No Adverse Reaction/Blood Tranf: No (N/A) Review of Systems Time Seen by Provider: 08:26 Constitutional: Fever, Chills, Sweats, Weakness, Malaise, Other Eyes: No: Pain, Vision change, Conjunctivae inflammation, Eyelid inflammation, Other, Redness ENT: Nose congestion; No: Ear pain, Ear discharge, Nose pain, Nose discharge, Mouth pain, Mouth swelling, Throat pain, Throat swelling, Other Respiratory: Cough, Dry, Shortness of breath, SOB with excertion Cardiovascular: Chest Pain, Orthopnea, Paroxysmal Noc. Dyspnea, Lt Headedness Gastrointestinal: Nausea, Vomiting; No: Abdominal Pain Sepsis Event Evaluation Height, Weight, BMI Height: 5'6.00" Weight: 172lbs. 2.0oz. 78.992952rf; 29.8 BMI Method:Stated Exam Exam Vital Signs Date Time Temp Pulse Resp B/P (MAP) Pulse Ox O2 Delivery O2 Flow Rate FiO2 03/27/19 12:44 101.0 105 20 105/68 96 Nasal Cannula 03/27/19 11:15 104.4 123 20 114/69 (84) 97 Nasal Cannula 2.00 2.00 03/27/19 11:14 97 Nasal Cannula 2.00 03/27/19 11:08 104.4 123 20 114/69 (84) 97 Nasal Cannula 2.00 03/27/19 11:02 104.4 Height & Weight Height: 5'6.00" Weight: 172lbs. 2.0oz. 78.416600af; 29.8 BMI Method:Stated General Appearance: Anxious, Chronically ill, Moderate Distress HEENT: PERRL/EOMI, Pharynx Normal Neck: Full Range of Motion, Non Tender, Supple Respiratory: Chest Non Tender, No Accessory Muscle Use, No Respiratory Distress, Crackles, Decreased Breath Sounds Cardiovascular: Regular Rate, Rhythm, No Edema Capillary Refill: Less Than 3 Seconds Gastrointestinal: normal bowel sounds, non tender, soft Extremity: Normal Capillary Refill, No Pedal Edema Neurologic/Psychiatric: Alert, Oriented x3, Depressed Affect Skin: Normal Color, Warm/Dry Lymphatic: No Adenopathy Results Lab Laboratory Tests 03/27/19 10:35 Assessment/Plan Assessment/Plan Sepsis -Qiu cultures. With one blood culture from [facility] Metastatic lung SCC - currently on palliative chemotherapy -last chemo 03/27 Elevated LEFTs and bili -Check abd US NATASHA HANLEY DO Mar 27, 2019 14:19
[2019-03-27] MEDS ORDERED: VANCOMYCIN 1500 MG/NS 500 ML IVPB IV NR ×2 (14:30)
[2019-03-27] MEDS ORDERED: NS IV ONE (14:30)
[2019-03-27] MEDS ORDERED: PIPERACILLIN/TAZO 4.5 GM/NS 100 ML IV NR ×2 (14:30)
[2019-03-27] MEDS ORDERED: PHARMACY TO DOSE IV SCH (14:30)
--- NOTE | 2019-03-27 14:30 | NUR ---
Normal saline 2 liter bolus completed in ed so it was non admin on by this nurse due to duplicate order
[2019-03-27] MEDS ORDERED: IBUPROFEN 600 MG (MOTRIN) TAB PO PRN (14:45)
--- NOTE | 2019-03-27 14:54 | History & Physical-Hospitalist ---
History of Present Illness HPI/Chief Complaint Chief complaint: Fever and shortness of breath History of present illness: This is a 63-year-old white female clinic patient of Dr. Ritter and Dr. Cabrera who recently was diagnosed with lung cancer with metastasis and started on chemotherapy yesterday who presented to the ER with fever of 104 shortness of breath and confusion. She was found to have hypotension and everything consistent with septic shock so she was placed on broad-spectrum antibiotics of vancomycin and Zosyn and aggressive IV fluids and Dr. Mooney will be consulted. She has suffered some bradycardia requiring cardiology consultation. I have restarted most of her home medications that do not alter hypotension. Pressor therapy will be used if IV fluids do not increase blood pressure. Source: patient Exam Limitations: clinical condition Date Seen 03/27/19 Time Seen by a Provider: 13:00 Attending Physician Teresa Joshi Lisa A MD Referring Physician Date of Admission Mar 27, 2019 at 13:16 Home Medications & Allergies Home Medications Reviewed patient Home Medication Reconciliation performed by pharmacy medication reconciliations geotechnical engineering technician and/or nursing. Patients Allergies have been reviewed. Allergies Allergies Coded Allergies No Known Drug Allergies (Unverified01/30/19) Past Eqtgalr-Ouokub-Hjwhog Hx Past Med/Social Hx: Reviewed Nursing Past Med/Soc Hx, Reviewed and Corrections made Patient Social History Marrital Status: single Employed/Student: unemployed Alcohol Use: Denies Use Recreational Drug Use: No Smoking Status: Former Smoker (quit January 2019) Former Smoker, Quit: January 09, 2019 Type Used: Cigarettes 2nd Hand Smoke Exposure: Yes Recent Foreign Travel: No Contact w/other who traveled: No Recent Hopitalizations: Yes (January-[facility] LUNG BX) Recent Infectious Disease Expo: No Seasonal Allergies Seasonal Allergies: No Past Medical History Cardiac: High Cholesterol, Hypertension Neurological: Headaches /Migraines Sexually Transmitted Disease: No HIV/AIDS: No Musculoskeletal: Arthritis Loss of Vision: Bilateral Hearing Impairment: Denies Cancer: Lung, Skin Did You Recieve Any Treatments: Yes What Type of Treatment Did You: Surgical Intervention Psychosocial: Depression History of Blood Disorders: No Adverse Reaction to Blood Contreras: No (N/A) Family History Patient reports no known family medical history. Review of Systems Constitutional: see HPI, fever, malaise, weakness EENTM: no symptoms reported Respiratory: cough, dyspnea on exertion Gastrointestinal: loss of appetite, nausea Psychiatric/Neurological: Anxiety, Depressed All Other Systems Reviewed Negative Unless Noted: Yes Physical Exam Physical Exam Vital Signs Vital Signs - First Documented 03/27/19 03/27/19 11:02 11:08 Temp 104.4 Pulse 123 Resp 20 B/P (MAP) 114/69 (84) Pulse Ox 97 O2 Delivery Nasal Cannula O2 Flow Rate 2.00 Capillary Refill : Less Than 3 SecondsLess Than 3 Seconds Height, Weight, BMI Height: 5'5.00" Weight: 164lbs. 0.0oz. 74.010470oh; 27.3 BMI Method:Stated General Appearance: WD/WN, Anxious, Chronically ill, Moderate Distress Eyes: Right Eye Normal Inspection, Right Eye PERRL HEENT: PERRL/EOMI, Normal ENT Inspection, Pharynx Normal, Moist Mucous Membranes Neck: Full Range of Motion, Normal Inspection, Non Tender Respiratory: Chest Non Tender, No Respiratory Distress, Accessory Muscle Use, Crackles, Decreased Breath Sounds Cardiovascular: Regular Rate, Rhythm, No Edema, No Gallop, No JVD, No Murmur, Normal Peripheral Pulses Gastrointestinal: Normal Bowel Sounds, No Organomegaly, No Pulsatile Mass, Non Tender, Soft Back: Normal Inspection, No CVA Tenderness, No Vertebral Tenderness Extremity: Normal Capillary Refill, Normal Inspection, Normal Range of Motion, Non Tender, No Calf Tenderness, No Pedal Edema Neurologic/Psychiatric: Alert, Oriented x3, No Motor/Sensory Deficits, Normal Mood/Affect, train master II-XII Norm as Tested, Disoriented Skin: Normal Color, Warm/Dry Lymphatic: No Adenopathy Results Results/Procedures Labs Laboratory Tests 03/27/19 10:35 Patient resulted labs reviewed. Assessment/Plan Admission Diagnosis Assessment: Septic shock Presumed pneumonia Lung cancer on chemotherapy Neutropenia Anemia Lethargy with confusion Plan: ICU admission Dr. Mooney consultation Oncology consultation Monitor closely Admission Status: Inpatient Order (span 2 midnights) Reason for Inpatient Admission: Septic shock Diagnosis/Problems Diagnosis/Problems (1) Febrile neutropenia Status: Acute (2) Pneumonia Status: Acute (3) Lung cancer Status: Chronic Qualifiers: Laterality: right Lung location: unspecified part of lung Qualified Codes: C34.91 - Malignant neoplasm of unspecified part of right bronchus or lung Clinical Quality Measures DVT/VTE Risk/Contraindication: Risk Factor Score Per Nursin RFS Level Per Nursing on Admit: 3=High JOSHI,TERESA DO Mar 27, 2019 14:54
[2019-03-27] MEDS ORDERED: FAMO20TA5 PO (15:40)
[2019-03-27] MEDS ORDERED: POLY17PO6 PO (15:47)
[2019-03-27] MEDS ORDERED: MORP100S3 PO (15:47)
[2019-03-27] MEDS ORDERED: VARE1TAB22 PO (15:47)
[2019-03-27] MEDS ORDERED: ATOR10TA66 PO (15:47)
[2019-03-27] MEDS ORDERED: MAGIC MOUTHWASH PO (15:52)
--- NOTE | 2019-03-27 15:52 | NUR ---
SPOKE WITH THE PATIENT ABOUT HER MEDICATIONS. WE WENT OVER THE EXT MED HX AND SHE VERIFIED HOW SHE TAKES THEM. SHE STATES SHE IS NO LONGER TAKING THE DEXAMETHASONE OR USING THE SILVER SULFADIAZINE CREAM. HER PEPCID 20MG WAS FILLED BID HOWEVER SHE STATES SHE TAKES 2 TABS IN THE MORNING. HER METOPROLOL ER 50MG WAS FILLED #45 FOR 30 DAYS HOWEVER SHE STATES SHE ONLY TAKES 1 DAILY. SHE LAST FILLED CHANTIX 1MG #56 01-09-19 ACCORDING TO THE EXT MED HX. SHE STATES SHE FILLED IT IN THE PAST AND DID NOT FINISH IT BUT HAS RECENTLY STARTED IT AGAIN BECAUSE HER CRAVINGS HAVE STARTED AGAIN. SHE TAKES THE FOLLOWING OTC: COLACE 3 DAILY NICOTINE PATCH 21MG DAILY MIRALAX PRN
[2019-03-27] MEDS ORDERED: NON-FORMULARY MEDICATION 1 EA EA (Varenicline Tartrate (Chantix) 1 MG) PO PRN (16:45)
[2019-03-27] MEDS ORDERED: NON-FORMULARY MEDICATION 1 EA EA ([Magic Mouthwash] 5 ML) PO PRN (16:45)
[2019-03-27] MEDS ORDERED: MAGIC MOUTHWASH (ADULT) PO PRN ×4 (17:00)
[2019-03-27] MEDS: NS IV 1000 ML 1,000 ML IV SCH ×2 (17:18→18:35)
--- NOTE | 2019-03-27 17:35 | NUR ---
contacted dr morton regarding bradycardia. new orders to continue to hold home metoprolol and obtain echo in am. order completed.
--- NOTE | 2019-03-27 20:33 | Consultation ---
History of Present Illness History of Present Illness Patient Consulted On(mallory/time) 03/27/19 20:28 Date Seen by Provider: Mar 27, 2019 Time Seen by Provider: 20:28 History of Present Illness Ms. Ulloa is a 63 yo female with metastatic SCC of the RUL lung who was admitted with severe sepsis of unclear source. Patient had been receiving chemoimmunotherapy for her cancer and had just started a new regimen of carboplatin, paclitaxel and pembrolizumab on 03/18/19, after having finished a course of chemoradiation on 02/21/19. Patient's family called in to clinic this morning reporting the patient was warm to the touch, having chills and slowed mentation. She was instructed to take the patient immediately to the ED. Patient was found to have a fever of 104 F and systolic BP of 87. She was admitted to the ICU and put on pressors. She is somnolent but easily aroused and answers questions appropriately. She reports nausea and persistent chest pains, which had been present since her diagnosis. Chest pain somewhat improved after palliative radiotherapy. Allergies and Home Medications Allergies Coded Allergies: No Known Drug Allergies (Unverified , 01/30/19) Home Medications Atorvastatin Calcium 10 Mg Tablet, 10 MG PO DAILY, (Reported) Docusate Sodium 100 Mg Tablet, 300 MG PO DAILY, (Reported) Famotidine 20 Mg Tablet, 40 MG PO DAILY, (Reported) TAKES 2 (20MG) TABLETS Metoprolol Succinate 50 Mg Tab.er.24h, 50 MG PO DAILY, (Reported) Morphine Sulfate 100 Mg/5 Ml Solution, 15 MG PO Q4H PRN for PAIN-SEVERE, (Reported) Nicotine 1 Each Patch.td24, 21 MG TD DAILY, (Reported) Polyethylene Glycol 3350 17 Gm Powd.pack, 17 GM PO DAILY PRN for CONSTIPATION- 2ND LINE, (Reported) Topiramate 25 Mg Tablet, 25 MG PO BID, (Reported) Varenicline Tartrate 1 Mg Tablet, 1 MG PO BID PRN for NICOTINE CRAVINGS, (Reported) [Magic Mouthwash] , 5 ML PO QID PRN for MOUTH SORES, (Reported) SWISH AND SWALLOW Patient Home Medication List Home Medication List Reviewed: Yes Past Cxflztn-Wmnapo-Uvgeye Hx Patient Social History Alcohol Use: Denies Use Recreational Drug Use: No Smoking Status: Former Smoker Type Used: Cigarettes Former Smoker, Quit: January 09, 2019 2nd Hand Smoke Exposure: Yes Recent Foreign Travel: No Contact w/Someone Who Travel: No Recent Infectious Disease Expo: No Recent Hopitalizations: Yes (January-[facility] LUNG BX) Physical Abuse: No Sexual Abuse: No Mistreated: No Fear: No Seasonal Allergies Seasonal Allergies: No Past Medical History Surgeries: Yes (LUNG BX, CERVIX REMOVED IN 80'S, SKIN CANCER REMOVED, BUNIONECTOMY, ) Respiratory: Yes (LUNG CANCER) COPD Cardiac: Yes High Cholesterol, Hypertension Neurological: Yes Headaches /Migraines Sexually Transmitted Disease: No HIV/AIDS: No Genitourinary: No Gastrointestinal: No Musculoskeletal: Yes Arthritis Endocrine: No HEENT: Yes (READING GLASSES, DENTURES) Loss of Vision: Bilateral Hearing Impairment: Denies Cancer: Yes Lung, Skin Did You Recieve Any Treatments: Yes What Type of Treatment Did You: Surgical Intervention Psychosocial: Yes Depression Integumentary: No Blood Disorders: No Adverse Reaction/Blood Tranf: No (N/A) Family Medical History Patient reports no known family medical history. Review of Systems-General Constitutional: chills, fever, malaise, weakness EENTM: no symptoms reported Respiratory: no symptoms reported Cardiovascular: no symptoms reported Gastrointestinal: nausea Genitourinary: no symptoms reported Musculoskeletal: no symptoms reported Skin: no symptoms reported Psychiatric/Neurological: No Symptoms Reported Physical Exam-General Problems Physical Exam Vital Signs Vital Signs - First Documented 03/27/19 03/27/19 11:02 11:08 Temp 104.4 Pulse 123 Resp 20 B/P (MAP) 114/69 (84) Pulse Ox 97 O2 Delivery Nasal Cannula O2 Flow Rate 2.00 Capillary Refill : Less Than 3 SecondsLess Than 3 Seconds General Appearance: WD/WN, no apparent distress Eyes: Bilateral Eye Normal Inspection, Bilateral Eye PERRL, Bilateral Eye EOMI HEENT: PERRL/EOMI, normal ENT inspection, pharynx normal Neck: supple, normal inspection Respiratory: chest non-tender, lungs clear, normal breath sounds, no respiratory distress, no accessory muscle use Cardiovascular: no edema, no gallop, no murmur, bradycardia Peripheral Pulses: 2+ Radial Pulses (L) Gastrointestinal: normal bowel sounds, non tender, soft, no organomegaly Extremities: non-tender, normal inspection, no pedal edema, no calf tenderness Neurologic/Psychiatric: normal mood/affect, oriented x 3, other (somnolent) Skin: normal color, warm/dry Assessment/Plan Assessment/Plan Admission Diagnosis/Plan 63 yo female with metastatic SCC of the lung on palliative chemotherapy was admitted with severe sepsis secondary to unclear source of infection. She is being treated with broad spectrum antibiotics and has required norepinephrine for blood pressure support. 1. Sepsis. Patient is on the second week of her chemotherapy cycle and should be in the nataliya of her blood counts, but fortunately she has been able to mount a significant enough immune response to elevate her neutrophil count to normal levels. If her ANC drops, we will need to give her filgrastim to maintain her white count. We will await microbiology studies, but UA was unremarkable and CXR was not able to tell us much given the large lung mass. 2. Lung cancer. We are not sure how well her tumor has responded to therapy since she has not yet even had her first set of restaging scans, and she has only had one treatment of immunotherapy. Even with chemotherapy alone, non- small cell lung cancer patients have longevity around 10-12 months. With immunotherapy, it is possible to attain disease control >12 months. 3. Intermittent bradycardia. Agree with consultation of cardiology. Could be manifestation of end organ damage from sepsis but it is unknown if she has coronary disease. Her chest pain has always been attributed to her lung mass, but pain has not responded very well to chemo and radiation. A cardiovascular workup has never been pursued before. Thank you for allowing me to participate in the care of Ms. Ulloa. Will continue to follow. Clinical Quality Measures DVT/VTE Risk/Contraindication: Risk Factor Score Per Nursin RFS Level Per Nursing on Admit: 3=High Results Labs Labs Laboratory Tests 03/27/19 10:35: White Blood Count 1.8L, Red Blood Count 4.03L, Hemoglobin 11.3L, Hematocrit 37, Mean Corpuscular Volume 91, Mean Corpuscular Hemoglobin 28, Mean Corpuscular He moglobin Concent 31L, Red Cell Distribution Width 20.1H, Platelet Count 88L, Mean Platelet Volume 11.2H, Neutrophils (%) (Auto) 94H, Lymphocytes (%) (Auto) 5L, Monocytes (%) (Auto) 2, Eosinophils (%) (Auto) 0, Basophils (%) (Auto) 0, Neutrophils # (Auto) 1.7L, Lymphocytes # (Auto) 0.1L, Monocytes # (Auto) 0.0, Eosinophils # (Auto) 0.0, Basophils # (Auto) 0.0, Neutrophils % (Manual) 2, Lymphocytes % (Manual) 3, Band Neutrophils 5, Hypersegmented Neutrophils SLIGHT, Toxic Granulation 1+, Dohle Bodies SLIGHT, Polychromasia SLIGHT, Poikilocytosis SLIGHT, Anisocytosis MODERATE, Microcytosis SLIGHT, Macrocytosis SLIGHT, Spherocytes SLIGHT, Prothrombin Time 17.9H, INR Comment 1.4, Activated Partial Thromboplast Time 40H, Sodium Level 133L, Potassium Level 3.2L, Chloride Level 98, Carbon Dioxide Level 24, Anion Gap 11, Blood Urea Nitrogen 12, Creatinine 0.62, Estimat Glomerular Filtration Rate > 60, BUN/Creatinine Ratio 19, Glucose Level 148H, Lactic Acid Level 2.21*H, Calcium Level 8.9, Corrected Calcium 9.5, Total Bilirubin 1.4H, Aspartate Amino Transf (AST/SGOT) 164H, Alanine Aminotransferase (ALT/SGPT) 86H, Alkaline Phosphatase 227H, Total Protein 6.4, Albumin 3.2, Smear Scan 90 03/27/19 11:39: Urine Color AMBERH, Urine Clarity SLIGHTLY CLOUDY, Urine pH 5, Urine Specific Beaver 1.025H, Urine Protein 3+H, Urine Glucose (UA) NEGATIVE, Urine Ketones 1+H, Urine Nitrite NEGATIVE, Urine Bilirubin 2+H, Urine Urobilinogen 4H, Urine Leukocyte Esterase 1+H, Urine RBC (Auto) 4+H, Urine RBC 0-2, Urine WBC 2-5, Urine Squamous Epithelial Cells 10-25H, Urine Crystals PRESENTH, Urine Amorphous Sediment LARGE NAYANA URATESH, Urine Bacteria MODERATEH, Urine Casts NONE, Urine Mucus NEGATIVE, Urine Culture Indicated CULTURE PENDING 03/27/19 13:56: Lactic Acid Level 0.88 Procedures Procedures Plain film chest x-ray 03/27/19 COMPARISON: PET/CT at an outside facility on 01/16/2019. Chest radiograph on 07/31/2016. FINDINGS: Cavitary mass is again seen in the right upper lobe with surrounding opacities throughout the right upper lobe, consistent with findings seen on the outside PET/CT. A left port is visualized with the tip overlying the SVC. No large pleural effusion or pneumothorax. Normal cardiac silhouette. No acute osseous abnormalities. IMPRESSION: Cavitary mass in the right upper lobe with surrounding opacities, consistent with the patient's history of lung cancer. Left port is in appropriate position overlying the SVC. REJI KING MD Mar 27, 2019 20:33
[2019-03-27] MEDS ORDERED: POLYETHYLENE GLYCOL 17 GM (MIRALAX) PACK PO PRN (21:00)
[2019-03-27] MEDS: ONDANSETRON 4 MG/2 ML (SDV) Z0FRAN IV PRN (21:15)
[2019-03-27] MEDS: PIPERACILLIN/TAZOBACTAM (BULK) 4.5 GM in NS (IVPB) 100 ML IV SCH (21:34)
[2019-03-27] MEDS: toPIRamate 25 MG (TOPAMAX) TAB PO SCH (21:38)
[2019-03-27] MEDS ORDERED: LACTATED RINGERS 1,000 ML IV SCH (22:28)
[2019-03-28] VITALS (25 sets, daily range): BP systolic 82–138; BP diastolic 50–102
[2019-03-28] MEDS ORDERED: NS IV 1000 ML 1,000 ML ONE (02:38)
[2019-03-28 02:50] LABS: BASOPHILS % (AUTO) 0 % (0-10); EOSINOPHILS % (AUTO) 0 % (0-10); HEMATOCRIT 36 % (35-52); HEMOGLOBIN 11.1 G/DL (11.5-16.0); LYMPHOCYTES # (AUTO) 0.1 X 10^3 (1.0-4.0); LYMPHOCYTES % (AUTO) 12 % (12-44); MEAN CORPUSCULAR HEMOGLOBIN 28 PG (25-34); MEAN CORPUSCULAR HGB CONC 31 G/DL (32-36); MEAN CORPUSCULAR VOLUME 91 FL (80-99); MEAN PLATELET VOLUME 11.7 FL (7.4-10.4); MONOCYTES % (AUTO) 1 % (0-12); NEUTROPHILS # (AUTO) 0.8 X 10^3 (1.8-7.8); NEUTROPHILS % (AUTO) 87 % (42-75); PLATELET COUNT 65 10^3/uL (130-400); RED CELL DISTRIBUTION WIDTH 19.9 % (10.0-14.5)
[2019-03-28] MEDS: VANCOMYCIN 1 GM/NS 250 ML IVPB IV SCH ×4 (02:51→14:59)
[2019-03-28 03:09] LABS: ALANINE AMINOTRANSFERASE 98 U/L (0-55); ALBUMIN 2.6 GM/DL (3.2-4.5); ALKALINE PHOSPHATASE 205 U/L (40-136); BILIRUBIN,TOTAL 1.4 MG/DL (0.1-1.0); BUN/CREATININE RATIO 25; CALCIUM 7.5 MG/DL (8.5-10.1); CARBON DIOXIDE 24 MMOL/L (21-32); CHLORIDE 109 MMOL/L (98-107); CREATININE SERUM 0.52 MG/DL (0.60-1.30); GFR ESTIMATED > 60; GLUCOSE 108 MG/DL (70-105); MAGNESIUM 1.5 MG/DL (1.8-2.4); PHOSPHORUS 1.6 MG/DL (2.3-4.7); POTASSIUM 3.2 MMOL/L (3.6-5.0); SODIUM 142 MMOL/L (135-145); TOTAL PROTEIN 5.3 GM/DL (6.4-8.2)
[2019-03-28] MEDS: ONDANSETRON 4 MG/2 ML (SDV) Z0FRAN IV PRN ×2 (03:15→10:13)
[2019-03-28] MEDS: POTASSIUM CL 10MEQ/50ML IVPB 50 ML IV SCH ×4 (03:58→04:56)
[2019-03-28] MEDS: MAGNESIUM 1 GM/100 ML IVPB 100 ML IV SCH ×3 (04:03→04:55)
[2019-03-28] MEDS: KCL 20 MEQ TAB (K-DUR) PO SCH (04:06)
[2019-03-28] MEDS ORDERED: PROCHLORPERAZINE 10 MG/2ML INJ (COMPAZINE) IV ONE (05:00)
[2019-03-28] MEDS: PIPERACILLIN/TAZOBACTAM (BULK) 4.5 GM in NS (IVPB) 100 ML IV SCH ×3 (05:29→20:52)
--- NOTE | 2019-03-28 07:08 | Pulmonary Progress Note ---
Subjective Time Seen by a Provider: 08:30 Subjective/Events-last exam Pt complains of nausea Sepsis Event Evaluation Height, Weight, BMI Height: 5'5.00" Weight: 164lbs. 0.0oz. 74.588663ul; 27.3 BMI Method:Stated Focused Exam Lactate Level 03/27/19 10:35: Lactic Acid Level 2.21*H 03/27/19 13:56: Lactic Acid Level 0.88 Exam Exam Vital Signs Date Time Temp Pulse Resp B/P (MAP) Pulse Ox O2 Delivery O2 Flow Rate FiO2 03/28/19 06:00 75 19 118/84 (95) 97 Nasal Cannula 2.00 03/28/19 05:38 74 16 95 Nasal Cannula 2.00 03/28/19 05:00 72 25 110/89 (96) 95 Room Air 03/28/19 04:00 93 Room Air 03/28/19 04:00 87 18 119/79 (92) 93 Room Air 03/28/19 03:00 92 18 134/92 (106) 95 Room Air 03/28/19 02:00 97.0 Room Air 03/28/19 02:00 78 16 104/61 (75) 90 Nasal Cannula 2.00 03/28/19 01:00 80 14 103/76 (85) 93 Nasal Cannula 2.00 03/28/19 01:00 80 03/28/19 00:00 94 Room Air 03/28/19 00:00 80 18 107/79 (88) 92 Nasal Cannula 2.00 03/27/19 23:39 97.2 03/27/19 23:00 82 18 103/74 (84) 93 Nasal Cannula 2.00 03/27/19 22:00 71 16 128/94 (105) 93 Nasal Cannula 2.00 03/27/19 21:00 74 16 113/85 (94) 99 Nasal Cannula 2.00 03/27/19 20:03 71 23 124/90 (101) 99 Nasal Cannula 2.00 03/27/19 20:00 97 Nasal Cannula 3.00 03/27/19 20:00 97.3 03/27/19 19:00 65 18 119/86 (97) 97 Nasal Cannula 2.00 03/27/19 19:00 65 03/27/19 18:00 75 18 119/86 (97) 96 Nasal Cannula 2.00 03/27/19 17:00 77 17 113/74 (87) 97 Nasal Cannula 2.00 03/27/19 16:00 96 Nasal Cannula 3.00 03/27/19 16:00 96.7 03/27/19 15:15 99.2 82 20 107/72 (84) 97 Nasal Cannula 2.00 03/27/19 14:52 97.4 92 24 122/86 (98) 92 Nasal Cannula 2.00 03/27/19 14:43 97.4 92 24 95 Nasal Cannula 2.00 03/27/19 14:26 90 03/27/19 14:25 97 Nasal Cannula 3.00 03/27/19 12:44 101.0 105 20 105/68 96 Nasal Cannula 03/27/19 11:15 104.4 123 20 114/69 (84) 97 Nasal Cannula 2.00 2.00 03/27/19 11:14 97 Nasal Cannula 2.00 03/27/19 11:08 104.4 123 20 114/69 (84) 97 Nasal Cannula 2.00 03/27/19 11:02 104.4 I & O 03/28/19 07:00 Intake Total 6009 ml Output Total 2050 ml Balance 3959 ml Height & Weight Height: 5'5.00" Weight: 164lbs. 0.0oz. 74.885250my; 27.3 BMI Method:Stated General Appearance: Anxious, Mild Distress HEENT: PERRL/EOMI, Pharynx Normal Neck: Full Range of Motion, Non Tender, Supple Respiratory: Chest Non Tender, No Accessory Muscle Use, No Respiratory Distress, Crackles, Decreased Breath Sounds Cardiovascular: Regular Rate, Rhythm, No Edema Capillary Refill: Less Than 3 Seconds Gastrointestinal: non tender, soft, no organomegaly Extremity: Normal Capillary Refill, No Pedal Edema Neurologic/Psychiatric: Alert, Oriented x3 Skin: Normal Color, Warm/Dry Lymphatic: No Adenopathy Results Lab Laboratory Tests 03/27/19 10:35 03/28/19 02:42 Assessment/Plan Assessment/Plan Sepsis -Qiu cultures. With one blood culture from [facility] [place] Metastatic lung SCC - currently on palliative chemotherapy -last chemo 03/27 Elevated LEFTs and bili -Check abd US Nausea -Add phenergan -Check amylase, lipase NATASHA HANLEY DO Mar 28, 2019 07:08
--- NOTE | 2019-03-28 08:02 | Diagnostic Imaging Report ---
Examination: Shortness of breath. Findings: Comparison is 03/27/2019. Opacity in the right apex is unchanged with areas of internal lucency suggestive of cavitation. Port catheter is present through a left subclavian approach with the tip in the superior vena cava. No pleural effusion. Heart size is normal. No pneumothorax. No edema. Impression: 1. Right upper opacification with areas of lucency suggestive of cavitation which is concerning for a malignancy. Dictated by: Dictated on workstation # [id number]
[2019-03-28] MEDS ORDERED: PROMETHAZINE INJ 25 MG/ML (PHENERGAN) AMP IVP PRN (08:30)
[2019-03-28] MEDS ORDERED: SODIUM PHOSPHATE INJ 30 MM in NS (IVPB) 250 ML IV ONE (08:30)
[2019-03-28 08:41] LABS: AMYLASE 26 U/L (25-125); LIPASE 36 U/L (8-78)
[2019-03-28] MEDS: FAMOTIDINE 20 MG (PEPCID) TABLET PO SCH (08:46)
[2019-03-28] MEDS: NICOTINE 21 MG (NICODERM) PATCH TD SCH (10:10)
[2019-03-28] MEDS: toPIRamate 25 MG (TOPAMAX) TAB PO SCH ×2 (10:13→20:52)
--- NOTE | 2019-03-28 10:35 | Progress Note - Hospitalist ---
Subjective HPI/CC On Admission Date Seen by Provider: Mar 28, 2019 Time Seen by Provider: 10:00 Chief complaint: Fever and shortness of breath History of present illness: This is a 63-year-old white female clinic patient of Dr. Ritter and Dr. Cabrera who recently was diagnosed with lung cancer with metastasis and started on chemotherapy yesterday who presented to the ER with fever of 104 shortness of breath and confusion. She was found to have hypotension and everything consistent with septic shock so she was placed on b road-spectrum antibiotics of vancomycin and Zosyn and aggressive IV fluids and Dr. Mooney will be consulted. She has suffered some bradycardia requiring cardiology consultation. I have restarted most of her home medications that do not alter hypotension. Pressor therapy will be used if IV fluids do not increase blood pressure. Subjective/Events-last exam Patient doing much better and blood pressure maintained Nausea has been a problem so we'll add scopolamine patch and any other medication that could possibly help 2 friends at the bedside Checked meds and labs Patient appears to be very fatigued but much improved Review of Systems General: Fatigue Gastrointestinal: Nausea Focused Exam Lactate Level 03/27/19 10:35: Lactic Acid Level 2.21*H 03/27/19 13:56: Lactic Acid Level 0.88 Objective Exam Vital Signs Vital Signs Date Time Temp Pulse Resp B/P (MAP) Pulse Ox O2 Delivery O2 Flow Rate FiO2 03/28/19 11:00 85 19 127/83 (98) 92 Nasal Cannula 2.00 03/28/19 02:00 97.0 Capillary Refill : Less Than 3 SecondsLess Than 3 Seconds General Appearance: No Apparent Distress, WD/WN, Anxious, Chronically ill HEENT: PERRL/EOMI, Pharynx Normal Neck: Full Range of Motion, Non Tender, Supple Respiratory: Chest Non Tender, No Accessory Muscle Use, No Respiratory Distress, Decreased Breath Sounds Cardiovascular: Regular Rate, Rhythm, No Edema Gastrointestinal: Normal Bowel Sounds, No Organomegaly, No Pulsatile Mass, Non Tender, Soft Back: Normal Inspection, No CVA Tenderness, No Vertebral Tenderness Extremity: Normal Capillary Refill, No Pedal Edema Neurologic/Psychiatric: Alert, Oriented x3 Skin: Normal Color, Warm/Dry Lymphatic: No Adenopathy Results/Procedures Lab Laboratory Tests 03/28/19 02:42 Patient resulted labs reviewed. Assessment/Plan Assessment and Plan Assess & Plan/Chief Complaint Assessment: Septic shock Presumed pneumonia Lung cancer on chemotherapy Neutropenia Anemia Lethargy with confusion Nausea Plan: ICU admission Dr. Mooney consultation Oncology consultation Monitor closely Nausea treatment Diagnosis/Problems Diagnosis/Problems (1) Febrile neutropenia Status: Acute (2) Pneumonia Status: Acute (3) Lung cancer Status: Chronic Qualifiers: Laterality: right Lung location: unspecified part of lung Qualified Codes: C34.91 - Malignant neoplasm of unspecified part of right bronchus or lung Clinical Quality Measures DVT/VTE Risk/Contraindication: Risk Factor Score Per Nursin RFS Level Per Nursing on Admit: 3=High ANDREA JOSHI DO Mar 28, 2019 10:35
[2019-03-28] MEDS ORDERED: SCOPOLAMINE 1.5 MG (TRANSDERM-SCOP) PATCH TD PRN (10:45)
--- NOTE | 2019-03-28 10:50 | Consultation-Cardiology ---
HPI-Cardiology Cardiology Consultation: Date of Consultation 03/28/19 Date of Admission Attending Physician Teresa Borjas DO Admitting Physician Vicky Ritter MD Consulting Physician Lana MALDONADO MD HPI: Time Seen by a Provider: 09:15 Chief Complaint: Bradycardia This is a 63-year-old lady who has lung cancer undergoing chemotherapy. She has history of hypertension and hyperlipidemia. She presented to the hospital with complains of fever. She was found to be significantly febrile. She denied any other cardiac complaints especially chest pain, shortness of breath. Review of Systems-Cardiology Review of Systems Constitutional: As described under HPI; No As described under HPI, No no symptoms reported, No chills; fever; No lightheadedness Eyes: No As described under HPI, No no symptoms reported, No blindness, No blurred vision, No contact lenses, No drainage, No decreased acuity, No foreign body sensation, No pain, No vision change Ears/Nose/Throat: No As described under HPI, No no symptoms reported, No chronic hearing loss, No ear discharge, No ear pain, No nasal drainage, No ulcerations Respiratory: No no symptoms reported; As described under HPI; No As described under HPI, No cough, No orthopnea, No shortness of breath, No SOB with excertion Cardiovascular: No no symptoms reported; As described under HPI; No As described under HPI, No chest pain, No edema, No irregular heart rate, No lightheadedness, No palpitations Gastrointestinal: No no symptoms reported, No As described under HPI, No abdomen distended, No abdominal pain, No blood streaked bowels, No constipation, No diarrhea, No nausea, No vomiting, No stool coloration changes Genitourinary: No As described under HPI, No burning, No dysuria, No discharge, No frequency, No flank pain, No hematuria, No urgency : Yes : No Skin: No rash, No skin related problems, No ulcerations Psychiatric/Neurological: No anxiety, No depression, No seizure, No focal weakness, No syncope Hematologic: No bleeding abnormalities All Other Systems Reviewed Negative Unless Noted: Yes FFL-Svodcb-Rmeenh Hx Patient Social History Marrital Status: single Employed/Student: unemployed Alcohol Use: Denies Use Recreational Drug Use: No Smoking Status: Former Smoker (quit January 2019) Type Used: Cigarettes 2nd Hand Smoke Exposure: Yes Recent Foreign Travel: No Recent Infectious Disease Expo: No Hospitalization with Isolation: Denies Past Medical History PMH As described under Assessment. Family Medical History Family History: Patient reports no known family medical history. Allergies and Home Medications Allergies Coded Allergies: No Known Drug Allergies (Unverified , 01/30/19) Home Medications Atorvastatin Calcium 10 Mg Tablet, 10 MG PO DAILY, (Reported) Docusate Sodium 100 Mg Tablet, 300 MG PO DAILY, (Reported) Famotidine 20 Mg Tablet, 40 MG PO DAILY, (Reported) TAKES 2 (20MG) TABLETS Metoprolol Succinate 50 Mg Tab.er.24h, 50 MG PO DAILY, (Reported) Morphine Sulfate 100 Mg/5 Ml Solution, 15 MG PO Q4H PRN for PAIN-SEVERE, (Reported) Nicotine 1 Each Patch.td24, 21 MG TD DAILY, (Reported) Polyethylene Glycol 3350 17 Gm Powd.pack, 17 GM PO DAILY PRN for CONSTIPATION- 2ND LINE, (Reported) Topiramate 25 Mg Tablet, 25 MG PO BID, (Reported) Varenicline Tartrate 1 Mg Tablet, 1 MG PO BID PRN for NICOTINE CRAVINGS, (Reported) [Magic Mouthwash] , 5 ML PO QID PRN for MOUTH SORES, (Reported) SWISH AND SWALLOW Patient Home Medication List Home Medication List Reviewed: Yes Physical Exam-Cardiology Physical Exam Vital Signs/I&O 03/28/19 03/28/19 03/28/19 03/28/19 12:00 12:35 13:00 13:00 Pulse 80 82 86 Resp 13 19 B/P (MAP) 119/79 (92) 108/78 (88) Pulse Ox 91 94 92 O2 Delivery Nasal Cannula Room Air Nasal Cannula O2 Flow Rate 2.00 2.00 03/28/19 03/28/19 03/28/19 03/28/19 14:00 14:46 15:00 16:00 Temp 97.0 Pulse 81 82 87 78 Resp 28 19 B/P (MAP) 116/75 (89) 108/78 (88) 131/80 (97) 117/88 (98) Pulse Ox 93 92 92 93 O2 Delivery Nasal Cannula Room Air Nasal Cannula Nasal Cannula O2 Flow Rate 2.00 2.00 2.00 2.00 2.00 03/28/19 03/28/19 03/28/19 03/28/19 16:15 16:18 17:00 18:00 Temp 97.8 Pulse 80 88 Resp 29 14 B/P (MAP) 126/78 (94) 82/50 (61) Pulse Ox 94 91 95 O2 Delivery Room Air Nasal Cannula Nasal Cannula O2 Flow Rate 2.00 2.00 03/28/19 03/28/19 03/28/19 03/28/19 19:00 19:00 20:00 20:00 Pulse 88 88 98 Resp 16 17 B/P (MAP) 127/102 (110) 116/83 (94) Pulse Ox 96 94 O2 Delivery Nasal Cannula Room Air Nasal Cannula O2 Flow Rate 2.00 2.00 03/28/19 03/28/19 03/28/19 20:00 21:00 22:00 Temp 98.2 Pulse 82 74 Resp 16 17 B/P (MAP) 138/88 (105) 132/83 (99) Pulse Ox 96 93 O2 Delivery Nasal Cannula Nasal Cannula O2 Flow Rate 2.00 2.00 03/28/19 00:00 Intake Total 5099 ml Output Total 650 ml Balance 4449 ml Capillary Refill : Less Than 3 SecondsLess Than 3 Seconds Constitutional: appears stated age, AAO x 3; No apparent distress; well- developed, well-nourished HEENT: PERRL; No normal ENT inspection, No TMs normal, No pharynx normal, No scleral icterus (R), No scleral icterus (L), No pale conjunctivae (R), No pale conjunctivae (L), No photophobia, No TM abnormal (R), No TM abnormal (L), No pharyngeal erythema, No tonsillar exudate, No other, No discharge, No EOMI; hearing is well preserved; No hard of hearing; oral hygience is good; No ulceration, No xanthelasmas are seen Neck: No non-tender, No full range of motion, No supple, No normal inspection, No carotid bruit, No limited range of motion, No lymphadenopathy (R), No lymphadenopathy (L), No tender lateral, No tender midline, No thyromegaly, No other; carotid pulses are 2 + bilaterally; No with good upstrokes Respiratory: No accessory muscle use, No respiratory distress, No chest tender, No chest expansion is symmetric; chest is bilaterally symmetric; No lungs clear to percussion; lungs clear to auscultation; No crackles, No rhonchi, No rales, No stridor, No wheezing, No pleural rub, No other Cardiovascular: regular rate-rhythm; No irregularly irregular, No extra beats, No parasternal heave is noted, No JVD, No edema, No bradycardia, No tachycardia, No point of maximal impulse, No cardiac thrills are palpable; S1 and S2; No gallop/S3, No gallop/S4, No diastolic murmur, No systolic murmur, No friction rub, No click, No other Gastrointestinal: No tender, No soft, No round, No distended, No pulsatile mass, No organomegaly, No guarding, No rebound, No tenderness, No hernia, No mass, No audible bowel sounds, No abnormal bowel sounds, No abdominal bruits, No spleenomegaly, No other Rectal: deferred Extremities: No normal range of motion, No non-tender, No normal inspection, No pedal edema, No calf tenderness, No normal capillary refill, No pelvis stable, No calf tenderness, No inflammation, No pedal edema, No slow capillary refill, No swelling, No other, No abrasion, No clubbing, No cyanosis, No ecchymosis, No laceration, No no lower extremity edema bilateral, No significant edema, No tenderness, No wound Neurologic/Psychiatric: no motor/sensory deficits, alert, normal mood/affect, oriented x 3, power is 5/5 both on sides Skin: No rash, No ulcerations Data Review Labs Laboratory Tests 03/28/19 02:42: White Blood Count 1.0*L, Red Blood Count 3.93L, Hemoglobin 11.1L, Hematocrit 36, Mean Corpuscular Volume 91, Mean Corpuscular Hemoglobin 28, Mean Corpuscular Hemoglobin Concent 31L, Red Cell Distribution Width 19.9H, Platelet Count 65L, Mean Platelet Volume 11.7H, Neutrophils (%) (Auto) 87H, Lymphocytes (%) (Auto) 12, Monocytes (%) (Auto) 1, Eosinophils (%) (Auto) 0, Basophils (%) (Auto) 0, Ne utrophils # (Auto) 0.8L, Lymphocytes # (Auto) 0.1L, Monocytes # (Auto) 0.0, Eosinophils # (Auto) 0.0, Basophils # (Auto) 0.0, Sodium Level 142, Potassium Level 3.2L, Chloride Level 109H, Carbon Dioxide Level 24, Anion Gap 9, Blood Urea Nitrogen 13, Creatinine 0.52L, Estimat Glomerular Filtration Rate > 60, BUN/Creatinine Ratio 25, Glucose Level 108H, Calcium Level 7.5L, Corrected Calcium 8.6, Phosphorus Level 1.6L, Magnesium Level 1.5L, Total Bilirubin 1.4H, Aspartate Amino Transf (AST/SGOT) 126H, Alanine Aminotransferase (ALT/SGPT) 98H, Alkaline Phosphatase 205H, Total Protein 5.3L, Albumin 2.6L, Amylase Level 26, Lipase 36 Microbiology 03/27/19 Blood Culture - Preliminary, Resulted No growth 03/28/19 C. difficile GDH Antigen & Toxins - Final, Complete 03/27/19 MRSA Screen - Final, Complete MRSA not isolated 03/27/19 Urine Culture - Final, Complete 3 or more isolates A/P-Cardiology Assessment/Admission Diagnosis Neutropenic fever, Severe sepsis, Bradycardia, Mild CAD, Anemia, Electrolyte abnormalities, Elevated LFTs Plan Neutropenic fever, Broad spectrum IV antibiotics. Severe sepsis, IV fluids. Bradycardia, Likely due to toprol xl and severe sepsis. However, will recommend ruling out lyme disease and myxedema coma. Recommend Echo. Mild CAD, Coronary angiography 07/2016 shows mild LAD, RCA. Echocardiogram: 07/2016 - normal LVEF, no significant valvular heart disease. Anemia, Electrolyte abnormalities, Elevated LFTs Thank you for your consultation. Please call me if you have any questions. Benjamin Maldonado MD, FACP, FACC, FSCAI, FHRS, CCDS Interventional Cardiology Cardiac Electrophysiology Vascular Medicine and Endovascular Interventions Clinical Quality Measures DVT/VTE Risk/Contraindication: Risk Factor Score Per Nursin RFS Level Per Nursing on Admit: 3=High Lana MALDONADO MD Mar 28, 2019 10:50
[2019-03-28] MEDS: DOCUSATE SODIUM 100 MG (COLACE) CAP PO SCH (11:05)
[2019-03-28] MEDS: NICOTINE PATCH REMOVAL TP SCH (11:05)
[2019-03-28] MEDS: METOCLOPRAMIDE INJ 10 MG/2 ML (REGLAN) IVP SCH ×4 (11:15→23:38)
[2019-03-28] MEDS: LACTATED RINGERS 1,000 ML IV SCH ×2 (14:59→21:46)
[2019-03-28] MEDS: NOREPINEPHRINE 4 MG in NS (IVPB) 250 ML IV SCH (16:13)
--- NOTE | 2019-03-28 17:52 | Progress Note ---
Standard Progress Note Progress Notes/Assess & Plan Date Seen by a Provider: Mar 28, 2019 Time Seen by a Provider: 17:42 Progress/Assessment & Plan 63 yo female with metastatic SCC of the lung on palliative chemotherapy was admitted with severe sepsis secondary to unclear source of infection. She is being treated with broad spectrum antibiotics and required norepinephrine for blood pressure support. Patient is alert and oriented this afternoon. She has been off of pressors today, and there have been no further episodes of bradycardia. Her chest pain is mostly resolved except for some intermittent twinges. She still has quite a bit of malaise. Nausea is her worst symptom currently. 1. Sepsis, resolving. Patient is on the second week of her chemotherapy cycle and ANC has begun to nataliya. However, she has improved significantly overnight, so we will not need to provide any growth factors to improve her white count. Growth factors have been known to improve white count and reduce length of stay, but it has not been shown to improve mortality, and it is rarely associated with precipitation of ARDS; avoid using G-CSF if possible. Still no clear source of infection. Microbiology studies negative so far. C diff antigen negative. CXR unchanged. 2. Lung cancer. We are not sure how well her tumor has responded to therapy since she has not yet even had her first set of restaging scans, and she has only had one treatment of immunotherapy. Even with chemotherapy alone, non- small cell lung cancer patients have longevity around 10-12 months. With immunotherapy, it is possible to attain disease control >12 months. 3. Intermittent bradycardia, resolved. Likely manifestation of severe sepsis. Thank you for allowing me to participate in the care of Ms. Ulloa. Will continue to follow. Focused Exam Lactate Level 03/27/19 10:35: Lactic Acid Level 2.21*H 03/27/19 13:56: Lactic Acid Level 0.88 REJI KING MD Mar 28, 2019 17:52
[2019-03-28] MEDS: ONDANSETRON 4 MG/2 ML (SDV) Z0FRAN IVP PRN (19:54)
[2019-03-28] MEDS: morphine (ROXINOL) 10 MG/0.5 ML oral conc 0.5 ML PO PRN (20:52)
[2019-03-28] MEDS ORDERED: MELATONIN 3 MG TABLET PO SCH (22:15)
[2019-03-28] MEDS ORDERED: QUEtiapine 100 MG (SEROquel) TAB IMMEDIATE RELEASE PO ONE (22:15)
[2019-03-28] MEDS ORDERED: MELATONIN 3 MG TABLET PO ONE (22:30)
[2019-03-28] MEDS ORDERED: QUEtiapine 25 MG (SEROquel) TAB IMMEDIATE RELEASE PO ONE (22:30)
[2019-03-29] VITALS (24 sets, daily range): BP systolic 102–149; BP diastolic 72–113
[2019-03-29] MEDS: NOREPINEPHRINE 4 MG in NS (IVPB) 250 ML IV SCH ×3 (01:57→17:27)
[2019-03-29] MEDS: VANCOMYCIN 1 GM/NS 250 ML IVPB IV SCH ×4 (01:58→14:54)
[2019-03-29 03:54] LABS: BASOPHILS % (AUTO) 0 % (0-10); EOSINOPHILS % (AUTO) 0 % (0-10); HEMATOCRIT 32 % (35-52); HEMOGLOBIN 9.9 G/DL (11.5-16.0); LYMPHOCYTES # (AUTO) 0.3 X 10^3 (1.0-4.0); LYMPHOCYTES % (AUTO) 28 % (12-44); MEAN CORPUSCULAR HEMOGLOBIN 28 PG (25-34); MEAN CORPUSCULAR HGB CONC 31 G/DL (32-36); MEAN CORPUSCULAR VOLUME 89 FL (80-99); MEAN PLATELET VOLUME 11.3 FL (7.4-10.4); MONOCYTES % (AUTO) 5 % (0-12); NEUTROPHILS # (AUTO) 0.6 X 10^3 (1.8-7.8); NEUTROPHILS % (AUTO) 67 % (42-75); RED CELL DISTRIBUTION WIDTH 19.4 % (10.0-14.5)
[2019-03-29 04:05] LABS: WHITE BLOOD COUNT 0.9 10^3/uL (4.3-11.0)
[2019-03-29 04:06] LABS: PLATELET COUNT 37 10^3/uL (130-400)
[2019-03-29 04:15] LABS: ALANINE AMINOTRANSFERASE 65 U/L (0-55); ALBUMIN 2.6 GM/DL (3.2-4.5); ALKALINE PHOSPHATASE 169 U/L (40-136); BUN/CREATININE RATIO 11; CALCIUM 7.9 MG/DL (8.5-10.1); CARBON DIOXIDE 24 MMOL/L (21-32); CHLORIDE 103 MMOL/L (98-107); CREATININE SERUM 0.44 MG/DL (0.60-1.30); GFR ESTIMATED > 60; GLUCOSE 90 MG/DL (70-105); MAGNESIUM 1.5 MG/DL (1.8-2.4); PHOSPHORUS 1.3 MG/DL (2.3-4.7); POTASSIUM 2.7 MMOL/L (3.6-5.0); SODIUM 136 MMOL/L (135-145); TOTAL PROTEIN 4.8 GM/DL (6.4-8.2)
[2019-03-29] MEDS: LACTATED RINGERS 1,000 ML IV SCH ×3 (04:40→17:27)
[2019-03-29] MEDS: PIPERACILLIN/TAZOBACTAM (BULK) 4.5 GM in NS (IVPB) 100 ML IV SCH ×3 (04:40→22:00)
[2019-03-29] MEDS: MAGNESIUM 1 GM/100 ML IVPB 100 ML IV SCH ×5 (05:24→09:27)
[2019-03-29] MEDS: POTASSIUM CL 10MEQ/50ML IVPB 50 ML IV SCH ×9 (05:25→13:20)
[2019-03-29] MEDS: KCL 20 MEQ TAB (K-DUR) PO SCH (05:48)
[2019-03-29] MEDS ORDERED: POTASSIUM PHOSPHATE INJ 30 MM in NS (IVPB) 250 ML IV ONE (06:00)
--- NOTE | 2019-03-29 06:04 | Pulmonary Progress Note ---
Subjective Time Seen by a Provider: 06:04 Subjective/Events-last exam Complains of nausea. Sepsis Event Evaluation Height, Weight, BMI Height: 5'5.00" Weight: 164lbs. 0.0oz. 74.101173lw; 27.3 BMI Method:Stated Focused Exam Lactate Level 03/27/19 10:35: Lactic Acid Level 2.21*H 03/27/19 13:56: Lactic Acid Level 0.88 Exam Exam Vital Signs Date Time Temp Pulse Resp B/P (MAP) Pulse Ox O2 Delivery O2 Flow Rate FiO2 03/29/19 05:28 OxyMask 5.00 03/29/19 05:00 112 20 117/78 (91) 97 OxyMask 8.00 03/29/19 04:23 Nasal Cannula 2.00 03/29/19 04:00 97.4 03/29/19 04:00 91 15 120/76 (91) 91 Room Air 03/29/19 04:00 Room Air 03/29/19 03:00 86 18 120/74 (89) 90 Room Air 03/29/19 02:00 93 17 119/72 (88) 91 Room Air 03/29/19 01:00 90 17 132/80 (97) 91 Room Air 03/29/19 01:00 90 03/29/19 00:00 Room Air 03/29/19 00:00 82 18 127/84 (98) 93 Room Air 03/28/19 23:53 97.4 03/28/19 23:00 106 19 128/83 (98) 93 Room Air 03/28/19 22:00 74 17 132/83 (99) 93 Room Air 03/28/19 21:00 82 16 138/88 (105) 96 Room Air 03/28/19 20:00 98.2 03/28/19 20:00 98 17 116/83 (94) 94 Room Air 03/28/19 20:00 Room Air 03/28/19 19:00 88 16 127/102 (110) 96 Room Air 03/28/19 19:00 88 03/28/19 18:00 88 14 82/50 (61) 95 Nasal Cannula 2.00 03/28/19 17:00 80 29 126/78 (94) 91 Nasal Cannula 2.00 03/28/19 16:18 97.8 03/28/19 16:15 94 Room Air 03/28/19 16:00 78 19 117/88 (98) 93 Nasal Cannula 2.00 03/28/19 15:00 87 28 131/80 (97) 92 Nasal Cannula 2.00 03/28/19 14:46 97.0 82 19 108/78 (88) 92 Room Air 2.00 2.00 03/28/19 14:00 81 28 116/75 (89) 93 Nasal Cannula 2.00 03/28/19 13:00 86 03/28/19 13:00 82 19 108/78 (88) 92 Nasal Cannula 2.00 03/28/19 12:35 94 Room Air 03/28/19 12:00 80 13 119/79 (92) 91 Nasal Cannula 2.00 03/28/19 11:00 85 19 127/83 (98) 92 Nasal Cannula 2.00 03/28/19 10:30 83 20 126/97 (107) 91 Nasal Cannula 2.00 03/28/19 09:00 69 15 123/78 (93) 91 Nasal Cannula 2.00 03/28/19 08:25 94 Room Air 03/28/19 08:00 93 28 98/83 (88) 93 Nasal Cannula 2.00 03/28/19 07:00 87 23 107/76 (86) 96 Nasal Cannula 2.00 03/28/19 07:00 87 03/28/19 06:00 75 19 118/84 (95) 97 Nasal Cannula 2.00 I & O 03/29/19 07:00 Intake Total 3040 ml Output Total 3100 ml Balance -60 ml Height & Weight Height: 5'5.00" Weight: 164lbs. 0.0oz. 74.688267ce; 27.3 BMI Method:Stated General Appearance: No Apparent Distress HEENT: PERRL/EOMI, Pharynx Normal Neck: Full Range of Motion, Supple Respiratory: Chest Non Tender, No Accessory Muscle Use, No Respiratory Distress, Decreased Breath Sounds Cardiovascular: Regular Rate, Rhythm Gastrointestinal: non tender, soft Extremity: Normal Capillary Refill, No Pedal Edema Neurologic/Psychiatric: Alert, Oriented x3 Skin: Normal Color, Warm/Dry Lymphatic: No Adenopathy Results Lab Laboratory Tests 03/27/19 10:35 03/28/19 02:42 03/29/19 03:37 Assessment/Plan Assessment/Plan Sepsis -Qiu cultures. [facility] Metastatic lung SCC - currently on palliative chemotherapy -last chemo 03/27 Elevated LFTs and bili -monitor Nausea -Add Phenergan -Check amylase, lipase Pancytopenia -Monitor NATASHA HANLEY DO Mar 29, 2019 06:04
[2019-03-29] MEDS: METOCLOPRAMIDE INJ 10 MG/2 ML (REGLAN) IVP SCH ×3 (06:28→18:05)
[2019-03-29] MEDS: ONDANSETRON 4 MG/2 ML (SDV) Z0FRAN IVP PRN (07:45)
--- NOTE | 2019-03-29 08:38 | Diagnostic Imaging Report ---
EXAM: CHEST 1 VIEW, AP/PA ONLY INDICATION: Dyspnea. COMPARISON: Chest radiograph 03/28/2019. FINDINGS: Low lung volumes. Normal heart size and central pulmonary vascularity. Persistent air and fluid density in the right lung apex. Left subclavian tunneled port CVC tip upper SVC. No new focal pulmonary opacity. No acute osseous findings. IMPRESSION: Stable exam including air and fluid density in the right lung apex. Dictated by: Dictated on workstation # [id number]
[2019-03-29] MEDS: toPIRamate 25 MG (TOPAMAX) TAB PO SCH ×2 (08:43→21:59)
[2019-03-29] MEDS: FAMOTIDINE 20 MG (PEPCID) TABLET PO SCH (08:43)
[2019-03-29] MEDS: NICOTINE PATCH REMOVAL TP SCH (09:08)
[2019-03-29] MEDS: DOCUSATE SODIUM 100 MG (COLACE) CAP PO SCH (09:09)
[2019-03-29] MEDS: NICOTINE 21 MG (NICODERM) PATCH TD SCH (09:09)
--- NOTE | 2019-03-29 12:02 | Progress Note ---
Standard Progress Note Progress Notes/Assess & Plan Date Seen by a Provider: Mar 29, 2019 Time Seen by a Provider: 11:55 Progress/Assessment & Plan 63 yo female with metastatic SCC of the lung on palliative chemotherapy was admitted with severe sepsis secondary to unclear source of infection. She is being treated with broad spectrum antibiotics and required norepinephrine for blood pressure support on the first day of admission. She has been off pressors for the last 36-48 hours. Patient is sleepy this morning but easily aroused and appropriately responsive. She has episodes of tachycardia when she gets up to use the bathroom. She continues to have a fair bit of nausea but not a lot of pain. 1. Sepsis, resolving. Patient is on the second week of her chemotherapy cycle and ANC is continuing to nataliya, which is expected. As long as she continues to improve, we will not revisit the use of growth factors to support her white count. Still no clear source of infection. Microbiology studies negative so far. C diff antigen negative. CXR unchanged. 2. Lung cancer. We are not sure how well her tumor has responded to therapy since she has not yet even had her first set of restaging scans, and she has only had one treatment of immunotherapy. Even with chemotherapy alone, non- small cell lung cancer patients have longevity around 10-12 months. With immunotherapy, it is possible to attain disease control >12 months. 3. Intermittent bradycardia, resolved. Likely manifestation of severe sepsis. Cardiology following. Thank you for allowing me to participate in the care of Ms. Ulloa. Will continue to follow. Focused Exam Lactate Level 03/27/19 10:35: Lactic Acid Level 2.21*H 03/27/19 13:56: Lactic Acid Level 0.88 REJI KING MD Mar 29, 2019 12:02
[2019-03-29] MEDS ORDERED: TROUGH ORDER-PHARMACY XX NR (13:30)
--- NOTE | 2019-03-29 13:53 | Progress Note - Hospitalist ---
Subjective HPI/CC On Admission Date Seen by Provider: Mar 29, 2019 Time Seen by Provider: 08:30 Chief complaint: Fever and shortness of breath History of present illness: This is a 63-year-old white female clinic patient of Dr. Ritter and Dr. Cabrera who recently was diagnosed with lung cancer with metastasis and started on chemotherapy yesterday who presented to the ER with fever of 104 shortness of breath and confusion. She was found to have hypotension and everything consistent with septic shock so she was placed on b road-spectrum antibiotics of vancomycin and Zosyn and aggressive IV fluids and Dr. Mooney will be consulted. She has suffered some bradycardia requiring cardiology consultation. I have restarted most of her home medications that do not alter hypotension. Pressor therapy will be used if IV fluids do not increase blood pressure. Subjective/Events-last exam patient reports feeling better with no fever or diaphoresis. She denies any bleeding problems is had no abdominal pain and is tolerating solids. Focused Exam Lactate Level 03/27/19 10:35: Lactic Acid Level 2.21*H 03/27/19 13:56: Lactic Acid Level 0.88 Objective Exam Vital Signs Vital Signs Date Time Temp Pulse Resp B/P (MAP) Pulse Ox O2 Delivery O2 Flow Rate FiO2 03/29/19 12:49 81 03/29/19 12:00 97.6 03/29/19 12:00 20 134/88 (103) 93 OxyMask 5.00 Capillary Refill : Less Than 3 SecondsLess Than 3 Seconds General Appearance: No Apparent Distress HEENT: PERRL/EOMI, Pharynx Normal Neck: Full Range of Motion, Supple Respiratory: Chest Non Tender, No Accessory Muscle Use, No Respiratory Distress, Decreased Breath Sounds Cardiovascular: Regular Rate, Rhythm Gastrointestinal: Normal Bowel Sounds, No Organomegaly, No Pulsatile Mass, Non Tender, Soft Extremity: Normal Capillary Refill, No Pedal Edema Neurologic/Psychiatric: Alert, Oriented x3 Skin: Normal Color, Warm/Dry Lymphatic: No Adenopathy Results/Procedures Lab Laboratory Tests 03/29/19 03:37 Patient resulted labs reviewed. Assessment/Plan Assessment and Plan Assess & Plan/Chief Complaint /P1. Probable sepsis cultures negative to date condition improving. 2. Reported squamous cell carcinoma of the lung line 3. Chemotherapy-induced pancytopenia continue broad-spectrum antibiotics and blood count monitoring. No evidence for active bleeding at this time. Thrombocytopenia precludes antiplatelet and anticoagulant therapy. Critical Care Critically Ill Patient Clinical Quality Measures DVT/VTE Risk/Contraindication: Risk Factor Score Per Nursin RFS Level Per Nursing on Admit: 3=High GRISEL BENITEZ MD Mar 29, 2019 13:53
--- NOTE | 2019-03-29 13:56 | Cardiology Progress Note ---
Cardiology SOAP Progress Note Subjective: Patient was sleeping when I saw the patient. Objective: I&O/Vital Signs 03/29/19 03/29/19 03/29/19 03/29/19 02:00 03:00 04:00 04:00 Pulse 93 86 91 Resp 17 18 15 B/P (MAP) 119/72 (88) 120/74 (89) 120/76 (91) Pulse Ox 91 90 91 O2 Delivery Room Air Room Air Room Air Room Air O2 Flow Rate 03/29/19 03/29/19 03/29/19 03/29/19 04:00 04:23 05:00 05:28 Temp 97.4 Pulse 112 Resp 20 B/P (MAP) 117/78 (91) Pulse Ox 97 O2 Delivery Nasal Cannula OxyMask OxyMask O2 Flow Rate 2.00 8.00 5.00 03/29/19 03/29/19 03/29/19 03/29/19 06:00 07:00 07:00 08:00 Pulse 78 82 74 75 Resp 17 17 18 B/P (MAP) 129/86 (100) 132/84 (100) 135/83 (100) Pulse Ox 100 100 98 O2 Delivery OxyMask OxyMask OxyMask O2 Flow Rate 5.00 5.00 5.00 03/29/19 03/29/19 03/29/19 03/29/19 08:00 09:00 10:00 11:00 Pulse 134 113 90 Resp 31 15 B/P (MAP) 135/84 (101) 132/89 (103) 134/88 (103) Pulse Ox 91 93 94 O2 Delivery Room Air OxyMask OxyMask OxyMask O2 Flow Rate 5.00 5.00 5.00 03/29/19 03/29/19 03/29/19 03/29/19 12:00 12:00 12:00 12:49 Temp 97.6 Pulse 78 81 Resp 20 B/P (MAP) 134/88 (103) Pulse Ox 93 O2 Delivery OxyMask Room Air O2 Flow Rate 5.00 03/29/19 00:00 Intake Total 2410 ml Output Total 2300 ml Balance 110 ml Weight (Pounds): 191 Weight (Ounces): 2.0 Weight (Calculated Kilograms): 86.024195 Constitutional: appears stated age, AAO x 3; No apparent distress; well- developed, well-nourished Respiratory: No accessory muscle use, No respiratory distress, No chest tender, No chest expansion is symmetric; chest is bilaterally symmetric; No lungs clear to percussion; lungs clear to auscultation; No crackles, No rhonchi, No rales, No stridor, No wheezing, No pleural rub, No other Cardiovascular: regular rate-rhythm; No irregularly irregular, No extra beats, No parasternal heave is noted, No JVD, No edema, No bradycardia, No tachycardia, No point of maximal impulse, No cardiac thrills are palpable; S1 and S2; No gallop/S3, No gallop/S4, No diastolic murmur, No systolic murmur, No friction rub, No click, No other Gastrointestional: No tender, No soft, No round, No distended, No pulsatile mass, No organomegaly, No guarding, No rebound, No tenderness, No hernia, No mass, No audible bowel sounds, No abnormal bowel sounds, No abdominal bruits, No spleenomegaly, No other Extremities: No normal range of motion, No non-tender, No normal inspection, No pedal edema, No calf tenderness, No normal capillary refill, No pelvis stable, No calf tenderness, No inflammation, No pedal edema, No slow capillary refill, No swelling, No other, No abrasion, No clubbing, No cyanosis, No ecchymosis, No laceration, No no lower extremity edema bilateral, No significant edema, No tenderness, No wound Neurologic/Psychiatric: no motor/sensory deficits, alert, normal mood/affect, oriented x 3, power is 5/5 both on sides Skin: No rash, No ulcerations Results/Procedures: Labs Laboratory Tests 03/29/19 03:37: White Blood Count 0.9*L, Red Blood Count 3.53L, Hemoglobin 9.9L, Hematocrit 32L, Mean Corpuscular Volume 89, Mean Corpuscular Hemoglobin 28, Mean Corpuscular Hemoglobin Concent 31L, Red Cell Distribution Width 19.4H, Platelet Count 37*L, Mean Platelet Volume 11.3H, Neutrophils (%) (Auto) 67, Lymphocytes (%) (Auto) 28, Monocytes (%) (Auto) 5, Eosinophils (%) (Auto) 0, Basophils (%) (Auto) 0, Neutrophils # (Auto) 0.6L, Lymphocytes # (Auto) 0.3L, Monocytes # (Auto) 0.0, Eosinophils # (Auto) 0.0, Basophils # (Auto) 0.0, Sodium Level 136, Potassium Level 2.7L, Chloride Level 103, Carbon Dioxide Level 24, Anion Gap 9, Blood Urea Nitrogen 5L, Creatinine 0.44L, Estimat Glomerular Filtration Rate > 60, BUN/Creatinine Ratio 11, Glucose Level 90, Calcium Level 7.9L, Corrected Calcium 9.0, Phosphorus Level 1.3L, Magnesium Level 1.5L, Total Bilirubin 1.0, Aspartate Amino Transf (AST/SGOT) 50H, Alanine Aminotransferase (ALT/SGPT) 65H, Alkaline Phosphatase 169H, Total Protein 4.8L, Albumin 2.6L 03/29/19 13:20: Microbiology 03/27/19 Blood Culture - Preliminary, Resulted No growth 03/28/19 C. difficile GDH Antigen & Toxins - Final, Complete 03/27/19 MRSA Screen - Final, Complete MRSA not isolated 03/27/19 Urine Culture - Final, Complete 3 or more isolates A/P: Assessment/Dx: Neutropenic fever, Severe sepsis, Bradycardia, Mild CAD, Anemia, Electrolyte abnormalities, Elevated LFTs Plan: Neutropenic fever, Broad spectrum IV antibiotics. Severe sepsis, IV fluids. Bradycardia, Likely due to toprol xl and severe sepsis. No further bradycardia. Mild CAD, Coronary angiography 07/2016 shows mild LAD, RCA. Echocardiogram: 07/2016 - normal LVEF, no significant valvular heart disease. Anemia, Electrolyte abnormalities, Elevated LFTs Thank you for your consultation. Please call me if you have any questions. Benjamin Maldonado MD, FACP, FACC, FSCAI, FHRS, CCDS Interventional Cardiology Cardiac Electrophysiology Vascular Medicine and Endovascular Interventions Focused Exam Lactate Level 03/27/19 10:35: Lactic Acid Level 2.21*H 03/27/19 13:56: Lactic Acid Level 0.88 Lana MALDONADO MD Mar 29, 2019 1:56 pm
[2019-03-29] MEDS: morphine (ROXINOL) 10 MG/0.5 ML oral conc 0.5 ML PO PRN ×2 (14:50→21:59)
[2019-03-29 16:21] LABS: BASOPHILS % (AUTO) 0 % (0-10); EOSINOPHILS % (AUTO) 1 % (0-10); HEMATOCRIT 33 % (35-52); HEMOGLOBIN 10.5 G/DL (11.5-16.0); LYMPHOCYTES # (AUTO) 0.3 X 10^3 (1.0-4.0); LYMPHOCYTES % (AUTO) 27 % (12-44); MEAN CORPUSCULAR HEMOGLOBIN 28 PG (25-34); MEAN CORPUSCULAR HGB CONC 31 G/DL (32-36); MEAN CORPUSCULAR VOLUME 89 FL (80-99); MEAN PLATELET VOLUME 11.8 FL (7.4-10.4); MONOCYTES # (AUTO) 0.1 X 10^3 (0.0-1.0); MONOCYTES % (AUTO) 6 % (0-12); NEUTROPHILS # (AUTO) 0.7 X 10^3 (1.8-7.8); NEUTROPHILS % (AUTO) 66 % (42-75); PLATELET COUNT 45 10^3/uL (130-400); RED CELL DISTRIBUTION WIDTH 19.4 % (10.0-14.5)
--- NOTE | 2019-03-29 16:29 | NUR ---
Vancomycin - Trough = 6.7, increase Vancomycin to 1250mg every 12 hours.
[2019-03-29] MEDS: ACETAMINOPHEN 325 MG TABLET PO PRN (17:32)
[2019-03-29] MEDS: QUEtiapine 25 MG (SEROquel) TAB IMMEDIATE RELEASE PO SCH (21:59)
[2019-03-30] VITALS (14 sets, daily range): BP systolic 87–136; BP diastolic 52–97
[2019-03-30] MEDS: LACTATED RINGERS 1,000 ML IV SCH (02:57)
[2019-03-30] MEDS: NOREPINEPHRINE 4 MG in NS (IVPB) 250 ML IV SCH (02:58)
[2019-03-30] MEDS: VANCOMYCIN 1250 MG/NS 250 ML IVPB IV SCH ×4 (02:58→13:45)
[2019-03-30] MEDS: METOCLOPRAMIDE INJ 10 MG/2 ML (REGLAN) IVP SCH ×5 (02:58→23:02)
[2019-03-30 03:16] LABS: BASOPHILS % (AUTO) 1 % (0-10); EOSINOPHILS % (AUTO) 2 % (0-10); HEMATOCRIT 33 % (35-52); HEMOGLOBIN 10.2 G/DL (11.5-16.0); LYMPHOCYTES # (AUTO) 0.4 X 10^3 (1.0-4.0); LYMPHOCYTES % (AUTO) 40 % (12-44); MEAN CORPUSCULAR HEMOGLOBIN 28 PG (25-34); MEAN CORPUSCULAR HGB CONC 31 G/DL (32-36); MEAN CORPUSCULAR VOLUME 90 FL (80-99); MEAN PLATELET VOLUME 12.4 FL (7.4-10.4); MONOCYTES # (AUTO) 0.1 X 10^3 (0.0-1.0); MONOCYTES % (AUTO) 11 % (0-12); NEUTROPHILS # (AUTO) 0.4 X 10^3 (1.8-7.8); NEUTROPHILS % (AUTO) 45 % (42-75); PLATELET COUNT 52 10^3/uL (130-400); RED CELL DISTRIBUTION WIDTH 19.8 % (10.0-14.5)
[2019-03-30 03:24] LABS: WHITE BLOOD COUNT 0.9 10^3/uL (4.3-11.0)
[2019-03-30 03:36] LABS: ALANINE AMINOTRANSFERASE 56 U/L (0-55); ALBUMIN 2.6 GM/DL (3.2-4.5); ALKALINE PHOSPHATASE 170 U/L (40-136); BILIRUBIN,TOTAL 0.9 MG/DL (0.1-1.0); BUN/CREATININE RATIO 6; CALCIUM 8.2 MG/DL (8.5-10.1); CARBON DIOXIDE 25 MMOL/L (21-32); CHLORIDE 104 MMOL/L (98-107); CREATININE SERUM 0.47 MG/DL (0.60-1.30); GFR ESTIMATED > 60; GLUCOSE 77 MG/DL (70-105); MAGNESIUM 1.6 MG/DL (1.8-2.4); PHOSPHORUS 1.9 MG/DL (2.3-4.7); POTASSIUM 3.2 MMOL/L (3.6-5.0); SODIUM 137 MMOL/L (135-145)
[2019-03-30] MEDS: MAGNESIUM 1 GM/100 ML IVPB 100 ML IV SCH ×4 (05:41→10:01)
[2019-03-30] MEDS: PIPERACILLIN/TAZOBACTAM (BULK) 4.5 GM in NS (IVPB) 100 ML IV SCH ×3 (05:41→20:40)
[2019-03-30] MEDS: POTASSIUM CL 10MEQ/50ML IVPB 50 ML IV SCH ×4 (05:41→10:01)
--- NOTE | 2019-03-30 06:43 | Pulmonary Progress Note ---
Subjective Time Seen by a Provider: 08:33 Subjective/Events-last exam No complications noted. Sepsis Event Evaluation Height, Weight, BMI Height: 5'5.00" Weight: 184lbs. 5.0oz. 83.258037ku; 27.3 BMI Method:Stated Focused Exam Lactate Level 03/27/19 10:35: Lactic Acid Level 2.21*H 03/27/19 13:56: Lactic Acid Level 0.88 Exam Exam Vital Signs Date Time Temp Pulse Resp B/P (MAP) Pulse Ox O2 Delivery O2 Flow Rate FiO2 03/30/19 06:00 85 12 111/78 (89) 97 Nasal Cannula 1.50 03/30/19 05:00 84 12 114/66 (82) 98 Nasal Cannula 1.50 03/30/19 04:17 98.2 03/30/19 04:00 Room Air 03/30/19 04:00 87 16 125/79 (94) 99 Nasal Cannula 1.50 03/30/19 03:00 86 14 113/77 (89) 97 Nasal Cannula 1.50 03/30/19 02:00 98 13 123/84 (97) 96 Nasal Cannula 1.50 03/30/19 01:04 117 03/30/19 01:00 141 15 108/92 (97) 92 Nasal Cannula 1.50 03/30/19 00:00 Room Air 03/30/19 00:00 97.9 03/30/19 00:00 101 22 131/84 (100) 96 Nasal Cannula 1.50 03/29/19 23:00 98 18 137/81 (99) 95 Nasal Cannula 1.50 03/29/19 22:00 117 20 146/105 (119) 92 Nasal Cannula 1.50 03/29/19 21:00 89 14 102/72 (82) 95 Nasal Cannula 1.50 03/29/19 20:41 Nasal Cannula 1.50 03/29/19 20:00 96 15 118/76 (90) 91 OxyMask 5.00 03/29/19 20:00 97.8 03/29/19 20:00 Room Air 03/29/19 19:00 99 03/29/19 19:00 100 14 110/73 (85) 94 OxyMask 5.00 03/29/19 18:00 79 17 139/92 (108) 92 OxyMask 5.00 03/29/19 17:00 84 10 137/98 (111) 92 OxyMask 5.00 03/29/19 16:00 77 22 139/91 (107) 92 OxyMask 5.00 03/29/19 16:00 Room Air 03/29/19 16:00 98.0 03/29/19 15:00 114 23 149/113 (125) 92 OxyMask 5.00 03/29/19 14:00 76 21 131/101 (111) 93 OxyMask 5.00 03/29/19 13:00 89 31 130/82 (98) 96 OxyMask 5.00 03/29/19 12:49 81 03/29/19 12:00 Room Air 03/29/19 12:00 97.6 03/29/19 12:00 78 20 134/88 (103) 93 OxyMask 5.00 03/29/19 11:00 90 15 134/88 (103) 94 OxyMask 5.00 03/29/19 10:00 113 132/89 (103) 93 OxyMask 5.00 03/29/19 09:00 134 31 135/84 (101) 91 OxyMask 5.00 03/29/19 08:00 Room Air 03/29/19 08:00 75 18 135/83 (100) 98 OxyMask 5.00 03/29/19 07:00 74 03/29/19 07:00 82 17 132/84 (100) 100 OxyMask 5.00 I & O 03/30/19 07:00 Intake Total 790 ml Output Total 5875 ml Balance -5085 ml Height & Weight Height: 5'5.00" Weight: 184lbs. 5.0oz. 83.576689eo; 27.3 BMI Method:Stated General Appearance: No Apparent Distress, WD/WN HEENT: PERRL/EOMI, Pharynx Normal Neck: Full Range of Motion, Non Tender, Supple Respiratory: No Accessory Muscle Use, No Respiratory Distress, Decreased Breath Sounds Cardiovascular: Tachycardia Capillary Refill: Less Than 3 Seconds Gastrointestinal: normal bowel sounds, non tender, soft Extremity: Normal Capillary Refill, No Pedal Edema Neurologic/Psychiatric: Alert, Oriented x3 Skin: Normal Color, Warm/Dry Results Lab Laboratory Tests 03/29/19 03:37 03/29/19 16:10 03/30/19 03:00 Assessment/Plan Assessment/Plan Sepsis -Qiu cultures. [facility]oyd Prado Neutropenic -reverse isolation Metastatic lung SCC - currently on palliative chemotherapy -last chemo 03/27 -Oncology following Elevated LFTs and bili -monitor Nausea -Phenergan Pancytopenia -Monitor NATASHA HANLEY DO Mar 30, 2019 06:43
[2019-03-30] MEDS ORDERED: POTASSIUM PHOSPHATE INJ 30 MM in NS (IVPB) 250 ML IV ONE (06:45)
[2019-03-30] MEDS: FAMOTIDINE 20 MG (PEPCID) TABLET PO SCH (08:33)
[2019-03-30] MEDS: toPIRamate 25 MG (TOPAMAX) TAB PO SCH ×2 (08:33→20:39)
[2019-03-30] MEDS: ONDANSETRON 4 MG/2 ML (SDV) Z0FRAN IVP PRN ×3 (08:38→18:05)
--- NOTE | 2019-03-30 09:27 | Diagnostic Imaging Report ---
EXAM: CHEST 1 VIEW, AP/PA ONLY INDICATION: Dyspnea. COMPARISON: Chest radiograph 03/29/2019. FINDINGS: Normal heart size and central pulmonary vascularity. Stable consolidation and air density in the right apex. Increasing atelectasis or infiltrate in left lung base. Stable left tunneled port subclavian CVC tip upper SVC. IMPRESSION: 1. Stable consolidation and air density in the right lung apex. 2. Increasing atelectasis or infiltrate in the lung base. Dictated by: Dictated on workstation # [id number]
[2019-03-30] MEDS: DOCUSATE SODIUM 100 MG (COLACE) CAP PO SCH (10:01)
[2019-03-30] MEDS: NICOTINE PATCH REMOVAL TP SCH (10:01)
[2019-03-30] MEDS: NICOTINE 21 MG (NICODERM) PATCH TD SCH (10:02)
--- NOTE | 2019-03-30 11:20 | Progress Note ---
Standard Progress Note Progress Notes/Assess & Plan Date Seen by a Provider: Mar 30, 2019 Time Seen by a Provider: 11:15 Progress/Assessment & Plan 63 yo female with metastatic SCC of the lung on palliative chemotherapy was admitted with severe sepsis secondary to unclear source of infection. She is being treated with broad spectrum antibiotics and required norepinephrine for blood pressure support on the first day of admission. She has been off pressors for the last 36-48 hours. Patient is awake and sitting in the chair this morning. When she awoke, her nausea had resolved. She denies pain or discomfort. Denies fevers, chills, sweats, shortness of breath, cough. She feels ready to leave the hospital. Patient continues to have mild sinus tachycardia but has been afebrile. 1. Sepsis, resolving. Patient is nearing the end of the second week of her chemotherapy cycle and blood counts have just about nadired. Expect blood counts to start coming back up in 3-4 days. Patient is unlikely to need transfusions or growth factor support now. No source of infection found. Tapering antibiotics per primary team. 2. Lung cancer. We are not sure how well her tumor has responded to therapy si nce she has not yet even had her first set of restaging scans, and she has only had one treatment of immunotherapy. Even with chemotherapy alone, non-small cell lung cancer patients have longevity around 10-12 months. With immunotherapy, it is possible to attain disease control >12 months. Laboratory Tests 03/29/19 16:10 03/30/19 03:00 Focused Exam Lactate Level 03/27/19 13:56: Lactic Acid Level 0.88 REJI KING MD Mar 30, 2019 11:20
--- NOTE | 2019-03-30 11:32 | Progress Note - Hospitalist ---
Subjective HPI/CC On Admission Date Seen by Provider: Mar 30, 2019 Time Seen by Provider: 09:30 Chief complaint: Fever and shortness of breath History of present illness: This is a 63-year-old white female clinic patient of Dr. Ritter and Dr. Cabrera who recently was diagnosed with lung cancer with metastasis and started on chemotherapy yesterday who presented to the ER with fever of 104 shortness of breath and confusion. She was found to have hypotension and everything consistent with septic shock so she was placed on b road-spectrum antibiotics of vancomycin and Zosyn and aggressive IV fluids and Dr. Mooney will be consulted. She has suffered some bradycardia requiring cardiology consultation. I have restarted most of her home medications that do not alter hypotension. Pressor therapy will be used if IV fluids do not increase blood pressure. Subjective/Events-last exam patient reports feeling better no night sweats chills fever chest pain noted minimal cough no production reported. Focused Exam Lactate Level 03/27/19 13:56: Lactic Acid Level 0.88 Objective Exam Vital Signs Vital Signs Date Time Temp Pulse Resp B/P (MAP) Pulse Ox O2 Delivery O2 Flow Rate FiO2 03/30/19 10:00 114 18 111/84 (93) 93 Nasal Cannula 1.50 03/30/19 04:17 98.2 Capillary Refill : Less Than 3 SecondsLess Than 3 Seconds General Appearance: No Apparent Distress Neck: Full Range of Motion, Supple Respiratory: Chest Non Tender, No Accessory Muscle Use, No Respiratory Distress, Decreased Breath Sounds Cardiovascular: Regular Rate, Rhythm, No Gallop, No JVD, No Murmur Gastrointestinal: Normal Bowel Sounds, No Organomegaly, No Pulsatile Mass, Non Tender, Soft Extremity: Normal Capillary Refill, No Pedal Edema Neurologic/Psychiatric: Alert, Oriented x3 Skin: Normal Color, Warm/Dry Lymphatic: No Adenopathy Results/Procedures Lab Laboratory Tests 03/29/19 16:10 03/30/19 03:00 Patient resulted labs reviewed. Assessment/Plan Assessment and Plan Assess & Plan/Chief Complaint /P1. Probable sepsis cultures negative to date condition improving. 2. Reported squamous cell carcinoma of the lung 3. Chemotherapy-induced pa ncytopenia continue broad-spectrum antibiotics and blood count monitoring. No evidence for active bleeding at this time. Thrombocytopenia improving but precludes antiplatelet and anticoagulant therapy. Critical Care Critically Ill Patient Clinical Quality Measures DVT/VTE Risk/Contraindication: Risk Factor Score Per Nursin RFS Level Per Nursing on Admit: 3=High GRISLE BENITEZ MD Mar 30, 2019 11:32
--- NOTE | 2019-03-30 12:08 | Cardiology Progress Note ---
Cardiology SOAP Progress Note Subjective: No cardiac complaints. Objective: I&O/Vital Signs 03/30/19 03/30/19 03/30/19 03/30/19 01:00 01:04 02:00 03:00 Pulse 141 117 98 86 Resp 15 13 14 B/P (MAP) 108/92 (97) 123/84 (97) 113/77 (89) Pulse Ox 92 96 97 O2 Delivery Nasal Cannula Nasal Cannula Nasal Cannula O2 Flow Rate 1.50 1.50 1.50 03/30/19 03/30/19 03/30/19 03/30/19 04:00 04:00 04:17 05:00 Temp 98.2 Pulse 87 84 Resp 16 12 B/P (MAP) 125/79 (94) 114/66 (82) Pulse Ox 99 98 O2 Delivery Nasal Cannula Room Air Nasal Cannula O2 Flow Rate 1.50 1.50 03/30/19 03/30/19 03/30/19 03/30/19 06:00 07:00 07:00 08:00 Pulse 85 86 88 113 Resp 12 12 53 B/P (MAP) 111/78 (89) 104/73 (83) 87/52 (64) Pulse Ox 97 93 93 O2 Delivery Nasal Cannula Nasal Cannula Nasal Cannula O2 Flow Rate 1.50 1.50 1.50 03/30/19 03/30/19 03/30/19 08:00 09:00 10:00 Pulse 126 114 Resp 13 18 B/P (MAP) 113/97 (102) 111/84 (93) Pulse Ox 92 93 O2 Delivery Nasal Cannula Nasal Cannula Nasal Cannula O2 Flow Rate 1.00 1.50 1.50 03/29/19 23:59 Intake Total 190 ml Output Total 4200 ml Balance -4010 ml Weight (Pounds): 184 Weight (Ounces): 5.0 Weight (Calculated Kilograms): 83.678611 Constitutional: appears stated age, AAO x 3; No apparent distress; well- developed, well-nourished Respiratory: No accessory muscle use, No respiratory distress, No chest tender, No chest expansion is symmetric; chest is bilaterally symmetric; No lungs clear to percussion; lungs clear to auscultation; No crackles, No rhonchi, No rales, No stridor, No wheezing, No pleural rub, No other Cardiovascular: regular rate-rhythm; No irregularly irregular, No extra beats, No parasternal heave is noted, No JVD, No edema, No bradycardia, No tachycardia, No point of maximal impulse, No cardiac thrills are palpable; S1 and S2; No gallop/S3, No gallop/S4, No diastolic murmur, No systolic murmur, No friction rub, No click, No other Gastrointestional: No tender, No soft, No round, No distended, No pulsatile mass, No organomegaly, No guarding, No rebound, No tenderness, No hernia, No mass, No audible bowel sounds, No abnormal bowel sounds, No abdominal bruits, No spleenomegaly, No other Extremities: No normal range of motion, No non-tender, No normal inspection, No pedal edema, No calf tenderness, No normal capillary refill, No pelvis stable, No calf tenderness, No inflammation, No pedal edema, No slow capillary refill, No swelling, No other, No abrasion, No clubbing, No cyanosis, No ecchymosis, No laceration, No no lower extremity edema bilateral, No significant edema, No tenderness, No wound Neurologic/Psychiatric: no motor/sensory deficits, alert, normal mood/affect, oriented x 3, power is 5/5 both on sides Skin: No rash, No ulcerations Results/Procedures: Labs Laboratory Tests 03/29/19 13:20: Vancomycin Level Trough 6.7L 03/29/19 16:10: White Blood Count 1.0*L, Red Blood Count 3.75L, Hemoglobin 10.5L, Hematocrit 33L , Mean Corpuscular Volume 89, Mean Corpuscular Hemoglobin 28, Mean Corpuscular Hemoglobin Concent 31L, Red Cell Distribution Width 19.4H, Platelet Count 45L, Mean Platelet Volume 11.8H, Neutrophils (%) (Auto) 66, Lymphocytes (%) (Auto) 27, Monocytes (%) (Auto) 6, Eosinophils (%) (Auto) 1, Basophils (%) (Auto) 0, Neutrophils # (Auto) 0.7L, Lymphocytes # (Auto) 0.3L, Monocytes # (Auto) 0.1, Eosinophils # (Auto) 0.0, Basophils # (Auto) 0.0 03/30/19 03:00: White Blood Count 0.9*L, Red Blood Count 3.62L, Hemoglobin 10.2L, Hematocrit 33L , Mean Corpuscular Volume 90, Mean Corpuscular Hemoglobin 28, Mean Corpuscular Hemoglobin Concent 31L, Red Cell Distribution Width 19.8H, Platelet Count 52L, Mean Platelet Volume 12.4H, Neutrophils (%) (Auto) 45, Lymphocytes (%) (Auto) 40, Monocytes (%) (Auto) 11, Eosinophils (%) (Auto) 2, Basophils (%) (Auto) 1, Neutrophils # (Auto) 0.4L, Lymphocytes # (Auto) 0.4L, Monocytes # (Auto) 0.1, Eosinophils # (Auto) 0.0, Basophils # (Auto) 0.0, Sodium Level 137, Potassium Level 3.2L, Chloride Level 104, Carbon Dioxide Level 25, Anion Gap 8, Blood Urea Nitrogen 3L, Creatinine 0.47L, Estimat Glomerular Filtration Rate > 60, BUN/Creatinine Ratio 6, Glucose Level 77, Calcium Level 8.2L, Corrected Calcium 9.3, Phosphorus Level 1.9L, Magnesium Level 1.6L, Total Bilirubin 0.9, Aspartate Amino Transf (AST/SGOT) 49H, Alanine Aminotransferase (ALT/SGPT) 56H, Alkaline Phosphatase 170H, Total Protein 5.0L, Albumin 2.6L Microbiology 03/27/19 Blood Culture - Preliminary, Resulted No growth 03/28/19 C. difficile GDH Antigen & Toxins - Final, Complete 03/27/19 MRSA Screen - Final, Complete MRSA not isolated 03/27/19 Urine Culture - Final, Complete 3 or more isolates A/P: Assessment/Dx: Neutropenic fever, Severe sepsis, Bradycardia, Mild CAD, Anemia, Electrolyte abnormalities, Elevated LFTs Plan: Neutropenic fever, Broad spectrum IV antibiotics. Severe sepsis, IV fluids. Bradycardia, Likely due to toprol xl and severe sepsis. No further bradycardia. Mild CAD, Coronary angiography 07/2016 shows mild LAD, RCA. Echocardiogram: 07/2016 - normal LVEF, no significant valvular heart disease. Anemia, Electrolyte abnormalities, Elevated LFTs Thank you for your consultation. Please call me if you have any questions. Benjamin Maldonado MD, FACP, FACC, FSCAI, FHRS, CCDS Interventional Cardiology Cardiac Electrophysiology Vascular Medicine and Endovascular Interventions Focused Exam Lactate Level 03/27/19 13:56: Lactic Acid Level 0.88 Lana MALDONADO MD Mar 30, 2019 12:07 pm
[2019-03-30] MEDS: DIPHENOXYLATE/ATROPINE 2.5MG/0.025MG (LOMOTIL) TAB PO PRN (13:50)
--- NOTE | 2019-03-30 14:45 | NUR ---
REPORT GIVEN TO Collette PRASAD RN, PT TRANSFERRED TO 4TH FLOOR VIA W/C ACCOMPANIED BY PCT AND FRIEND. ALL PERSONAL BELONGING SENT WITH PT.
[2019-03-30] MEDS: ACETAMINOPHEN 325 MG TABLET PO PRN (16:32)
[2019-03-30] MEDS: QUEtiapine 25 MG (SEROquel) TAB IMMEDIATE RELEASE PO SCH (20:39)
[2019-03-31] MEDS: VANCOMYCIN 1250 MG/NS 250 ML IVPB IV SCH ×2 (02:30)
[2019-03-31 04:00] VITALS: BP 124/75
[2019-03-31] MEDS: PIPERACILLIN/TAZOBACTAM (BULK) 4.5 GM in NS (IVPB) 100 ML IV SCH ×2 (04:19→13:39)
[2019-03-31 04:59] LABS: BASOPHILS % (AUTO) 1 % (0-10); EOSINOPHILS % (AUTO) 2 % (0-10); HEMATOCRIT 33 % (35-52); HEMOGLOBIN 10.6 G/DL (11.5-16.0); LYMPHOCYTES # (AUTO) 0.8 X 10^3 (1.0-4.0); LYMPHOCYTES % (AUTO) 61 % (12-44); MEAN CORPUSCULAR HEMOGLOBIN 29 PG (25-34); MEAN CORPUSCULAR HGB CONC 32 G/DL (32-36); MEAN CORPUSCULAR VOLUME 90 FL (80-99); MEAN PLATELET VOLUME 10.9 FL (7.4-10.4); MONOCYTES # (AUTO) 0.1 X 10^3 (0.0-1.0); MONOCYTES % (AUTO) 4 % (0-12); NEUTROPHILS # (AUTO) 0.5 X 10^3 (1.8-7.8); NEUTROPHILS % (AUTO) 33 % (42-75); PLATELET COUNT 60 10^3/uL (130-400); RED CELL DISTRIBUTION WIDTH 19.4 % (10.0-14.5)
[2019-03-31 05:01] LABS: WHITE BLOOD COUNT 1.4 10^3/uL (4.3-11.0)
[2019-03-31 05:16] LABS: ALANINE AMINOTRANSFERASE 48 U/L (0-55); ALBUMIN 2.9 GM/DL (3.2-4.5); ALKALINE PHOSPHATASE 160 U/L (40-136); BILIRUBIN,TOTAL 0.8 MG/DL (0.1-1.0); BUN/CREATININE RATIO 6; CALCIUM 8.6 MG/DL (8.5-10.1); CARBON DIOXIDE 24 MMOL/L (21-32); CHLORIDE 99 MMOL/L (98-107); CREATININE SERUM 0.51 MG/DL (0.60-1.30); GFR ESTIMATED > 60; GLUCOSE 89 MG/DL (70-105); POTASSIUM 3.4 MMOL/L (3.6-5.0); SODIUM 133 MMOL/L (135-145); TOTAL PROTEIN 5.4 GM/DL (6.4-8.2)
[2019-03-31] MEDS: METOCLOPRAMIDE INJ 10 MG/2 ML (REGLAN) IVP SCH ×2 (05:32→13:38)
[2019-03-31 08:05] VITALS: BP 119/77
[2019-03-31] MEDS: DOCUSATE SODIUM 100 MG (COLACE) CAP PO SCH ×2 (08:31→08:37)
[2019-03-31] MEDS: FAMOTIDINE 20 MG (PEPCID) TABLET PO SCH (08:31)
[2019-03-31] MEDS: ONDANSETRON 4 MG/2 ML (SDV) Z0FRAN IVP PRN (08:31)
[2019-03-31] MEDS: toPIRamate 25 MG (TOPAMAX) TAB PO SCH (08:31)
[2019-03-31] MEDS: NICOTINE PATCH REMOVAL TP SCH (09:55)
[2019-03-31] MEDS: NICOTINE 21 MG (NICODERM) PATCH TD SCH (09:55)
[2019-03-31] MEDS: DIPHENOXYLATE/ATROPINE 2.5MG/0.025MG (LOMOTIL) TAB PO PRN (10:34)
[2019-03-31] MEDS ORDERED: AMOX-358 PO (11:55)
[2019-03-31] MEDS ORDERED: LACT1CAP7 PO (11:55)
[2019-03-31] MEDS ORDERED: LACTOBACILLUS ACIDOPHILUS (PROBIOTIC) CAPSULE PO SCH (12:00)
--- NOTE | 2019-03-31 12:01 | Discharge Inst-Simple/Standard ---
Discharge Inst-Standard Discharge Medications New, Converted or Re-Newed RX: Transmitted to Pharmacy Patient Instructions/Follow Up Plan of Care/Instructions/FU: Please continue to take your medications as written. Please follow up with Dr Cabrera on Sunday as scheduled and with Dr Ritter in the next week. Activity as Tolerated: Yes Discharge Diet: No Restrictions Return to The Hospital For: Chest pain, shortness of breath, fever, confusion, if you feel you are getting worse. DANISH RICO MD Mar 31, 2019 12:01
[2019-03-31 12:33] VITALS: BP 119/86
[2019-03-31] MEDS ORDERED: TROUGH ORDER-PHARMACY XX NR (13:30)
--- NOTE | 2019-03-31 22:00 | Cardiology Progress Note ---
Cardiology SOAP Progress Note Subjective: Stable cardiac-alarcon. Objective: I&O/Vital Signs 03/31/19 03/31/19 03/31/19 03/31/19 12:33 13:00 13:02 13:29 Temp 97.9 Pulse 93 92 Resp 18 B/P (MAP) 119/86 (97) Pulse Ox 94 O2 Delivery Room Air 03/31/19 00:00 Intake Total 760 ml Output Total 950 ml Balance -190 ml Weight (Pounds): 181 Weight (Ounces): 6.0 Weight (Calculated Kilograms): 82.947167 Constitutional: appears stated age, AAO x 3; No apparent distress; well- developed, well-nourished Respiratory: No accessory muscle use, No respiratory distress, No chest tender, No chest expansion is symmetric; chest is bilaterally symmetric; No lungs clear to percussion; lungs clear to auscultation; No crackles, No rhonchi, No rales, No stridor, No wheezing, No pleural rub, No other Cardiovascular: regular rate-rhythm; No irregularly irregular, No extra beats, No parasternal heave is noted, No JVD, No edema, No bradycardia, No tachycardia, No point of maximal impulse, No cardiac thrills are palpable; S1 and S2; No gallop/S3, No gallop/S4, No diastolic murmur, No systolic murmur, No friction rub, No click, No other Gastrointestional: No tender, No soft, No round, No distended, No pulsatile mass, No organomegaly, No guarding, No rebound, No tenderness, No hernia, No mass, No audible bowel sounds, No abnormal bowel sounds, No abdominal bruits, No spleenomegaly, No other Extremities: No normal range of motion, No non-tender, No normal inspection, No pedal edema, No calf tenderness, No normal capillary refill, No pelvis stable, No calf tenderness, No inflammation, No pedal edema, No slow capillary refill, No swelling, No other, No abrasion, No clubbing, No cyanosis, No ecchymosis, No laceration, No no lower extremity edema bilateral, No significant edema, No tenderness, No wound Neurologic/Psychiatric: no motor/sensory deficits, alert, normal mood/affect, oriented x 3, power is 5/5 both on sides Skin: No rash, No ulcerations Results/Procedures: Labs Laboratory Tests 03/31/19 04:50: White Blood Count 1.4*L, Red Blood Count 3.72L, Hemoglobin 10.6L, Hematocrit 33L , Mean Corpuscular Volume 90, Mean Corpuscular Hemoglobin 29, Mean Corpuscular Hemoglobin Concent 32, Red Cell Distribution Width 19.4H, Platelet Count 60L, Mean Platelet Volume 10.9H, Neutrophils (%) (Auto) 33L, Lymphocytes (%) (Auto) 61H, Monocytes (%) (Auto) 4, Eosinophils (%) (Auto) 2, Basophils (%) (Auto) 1, Neutrophils # (Auto) 0.5L, Lymphocytes # (Auto) 0.8L, Monocytes # (Auto) 0.1, Eosinophils # (Auto) 0.0, Basophils # (Auto) 0.0, Sodium Level 133L, Potassium Level 3.4L, Chloride Level 99, Carbon Dioxide Level 24, Anion Gap 10, Blood Urea Nitrogen 3L, Creatinine 0.51L, Estimat Glomerular Filtration Rate > 60, BUN/Creatinine Ratio 6, Glucose Level 89, Calcium Level 8.6, Corrected Calcium 9.5, Total Bilirubin 0.8, Aspartate Amino Transf (AST/SGOT) 32, Alanine Aminotransferase (ALT/SGPT) 48, Alkaline Phosphatase 160H, Total Protein 5.4L, Albumin 2.9L Microbiology 03/27/19 Blood Culture - Preliminary, Resulted No growth 03/28/19 C. difficile GDH Antigen & Toxins - Final, Complete 03/27/19 MRSA Screen - Final, Complete MRSA not isolated 03/27/19 Urine Culture - Final, Complete 3 or more isolates A/P: Assessment/Dx: Neutropenic fever, Severe sepsis, Bradycardia, Mild CAD, Anemia, Electrolyte abnormalities, Elevated LFTs Plan: Neutropenic fever, Broad spectrum IV antibiotics were given. Severe sepsis, IV fluids. Improved significantly. Likely discharged today. Bradycardia, Likely due to toprol xl and severe sepsis. No further bradycardia. Mild CAD, Coronary angiography 07/2016 shows mild LAD, RCA. Echocardiogram: 07/2016 - normal LVEF, no significant valvular heart disease. Anemia, Electrolyte abnormalities, Elevated LFTs Thank you for your consultation. Please call me if you have any questions. Benjamin Martinez MD, FACP, FACC, FSCAI, FHRS, CCDS Interventional Cardiology Cardiac Electrophysiology Vascular Medicine and Endovascular Interventions Lana MARTINEZ MD Mar 31, 2019 22:00
--- NOTE | 2019-04-02 15:53 | Discharge Summary ---
Diagnosis/Chief Complaint Date of Admission Mar 27, 2019 at 13:16 Date of Discharge Mar 31, 2019 at 13:35 Discharge Date: Mar 31, 2019 Admission Diagnosis Assessment: Septic shock Presumed pneumonia Lung cancer on chemotherapy Neutropenia Anemia Lethargy with confusion Plan: ICU admission Dr. Mooney consultation Oncology consultation Monitor closely Discharge Diagnosis (1) Febrile neutropenia Status: Acute (2) Pneumonia Status: Acute (3) Lung cancer Status: Chronic Discharge Summary Discharge Physical Exam Allergies: Coded Allergies: No Known Drug Allergies (Unverified , 01/30/19) Vitals & I&Os Vital Signs Date Time Temp Pulse Resp B/P (MAP) Pulse Ox O2 Delivery O2 Flow Rate FiO2 03/31/19 13:29 03/31/19 13:00 92 03/31/19 12:33 97.9 18 94 Room Air 03/30/19 10:00 1.50 Hospital Course Labs (last 24 hrs) Microbiology 03/27/19 Blood Culture - Final, Complete No growth 03/28/19 C. difficile GDH Antigen & Toxins - Final, Complete 03/27/19 MRSA Screen - Final, Complete MRSA not isolated 03/27/19 Urine Culture - Final, Complete 3 or more isolates Patient resulted labs reviewed. Discharge Home Medications: Active Scripts Active Augmentin 875-125 Tablet (Amoxicillin/Potassium Clav) 1 Each Tablet 1 Each PO BID Acidophilus-Pectin Capsule (Lactobacillus Acidophilus/Pect) 1 Each Capsule 2 Each PO TIDWM Reported [Magic Mouthwash] 5 Ml PO QID PRN SWISH AND SWALLOW Miralax (Polyethylene Glycol 3350) 17 Gm Powd.pack 17 Gm PO DAILY PRN Morphine Conc. 20mg/ml (Morphine Sulfate) 100 Mg/5 Ml Solution 15 Mg PO Q4H PRN Chantix (Varenicline Tartrate) 1 Mg Tablet 1 Mg PO BID PRN Atorvastatin Calcium 10 Mg Tablet 10 Mg PO DAILY Famotidine 20 Mg Tablet 40 Mg PO DAILY TAKES 2 (20MG) TABLETS Stool Softener (Docusate Sodium) 100 Mg Tablet 300 Mg PO DAILY Nicotine Patch (Nicotine) 1 Each Patch.td24 21 Mg TD DAILY Topiramate 25 Mg Tablet 25 Mg PO BID Metoprolol Succinate 50 Mg Tab.er.24h 50 Mg PO DAILY Instructions to patient/family Please see electronic discharge instructions given to patient. Clinical Quality Measures DVT/VTE Risk/Contraindication: Risk Factor Score Per Nursin RFS Level Per Nursing on Admit: 3=High Problem Qualifiers (1) Lung cancer: Laterality: right Lung location: unspecified part of lung Qualified Codes: C34.91 - Malignant neoplasm of unspecified part of right bronchus or lung DANISH RICO MD Apr 02, 2019 15:53
== END 2019-03-31 13:35 | disposition home or self-care (01) | DRG 871 ==
LOC: EDUNIT# 10:27 → ER 10:29 → ICU 13:16 → 4TH 03-30 14:45
PROVIDERS: ADMIT Internal Medicine; ATTEND Internal Medicine
DX: A41.9 Sepsis, unspecified organism (principal); R65.21 Severe sepsis with septic shock; D70.9 Neutropenia, unspecified; R50.81 Fever presenting with conditions classified elsewhere; C34.11 Malignant neoplasm of upper lobe, right bronchus or lung; J18.9 Pneumonia, unspecified organism; J44.0 Chronic obstructive pulmonary disease with (acute) lower respiratory infection; C79.9 Secondary malignant neoplasm of unspecified site; I95.9 Hypotension, unspecified; D61.810 Antineoplastic chemotherapy induced pancytopenia; R00.1 Bradycardia, unspecified; I10 Essential (primary) hypertension; D64.9 Anemia, unspecified; E78.5 Hyperlipidemia, unspecified; G43.909 Migraine, unspecified, not intractable, without status migrainosus; F32.9 Major depressive disorder, single episode, unspecified; M19.91 Primary osteoarthritis, unspecified site; R11.0 Nausea; R07.9 Chest pain, unspecified; R53.83 Other fatigue; R41.0 Disorientation, unspecified; Z85.828 Personal history of other malignant neoplasm of skin; Z87.891 Personal history of nicotine dependence
CPT/HCPCS: 36415; 71045; 76705; 80053; 80202; 81000; 82150; 83605; 83690; 83735; 84100; 85007; 85025; 85027; 85610; 85730; 87040; 87081; 87088; 87324; 87449; 93306; 96361; 96365; 96375

== ENCOUNTER → 2019-04-16 | Outpatient (CLI) | payer BC ==
[~2019-04-16] MED LIST changes: +AMOX-358 PO; +ATOR10TA66 PO; +FAMO20TA5 PO; +HOLD METFORMIN - RECEIVED CONTRAST 20 ML VIAL IV SCH; +IOHEXOL 350 MG/ML 100 ML (OMNIPAQUE 350) VIAL IV ONE; +LACT1CAP7 PO; +MAGIC MOUTHWASH PO; +MORP100S3 PO; +NS 100 ML (IVPB) BAG IV ONE; +POLY17PO6 PO; +VARE1TAB22 PO
--- NOTE | 2019-04-16 12:58 | Diagnostic Imaging Report ---
PROCEDURE: CT chest with contrast, CT abdomen and pelvis with and without contrast. TECHNIQUE: Pre and post intravenous contrast axial imaging of the abdomen and pelvis and post contrast axial imaging of the chest were performed. Auto Exposure Controls were utilized during the CT exam to meet ALARA standards for radiation dose reduction. INDICATION: Lung carcinoma. COMPARISON: Correlation is made with prior CT chest from 07/24/2016. CT CHEST: A left chest wall port is noted. No axillary lymphadenopathy is identified. There are filling defects identified within bilateral pulmonary arteries, lobar and segmental branches. No pericardial or pleural fluid is detected. There is parenchymal consolidation in the right upper lobe in the apex. Air cysts are present in the right upper lung, largest 4.3 cm. No discrete mass is identified. No mediastinal lymphadenopathy is seen. No hilar mass is detected. IMPRESSION: 1. Findings consistent with bilateral pulmonary emboli. 2. Right apical parenchymal consolidation with associated air cysts, perhaps post-therapeutic. Underlying infectious/inflammatory process cannot be entirely excluded. No discrete mass or thoracic lymphadenopathy is seen. Results were discussed with Dr. Cabrera prior to this dictation. CT ABDOMEN AND PELVIS: FINDINGS: No liver mass is identified. Gallbladder is surgically absent. No biliary duct dilatation is seen. The pancreas and spleen are unremarkable. Known left adrenal mass appears to be stable in size at approximately 3 cm. Right adrenal gland is unremarkable. No renal mass is seen. Aorta is non-aneurysmal. No central retroperitoneal or mesenteric lymphadenopathy is identified. Small and large bowel loops are normal in caliber. There is no ascites. Uterus is unremarkable. Bladder is unremarkable. No definite pelvic lymphadenopathy is seen. Bony structures are unremarkable. IMPRESSION: Stable left adrenal mass when compared with examination from 07/24/2016. No abdominal or pelvic lymphadenopathy or evidence of metastatic disease is detected. Dictated by: Dictated on workstation # [id number]
== END ==
LOC: RAD 11:18
PROVIDERS: ATTEND Internal Medicine Hematology & Oncology
DX: C34.90 Malignant neoplasm of unspecified part of unspecified bronchus or lung (principal); C79.51 Secondary malignant neoplasm of bone; E27.8 Other specified disorders of adrenal gland; C77.9 Secondary and unspecified malignant neoplasm of lymph node, unspecified; J18.1 Lobar pneumonia, unspecified organism
CPT/HCPCS: 71260; 74178

== ENCOUNTER 2019-04-17 14:20 | Outpatient (RCR) | payer BC ==
[2019-01-30 15:32] LABS: BASOPHILS % (AUTO) 0 % (0-10); EOSINOPHILS % (AUTO) 0 % (0-10); HEMATOCRIT 36 % (35-52); HEMOGLOBIN 11.4 G/DL (11.5-16.0); LYMPHOCYTES # (AUTO) 0.7 X 10^3 (1.0-4.0); LYMPHOCYTES % (AUTO) 6 % (12-44); MEAN CORPUSCULAR HEMOGLOBIN 28 PG (25-34); MEAN CORPUSCULAR HGB CONC 32 G/DL (32-36); MEAN CORPUSCULAR VOLUME 87 FL (80-99); MEAN PLATELET VOLUME 10.9 FL (7.4-10.4); MONOCYTES # (AUTO) 0.7 X 10^3 (0.0-1.0); MONOCYTES % (AUTO) 6 % (0-12); NEUTROPHILS # (AUTO) 10.1 X 10^3 (1.8-7.8); NEUTROPHILS % (AUTO) 88 % (42-75); PLATELET COUNT 186 10^3/uL (130-400); RED CELL DISTRIBUTION WIDTH 15.8 % (10.0-14.5); WHITE BLOOD COUNT 11.5 10^3/uL (4.3-11.0)
[2019-01-30 15:46] LABS: ALANINE AMINOTRANSFERASE 54 U/L (0-55); ALBUMIN 2.5 GM/DL (3.2-4.5); ALKALINE PHOSPHATASE 125 U/L (40-136); BILIRUBIN,TOTAL 0.8 MG/DL (0.1-1.0); BUN/CREATININE RATIO 19; CALCIUM 9.2 MG/DL (8.5-10.1); CARBON DIOXIDE 29 MMOL/L (21-32); CHLORIDE 94 MMOL/L (98-107); CREATININE SERUM 0.53 MG/DL (0.60-1.30); GFR ESTIMATED > 60; GLUCOSE 117 MG/DL (70-105); POTASSIUM 3.5 MMOL/L (3.6-5.0); SODIUM 131 MMOL/L (135-145)
[2019-02-12 11:37] LABS: BASOPHILS % (AUTO) 0 % (0-10); EOSINOPHILS % (AUTO) 0 % (0-10); HEMATOCRIT 36 % (35-52); HEMOGLOBIN 10.8 G/DL (11.5-16.0); LYMPHOCYTES # (AUTO) 0.4 X 10^3 (1.0-4.0); LYMPHOCYTES % (AUTO) 14 % (12-44); MEAN CORPUSCULAR HEMOGLOBIN 27 PG (25-34); MEAN CORPUSCULAR HGB CONC 30 G/DL (32-36); MEAN CORPUSCULAR VOLUME 89 FL (80-99); MEAN PLATELET VOLUME 10.5 FL (7.4-10.4); MONOCYTES % (AUTO) 1 % (0-12); NEUTROPHILS # (AUTO) 2.3 X 10^3 (1.8-7.8); NEUTROPHILS % (AUTO) 85 % (42-75); PLATELET COUNT 155 10^3/uL (130-400); WHITE BLOOD COUNT 2.7 10^3/uL (4.3-11.0)
[2019-02-12 13:19] LABS: BUN/CREATININE RATIO 29; CALCIUM 9.1 MG/DL (8.5-10.1); CARBON DIOXIDE 28 MMOL/L (21-32); CHLORIDE 99 MMOL/L (98-107); CREATININE SERUM 0.59 MG/DL (0.60-1.30); GFR ESTIMATED > 60; GLUCOSE 229 MG/DL (70-105); POTASSIUM 4.7 MMOL/L (3.6-5.0); SODIUM 136 MMOL/L (135-145)
[2019-02-19 13:01] LABS: BASOPHILS % (AUTO) 0 % (0-10); EOSINOPHILS % (AUTO) 0 % (0-10); HEMATOCRIT 33 % (35-52); HEMOGLOBIN 10.2 G/DL (11.5-16.0); LYMPHOCYTES # (AUTO) 0.2 X 10^3 (1.0-4.0); LYMPHOCYTES % (AUTO) 9 % (12-44); MEAN CORPUSCULAR HEMOGLOBIN 27 PG (25-34); MEAN CORPUSCULAR HGB CONC 31 G/DL (32-36); MEAN CORPUSCULAR VOLUME 89 FL (80-99); MEAN PLATELET VOLUME 10.6 FL (7.4-10.4); MONOCYTES # (AUTO) 0.1 X 10^3 (0.0-1.0); MONOCYTES % (AUTO) 3 % (0-12); NEUTROPHILS # (AUTO) 2.3 X 10^3 (1.8-7.8); NEUTROPHILS % (AUTO) 88 % (42-75); PLATELET COUNT 160 10^3/uL (130-400); WHITE BLOOD COUNT 2.6 10^3/uL (4.3-11.0)
[2019-02-19 13:18] LABS: BUN/CREATININE RATIO 23; CALCIUM 9.4 MG/DL (8.5-10.1); CARBON DIOXIDE 27 MMOL/L (21-32); CHLORIDE 98 MMOL/L (98-107); GFR ESTIMATED > 60; GLUCOSE 221 MG/DL (70-105); SODIUM 134 MMOL/L (135-145)
[2019-02-26 13:07] LABS: BASOPHILS % (AUTO) 1 % (0-10); EOSINOPHILS % (AUTO) 1 % (0-10); HEMATOCRIT 35 % (35-52); HEMOGLOBIN 10.8 G/DL (11.5-16.0); LYMPHOCYTES # (AUTO) 0.3 X 10^3 (1.0-4.0); LYMPHOCYTES % (AUTO) 15 % (12-44); MEAN CORPUSCULAR HEMOGLOBIN 28 PG (25-34); MEAN CORPUSCULAR HGB CONC 31 G/DL (32-36); MEAN CORPUSCULAR VOLUME 88 FL (80-99); MEAN PLATELET VOLUME 10.4 FL (7.4-10.4); MONOCYTES # (AUTO) 0.3 X 10^3 (0.0-1.0); MONOCYTES % (AUTO) 14 % (0-12); NEUTROPHILS # (AUTO) 1.5 X 10^3 (1.8-7.8); NEUTROPHILS % (AUTO) 70 % (42-75); PLATELET COUNT 160 10^3/uL (130-400); RED CELL DISTRIBUTION WIDTH 18.7 % (10.0-14.5); WHITE BLOOD COUNT 2.2 10^3/uL (4.3-11.0)
[2019-02-26 13:32] LABS: ALANINE AMINOTRANSFERASE 11 U/L (0-55); ALBUMIN 3.6 GM/DL (3.2-4.5); ALKALINE PHOSPHATASE 79 U/L (40-136); BILIRUBIN,TOTAL 1.1 MG/DL (0.1-1.0); BUN/CREATININE RATIO 15; CALCIUM 9.5 MG/DL (8.5-10.1); CARBON DIOXIDE 27 MMOL/L (21-32); CHLORIDE 97 MMOL/L (98-107); CREATININE SERUM 0.61 MG/DL (0.60-1.30); GFR ESTIMATED > 60; GLUCOSE 117 MG/DL (70-105); MAGNESIUM 1.5 MG/DL (1.8-2.4); POTASSIUM 3.7 MMOL/L (3.6-5.0); SODIUM 133 MMOL/L (135-145); TOTAL PROTEIN 6.7 GM/DL (6.4-8.2)
[2019-03-17 10:41] LABS: BASOPHILS % (AUTO) 1 % (0-10); EOSINOPHILS # (AUTO) 0.1 10^3/uL (0.0-0.3); EOSINOPHILS % (AUTO) 2 % (0-10); HEMATOCRIT 38 % (35-52); HEMOGLOBIN 11.2 G/DL (11.5-16.0); LYMPHOCYTES # (AUTO) 1.7 X 10^3 (1.0-4.0); LYMPHOCYTES % (AUTO) 29 % (12-44); MEAN CORPUSCULAR HEMOGLOBIN 28 PG (25-34); MEAN CORPUSCULAR HGB CONC 30 G/DL (32-36); MEAN CORPUSCULAR VOLUME 93 FL (80-99); MEAN PLATELET VOLUME 10.3 FL (7.4-10.4); MONOCYTES # (AUTO) 0.5 X 10^3 (0.0-1.0); MONOCYTES % (AUTO) 9 % (0-12); NEUTROPHILS # (AUTO) 3.4 X 10^3 (1.8-7.8); NEUTROPHILS % (AUTO) 59 % (42-75); PLATELET COUNT 188 10^3/uL (130-400); RED CELL DISTRIBUTION WIDTH 20.8 % (10.0-14.5); WHITE BLOOD COUNT 5.8 10^3/uL (4.3-11.0)
[2019-03-17 11:18] LABS: ALANINE AMINOTRANSFERASE 28 U/L (0-55); ALBUMIN 2.9 GM/DL (3.2-4.5); ALKALINE PHOSPHATASE 302 U/L (40-136); BILIRUBIN,TOTAL 0.5 MG/DL (0.1-1.0); BUN/CREATININE RATIO 14; CALCIUM 9.3 MG/DL (8.5-10.1); CARBON DIOXIDE 28 MMOL/L (21-32); CHLORIDE 103 MMOL/L (98-107); CREATININE SERUM 0.57 MG/DL (0.60-1.30); GFR ESTIMATED > 60; GLUCOSE 99 MG/DL (70-105); MAGNESIUM 1.7 MG/DL (1.8-2.4); POTASSIUM 4.3 MMOL/L (3.6-5.0); SODIUM 139 MMOL/L (135-145); TOTAL PROTEIN 6.4 GM/DL (6.4-8.2)
[2019-03-26 11:09] LABS: BASOPHILS % (AUTO) 1 % (0-10); EOSINOPHILS # (AUTO) 0.1 10^3/uL (0.0-0.3); EOSINOPHILS % (AUTO) 3 % (0-10); HEMATOCRIT 36 % (35-52); HEMOGLOBIN 10.8 G/DL (11.5-16.0); LYMPHOCYTES # (AUTO) 1.1 X 10^3 (1.0-4.0); LYMPHOCYTES % (AUTO) 28 % (12-44); MEAN CORPUSCULAR HEMOGLOBIN 28 PG (25-34); MEAN CORPUSCULAR HGB CONC 30 G/DL (32-36); MEAN CORPUSCULAR VOLUME 93 FL (80-99); MEAN PLATELET VOLUME 10.6 FL (7.4-10.4); MONOCYTES # (AUTO) 0.2 X 10^3 (0.0-1.0); MONOCYTES % (AUTO) 5 % (0-12); NEUTROPHILS # (AUTO) 2.5 X 10^3 (1.8-7.8); NEUTROPHILS % (AUTO) 63 % (42-75); PLATELET COUNT 148 10^3/uL (130-400); RED CELL DISTRIBUTION WIDTH 20.3 % (10.0-14.5); WHITE BLOOD COUNT 3.9 10^3/uL (4.3-11.0)
[2019-03-26 11:26] LABS: BUN/CREATININE RATIO 17; CALCIUM 9.6 MG/DL (8.5-10.1); CARBON DIOXIDE 26 MMOL/L (21-32); CHLORIDE 101 MMOL/L (98-107); CREATININE SERUM 0.53 MG/DL (0.60-1.30); GFR ESTIMATED > 60; GLUCOSE 107 MG/DL (70-105); POTASSIUM 3.8 MMOL/L (3.6-5.0); SODIUM 137 MMOL/L (135-145)
[2019-04-02 14:42] LABS: BASOPHILS % (AUTO) 1 % (0-10); EOSINOPHILS # (AUTO) 0.1 10^3/uL (0.0-0.3); EOSINOPHILS % (AUTO) 2 % (0-10); HEMATOCRIT 42 % (35-52); HEMOGLOBIN 13.2 G/DL (11.5-16.0); LYMPHOCYTES # (AUTO) 1.2 X 10^3 (1.0-4.0); LYMPHOCYTES % (AUTO) 35 % (12-44); MEAN CORPUSCULAR HEMOGLOBIN 28 PG (25-34); MEAN CORPUSCULAR HGB CONC 31 G/DL (32-36); MEAN CORPUSCULAR VOLUME 89 FL (80-99); MEAN PLATELET VOLUME 10.8 FL (7.4-10.4); MONOCYTES # (AUTO) 0.5 X 10^3 (0.0-1.0); MONOCYTES % (AUTO) 15 % (0-12); NEUTROPHILS # (AUTO) 1.5 X 10^3 (1.8-7.8); NEUTROPHILS % (AUTO) 47 % (42-75); PLATELET COUNT 137 10^3/uL (130-400); RED CELL DISTRIBUTION WIDTH 19.5 % (10.0-14.5); WHITE BLOOD COUNT 3.3 10^3/uL (4.3-11.0)
[2019-04-02 15:01] LABS: BUN/CREATININE RATIO 12; CALCIUM 9.9 MG/DL (8.5-10.1); CARBON DIOXIDE 24 MMOL/L (21-32); CHLORIDE 95 MMOL/L (98-107); CREATININE SERUM 0.66 MG/DL (0.60-1.30); GFR ESTIMATED > 60; GLUCOSE 109 MG/DL (70-105); POTASSIUM 3.3 MMOL/L (3.6-5.0); SODIUM 136 MMOL/L (135-145)
[2019-04-09 10:48] LABS: BASOPHILS % (AUTO) 1 % (0-10); EOSINOPHILS % (AUTO) 1 % (0-10); HEMATOCRIT 38 % (35-52); HEMOGLOBIN 11.6 G/DL (11.5-16.0); LYMPHOCYTES % (AUTO) 28 % (12-44); MEAN CORPUSCULAR HEMOGLOBIN 28 PG (25-34); MEAN CORPUSCULAR HGB CONC 30 G/DL (32-36); MEAN CORPUSCULAR VOLUME 92 FL (80-99); MEAN PLATELET VOLUME 10.7 FL (7.4-10.4); MONOCYTES # (AUTO) 0.6 X 10^3 (0.0-1.0); MONOCYTES % (AUTO) 18 % (0-12); NEUTROPHILS # (AUTO) 1.8 X 10^3 (1.8-7.8); NEUTROPHILS % (AUTO) 52 % (42-75); PLATELET COUNT 151 10^3/uL (130-400); RED CELL DISTRIBUTION WIDTH 19.4 % (10.0-14.5); WHITE BLOOD COUNT 3.4 10^3/uL (4.3-11.0)
[2019-04-09 11:09] LABS: ALANINE AMINOTRANSFERASE 24 U/L (0-55); ALBUMIN 3.3 GM/DL (3.2-4.5); ALKALINE PHOSPHATASE 219 U/L (40-136); BILIRUBIN,TOTAL 0.6 MG/DL (0.1-1.0); BUN/CREATININE RATIO 13; CALCIUM 9.3 MG/DL (8.5-10.1); CARBON DIOXIDE 30 MMOL/L (21-32); CHLORIDE 101 MMOL/L (98-107); CREATININE SERUM 0.56 MG/DL (0.60-1.30); GFR ESTIMATED > 60; GLUCOSE 115 MG/DL (70-105); MAGNESIUM 1.6 MG/DL (1.8-2.4); POTASSIUM 3.5 MMOL/L (3.6-5.0); SODIUM 139 MMOL/L (135-145); TOTAL PROTEIN 6.1 GM/DL (6.4-8.2)
[2019-04-16 11:19] LABS: BASOPHILS % (AUTO) 1 % (0-10); EOSINOPHILS % (AUTO) 1 % (0-10); HEMATOCRIT 38 % (35-52); HEMOGLOBIN 11.7 G/DL (11.5-16.0); LYMPHOCYTES # (AUTO) 0.9 X 10^3 (1.0-4.0); LYMPHOCYTES % (AUTO) 21 % (12-44); MEAN CORPUSCULAR HEMOGLOBIN 28 PG (25-34); MEAN CORPUSCULAR HGB CONC 31 G/DL (32-36); MEAN CORPUSCULAR VOLUME 90 FL (80-99); MEAN PLATELET VOLUME 11.6 FL (7.4-10.4); MONOCYTES # (AUTO) 0.4 X 10^3 (0.0-1.0); MONOCYTES % (AUTO) 9 % (0-12); NEUTROPHILS # (AUTO) 2.9 X 10^3 (1.8-7.8); NEUTROPHILS % (AUTO) 68 % (42-75); PLATELET COUNT 77 10^3/uL (130-400); RED CELL DISTRIBUTION WIDTH 18.2 % (10.0-14.5); WHITE BLOOD COUNT 4.2 10^3/uL (4.3-11.0)
[2019-04-16 11:36] LABS: BUN/CREATININE RATIO 21; CALCIUM 8.8 MG/DL (8.5-10.1); CARBON DIOXIDE 28 MMOL/L (21-32); CHLORIDE 97 MMOL/L (98-107); CREATININE SERUM 0.56 MG/DL (0.60-1.30); GFR ESTIMATED > 60; GLUCOSE 82 MG/DL (70-105); POTASSIUM 2.9 MMOL/L (3.6-5.0); SODIUM 136 MMOL/L (135-145)
[~2019-04-17] VITALS: Ht 157.5 cm; Wt 73.9 kg
[~2019-04-17 14:20] MED LIST changes: +CARBOPLATIN IV SCH; +D5W IV SCH; +FAMOTIDINE 20MG/2ML IV (CANCER CTR) IV SCH; +FAMOTIDINE 20MG/2ML IV (CANCER CTR) ONE; +FOSAPREPITANT DIMEGLUMINE 150 MG in NS (IVPB) CANCER CENTER ONLY 150 ML IV SCH; -HOLD METFORMIN - RECEIVED CONTRAST 20 ML VIAL IV SCH; -IOHEXOL 350 MG/ML 100 ML (OMNIPAQUE 350) VIAL IV ONE; +MAGNESIUM SULFATE (CANCER CTR) 2 GM in NS (IVPB) CANCER CENTER 100 ML IV ONE; +NORMAL SALINE IV SCH; -NS 100 ML (IVPB) BAG IV ONE; +NS IV 1000 ML (CANCER CTR) IV SCH; +ONDANSETRON MDV (CANCER CENTER 8 MG, DEXAMETHASONE INJ (CANCER CTR) 4 MG in NS (IVPB) C... IV ONE; +PACLITAXEL IV SCH; +PALONOSETRON HCL 0.25 MG, DEXAMETHASONE INJECTION 10 MG in NS (IVPB) CANCER CENTER 50 ML IV SCH; +PEMBROLIZUMAB 200 MG in NS (IVPB) CANCER CENTER 50 ML IV SCH; +diphenhydrAMINE 25 MG TAB (BENADRYL) CANCER CENTER PO ONE; +diphenhydrAMINE 25 MG TAB (BENADRYL) CANCER CENTER PO SCH; +diphenhydrAMINE 50 MG/ML INJ (CANCER CENTER) ONE
== END 2019-04-20 | disposition home or self-care (01) ==
LOC: ONC 14:20
PROVIDERS: ATTEND Internal Medicine Hematology & Oncology
DX: Z51.0 Encounter for antineoplastic radiation therapy (principal); Z51.11 Encounter for antineoplastic chemotherapy; C34.11 Malignant neoplasm of upper lobe, right bronchus or lung; E78.5 Hyperlipidemia, unspecified; F17.210 Nicotine dependence, cigarettes, uncomplicated; I10 Essential (primary) hypertension; D69.6 Thrombocytopenia, unspecified; D75.1 Secondary polycythemia; J18.1 Lobar pneumonia, unspecified organism
CPT/HCPCS: 36415; 36591; 77290; 77295; 77300; 77334; 77336; 77417; 77470; 80048; 80053; 83735; 85025; 96361; 96368; 96374; 96375; 96413; 96417; 99202; 99205; 99213; 99214

== ENCOUNTER → 2019-05-21 | Outpatient (CLI) | payer BC ==
[~2019-05-21] MED LIST changes: -CARBOPLATIN IV SCH; -D5W IV SCH; -FAMOTIDINE 20MG/2ML IV (CANCER CTR) IV SCH; -FAMOTIDINE 20MG/2ML IV (CANCER CTR) ONE; -FOSAPREPITANT DIMEGLUMINE 150 MG in NS (IVPB) CANCER CENTER ONLY 150 ML IV SCH; -MAGNESIUM SULFATE (CANCER CTR) 2 GM in NS (IVPB) CANCER CENTER 100 ML IV ONE; -NORMAL SALINE IV SCH; -NS IV 1000 ML (CANCER CTR) IV SCH; -ONDANSETRON MDV (CANCER CENTER 8 MG, DEXAMETHASONE INJ (CANCER CTR) 4 MG in NS (IVPB) C... IV ONE; -PACLITAXEL IV SCH; -PALONOSETRON HCL 0.25 MG, DEXAMETHASONE INJECTION 10 MG in NS (IVPB) CANCER CENTER 50 ML IV SCH; -PEMBROLIZUMAB 200 MG in NS (IVPB) CANCER CENTER 50 ML IV SCH; -diphenhydrAMINE 25 MG TAB (BENADRYL) CANCER CENTER PO ONE; -diphenhydrAMINE 25 MG TAB (BENADRYL) CANCER CENTER PO SCH; -diphenhydrAMINE 50 MG/ML INJ (CANCER CENTER) ONE
--- NOTE | 2019-05-21 14:59 | Diagnostic Imaging Report ---
INDICATION: Cough. COMPARISON: March 30, 2019. TECHNIQUE: Two radiographs of the chest dated May 21, 2019. FINDINGS: Port-A-Cath is again identified with the hub overlying the left chest, stable from the prior examination. The cardiac silhouette is within normal limits in size. No significant pulmonary vascular congestion. The left lung is clear. Improved aeration of the lungs. Persistent dense consolidation within the right upper lung with slightly improved gas lucencies. No new focal pulmonary opacity. No pleural effusion. No pneumothorax. Surgical clips within the right upper quadrant of the abdomen. Scattered osseous degenerative changes without acute osseous abnormality. IMPRESSION: Persistent though slightly improved dense consolidation with associated slightly improved cavitary changes within the right upper lobe. Improved aeration of the lungs when compared to prior exam from March 2019. Dictated by: Dictated on workstation # [id number]
== END ==
LOC: RAD 11:54
PROVIDERS: ATTEND Internal Medicine Hematology & Oncology
DX: J18.1 Lobar pneumonia, unspecified organism (principal)
CPT/HCPCS: 71046

== ENCOUNTER 2019-07-02 10:39 | Outpatient (RCR) | payer BC, OTHER ==
[2019-04-23 16:07] LABS: BASOPHILS % (AUTO) 1 % (0-10); EOSINOPHILS # (AUTO) 0.1 10^3/uL (0.0-0.3); EOSINOPHILS % (AUTO) 3 % (0-10); HEMATOCRIT 37 % (35-52); HEMOGLOBIN 11.3 G/DL (11.5-16.0); LYMPHOCYTES # (AUTO) 0.7 X 10^3 (1.0-4.0); LYMPHOCYTES % (AUTO) 32 % (12-44); MEAN CORPUSCULAR HEMOGLOBIN 29 PG (25-34); MEAN CORPUSCULAR HGB CONC 31 G/DL (32-36); MEAN CORPUSCULAR VOLUME 93 FL (80-99); MEAN PLATELET VOLUME 11.4 FL (7.4-10.4); MONOCYTES # (AUTO) 0.7 X 10^3 (0.0-1.0); MONOCYTES % (AUTO) 30 % (0-12); NEUTROPHILS # (AUTO) 0.8 X 10^3 (1.8-7.8); NEUTROPHILS % (AUTO) 35 % (42-75); PLATELET COUNT 108 10^3/uL (130-400); RED CELL DISTRIBUTION WIDTH 19.1 % (10.0-14.5); WHITE BLOOD COUNT 2.2 10^3/uL (4.3-11.0)
[2019-04-23 16:24] LABS: BUN/CREATININE RATIO 11; CALCIUM 8.5 MG/DL (8.5-10.1); CARBON DIOXIDE 31 MMOL/L (21-32); CHLORIDE 105 MMOL/L (98-107); CREATININE SERUM 0.54 MG/DL (0.60-1.30); GFR ESTIMATED > 60; GLUCOSE 107 MG/DL (70-105); SODIUM 137 MMOL/L (135-145)
[2019-05-21 11:17] LABS: BASOPHILS % (AUTO) 0 % (0-10); EOSINOPHILS # (AUTO) 0.1 10^3/uL (0.0-0.3); EOSINOPHILS % (AUTO) 2 % (0-10); HEMATOCRIT 41 % (35-52); HEMOGLOBIN 12.5 G/DL (11.5-16.0); LYMPHOCYTES # (AUTO) 0.6 X 10^3 (1.0-4.0); LYMPHOCYTES % (AUTO) 10 % (12-44); MEAN CORPUSCULAR HEMOGLOBIN 29 PG (25-34); MEAN CORPUSCULAR HGB CONC 30 G/DL (32-36); MEAN CORPUSCULAR VOLUME 95 FL (80-99); MEAN PLATELET VOLUME 10.9 FL (7.4-10.4); MONOCYTES # (AUTO) 0.5 X 10^3 (0.0-1.0); MONOCYTES % (AUTO) 8 % (0-12); NEUTROPHILS % (AUTO) 80 % (42-75); PLATELET COUNT 148 10^3/uL (130-400); WHITE BLOOD COUNT 6.3 10^3/uL (4.3-11.0)
[2019-05-21 11:39] LABS: ALANINE AMINOTRANSFERASE 14 U/L (0-55); ALBUMIN 3.2 GM/DL (3.2-4.5); ALKALINE PHOSPHATASE 94 U/L (40-136); BILIRUBIN,TOTAL 0.9 MG/DL (0.1-1.0); BUN/CREATININE RATIO 14; CARBON DIOXIDE 33 MMOL/L (21-32); CHLORIDE 99 MMOL/L (98-107); CREATININE SERUM 0.56 MG/DL (0.60-1.30); GFR ESTIMATED > 60; GLUCOSE 142 MG/DL (70-105); MAGNESIUM 1.7 MG/DL (1.6-2.4); POTASSIUM 3.6 MMOL/L (3.6-5.0); SODIUM 138 MMOL/L (135-145)
[2019-06-11 14:34] LABS: BASOPHILS % (AUTO) 1 % (0-10); EOSINOPHILS # (AUTO) 0.1 10^3/uL (0.0-0.3); EOSINOPHILS % (AUTO) 3 % (0-10); HEMATOCRIT 43 % (35-52); HEMOGLOBIN 13.1 G/DL (11.5-16.0); LYMPHOCYTES # (AUTO) 0.6 X 10^3 (1.0-4.0); LYMPHOCYTES % (AUTO) 17 % (12-44); MEAN CORPUSCULAR HEMOGLOBIN 30 PG (25-34); MEAN CORPUSCULAR HGB CONC 31 G/DL (32-36); MEAN CORPUSCULAR VOLUME 97 FL (80-99); MEAN PLATELET VOLUME 11.4 FL (7.4-10.4); MONOCYTES # (AUTO) 0.3 X 10^3 (0.0-1.0); MONOCYTES % (AUTO) 8 % (0-12); NEUTROPHILS # (AUTO) 2.7 X 10^3 (1.8-7.8); NEUTROPHILS % (AUTO) 72 % (42-75); PLATELET COUNT 146 10^3/uL (130-400); RED CELL DISTRIBUTION WIDTH 17.5 % (10.0-14.5); WHITE BLOOD COUNT 3.7 10^3/uL (4.3-11.0)
[2019-06-11 14:56] LABS: ALANINE AMINOTRANSFERASE < 6 U/L (0-55); ALBUMIN 3.3 GM/DL (3.2-4.5); ALKALINE PHOSPHATASE 66 U/L (40-136); BILIRUBIN,TOTAL 0.6 MG/DL (0.1-1.0); BUN/CREATININE RATIO 12; CALCIUM 9.3 MG/DL (8.5-10.1); CARBON DIOXIDE 27 MMOL/L (21-32); CHLORIDE 104 MMOL/L (98-107); CREATININE SERUM 0.58 MG/DL (0.60-1.30); GFR ESTIMATED > 60; GLUCOSE 84 MG/DL (70-105); SODIUM 141 MMOL/L (135-145); TOTAL PROTEIN 6.1 GM/DL (6.4-8.2)
[~2019-07-02] VITALS: Ht 157.5 cm; Wt 68.9 kg
[~2019-07-02 10:39] MED LIST changes: +CARBOPLATIN IV SCH; +D5W IV SCH; +FAMOTIDINE 20MG/2ML IV (CANCER CTR) IV SCH; +FLU QUADRIvalent (5+ YOA) 2019-2020 (Cancer Ctr) 0.5 ML IM ONE; +NS IV 1000 ML (CANCER CTR) IV SCH; +NS IV 500 ML (CANCER CENTER) 500 ML IV SCH; +PALONOSETRON HCL 0.25 MG, DEXAMETHASONE INJECTION 10 MG in NS (IVPB) CANCER CENTER 50 ML IV SCH; +PEMBROLIZUMAB 200 MG in NS (IVPB) CANCER CENTER 50 ML IV SCH; +diphenhydrAMINE 25 MG TAB (BENADRYL) CANCER CENTER PO SCH
[2019-07-02 11:15] LABS: BASOPHILS % (AUTO) 1 % (0-10); EOSINOPHILS # (AUTO) 0.1 10^3/uL (0.0-0.3); EOSINOPHILS % (AUTO) 3 % (0-10); HEMATOCRIT 45 % (35-52); LYMPHOCYTES # (AUTO) 0.5 X 10^3 (1.0-4.0); LYMPHOCYTES % (AUTO) 14 % (12-44); MEAN CORPUSCULAR HEMOGLOBIN 30 PG (25-34); MEAN CORPUSCULAR HGB CONC 31 G/DL (32-36); MEAN CORPUSCULAR VOLUME 97 FL (80-99); MEAN PLATELET VOLUME 10.5 FL (7.4-10.4); MONOCYTES # (AUTO) 0.3 X 10^3 (0.0-1.0); MONOCYTES % (AUTO) 7 % (0-12); NEUTROPHILS # (AUTO) 2.8 X 10^3 (1.8-7.8); NEUTROPHILS % (AUTO) 76 % (42-75); PLATELET COUNT 118 10^3/uL (130-400); RED CELL DISTRIBUTION WIDTH 17.5 % (10.0-14.5); WHITE BLOOD COUNT 3.7 10^3/uL (4.3-11.0)
[2019-07-02 11:33] LABS: ALANINE AMINOTRANSFERASE < 6 U/L (0-55); ALBUMIN 3.7 GM/DL (3.2-4.5); ALKALINE PHOSPHATASE 73 U/L (40-136); BILIRUBIN,TOTAL 0.4 MG/DL (0.1-1.0); BUN/CREATININE RATIO 15; CALCIUM 9.5 MG/DL (8.5-10.1); CARBON DIOXIDE 29 MMOL/L (21-32); CHLORIDE 104 MMOL/L (98-107); CREATININE SERUM 0.67 MG/DL (0.60-1.30); GFR ESTIMATED > 60; GLUCOSE 93 MG/DL (70-105); POTASSIUM 3.9 MMOL/L (3.6-5.0); SODIUM 140 MMOL/L (135-145); TOTAL PROTEIN 6.6 GM/DL (6.4-8.2)
== END 2019-07-22 | disposition home or self-care (01) ==
LOC: ONC 10:39
PROVIDERS: ATTEND Internal Medicine Hematology & Oncology
DX: Z51.11 Encounter for antineoplastic chemotherapy (principal); C34.11 Malignant neoplasm of upper lobe, right bronchus or lung; E78.5 Hyperlipidemia, unspecified; F17.210 Nicotine dependence, cigarettes, uncomplicated; I10 Essential (primary) hypertension; D69.6 Thrombocytopenia, unspecified; D75.1 Secondary polycythemia; J18.1 Lobar pneumonia, unspecified organism
CPT/HCPCS: 36415; 36591; 80048; 80053; 83735; 85025; 90471; 96413

== ENCOUNTER → 2019-08-08 | Outpatient (CLI) | payer BC, OTHER ==
[~2019-08-08] MED LIST changes: +BARIUM SUSPENSION 2.1% (VANILLA SILQ) 450 ML PO ONE; -CARBOPLATIN IV SCH; +CATHETER FLUSH 10 ML SYR IV PRN; -D5W IV SCH; -FAMOTIDINE 20MG/2ML IV (CANCER CTR) IV SCH; -FLU QUADRIvalent (5+ YOA) 2019-2020 (Cancer Ctr) 0.5 ML IM ONE; +HOLD METFORMIN - RECEIVED CONTRAST 20 ML VIAL IV SCH; +IOHEXOL 350 MG/ML 100 ML (OMNIPAQUE 350) VIAL IV ONE; -METO-370 PO; +METO50TA7 PO; +NS 100 ML (IVPB) BAG IV ONE; -NS IV 1000 ML (CANCER CTR) IV SCH; -NS IV 500 ML (CANCER CENTER) 500 ML IV SCH; -PALONOSETRON HCL 0.25 MG, DEXAMETHASONE INJECTION 10 MG in NS (IVPB) CANCER CENTER 50 ML IV SCH; -PEMBROLIZUMAB 200 MG in NS (IVPB) CANCER CENTER 50 ML IV SCH; -diphenhydrAMINE 25 MG TAB (BENADRYL) CANCER CENTER PO SCH
--- NOTE | 2019-08-08 15:53 | Diagnostic Imaging Report ---
PROCEDURE: CT chest with contrast, CT abdomen and pelvis with and without contrast. TECHNIQUE: Pre and post intravenous contrast axial imaging of the abdomen and pelvis and post contrast axial imaging of the chest were performed. Auto Exposure Controls were utilized during the CT exam to meet ALARA standards for radiation dose reduction. INDICATION: Lung cancer and left adrenal mass. Study is performed for follow-up. COMPARISON: Comparison is made with prior CT from 04/16/2019. CT CHEST: A left chest wall port remains in place with tip in the SVC. No axillary lymphadenopathy. Previously noted right paratracheal lymph nodes appear to be stable. No hilar mass or lymphadenopathy is detected. Small pericardial effusion is seen. No pleural effusion is identified. Previously seen right upper lobe parenchymal consolidation with associated air cysts is again noted. The largest air cyst noted anteriorly has decreased in size measuring 2.3 cm compared with 4.3 cm. There is now air-fluid level located in the more posteriorly located cyst which is also smaller. There is some consolidation in the surrounding parenchyma with air bronchograms. There are some small nodular foci in the right upper lobe parenchyma measuring 6 mm. It is uncertain if these were present on prior study, as this area of the lung did show some consolidation. Several additional somewhat ill-defined nodular densities have developed more inferiorly in the right lung in the region of the right middle lobe and lower aspect of the right upper lobe. There are some small nodular densities in the superior segment of the right lower lobe. There are several tiny cavitary nodular lesions in the superior segment of the left lower lobe, new since prior exam. IMPRESSION: 1. No evidence of thoracic lymphadenopathy. Continued consolidation and air cysts in the right upper lobe are noted. However, patient has developed several subcentimeter ill-defined pulmonary parenchymal nodules, some of which appear to be cavitated within bilateral lungs since CT from April 2019. This is concerning for metastatic disease. Infectious/inflammatory process cannot be entirely excluded, and continued close follow-up is recommended. Note is also made of a small pericardial effusion. CT ABDOMEN AND PELVIS: No discrete liver mass is identified. The gallbladder is surgically absent. The pancreas and spleen are unremarkable. The right adrenal gland is unremarkable. Left adrenal mass is stable at 3.0 cm compared with 2.9 cm on prior. The kidneys are unremarkable. No central retroperitoneal or mesenteric lymphadenopathy is seen. Small and large bowel loops are normal in caliber. There is diverticulosis of the sigmoid but no evidence of acute diverticulitis. The bladder is unremarkable. No pelvic lymphadenopathy is detected. No osseous lesions are seen. IMPRESSION: Stable left adrenal mass. No abdominal or pelvic lymphadenopathy or evidence of metastatic disease is identified. Dictated by: Dictated on workstation # [id number]
== END ==
LOC: RAD 14:46
PROVIDERS: ATTEND Internal Medicine Hematology & Oncology
DX: C34.11 Malignant neoplasm of upper lobe, right bronchus or lung (principal); C77.1 Secondary and unspecified malignant neoplasm of intrathoracic lymph nodes; E27.8 Other specified disorders of adrenal gland; J98.4 Other disorders of lung; R92.8 Other abnormal and inconclusive findings on diagnostic imaging of breast
CPT/HCPCS: 71260; 74178

== ENCOUNTER 2019-10-01 14:24 | Outpatient (RCR) | payer BC, OTHER ==
[2019-07-23 14:00] LABS: BASOPHILS % (AUTO) 1 % (0-10); EOSINOPHILS # (AUTO) 0.1 10^3/uL (0.0-0.3); EOSINOPHILS % (AUTO) 2 % (0-10); HEMATOCRIT 44 % (35-52); LYMPHOCYTES # (AUTO) 0.5 X 10^3 (1.0-4.0); LYMPHOCYTES % (AUTO) 16 % (12-44); MEAN CORPUSCULAR HEMOGLOBIN 31 PG (25-34); MEAN CORPUSCULAR HGB CONC 32 G/DL (32-36); MEAN CORPUSCULAR VOLUME 98 FL (80-99); MEAN PLATELET VOLUME 11.1 FL (7.4-10.4); MONOCYTES # (AUTO) 0.2 X 10^3 (0.0-1.0); MONOCYTES % (AUTO) 6 % (0-12); NEUTROPHILS # (AUTO) 2.6 X 10^3 (1.8-7.8); NEUTROPHILS % (AUTO) 75 % (42-75); PLATELET COUNT 100 10^3/uL (130-400); RED CELL DISTRIBUTION WIDTH 16.6 % (10.0-14.5); WHITE BLOOD COUNT 3.4 10^3/uL (4.3-11.0)
[2019-07-23 14:16] LABS: ALANINE AMINOTRANSFERASE < 6 U/L (0-55); ALKALINE PHOSPHATASE 60 U/L (40-136); BILIRUBIN,TOTAL 0.7 MG/DL (0.1-1.0); BUN/CREATININE RATIO 14; CALCIUM 9.7 MG/DL (8.5-10.1); CARBON DIOXIDE 31 MMOL/L (21-32); CHLORIDE 103 MMOL/L (98-107); CREATININE SERUM 0.69 MG/DL (0.60-1.30); GFR ESTIMATED > 60; GLUCOSE 86 MG/DL (70-105); POTASSIUM 4.1 MMOL/L (3.6-5.0); SODIUM 141 MMOL/L (135-145); TOTAL PROTEIN 6.8 GM/DL (6.4-8.2)
[2019-08-13 13:16] LABS: BASOPHILS % (AUTO) 1 % (0-10); EOSINOPHILS # (AUTO) 0.1 10^3/uL (0.0-0.3); EOSINOPHILS % (AUTO) 2 % (0-10); HEMATOCRIT 42 % (35-52); HEMOGLOBIN 13.8 G/DL (11.5-16.0); LYMPHOCYTES # (AUTO) 0.7 X 10^3 (1.0-4.0); LYMPHOCYTES % (AUTO) 19 % (12-44); MEAN CORPUSCULAR HEMOGLOBIN 31 PG (25-34); MEAN CORPUSCULAR HGB CONC 33 G/DL (32-36); MEAN CORPUSCULAR VOLUME 95 FL (80-99); MEAN PLATELET VOLUME 11.3 FL (7.4-10.4); MONOCYTES # (AUTO) 0.4 X 10^3 (0.0-1.0); MONOCYTES % (AUTO) 10 % (0-12); NEUTROPHILS # (AUTO) 2.5 X 10^3 (1.8-7.8); NEUTROPHILS % (AUTO) 68 % (42-75); PLATELET COUNT 98 10^3/uL (130-400); RED CELL DISTRIBUTION WIDTH 16.4 % (10.0-14.5); WHITE BLOOD COUNT 3.7 10^3/uL (4.3-11.0)
[2019-08-13 13:36] LABS: ALANINE AMINOTRANSFERASE < 6 U/L (0-55); ALBUMIN 4.1 GM/DL (3.2-4.5); ALKALINE PHOSPHATASE 64 U/L (40-136); BILIRUBIN,TOTAL 0.4 MG/DL (0.1-1.0); BUN/CREATININE RATIO 17; CALCIUM 9.7 MG/DL (8.5-10.1); CARBON DIOXIDE 26 MMOL/L (21-32); CHLORIDE 106 MMOL/L (98-107); CREATININE SERUM 0.77 MG/DL (0.60-1.30); GFR ESTIMATED > 60; GLUCOSE 91 MG/DL (70-105); SODIUM 142 MMOL/L (135-145); TOTAL PROTEIN 6.8 GM/DL (6.4-8.2)
[2019-09-04 13:34] LABS: BASOPHILS % (AUTO) 1 % (0-10); EOSINOPHILS # (AUTO) 0.1 10^3/uL (0.0-0.3); EOSINOPHILS % (AUTO) 2 % (0-10); HEMATOCRIT 42 % (35-52); HEMOGLOBIN 13.3 G/DL (11.5-16.0); LYMPHOCYTES # (AUTO) 0.6 X 10^3 (1.0-4.0); LYMPHOCYTES % (AUTO) 16 % (12-44); MEAN CORPUSCULAR HEMOGLOBIN 31 PG (25-34); MEAN CORPUSCULAR HGB CONC 32 G/DL (32-36); MEAN CORPUSCULAR VOLUME 99 FL (80-99); MEAN PLATELET VOLUME 11.4 FL (7.4-10.4); MONOCYTES # (AUTO) 0.3 X 10^3 (0.0-1.0); MONOCYTES % (AUTO) 9 % (0-12); NEUTROPHILS # (AUTO) 2.7 X 10^3 (1.8-7.8); NEUTROPHILS % (AUTO) 73 % (42-75); PLATELET COUNT 87 10^3/uL (130-400); RED CELL DISTRIBUTION WIDTH 16.1 % (10.0-14.5); WHITE BLOOD COUNT 3.7 10^3/uL (4.3-11.0)
[2019-09-04 14:15] LABS: ALANINE AMINOTRANSFERASE 9 U/L (0-55); ALBUMIN 4.1 GM/DL (3.2-4.5); ALKALINE PHOSPHATASE 71 U/L (40-136); BILIRUBIN,TOTAL 0.6 MG/DL (0.1-1.0); BUN/CREATININE RATIO 19; CALCIUM 9.1 MG/DL (8.5-10.1); CARBON DIOXIDE 25 MMOL/L (21-32); CHLORIDE 104 MMOL/L (98-107); CREATININE SERUM 0.68 MG/DL (0.60-1.30); GFR ESTIMATED > 60; GLUCOSE 86 MG/DL (70-105); SODIUM 139 MMOL/L (135-145); TOTAL PROTEIN 6.7 GM/DL (6.4-8.2)
[~2019-10-01 14:24] MED LIST changes: -BARIUM SUSPENSION 2.1% (VANILLA SILQ) 450 ML PO ONE; -CATHETER FLUSH 10 ML SYR IV PRN; -HOLD METFORMIN - RECEIVED CONTRAST 20 ML VIAL IV SCH; -IOHEXOL 350 MG/ML 100 ML (OMNIPAQUE 350) VIAL IV ONE; -NS 100 ML (IVPB) BAG IV ONE; +NS IV 1000 ML (CANCER CTR) IV SCH; +NS IV 500 ML (CANCER CENTER) 500 ML IV SCH; +PEMBROLIZUMAB 200 MG in NS (IVPB) CANCER CENTER 50 ML IV SCH
[2019-10-01 14:50] LABS: BASOPHILS % (AUTO) 1 % (0-10); EOSINOPHILS % (AUTO) 1 % (0-10); HEMATOCRIT 44 % (35-52); HEMOGLOBIN 13.8 G/DL (11.5-16.0); LYMPHOCYTES # (AUTO) 0.6 X 10^3 (1.0-4.0); LYMPHOCYTES % (AUTO) 17 % (12-44); MEAN CORPUSCULAR HEMOGLOBIN 31 PG (25-34); MEAN CORPUSCULAR HGB CONC 31 G/DL (32-36); MEAN CORPUSCULAR VOLUME 99 FL (80-99); MEAN PLATELET VOLUME 10.8 FL (7.4-10.4); MONOCYTES # (AUTO) 0.4 X 10^3 (0.0-1.0); MONOCYTES % (AUTO) 10 % (0-12); NEUTROPHILS # (AUTO) 2.6 X 10^3 (1.8-7.8); NEUTROPHILS % (AUTO) 71 % (42-75); PLATELET COUNT 103 10^3/uL (130-400); RED CELL DISTRIBUTION WIDTH 15.8 % (10.0-14.5); WHITE BLOOD COUNT 3.7 10^3/uL (4.3-11.0)
[2019-10-01 15:12] LABS: ALANINE AMINOTRANSFERASE 6 U/L (0-55); ALBUMIN 4.1 GM/DL (3.2-4.5); ALKALINE PHOSPHATASE 74 U/L (40-136); BILIRUBIN,TOTAL 0.8 MG/DL (0.1-1.0); BUN/CREATININE RATIO 20; CALCIUM 9.5 MG/DL (8.5-10.1); CARBON DIOXIDE 31 MMOL/L (21-32); CHLORIDE 100 MMOL/L (98-107); CREATININE SERUM 0.65 MG/DL (0.60-1.30); GFR ESTIMATED > 60; GLUCOSE 85 MG/DL (70-105); SODIUM 139 MMOL/L (135-145); TOTAL PROTEIN 7.1 GM/DL (6.4-8.2)
== END 2019-10-21 | disposition home or self-care (01) ==
LOC: ONC 14:24
PROVIDERS: ATTEND Internal Medicine Hematology & Oncology
DX: Z51.11 Encounter for antineoplastic chemotherapy (principal); C34.11 Malignant neoplasm of upper lobe, right bronchus or lung; C77.1 Secondary and unspecified malignant neoplasm of intrathoracic lymph nodes; F17.210 Nicotine dependence, cigarettes, uncomplicated; I10 Essential (primary) hypertension; M19.90 Unspecified osteoarthritis, unspecified site; E78.00 Pure hypercholesterolemia, unspecified; Z79.899 Other long term (current) drug therapy; Z92.89 Personal history of other medical treatment; Z98.890 Other specified postprocedural states
CPT/HCPCS: 36591; 80053; 85025; 96413

== ENCOUNTER → 2019-10-20 | Outpatient (CLI) | payer BC, OTHER ==
[~2019-10-20] MED LIST changes: +BARIUM SUSPENSION 2.1% (VANILLA SILQ) 450 ML PO ONE; +CATHETER FLUSH 10 ML SYR IV PRN; +HOLD METFORMIN - RECEIVED CONTRAST 20 ML VIAL IV SCH; +IOHEXOL 350 MG/ML 100 ML (OMNIPAQUE 350) VIAL IV ONE; +NS 100 ML (IVPB) BAG IV ONE; -NS IV 1000 ML (CANCER CTR) IV SCH; -NS IV 500 ML (CANCER CENTER) 500 ML IV SCH; -PEMBROLIZUMAB 200 MG in NS (IVPB) CANCER CENTER 50 ML IV SCH
--- NOTE | 2019-10-20 12:55 | Diagnostic Imaging Report ---
EXAMINATION: CT Chest with intravenous contrast, CT Abdomen and Pelvis without and with intravenous contrast. TECHNIQUE: Pre and post intravenous contrast axial imaging of the abdomen and pelvis and post contrast axial imaging of the chest were performed. All CT scans use one or more of the following dose optimizing techniques: automated exposure control, MA and/or KvP adjustment based on a patient size and exam type, or iterative reconstruction. HISTORY: Lung cancer. COMPARISON: 08/08/2019. FINDINGS: There is unchanged consolidation and traction bronchiectasis with associated reticulations involving the right upper lobe likely representing treated lung cancer. A few areas of cavitation are unchanged. The fluid and gas cavity at the apex measures 2.7 cm and is unchanged. The pulmonary nodule seen on the prior exam are stable. A right lower lobe nodule measures 9 mm, previously 9 mm (series 5, image 52). A left upper lobe nodule measures 8 mm, previously 8 mm (series 5, image 51). Some of the previously seen centrally cavitary nodules in the left lower lobe are now areas of groundglass or cyst. Soft tissue thickening in the right hilum is unchanged. No enlarged mediastinal lymph nodes are seen. Heart size is normal. There are moderate coronary artery calcifications. No pericardial effusion. Aorta is normal in caliber. There is no axillary or supraclavicular lymphadenopathy. There is no mediastinal lymphadenopathy. The liver is normal without suspicious lesion, stable tiny hypoattenuating lesion in the central liver is likely a cyst and is unchanged. There is no biliary ductal dilation. Gallbladder is surgically absent. Pancreas is normal. Spleen is normal. A 3.0 cm left adrenal mass is stable. The kidneys are normal. There is no hydronephrosis. Urinary bladder is normal. Visualized bowel is normal in caliber without obstruction or inflammation. No free fluid or air. No abdominal or pelvic lymphadenopathy. Aorta is normal in caliber without aneurysm. There are no suspicious osseus lesions. IMPRESSION: 1. 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 2. The majority of the solid pulmonary nodules are stable and are suspicious for metastatic disease. However, some of the cavitary nodules on the prior exam are now small cysts or areas of groundglass. These nodules may represent an atypical infection versus metastatic disease. No new nodules are seen. 3. Stable left adrenal mass. Dictated by: Dictated on workstation # [id number]
== END ==
LOC: RAD 11:33
PROVIDERS: ATTEND Internal Medicine Hematology & Oncology
DX: C34.11 Malignant neoplasm of upper lobe, right bronchus or lung (principal); C79.51 Secondary malignant neoplasm of bone; E27.9 Disorder of adrenal gland, unspecified; C77.1 Secondary and unspecified malignant neoplasm of intrathoracic lymph nodes
CPT/HCPCS: 71260; 74178

== ENCOUNTER 2019-11-12 14:34 | Outpatient (RCR) | payer BC, OTHER ==
[2019-10-22 13:58] LABS: BASOPHILS % (AUTO) 0 % (0-10); EOSINOPHILS # (AUTO) 0.1 10^3/uL (0.0-0.3); EOSINOPHILS % (AUTO) 2 % (0-10); HEMATOCRIT 47 % (35-52); HEMOGLOBIN 14.8 G/DL (11.5-16.0); LYMPHOCYTES # (AUTO) 0.5 X 10^3 (1.0-4.0); LYMPHOCYTES % (AUTO) 13 % (12-44); MEAN CORPUSCULAR HEMOGLOBIN 32 PG (25-34); MEAN CORPUSCULAR HGB CONC 32 G/DL (32-36); MEAN CORPUSCULAR VOLUME 100 FL (80-99); MEAN PLATELET VOLUME 10.9 FL (7.4-10.4); MONOCYTES # (AUTO) 0.4 X 10^3 (0.0-1.0); MONOCYTES % (AUTO) 9 % (0-12); NEUTROPHILS % (AUTO) 76 % (42-75); PLATELET COUNT 83 10^3/uL (130-400); RED CELL DISTRIBUTION WIDTH 15.5 % (10.0-14.5)
[2019-10-22 14:14] LABS: ALANINE AMINOTRANSFERASE 8 U/L (0-55); ALBUMIN 3.9 GM/DL (3.2-4.5); ALKALINE PHOSPHATASE 76 U/L (40-136); BILIRUBIN,TOTAL 0.7 MG/DL (0.1-1.0); BUN/CREATININE RATIO 19; CALCIUM 9.4 MG/DL (8.5-10.1); CARBON DIOXIDE 29 MMOL/L (21-32); CHLORIDE 101 MMOL/L (98-107); CREATININE SERUM 0.63 MG/DL (0.60-1.30); GFR ESTIMATED > 60; GLUCOSE 102 MG/DL (70-105); SODIUM 139 MMOL/L (135-145); TOTAL PROTEIN 6.7 GM/DL (6.4-8.2)
[~2019-11-12 14:34] MED LIST changes: -BARIUM SUSPENSION 2.1% (VANILLA SILQ) 450 ML PO ONE; -CATHETER FLUSH 10 ML SYR IV PRN; -HOLD METFORMIN - RECEIVED CONTRAST 20 ML VIAL IV SCH; -IOHEXOL 350 MG/ML 100 ML (OMNIPAQUE 350) VIAL IV ONE; -NS 100 ML (IVPB) BAG IV ONE; +NS IV 1000 ML (CANCER CTR) IV SCH; +NS IV 500 ML (CANCER CENTER) 500 ML IV SCH; +PEMBROLIZUMAB 200 MG in NS (IVPB) CANCER CENTER 50 ML IV SCH
[2019-11-12 14:59] LABS: BASOPHILS % (AUTO) 1 % (0-10); EOSINOPHILS # (AUTO) 0.1 10^3/uL (0.0-0.3); EOSINOPHILS % (AUTO) 2 % (0-10); HEMATOCRIT 51 % (35-52); LYMPHOCYTES # (AUTO) 0.7 X 10^3 (1.0-4.0); LYMPHOCYTES % (AUTO) 17 % (12-44); MEAN CORPUSCULAR HEMOGLOBIN 32 PG (25-34); MEAN CORPUSCULAR HGB CONC 31 G/DL (32-36); MEAN CORPUSCULAR VOLUME 101 FL (80-99); MEAN PLATELET VOLUME 11.5 FL (7.4-10.4); MONOCYTES # (AUTO) 0.4 X 10^3 (0.0-1.0); MONOCYTES % (AUTO) 10 % (0-12); NEUTROPHILS % (AUTO) 71 % (42-75); PLATELET COUNT 81 10^3/uL (130-400); RED CELL DISTRIBUTION WIDTH 16.1 % (10.0-14.5); WHITE BLOOD COUNT 4.2 10^3/uL (4.3-11.0)
[2019-11-12 15:20] LABS: ALANINE AMINOTRANSFERASE < 6 U/L (0-55); ALBUMIN 3.9 GM/DL (3.2-4.5); ALKALINE PHOSPHATASE 77 U/L (40-136); BILIRUBIN,TOTAL 0.8 MG/DL (0.1-1.0); BUN/CREATININE RATIO 13; CALCIUM 9.3 MG/DL (8.5-10.1); CARBON DIOXIDE 30 MMOL/L (21-32); CHLORIDE 102 MMOL/L (98-107); CREATININE SERUM 0.69 MG/DL (0.60-1.30); GFR ESTIMATED > 60; GLUCOSE 107 MG/DL (70-105); POTASSIUM 4.3 MMOL/L (3.6-5.0); SODIUM 140 MMOL/L (135-145); TOTAL PROTEIN 6.6 GM/DL (6.4-8.2)
[2019-12-03 14:49] LABS: BASOPHILS % (AUTO) 1 % (0-10); EOSINOPHILS # (AUTO) 0.1 10^3/uL (0.0-0.3); EOSINOPHILS % (AUTO) 2 % (0-10); HEMATOCRIT 48 % (35-52); HEMOGLOBIN 15.3 G/DL (11.5-16.0); LYMPHOCYTES # (AUTO) 0.7 X 10^3 (1.0-4.0); LYMPHOCYTES % (AUTO) 18 % (12-44); MEAN CORPUSCULAR HEMOGLOBIN 32 PG (25-34); MEAN CORPUSCULAR HGB CONC 32 G/DL (32-36); MEAN CORPUSCULAR VOLUME 100 FL (80-99); MEAN PLATELET VOLUME 11.6 FL (7.4-10.4); MONOCYTES # (AUTO) 0.4 X 10^3 (0.0-1.0); MONOCYTES % (AUTO) 10 % (0-12); NEUTROPHILS # (AUTO) 2.5 X 10^3 (1.8-7.8); NEUTROPHILS % (AUTO) 69 % (42-75); PLATELET COUNT 95 10^3/uL (130-400); RED CELL DISTRIBUTION WIDTH 14.6 % (10.0-14.5); WHITE BLOOD COUNT 3.7 10^3/uL (4.3-11.0)
[2019-12-03 15:10] LABS: ALANINE AMINOTRANSFERASE 7 U/L (0-55); ALBUMIN 3.8 GM/DL (3.2-4.5); ALKALINE PHOSPHATASE 66 U/L (40-136); BILIRUBIN,TOTAL 0.7 MG/DL (0.1-1.0); BUN/CREATININE RATIO 15; CALCIUM 9.1 MG/DL (8.5-10.1); CARBON DIOXIDE 27 MMOL/L (21-32); CHLORIDE 103 MMOL/L (98-107); CREATININE SERUM 0.62 MG/DL (0.60-1.30); GFR ESTIMATED > 60; GLUCOSE 86 MG/DL (70-105); POTASSIUM 4.2 MMOL/L (3.6-5.0); SODIUM 141 MMOL/L (135-145); TOTAL PROTEIN 6.7 GM/DL (6.4-8.2)
== END 2019-12-03 14:57 | disposition home or self-care (01) ==
LOC: ONC 14:34
PROVIDERS: ATTEND Internal Medicine Hematology & Oncology
DX: Z51.11 Encounter for antineoplastic chemotherapy (principal); C34.11 Malignant neoplasm of upper lobe, right bronchus or lung; C77.1 Secondary and unspecified malignant neoplasm of intrathoracic lymph nodes; F17.210 Nicotine dependence, cigarettes, uncomplicated; I10 Essential (primary) hypertension; M19.90 Unspecified osteoarthritis, unspecified site; E78.00 Pure hypercholesterolemia, unspecified; Z79.899 Other long term (current) drug therapy; Z92.89 Personal history of other medical treatment; Z98.890 Other specified postprocedural states
CPT/HCPCS: 36591; 80053; 85025; 96413

== ENCOUNTER → 2019-12-03 | Outpatient (CLI) | payer BC, OTHER | LOC: ONC 14:59 | PROVIDERS: ATTEND Internal Medicine Hematology & Oncology | DX: Z51.11 Encounter for antineoplastic chemotherapy (principal); C34.11 Malignant neoplasm of upper lobe, right bronchus or lung; C77.1 Secondary and unspecified malignant neoplasm of intrathoracic lymph nodes; F17.210 Nicotine dependence, cigarettes, uncomplicated; I10 Essential (primary) hypertension; M19.90 Unspecified osteoarthritis, unspecified site; E78.00 Pure hypercholesterolemia, unspecified; Z79.899 Other long term (current) drug therapy; Z92.89 Personal history of other medical treatment; Z98.890 Other specified postprocedural states | CPT/HCPCS: 36591; 96413 ==

== ENCOUNTER → 2020-01-27 | Outpatient (CLI) | payer BC, OTHER ==
[~2020-01-27] MED LIST changes: +CATHETER FLUSH 10 ML SYR IV PRN; +HOLD METFORMIN - RECEIVED CONTRAST 20 ML VIAL IV SCH; +IOHEXOL 350 MG/ML 100 ML (OMNIPAQUE 350) VIAL IV ONE; +NS 100 ML (IVPB) BAG IV ONE; -NS IV 1000 ML (CANCER CTR) IV SCH; -NS IV 500 ML (CANCER CENTER) 500 ML IV SCH; -OXYC-529 PO; +OXYC5TAB96 PO; -PEMBROLIZUMAB 200 MG in NS (IVPB) CANCER CENTER 50 ML IV SCH
--- NOTE | 2020-01-27 15:01 | Diagnostic Imaging Report ---
EXAMINATION: CT chest with contrast, CT abdomen with and without contrast. TECHNIQUE: Precontrast acquisitions were acquired through the abdomen. Multiple contiguous axial images were obtained through the chest and abdomen after administration of intravenous contrast. All CT scans use one or more of the following dose optimizing techniques: automated exposure control, MA and/or KvP adjustment based on a patient size and exam type, or iterative reconstruction. HISTORY: Lung cancer. COMPARISON: 10/20/2019. FINDINGS: Again seen is consolidation and traction bronchiectasis with areas of cavitation in the right apex likely representing treated lung cancer. Within this area, there is a new 17 mm peripherally enhancing and centrally low attenuating nodule (series 3, image 34). A 7 mm right middle lobe nodule is stable. Several other nodules in the right middle lobe have resolved. A left upper lobe nodule measuring 7 mm is stable. No new nodules are seen within the aerated lung parenchyma. There is no axillary, supraclavicular or mediastinal lymphadenopathy. Soft tissue thickening in the right hilum is unchanged. Heart size is normal. There are moderate coronary artery calcifications. There is no pericardial effusion. Left port catheter is present with the tip in the superior vena cava. Liver is normal. Gallbladder is absent. No biliary ductal dilation. Portal vein is patent. The pancreas, spleen and right adrenal gland are normal. There is a stable 3.3 cm left adrenal mass. Kidneys are normal without focal lesion or hydronephrosis. There are no dilated loops of bowel. No lymphadenopathy is seen in the abdomen. The abdominal aorta is atherosclerotic but normal in caliber. IMPRESSION: 1. New peripherally enhancing and centrally low attenuating focus within the right upper lobe measuring 17 mm. This may represent local recurrence or a focus of infection in the chronically consolidated lung. PET/CT may be helpful for further evaluation. 2. Continued improvement in many of the other small pulmonary nodules throughout the lungs with some nodules being stable which may either represent metastatic disease or an infectious process. 3. Stable left adrenal mass. Dictated by: Dictated on workstation # [id number]
== END ==
LOC: RAD 14:03
PROVIDERS: ATTEND Internal Medicine Hematology & Oncology
DX: C34.90 Malignant neoplasm of unspecified part of unspecified bronchus or lung (principal); E27.8 Other specified disorders of adrenal gland
CPT/HCPCS: 71260; 74170; 96523

== ENCOUNTER → 2020-02-10 | Outpatient (CLI) | payer BC, OTHER ==
[~2020-02-10] MED LIST changes: -CATHETER FLUSH 10 ML SYR IV PRN; -HOLD METFORMIN - RECEIVED CONTRAST 20 ML VIAL IV SCH; -IOHEXOL 350 MG/ML 100 ML (OMNIPAQUE 350) VIAL IV ONE; -NS 100 ML (IVPB) BAG IV ONE
--- NOTE | 2020-02-10 16:25 | Diagnostic Imaging Report ---
INDICATION: Lung carcinoma, restaging. TECHNIQUE: Serum blood glucose level at the time of injection is 91 mg/dL. The patient was administered 14.1 mCi F18 FDG intravenously in the right antecubital location and PET imaging was performed from the top of the skull to mid thighs. Noncontrast CT was also performed for attenuation correction and anatomic correlation. CORRELATION is made with prior PET CT study from [facility] on 01/16/2019. In addition, comparison is made with recent CT chest and abdomen study from 01/27/2020. The large partially necrotic mass involving the right upper lobe on prior PET/CT study one year earlier does show significant improvement in overall size and degree of consolidation. The findings are consistent with treated lung cancer. Overall degree of marked hypermetabolism has significantly improved with only milder regions of hypermetabolism within areas of consolidation in the right apex. The new region of central low attenuation and peripheral enhancement does show hypermetabolism on today's exam with an SUV max of approximately 6.4. There is also some residual hypermetabolism more peripherally in the area of consolidation in the right upper lobe. The areas of hypermetabolism in the right supraclavicular location are no longer present. Hypermetabolism within the mediastinum and right hilum are no longer appreciated. Physiologic activity within the gastrointestinal and genitourinary tracts in the abdomen and pelvis are noted. Low-level activity in the previously noted left adrenal mass appears stable. There is symmetric activity throughout the brain. Soft tissues of the neck are unremarkable. There is some muscular uptake within the neck. Previously noted osseous uptake lower thoracic vertebral body is not appreciated on today's study. IMPRESSION: Overall significant improvement in the PET/CT study when compared with one year earlier. There is a small focus of hypermetabolism along the medial aspect of the right upper lobe at the area of recently described low attenuation with peripheral hyperenhancement, suggestive of an area of residual or recurrent neoplasm. More peripheral hypermetabolism at the same level in the right upper lobe persists as well consistent with some residual neoplasia versus recurrence. Dictated by: Dictated on workstation # [id number]
== END ==
LOC: RAD 11:04
PROVIDERS: ATTEND Internal Medicine Hematology & Oncology
DX: C34.90 Malignant neoplasm of unspecified part of unspecified bronchus or lung (principal); R93.89 Abnormal findings on diagnostic imaging of other specified body structures

== ENCOUNTER 2020-02-26 14:43 | Outpatient (RCR) | payer BC, OTHER ==
[2019-12-24 14:42] LABS: BASOPHILS % (AUTO) 1 % (0-10); EOSINOPHILS # (AUTO) 0.1 10^3/uL (0.0-0.3); EOSINOPHILS % (AUTO) 3 % (0-10); HEMATOCRIT 47 % (35-52); HEMOGLOBIN 14.7 G/DL (11.5-16.0); LYMPHOCYTES # (AUTO) 0.7 X 10^3 (1.0-4.0); LYMPHOCYTES % (AUTO) 17 % (12-44); MEAN CORPUSCULAR HEMOGLOBIN 31 PG (25-34); MEAN CORPUSCULAR HGB CONC 32 G/DL (32-36); MEAN CORPUSCULAR VOLUME 99 FL (80-99); MEAN PLATELET VOLUME 11.4 FL (7.4-10.4); MONOCYTES # (AUTO) 0.4 X 10^3 (0.0-1.0); MONOCYTES % (AUTO) 11 % (0-12); NEUTROPHILS # (AUTO) 2.6 X 10^3 (1.8-7.8); NEUTROPHILS % (AUTO) 69 % (42-75); PLATELET COUNT 89 10^3/uL (130-400); RED CELL DISTRIBUTION WIDTH 14.3 % (10.0-14.5); WHITE BLOOD COUNT 3.8 10^3/uL (4.3-11.0)
[2019-12-24 15:03] LABS: ALANINE AMINOTRANSFERASE 8 U/L (0-55); ALBUMIN 3.6 GM/DL (3.2-4.5); ALKALINE PHOSPHATASE 72 U/L (40-136); BILIRUBIN,TOTAL 0.4 MG/DL (0.1-1.0); BUN/CREATININE RATIO 20; CALCIUM 9.1 MG/DL (8.5-10.1); CARBON DIOXIDE 28 MMOL/L (21-32); CHLORIDE 104 MMOL/L (98-107); GFR ESTIMATED > 60; GLUCOSE 83 MG/DL (70-105); POTASSIUM 4.3 MMOL/L (3.6-5.0); SODIUM 140 MMOL/L (135-145); TOTAL PROTEIN 6.5 GM/DL (6.4-8.2)
[2020-01-14 14:40] LABS: BASOPHILS % (AUTO) 1 % (0-10); EOSINOPHILS # (AUTO) 0.1 10^3/uL (0.0-0.3); EOSINOPHILS % (AUTO) 3 % (0-10); HEMATOCRIT 46 % (35-52); HEMOGLOBIN 14.5 G/DL (11.5-16.0); LYMPHOCYTES # (AUTO) 0.8 X 10^3 (1.0-4.0); LYMPHOCYTES % (AUTO) 19 % (12-44); MEAN CORPUSCULAR HEMOGLOBIN 31 PG (25-34); MEAN CORPUSCULAR HGB CONC 32 G/DL (32-36); MEAN CORPUSCULAR VOLUME 97 FL (80-99); MEAN PLATELET VOLUME 11.1 FL (7.4-10.4); MONOCYTES # (AUTO) 0.4 X 10^3 (0.0-1.0); MONOCYTES % (AUTO) 9 % (0-12); NEUTROPHILS % (AUTO) 70 % (42-75); PLATELET COUNT 106 10^3/uL (130-400); RED CELL DISTRIBUTION WIDTH 14.7 % (10.0-14.5); WHITE BLOOD COUNT 4.3 10^3/uL (4.3-11.0)
[2020-01-14 15:09] LABS: ALANINE AMINOTRANSFERASE 7 U/L (0-55); ALBUMIN 3.7 GM/DL (3.2-4.5); ALKALINE PHOSPHATASE 75 U/L (40-136); BILIRUBIN,TOTAL 0.5 MG/DL (0.1-1.0); BUN/CREATININE RATIO 23; CALCIUM 9.2 MG/DL (8.5-10.1); CARBON DIOXIDE 30 MMOL/L (21-32); CHLORIDE 104 MMOL/L (98-107); CREATININE SERUM 0.65 MG/DL (0.60-1.30); GFR ESTIMATED > 60; GLUCOSE 85 MG/DL (70-105); POTASSIUM 4.3 MMOL/L (3.6-5.0); SODIUM 140 MMOL/L (135-145); TOTAL PROTEIN 6.6 GM/DL (6.4-8.2)
[2020-02-04 14:38] LABS: BASOPHILS % (AUTO) 1 % (0-10); EOSINOPHILS # (AUTO) 0.1 10^3/uL (0.0-0.3); EOSINOPHILS % (AUTO) 3 % (0-10); HEMATOCRIT 41 % (35-52); HEMOGLOBIN 13.1 G/DL (11.5-16.0); LYMPHOCYTES # (AUTO) 0.9 X 10^3 (1.0-4.0); LYMPHOCYTES % (AUTO) 19 % (12-44); MEAN CORPUSCULAR HEMOGLOBIN 31 PG (25-34); MEAN CORPUSCULAR HGB CONC 32 G/DL (32-36); MEAN CORPUSCULAR VOLUME 96 FL (80-99); MEAN PLATELET VOLUME 11.1 FL (7.4-10.4); MONOCYTES # (AUTO) 0.4 X 10^3 (0.0-1.0); MONOCYTES % (AUTO) 9 % (0-12); NEUTROPHILS # (AUTO) 3.1 X 10^3 (1.8-7.8); NEUTROPHILS % (AUTO) 68 % (42-75); PLATELET COUNT 100 10^3/uL (130-400); WHITE BLOOD COUNT 4.5 10^3/uL (4.3-11.0)
[2020-02-04 14:58] LABS: ALANINE AMINOTRANSFERASE 10 U/L (0-55); ALBUMIN 3.7 GM/DL (3.2-4.5); ALKALINE PHOSPHATASE 69 U/L (40-136); BILIRUBIN,TOTAL 0.4 MG/DL (0.1-1.0); BUN/CREATININE RATIO 22; CARBON DIOXIDE 29 MMOL/L (21-32); CHLORIDE 102 MMOL/L (98-107); CREATININE SERUM 0.63 MG/DL (0.60-1.30); GFR ESTIMATED > 60; GLUCOSE 63 MG/DL (70-105); POTASSIUM 4.1 MMOL/L (3.6-5.0); SODIUM 138 MMOL/L (135-145); TOTAL PROTEIN 6.5 GM/DL (6.4-8.2)
[~2020-02-26 14:43] MED LIST changes: +NS IV 1000 ML (CANCER CTR) IV SCH; +NS IV 500 ML (CANCER CENTER) 500 ML IV SCH; +PEMBROLIZUMAB 200 MG in NS (IVPB) CANCER CENTER 50 ML IV SCH
[2020-02-26 15:17] LABS: BASOPHILS % (AUTO) 1 % (0-10); EOSINOPHILS # (AUTO) 0.1 10^3/uL (0.0-0.3); EOSINOPHILS % (AUTO) 2 % (0-10); HEMATOCRIT 42 % (35-52); HEMOGLOBIN 13.2 G/DL (11.5-16.0); LYMPHOCYTES # (AUTO) 0.6 X 10^3 (1.0-4.0); LYMPHOCYTES % (AUTO) 14 % (12-44); MEAN CORPUSCULAR HEMOGLOBIN 30 PG (25-34); MEAN CORPUSCULAR HGB CONC 32 G/DL (32-36); MEAN CORPUSCULAR VOLUME 95 FL (80-99); MEAN PLATELET VOLUME 11.7 FL (7.4-10.4); MONOCYTES # (AUTO) 0.4 X 10^3 (0.0-1.0); MONOCYTES % (AUTO) 9 % (0-12); NEUTROPHILS # (AUTO) 3.3 X 10^3 (1.8-7.8); NEUTROPHILS % (AUTO) 73 % (42-75); PLATELET COUNT 96 10^3/uL (130-400); RED CELL DISTRIBUTION WIDTH 16.2 % (10.0-14.5); WHITE BLOOD COUNT 4.4 10^3/uL (4.3-11.0)
[2020-02-26 15:21] LABS: ALBUMIN 3.9 GM/DL (3.2-4.5)
[2020-02-26 15:22] LABS: CHLORIDE 104 MMOL/L (98-107); POTASSIUM 4.1 MMOL/L (3.6-5.0); SODIUM 141 MMOL/L (135-145)
[2020-02-26 15:23] LABS: CALCIUM 9.4 MG/DL (8.5-10.1)
[2020-02-26 15:24] LABS: GLUCOSE 89 MG/DL (70-105); TOTAL PROTEIN 6.9 GM/DL (6.4-8.2)
[2020-02-26 15:25] LABS: CARBON DIOXIDE 31 MMOL/L (21-32)
[2020-02-26 15:26] LABS: BILIRUBIN,TOTAL 0.8 MG/DL (0.1-1.0)
[2020-02-26 15:27] LABS: ALKALINE PHOSPHATASE 75 U/L (40-136)
[2020-02-26 15:28] LABS: CREATININE SERUM 0.75 MG/DL (0.60-1.30); GFR ESTIMATED > 60
[2020-02-26 15:29] LABS: BUN/CREATININE RATIO 19
[2020-02-26 15:31] LABS: ALANINE AMINOTRANSFERASE 9 U/L (0-55)
== END 2020-03-11 13:17 | disposition home or self-care (01) ==
LOC: ONC 14:43
PROVIDERS: ATTEND Internal Medicine Hematology & Oncology
DX: Z51.11 Encounter for antineoplastic chemotherapy (principal); C34.11 Malignant neoplasm of upper lobe, right bronchus or lung; I26.99 Other pulmonary embolism without acute cor pulmonale; I10 Essential (primary) hypertension; M19.90 Unspecified osteoarthritis, unspecified site; E78.00 Pure hypercholesterolemia, unspecified; E78.5 Hyperlipidemia, unspecified; R51 Headache; Z79.899 Other long term (current) drug therapy; Z98.890 Other specified postprocedural states; Z72.0 Tobacco use
CPT/HCPCS: 36591; 80053; 85025; 96413

== ENCOUNTER → 2020-02-26 | Outpatient (CLI) | payer BC ==
[2020-02-26 16:31] LABS: BILIRUBIN,URINE NEGATIVE (NEGATIVE); CLARITY,URINE CLEAR; COLOR,URINE YELLOW; GLUCOSE, URINE (UA) NEGATIVE (NEGATIVE); KETONES,URINE NEGATIVE (NEGATIVE); LEUKOCYTE ESTERASE ,URINE NEGATIVE (NEGATIVE); NITRITE,URINE NEGATIVE (NEGATIVE); PROTEIN,URINE NEGATIVE (NEGATIVE)
[2020-02-26 16:40] LABS: AMORPHOUS SEDIMENT,UR FEW AMOR URATES /LPF; BACTERIA,URINE NEGATIVE /HPF
== END ==
LOC: LAB 14:50
PROVIDERS: ATTEND Family Medicine
DX: E78.49 Other hyperlipidemia (principal)
CPT/HCPCS: 36415; 80061; 81000; 84443

== ENCOUNTER 2020-05-19 13:26 | Outpatient (RCR) | payer BC ==
[2020-03-12 14:04] LABS: BASOPHILS % (AUTO) 1 % (0-10); EOSINOPHILS # (AUTO) 0.1 10^3/uL (0.0-0.3); EOSINOPHILS % (AUTO) 1 % (0-10); HEMATOCRIT 41 % (35-52); HEMOGLOBIN 13.3 G/DL (11.5-16.0); LYMPHOCYTES # (AUTO) 0.7 X 10^3 (1.0-4.0); LYMPHOCYTES % (AUTO) 15 % (12-44); MEAN CORPUSCULAR HEMOGLOBIN 31 PG (25-34); MEAN CORPUSCULAR HGB CONC 32 G/DL (32-36); MEAN CORPUSCULAR VOLUME 97 FL (80-99); MEAN PLATELET VOLUME 11.2 FL (7.4-10.4); MONOCYTES # (AUTO) 0.4 X 10^3 (0.0-1.0); MONOCYTES % (AUTO) 9 % (0-12); NEUTROPHILS # (AUTO) 3.2 X 10^3 (1.8-7.8); NEUTROPHILS % (AUTO) 74 % (42-75); PLATELET COUNT 111 10^3/uL (130-400); WHITE BLOOD COUNT 4.4 10^3/uL (4.3-11.0)
[2020-03-12 14:24] LABS: ALANINE AMINOTRANSFERASE 11 U/L (0-55); ALBUMIN 4.2 GM/DL (3.2-4.5); ALKALINE PHOSPHATASE 87 U/L (40-136); BUN/CREATININE RATIO 18; CALCIUM 9.7 MG/DL (8.5-10.1); CARBON DIOXIDE 27 MMOL/L (21-32); CHLORIDE 103 MMOL/L (98-107); CREATININE SERUM 0.74 MG/DL (0.60-1.30); GFR ESTIMATED > 60; GLUCOSE 162 MG/DL (70-105); POTASSIUM 3.9 MMOL/L (3.6-5.0); SODIUM 140 MMOL/L (135-145); TOTAL PROTEIN 7.4 GM/DL (6.4-8.2)
[2020-04-23 14:05] LABS: BASOPHILS % (AUTO) 1 % (0-10); EOSINOPHILS # (AUTO) 0.1 10^3/uL (0.0-0.3); EOSINOPHILS % (AUTO) 2 % (0-10); HEMATOCRIT 37 % (35-52); HEMOGLOBIN 11.6 G/DL (11.5-16.0); LYMPHOCYTES # (AUTO) 0.7 X 10^3 (1.0-4.0); LYMPHOCYTES % (AUTO) 12 % (12-44); MEAN CORPUSCULAR HEMOGLOBIN 31 PG (25-34); MEAN CORPUSCULAR HGB CONC 32 G/DL (32-36); MEAN CORPUSCULAR VOLUME 98 FL (80-99); MEAN PLATELET VOLUME 10.4 FL (7.4-10.4); MONOCYTES # (AUTO) 0.5 X 10^3 (0.0-1.0); MONOCYTES % (AUTO) 9 % (0-12); NEUTROPHILS # (AUTO) 4.1 X 10^3 (1.8-7.8); NEUTROPHILS % (AUTO) 76 % (42-75); PLATELET COUNT 151 10^3/uL (130-400); WHITE BLOOD COUNT 5.4 10^3/uL (4.3-11.0)
[2020-04-23 14:42] LABS: ALANINE AMINOTRANSFERASE 7 U/L (0-55); ALBUMIN 3.7 GM/DL (3.2-4.5); ALKALINE PHOSPHATASE 85 U/L (40-136); BILIRUBIN,TOTAL 0.6 MG/DL (0.1-1.0); BUN/CREATININE RATIO 19; CALCIUM 9.4 MG/DL (8.5-10.1); CARBON DIOXIDE 30 MMOL/L (21-32); CHLORIDE 100 MMOL/L (98-107); GFR ESTIMATED > 60; GLUCOSE 123 MG/DL (70-105); POTASSIUM 3.9 MMOL/L (3.6-5.0); SODIUM 136 MMOL/L (135-145); TOTAL PROTEIN 6.9 GM/DL (6.4-8.2)
== END 2020-05-20 15:42 | disposition home or self-care (01) ==
LOC: ONC 13:26
PROVIDERS: ATTEND Internal Medicine Hematology & Oncology
DX: Z51.11 Encounter for antineoplastic chemotherapy (principal); C34.11 Malignant neoplasm of upper lobe, right bronchus or lung; I26.99 Other pulmonary embolism without acute cor pulmonale; I10 Essential (primary) hypertension; M19.90 Unspecified osteoarthritis, unspecified site; E78.00 Pure hypercholesterolemia, unspecified; E78.5 Hyperlipidemia, unspecified; R51 Headache; Z79.899 Other long term (current) drug therapy; Z98.890 Other specified postprocedural states; Z72.0 Tobacco use
CPT/HCPCS: 80053; 84443; 85025; 96413; 99213

== ENCOUNTER → 2020-06-15 | Outpatient (CLI) | payer BC ==
[~2020-06-15] MED LIST changes: -NS IV 1000 ML (CANCER CTR) IV SCH; -NS IV 500 ML (CANCER CENTER) 500 ML IV SCH; +OXC5T PO; -OXYC5TAB96 PO; -PEMBROLIZUMAB 200 MG in NS (IVPB) CANCER CENTER 50 ML IV SCH
--- NOTE | 2020-06-15 15:34 | Diagnostic Imaging Report ---
INDICATION: Lung cancer with bone metastases. This study is performed for restaging. TECHNIQUE: The serum blood glucose level at the time of injection was 128 mg/dL. The patient was administered 14.7 mCi of F-18 FDG in the left hand intravenously and PET imaging was performed from the top of the skull to the mid thighs. A noncontrast CT was also performed for attenuation correction and anatomic correlation. COMPARISON: Correlation is made with the prior PET/CT study from 02/10/2020. FINDINGS: Symmetric activity throughout the brain is noted. The known mass-like consolidation with central cavitation in the right upper lobe is again noted and similar in appearance to the prior exam; however, there has been some significant increase in the degree of hypermetabolism along the anterior periphery of the mass in the right apex with an SUV max approaching 13.5. Previously, more lower level uptake was seen at this location. The areas of hypermetabolism abut the right hilum. The left lung is unremarkable. There is a small pericardial effusion noted. No pleural fluid is seen. The abdomen and pelvis again demonstrate physiologic activity within the GI and tracts. No significant uptake within the known left adrenal mass is identified. The patient does have bilateral nonobstructing renal calculi. No suspicious osseous uptake is identified. IMPRESSION: There has been an increase in the degree of hypermetabolism involving the known mass in the right upper lobe since the prior PET study from 02/10/2020. The remainder of the study appears to be stable. Note is made of a small pericardial effusion which has increased since the prior CT. Dictated by: Dictated on workstation # [id number]
== END ==
LOC: RAD 12:30
PROVIDERS: ATTEND Internal Medicine Hematology & Oncology
DX: C34.11 Malignant neoplasm of upper lobe, right bronchus or lung (principal); C79.51 Secondary malignant neoplasm of bone; C77.1 Secondary and unspecified malignant neoplasm of intrathoracic lymph nodes

== ENCOUNTER 2020-07-12 11:45 | Emergency (ER) | payer BC ==
[~2020-07-12] VITALS: Ht 165.1 cm; Wt 62.5 kg
[2020-07-12] MEDS ORDERED: LACTATED RINGERS 1,000 ML IV SCH (12:45)
[2020-07-12] MEDS ORDERED: fentaNYL INJECTION 100 MCG/2 ML AMP IVP ONE (12:45)
--- NOTE | 2020-07-12 12:52 | ED General ---
General Stated Complaint: SOB HX CA,R ARM SWELLING Source of Information: Patient Exam Limitations: No Limitations History of Present Illness Date Seen by Provider: Jul 12, 2020 Time Seen by Provider: 12:49 Initial Comments To ER with shortness of breath, right arm swelling x1.5 weeks, cough with hemoptysis. Has known metastatic right lung cancer. This is metastasized to the left ribs she states. She continue to smoke cigarettes. She is not oxygen dependent at home. Remote history of pulmonary embolism with recent cessation of Eliquis few weeks ago. No fevers. Follows with Dr. White from cancer center Timing/Duration: 1 Week Severity: Moderate Associated Systoms: Cough Allergies and Home Medications Allergies Coded Allergies: No Known Drug Allergies (Unverified , 01/30/19) Home Medications Amoxicillin/Potassium Clav 1 Each Tablet, 1 EACH PO BID Prescribed by: DANISH RICO on 03/31/19 1155 Atorvastatin Calcium 10 Mg Tablet, 10 MG PO DAILY, (Reported) Docusate Sodium 100 Mg Tablet, 300 MG PO DAILY, (Reported) Famotidine 20 Mg Tablet, 40 MG PO DAILY, (Reported) TAKES 2 (20MG) TABLETS Lactobacillus Acidophilus/Pect 1 Each Capsule, 2 EACH PO TIDWM Prescribed by: DANISH RICO on 03/31/19 1155 Metoprolol Succinate 50 Mg Tab.er.24h, 50 MG PO DAILY, (Reported) Morphine Sulfate 100 Mg/5 Ml Solution, 15 MG PO Q4H PRN for PAIN-SEVERE, (Reported) Nicotine 1 Each Patch.td24, 21 MG TD DAILY, (Reported) Polyethylene Glycol 3350 17 Gm Powd.pack, 17 GM PO DAILY PRN for CONSTIPATION- 2ND LINE, (Reported) Topiramate 25 Mg Tablet, 25 MG PO BID, (Reported) Varenicline Tartrate 1 Mg Tablet, 1 MG PO BID PRN for NICOTINE CRAVINGS, (Reported) [Magic Mouthwash] , 5 ML PO QID PRN for MOUTH SORES, (Reported) SWISH AND SWALLOW Patient Home Medication List Home Medication List Reviewed: Yes Review of Systems Review of Systems Constitutional: see HPI; No chills, No fever EENTM: see HPI Respiratory: see HPI, cough Cardiovascular: no symptoms reported Genitourinary: no symptoms reported Musculoskeletal: no symptoms reported Skin: no symptoms reported Psychiatric/Neurological: No Symptoms Reported Hematologic/Lymphatic: No Symptoms Reported Immunological/Allergic: no symptoms reported Past Yzeysdk-[id number]-Ytnpkv Hx Patient Social History Type Used: Cigarettes Former Smoker, Quit: January 09, 2019 2nd Hand Smoke Exposure: Yes Recent Foreign Travel: No Contact w/Someone Who Travel: No Recent Hopitalizations: Yes (January-[facility] LUNG BX) Seasonal Allergies Seasonal Allergies: No Past Medical History Surgeries: Yes (LUNG BX, CERVIX REMOVED IN 'S, SKIN CANCER REMOVED, BUNIONECTOMY, ) Respiratory: Yes (LUNG CANCER) COPD Cardiac: Yes High Cholesterol, Hypertension Neurological: Yes Headaches /Migraines Sexually Transmitted Disease: No HIV/AIDS: No Genitourinary: No Gastrointestinal: No Musculoskeletal: Yes Arthritis Endocrine: No HEENT: Yes (READING GLASSES, DENTURES) Loss of Vision: Bilateral Hearing Impairment: Denies Cancer: Yes Lung, Skin Did You Recieve Any Treatments: Yes What Type of Treatment Did You: Surgical Intervention Psychosocial: Yes Depression Integumentary: No Blood Disorders: No Adverse Reaction/Blood Tranf: No (N/A) Family Medical History Patient reports no known family medical history. Physical Exam Vital Signs Vital Signs - First Documented 07/12/20 07/12/20 12:20 12:21 Temp 36.7 Pulse 126 Resp 20 B/P (MAP) 130/81 (97) Pulse Ox 82 O2 Delivery Room Air O2 Flow Rate 4.00 Capillary Refill : Height, Weight, BMI Height: 5'5.00" Weight: 181lbs. 6.0oz. 82.733861pv; 27.3 BMI Method:Stated General Appearance: No Apparent Distress, WD/WN, Other Eyes: Bilateral Eye Normal Inspection, Bilateral Eye PERRL Neck: Full Range of Motion, Normal Inspection Respiratory: Chest Non Tender, Lungs Clear Cardiovascular: Normal Peripheral Pulses, Tachycardia Gastrointestinal: Normal Bowel Sounds, Non Tender, Soft Extremity: Normal Capillary Refill, Other (Bilateral lower extremity 3+ pitting edema up to the knees which she states is chronic but little bit worse than u sual. There is right arm swelling from just above the elbow distally. This is new x1.5 weeks. There is no erythema) Neurologic/Psychiatric: Alert, Oriented x3 Skin: Normal Color, Warm/Dry Focused Exam Lactate Level 07/12/20 12:40: Lactic Acid Level 0.86 Lactic Acid Level Laboratory Tests Test 07/12/20 12:40 Lactic Acid Level 0.86 MMOL/L (0.50-2.00) Progress/Results/Core Measures Suspected Sepsis SIRS Temperature: Pulse: Respiratory Rate: Laboratory Tests 07/12/20 12:40: White Blood Count 7.8 Blood Pressure / Mean: 07/12/20 12:40: Lactic Acid Level 0.86 Laboratory Tests 07/12/20 12:40: Creatinine 0.50L, Platelet Count 141, Total Bilirubin 0.8 Results/Orders Lab Results Laboratory Tests Test 07/12/20 12:30 07/12/20 12:40 07/12/20 13:49 Range/Units Coronavirus 2019 ([facility]) Negative Negative White Blood Count 7.8 4.3-11.0 10^3/uL Red Blood Count 3.96 3.80-5.11 10^6/uL Hemoglobin 10.7 L 11.5-16.0 g/dL Hematocrit 36 35-52 % Mean Corpuscular Volume 90 80-99 fL Mean Corpuscular Hemoglobin 27 25-34 pg Mean Corpuscular Hemoglobin Concent 30 L 32-36 g/dL Red Cell Distribution Width 15.9 H 10.0-14.5 % Platelet Count 141 130-400 10^3/uL Mean Platelet Volume 10.1 9.0-12.2 fL Immature Granulocyte % (Auto) 0 % Neutrophils (%) (Auto) 89 H 42-75 % Lymphocytes (%) (Auto) 5 L 12-44 % Monocytes (%) (Auto) 6 0-12 % Eosinophils (%) (Auto) 0 0-10 % Basophils (%) (Auto) 0 0-10 % Neutrophils # (Auto) 6.9 1.8-7.8 10^3/uL Lymphocytes # (Auto) 0.4 L 1.0-4.0 10^3/uL Monocytes # (Auto) 0.4 0.0-1.0 10^3/uL Eosinophils # (Auto) 0.0 0.0-0.3 10^3/uL Basophils # (Auto) 0.0 0.0-0.1 10^3/uL Immature Granulocyte # (Auto) 0.0 0.0-0.1 10^3/uL Neutrophils % (Manual) 93 % Lymphocytes % (Manual) 3 % Monocytes % (Manual) 4 % Poikilocytosis SLIGHT Anisocytosis SLIGHT Sodium Level 134 L 135-145 MMOL/L Potassium Level 4.0 3.6-5.0 MMOL/L Chloride Level 94 L 98-107 MMOL/L Carbon Dioxide Level 32 21-32 MMOL/L Anion Gap 8 5-14 MMOL/L Blood Urea Nitrogen 11 7-18 MG/DL Creatinine 0.50 L 0.60-1.30 MG/DL Estimat Glomerular Filtration Rate > 60 BUN/Creatinine Ratio 22 Glucose Level 112 H 70-105 MG/DL Lactic Acid Level 0.86 0.50-2.00 MMOL/L Calcium Level 9.2 8.5-10.1 MG/DL Corrected Calcium 10.0 8.5-10.1 MG/DL Total Bilirubin 0.8 0.1-1.0 MG/DL Aspartate Amino Transf (AST/SGOT) 10 5-34 U/L Alanine Aminotransferase (ALT/SGPT) 6 0-55 U/L Alkaline Phosphatase 160 H 40-136 U/L Troponin I < 0.028 <0.028 NG/ML B-Type Natriuretic Peptide 39.3 <100.0 PG/ML Total Protein 5.9 L 6.4-8.2 GM/DL Albumin 3.0 L 3.2-4.5 GM/DL Procalcitonin 0.05 <0.10 NG/ML Urine Color YELLOW Urine Clarity CLEAR Urine pH 7.5 5-9 Urine Specific Chapman 1.010 L 1.016-1.022 Urine Protein NEGATIVE NEGATIVE Urine Glucose (UA) NEGATIVE NEGATIVE Urine Ketones NEGATIVE NEGATIVE Urine Nitrite NEGATIVE NEGATIVE Urine Bilirubin NEGATIVE NEGATIVE Urine Urobilinogen 1.0 < = 1.0 MG/DL Urine Leukocyte Esterase NEGATIVE NEGATIVE Urine RBC (Auto) TRACE-I NEGATIVE Urine RBC 2-5 H /HPF Urine WBC 0-2 /HPF Urine Squamous Epithelial Cells 2-5 /HPF Urine Crystals PRESENT H /LPF Urine Amorphous Sediment LARGE NAYANA URATES H /LPF Urine Bacteria NEGATIVE /HPF Urine Casts NONE /LPF Urine Mucus MODERATE H /LPF Urine Culture Indicated NO My Orders Orders - MAR YOON CARROT HARVESTER Cbc With Automated Diff (07/12/20 12:16) Comprehensive Metabolic Panel (07/12/20 12:16) Ua Culture If Indicated (07/12/20 12:16) Ekg Tracing (07/12/20 12:16) Troponin I (07/12/20 12:16) Ed Iv/Invasive Line Start (07/12/20 12:16) Covid 19 Inhouse Test (07/12/20 12:32) Lactic Acid Analyzer (07/12/20 12:32) BNP (07/12/20 12:32) Blood Culture (07/12/20 12:32) Procalcitonin (Pct) (07/12/20 12:32) Chest 1 View, Ap/Pa Only (07/12/20 12:32) Fentanyl Injection (Sublimaze Injection (07/12/20 12:45) Lactated Ringers (Lr 1000 Ml Iv Solution (07/12/20 12:45) Manual Differential (07/12/20 12:40) Us Venous Upper Ext Rt (07/12/20 13:24) Ct Angio Chest W (07/12/20 13:24) Iohexol Injection (Omnipaque 350 Mg/Ml 1 (07/12/20 13:30) Received Contrast (Hold Metformin- Contr (07/12/20 13:30) Ns (Ivpb) (Sodium Chloride 0.9% Ivpb Bag (07/12/20 13:30) Us Venous Upper Ext Rt (07/12/20 13:29) Iohexol Injection (Omnipaque 350 Mg/Ml 1 (07/12/20 14:00) Received Contrast (Hold Metformin- Contr (07/12/20 14:00) Ns (Ivpb) (Sodium Chloride 0.9% Ivpb Bag (07/12/20 14:00) Medications Given in ED Current Medications Medications Dose Ordered Sig/Isaura Route Start Time Stop Time Status Last Admin Dose Admin Fentanyl Citrate 50 mcg ONCE ONCE IVP 07/12/20 12:45 07/12/20 12:46 DC 07/12/20 13:05 50 MCG Iohexol 75 ml ONCE ONCE IV 07/12/20 13:30 07/12/20 13:31 DC 07/12/20 14:42 75 ML Sodium Chloride 100 ml ONCE ONCE IV 07/12/20 13:30 07/12/20 13:31 DC 07/12/20 14:42 100 ML Vital Signs/I&O 07/12/20 07/12/20 12:20 12:21 Temp 36.7 Pulse 126 Resp 20 B/P (MAP) 130/81 (97) Pulse Ox 82 94 O2 Delivery Room Air Nasal Cannula O2 Flow Rate 4.00 Capillary Refill : Departure Communication (Admissions) Spoke with Dr. Yan, we will admit, supplemental oxygen, Eliquis. Spoke with Dr. White and she agrees to consult. Impression Primary Impression: Lung cancer Qualified Codes: C34.91 - Malignant neoplasm of unspecified part of right bronchus or lung Additional Impressions: Hypoxia Deep vein thrombosis, upper right extremity Qualified Codes: I82.A11 - Acute embolism and thrombosis of right axillary vein Disposition: ADMITTED INPATIENT Condition: Stable Admissions Decision to Admit Reason: Admit from ER (General) Decision to Admit/Date: Jul 12, 2020 Time/Decision to Admit Time: 15:06 Departure-Patient Inst. Referrals: CHIRAG VALENCIA MD (PCP/Family) Primary Care Physician MAR YOON APRN Jul 12, 2020 12:52
[2020-07-12 12:53] LABS: EOSINOPHILS % (AUTO) 0 % (0-10); HEMOGLOBIN 10.7 g/dL (11.5-16.0); LYMPHOCYTES # (AUTO) 0.4 10^3/uL (1.0-4.0)
[2020-07-12 12:55] LABS: BASOPHILS % (AUTO) 0 % (0-10); HEMATOCRIT 36 % (35-52); LYMPHOCYTES % (AUTO) 5 % (12-44); MEAN CORPUSCULAR HEMOGLOBIN 27 pg (25-34); MEAN CORPUSCULAR HGB CONC 30 g/dL (32-36); MEAN CORPUSCULAR VOLUME 90 fL (80-99); MEAN PLATELET VOLUME 10.1 fL (9.0-12.2); MONOCYTES # (AUTO) 0.4 10^3/uL (0.0-1.0); MONOCYTES % (AUTO) 6 % (0-12); NEUTROPHILS # (AUTO) 6.9 10^3/uL (1.8-7.8); NEUTROPHILS % (AUTO) 89 % (42-75); PLATELET COUNT 141 10^3/uL (130-400); WHITE BLOOD COUNT 7.8 10^3/uL (4.3-11.0)
[2020-07-12 13:02] LABS: CHLORIDE 94 MMOL/L (98-107); SODIUM 134 MMOL/L (135-145)
[2020-07-12 13:03] LABS: CALCIUM 9.2 MG/DL (8.5-10.1)
[2020-07-12 13:04] LABS: GLUCOSE 112 MG/DL (70-105); TOTAL PROTEIN 5.9 GM/DL (6.4-8.2)
[2020-07-12 13:05] LABS: CARBON DIOXIDE 32 MMOL/L (21-32)
[2020-07-12 13:06] LABS: BILIRUBIN,TOTAL 0.8 MG/DL (0.1-1.0)
[2020-07-12 13:07] LABS: ALKALINE PHOSPHATASE 160 U/L (40-136)
[2020-07-12 13:08] LABS: GFR ESTIMATED > 60
[2020-07-12 13:09] LABS: BUN/CREATININE RATIO 22
[2020-07-12 13:10] LABS: ALANINE AMINOTRANSFERASE 6 U/L (0-55)
[2020-07-12 13:17] LABS: ANISOCYTOSIS SLIGHT; LYMPHOCYTES % (MANUAL) 3 %; MONOCYTES % (MANUAL) 4 %; NEUTROPHILS % (MANUAL) 93 %; POIKILOCYTOSIS SLIGHT
--- NOTE | 2020-07-12 13:20 | NUR ---
Spoke with pt's son via phone regarding plan of care.
--- NOTE | 2020-07-12 13:21 | Diagnostic Imaging Report ---
INDICATION: Lung cancer. TIME OF EXAM: 1:05 PM Correlation is made with prior chest 05/21/2019. Heart size is stable. Left chest wall Port-A-Cath tip overlying the SVC. Consolidation in the right upper lung field persists. Partially noted gas lucencies overlying the area of consolidation have decreased. Mid and lower right lung field remains clear. Left lung is clear. No pneumothorax is identified. IMPRESSION: Continued consolidation right upper lung field, similar to examination from 05/21/2019. No new abnormality is detected. Dictated by: Dictated on workstation # [id number]
[2020-07-12] MEDS ORDERED: IOHEXOL 350 MG/ML 100 ML (OMNIPAQUE 350) VIAL IV ONE ×2 (13:30→14:00)
[2020-07-12] MEDS ORDERED: HOLD METFORMIN - RECEIVED CONTRAST 20 ML VIAL IV SCH ×2 (13:30→14:00)
[2020-07-12] MEDS ORDERED: NS 100 ML (IVPB) BAG IV ONE ×2 (13:30→14:00)
[2020-07-12 13:55] LABS: BILIRUBIN,URINE NEGATIVE (NEGATIVE); CLARITY,URINE CLEAR; COLOR,URINE YELLOW; GLUCOSE, URINE (UA) NEGATIVE (NEGATIVE); KETONES,URINE NEGATIVE (NEGATIVE); LEUKOCYTE ESTERASE ,URINE NEGATIVE (NEGATIVE); NITRITE,URINE NEGATIVE (NEGATIVE); PH,URINE 7.5 (5-9); PROTEIN,URINE NEGATIVE (NEGATIVE)
[2020-07-12 14:02] LABS: AMORPHOUS SEDIMENT,UR LARGE AMOR URATES /LPF; BACTERIA,URINE NEGATIVE /HPF; WBC,URINE 0-2 /HPF
--- NOTE | 2020-07-12 14:44 | Diagnostic Imaging Report ---
INDICATION: Right upper extremity swelling. [place] scale color Doppler evaluation of deep veins right upper extremity are performed with spectral analysis. There is occlusive thrombosis present within the right subclavian and axillary veins. Brachial and basilic veins are patent and there is flow in the right cephalic vein. IMPRESSION: Occlusive thrombosis of right subclavian and axillary veins. Dictated by: Dictated on workstation # [id number]
--- NOTE | 2020-07-12 15:18 | Diagnostic Imaging Report ---
PROCEDURE: CT angiography Chest TECHNIQUE: After intravenous administration of contrast, thin section axial CT angiography of the chest was performed. 3D MIP reconstructions were made. All CT scans use one or more of the following dose optimizing techniques: automated exposure control, MA and/or KvP adjustment based on a patient size and exam type, or iterative reconstruction. INDICATION: Shortness of air, stage IV lung cancer COMPARISON: CT chest from 01/27/2020 FINDINGS: Vasculature: No pulmonary emboli. No CT evidence of pulmonary hypertension or right ventricular strain. Normal caliber thoracic aorta without features of dissection, penetrating atherosclerotic ulcer or pseudoaneurysm. Heart and mediastinum: No supraclavicular or axillary lymphadenopathy. Soft tissue mass encasing the right mainstem bronchus resulting in mild luminal narrowing has worsened since the prior examination. No juxtaphrenic lymphadenopathy has developed. Heart is normal in size. A large pericardial effusion has developed measuring up to 1.5 cm at the cardiac apex. No features of cardiac tamponade. Pleura: No pleural effusion or pneumothorax. Lungs and airway: No endoluminal lesion in the trachea or central bronchi. Right upper lobe cavitary lung mass no longer has fluid within it but the air-filled irregular cavity persists. Surrounding fibrosis within the right upper lobe and superior segment of the right lower lobe has increased. Reticular nodular opacities in the inferior aspect of the right upper lobe may represent some regions of postobstructive pneumonitis or radiation change. Unchanged 4 mm left upper lobe pulmonary nodule near the mediastinum. No new left-sided pulmonary nodule. Upper abdomen: Left adrenal mass is unchanged. No acute abnormality of the upper abdomen. Musculoskeletal: No concerning osseous lesion. IMPRESSION: 1. No pulmonary emboli or acute aortic syndrome. 2. 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 Potential pneumonitis within the inferior aspect of the right upper lobe has not substantially changed. 3. A moderate to large pericardial effusion has developed and is likely due to post-therapeutic change. No features of cardiac tamponade. Dictated by: Dictated on workstation # [id number]
--- NOTE | 2020-07-12 17:35 | NUR ---
Dispatch called at this time.
[2020-07-12] MEDS ORDERED: ENOXAPARIN 60 MG/0.6 ML (LOVENOX) SYR SC ONE (17:45)
[2020-07-12 18:40] VITALS: BP 100/63
== END 2020-07-12 18:40 | disposition other institution (70) ==
LOC: EDUNIT# 11:45 → ER 11:49 → UNDOADMIN 14:57 → ICU 14:57 → ER 18:40
DX: C34.90 Malignant neoplasm of unspecified part of unspecified bronchus or lung (principal); I82.621 Acute embolism and thrombosis of deep veins of right upper extremity; I10 Essential (primary) hypertension; E78.00 Pure hypercholesterolemia, unspecified; G43.909 Migraine, unspecified, not intractable, without status migrainosus; F17.210 Nicotine dependence, cigarettes, uncomplicated; Z86.711 Personal history of pulmonary embolism
CPT/HCPCS: 36415; 71045; 71275; 80053; 81000; 83605; 83880; 84145; 84484; 85007; 85027; 87040; 87635; 93005; 93306; 99291

== ENCOUNTER 2020-07-21 13:00 | Outpatient (RCR) | payer BC ==
[2020-05-21 10:29] LABS: BASOPHILS % (AUTO) 0 % (0-10); EOSINOPHILS # (AUTO) 0.1 10^3/uL (0.0-0.3); EOSINOPHILS % (AUTO) 1 % (0-10); HEMATOCRIT 40 % (35-52); HEMOGLOBIN 12.1 G/DL (11.5-16.0); LYMPHOCYTES # (AUTO) 0.5 X 10^3 (1.0-4.0); LYMPHOCYTES % (AUTO) 8 % (12-44); MEAN CORPUSCULAR HEMOGLOBIN 30 PG (25-34); MEAN CORPUSCULAR HGB CONC 31 G/DL (32-36); MEAN CORPUSCULAR VOLUME 98 FL (80-99); MEAN PLATELET VOLUME 10.3 FL (7.4-10.4); MONOCYTES # (AUTO) 0.4 X 10^3 (0.0-1.0); MONOCYTES % (AUTO) 6 % (0-12); NEUTROPHILS # (AUTO) 5.9 X 10^3 (1.8-7.8); NEUTROPHILS % (AUTO) 85 % (42-75); PLATELET COUNT 170 10^3/uL (130-400)
[2020-05-21 10:48] LABS: BUN/CREATININE RATIO 16; CALCIUM 9.5 MG/DL (8.5-10.1); CARBON DIOXIDE 28 MMOL/L (21-32); CHLORIDE 100 MMOL/L (98-107); CREATININE SERUM 0.58 MG/DL (0.60-1.30); GFR ESTIMATED > 60; GLUCOSE 102 MG/DL (70-105); POTASSIUM 3.7 MMOL/L (3.6-5.0); SODIUM 138 MMOL/L (135-145)
[2020-06-09 13:19] LABS: BASOPHILS % (AUTO) 1 % (0-10); EOSINOPHILS % (AUTO) 0 % (0-10); HEMATOCRIT 37 % (35-52); HEMOGLOBIN 11.4 g/dL (11.5-16.0); LYMPHOCYTES # (AUTO) 0.5 10^3/uL (1.0-4.0); LYMPHOCYTES % (AUTO) 7 % (12-44); MEAN CORPUSCULAR HEMOGLOBIN 29 pg (25-34); MEAN CORPUSCULAR HGB CONC 31 g/dL (32-36); MEAN CORPUSCULAR VOLUME 93 fL (80-99); MEAN PLATELET VOLUME 10.4 fL (9.0-12.2); MONOCYTES # (AUTO) 0.5 10^3/uL (0.0-1.0); MONOCYTES % (AUTO) 7 % (0-12); NEUTROPHILS # (AUTO) 6.3 10^3/uL (1.8-7.8); NEUTROPHILS % (AUTO) 85 % (42-75); PLATELET COUNT 205 10^3/uL (130-400); WHITE BLOOD COUNT 7.5 10^3/uL (4.3-11.0)
[2020-06-09 13:43] LABS: ALANINE AMINOTRANSFERASE 11 U/L (0-55); ALBUMIN 3.4 GM/DL (3.2-4.5); ALKALINE PHOSPHATASE 89 U/L (40-136); BILIRUBIN,TOTAL 0.5 MG/DL (0.1-1.0); BUN/CREATININE RATIO 15; CALCIUM 9.5 MG/DL (8.5-10.1); CARBON DIOXIDE 29 MMOL/L (21-32); CHLORIDE 93 MMOL/L (98-107); CREATININE SERUM 0.62 MG/DL (0.60-1.30); GFR ESTIMATED > 60; GLUCOSE 115 MG/DL (70-105); POTASSIUM 3.5 MMOL/L (3.6-5.0); SODIUM 136 MMOL/L (135-145); TOTAL PROTEIN 6.7 GM/DL (6.4-8.2)
[~2020-07-21 13:00] MED LIST changes: -NICO-588 TD; +NICO-685 TD; +NS IV 1000 ML (CANCER CTR) IV SCH; +NS IV 500 ML (CANCER CENTER) 500 ML IV SCH; +PEMBROLIZUMAB 200 MG in NS (IVPB) CANCER CENTER 50 ML IV SCH
== END 2020-08-19 | disposition home or self-care (01) ==
LOC: ONC 13:00
PROVIDERS: ATTEND Internal Medicine Hematology & Oncology
DX: C34.11 Malignant neoplasm of upper lobe, right bronchus or lung (principal); C79.51 Secondary malignant neoplasm of bone; D69.59 Other secondary thrombocytopenia; E03.9 Hypothyroidism, unspecified; I89.0 Lymphedema, not elsewhere classified; I26.99 Other pulmonary embolism without acute cor pulmonale; I10 Essential (primary) hypertension; E78.00 Pure hypercholesterolemia, unspecified; E78.5 Hyperlipidemia, unspecified; Z92.3 Personal history of irradiation
CPT/HCPCS: 36591; 80048; 80053; 84443; 85025; 96413; 99213

== ENCOUNTER → 2020-07-22 | Outpatient (CLI) | payer BC ==
[~2020-07-22] MED LIST changes: +NICO-588 TD; -NICO-685 TD; -NS IV 1000 ML (CANCER CTR) IV SCH; -NS IV 500 ML (CANCER CENTER) 500 ML IV SCH; -PEMBROLIZUMAB 200 MG in NS (IVPB) CANCER CENTER 50 ML IV SCH
--- NOTE | 2020-07-22 16:52 | NUR ---
PATIENT DOES NOT QUALIFY FOR O2 AT THIS TIME Addendum: 07/22/20 at 1652 by HATTIE HIGHTOWER RT Amended: Links added.
== END ==
LOC: RT 16:30
PROVIDERS: ATTEND Internal Medicine Hematology & Oncology
DX: C34.90 Malignant neoplasm of unspecified part of unspecified bronchus or lung (principal)